=== PATIENT | female | born 1955 | race Caucasian/White ===

== ENCOUNTER → 2017-03-30 13:21 | Outpatient (CLI) | payer MEDICARE, SELFPAY ==
[2017-03-30] MEDS: Triamcinolone Acetonide 40 MG/ML Vial 30 MG IM (13:29)
[2017-03-30 13:36] VITALS: BP 127/80; PULSE 73; RESP 16; TEMP 36.7; O2SAT 98; BMI 17.6
== END ==
PROVIDERS: Family Provider Internal Medicine; PCP Internal Medicine; Visit Provider Internal Medicine Rheumatology
DX: M06.9 Rheumatoid arthritis, unspecified (principal)
CPT/HCPCS: 96372; 96413; J7050; A4216; J0129

== ENCOUNTER → 2017-05-01 14:19 | Outpatient (CLI) | payer MEDICARE, SELFPAY ==
[2017-05-01 14:20] VITALS: BP 114/82; PULSE 63; RESP 16; TEMP 36.6; O2SAT 95; BMI 17.8
[2017-05-01] MEDS: Triamcinolone Acetonide 40 MG/ML Vial 30 MG IM (14:42)
== END ==
PROVIDERS: Family Provider Internal Medicine; PCP Internal Medicine; Visit Provider Internal Medicine Rheumatology
DX: M06.9 Rheumatoid arthritis, unspecified (principal)
CPT/HCPCS: 96372; 96401; 96413; J7050; A4216; J0129

== ENCOUNTER → 2017-05-02 10:07 | Outpatient (CLI) | payer MEDICARE, SELFPAY ==
[2017-05-02 12:08] LABS: Absolute Lymphocyte Count 1.01 X10^3/ul (0.83-4.51); Absolute Neutrophil Count 2.3 X10^3/uL (2.0-7.7); Basophil# 0.02 X10^3/uL; Basophil% 0.5 % (0-1); Eosinophils% 2.4 % (0-5); Hematocrit 39.3 % (37-47); Hemoglobin 12.9 g/dl (12.0-15.0); Lymphocyte # 1.01 X10^3/ul (4.0); Mean Corp Hgb Conc 32.8 g/gl (32-36); Mean Corpuscular Hgb 31.1 pg (27.0-32.0); Mean Corpuscular Volume 94.7 fL (81-99); Mean Platelet Vol. 9.7 fl (6.2-12.0); Monocyte# 0.74 X10^3/uL; Monocyte% 17.6 % (0-10); Neutrophil # 2.33 X10^3/uL (2.7-7.7); Neutrophil % 55.5 % (47-70); Platelet Count 259 K/mm3 (150-450); RBC Distribution Width CV 13.8 % (11.6-14.6); RBC Distribution Width SD 47.5 fl (35.1-43.9); Red Blood Count 4.15 M/mm3 (4.2-5.4); White Blood Count 4.2 K/mm3 (4.4-11.0)
[2017-05-02 12:22] LABS: POSITIVE COUNT NO; POSITIVE DIFFERENTIAL NO; POSITIVE MORPHOLOGY NO
[2017-05-02 12:40] LABS: AST(SGOT) 47 U/L (15-37); Alanine Aminotransfer ALT/SGPT 69 U/L (13-56); Albumin, Serum 3.3 g/dL (3.2-5.0); Alkaline Phosphatase 72 U/L (45-117); Anion Gap 5 (5-15); BUN 15 mg/dL (7-18); BUN/Creat Ratio 22.4 RATIO (10-20); Chloride 101 mmol/L (98-107); Creatinine, Serum 0.67 mg/dL (0.55-1.02); EST Glomerular Filtration Rate 95 mL/min (>60); Est Glom Filt Rate - Afr Amer 115 mL/min (>60); Ferritin 12 ng/mL (8-252); Free T3 2.8 pg/mL (2.18-3.98); Globulin 3.4 g/dL (2.2-4.2); Glucose 92 mg/dL (74-106); Iron 53 ug/dL (50-170); Iron Binding Capacity,Total 452 ug/dL (250-450); Potassium 3.3 mmol/L (3.5-5.1); Protein, Total 6.7 g/dL (6.4-8.2); Sodium Level 138 mmol/L (136-145); T4 Free Direct 0.98 ng/dL (0.76-1.46); Thyroid Stim Hormone (TSH) 0.98 uIU/mL (0.358-3.74)
[2017-05-03 10:35] LABS: PTHIN 65.9 pg/mL (18.4-80.1)
[2017-05-03 10:39] LABS: Vitamin D,25 Hydroxy 57.7 ng/mL (19.95-100.01)
[2017-05-03 14:08] LABS: Ceruloplasmin 23.8 mg/dL (19.0-39.0); Hepatitis A AB, Total Positive (Negative); Transferrin 365 mg/dL (200-370)
[2017-05-03 14:46] LABS: Anti-Mitochondrial AB <20.0 Units (0.0-20.0)
[2017-05-03 15:30] LABS: Anti-Smooth Muscle ABS 2 Units (0-19); Hepatitis A IgM Antibody Negative (Negative)
[2017-05-05 15:22] LABS: Cholesterol 314 mg/dL (200); High Density Lipoprotein 101 mg/dL; Triglycerides 79 mg/dL; Very Low Density Lipoprotein 16 mg/dL (5-40)
== END ==
PROVIDERS: Family Provider Internal Medicine; PCP Internal Medicine; Visit Provider Internal Medicine Rheumatology
DX: M05.79 Rheumatoid arthritis with rheumatoid factor of multiple sites without organ or systems involvement (principal); M35.00 Sjogren syndrome, unspecified; M18.0 Bilateral primary osteoarthritis of first carpometacarpal joints; E05.90 Thyrotoxicosis, unspecified without thyrotoxic crisis or storm; E67.3 Hypervitaminosis D; E83.52 Hypercalcemia; E78.5 Hyperlipidemia, unspecified; R76.8 Other specified abnormal immunological findings in serum; K76.89 Other specified diseases of liver; M47.897 Other spondylosis, lumbosacral region; H81.03 Meniere's disease, bilateral; J45.909 Unspecified asthma, uncomplicated; Z79.899 Other long term (current) drug therapy
CPT/HCPCS: 36415; 80053; 80061; 82306; 82390; 82728; 83516; 83540; 83550; 83970; 84439; 84443; 84466; 84481; 85025; 86708; 86709

== ENCOUNTER 2017-05-22 13:30 | Outpatient (RCR) | payer MEDICARE, SELFPAY ==
--- NOTE | 2017-04-19 14:40 | HP.PTEVAL_ITS ---
Patient's Visit Information MASON BURK is a 61 year old F referred to Physical Therapy by DO CLARITZA Patrick with a diagnosis of LUMBAR RADICULOPATHY. Date of Evaluation: 04/19/17 Physical Therapist: Melissa King - Visit Plan Frequency: 2-3x /Week Duration: 4-6 Weeks Plan: *RA* AQUATIC THERAPY. POSTURE CORRECTION/STRENGTHENING, INSTRUCTION IN APPROPRIATE BODY MECHANICS AND ACTIVITY MODIFICATIONS. DLS STARTING WITH A NEUTRAL SPINE PROGRESSING ROM TOLERATED. RAMESH LE ROM, STRETCHING AND STRENGTHENING. HEP INSTRUCTION. 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 STATES SHE IS ADDICTED TO EXERCISE AND SHE WORKS OUT 7 DAYS A WEEK 365 DAYS A YEAR. Disability: YES FOR BACK AND HIP PAIN. Present symptoms: RAMESH LOW BACK , LEFT HIP, LEFT THIGH AND ENDS AT KNEE. SOMETIMES RIGHT THIGH TOO. PATIENT DENIES RAMESH PAIN, NUMBNESS OR TINGLING BELOW THE KNEE. PATIENT CHANGED HER MIND AND REPORTED RAMESH HAND AND FOOT NUMBNESS AND TINGLING. Present since: ABOUT 6 YEARS AGO. Pain Scale: WORST 9/10, LEAST 2/10. Currently: 5/10. WORSENING. ESPECIALLY THE LEFT THIGH PAIN IS WORSENING. Commenced as a result of: NO APPARENT REASON. Symptoms at onset: LOW BACK L>R. Worse: SITTING, EXERCISING , SQUATTING, LEANING BACK, LEANING FORWARD/BENDING, ANY SORT OF ACTIVITY, WASHING THE FLOOR, SEX. Better: TRAMADOL, WARM WATER, LYING DOWN. Disturbed sleep: YES. Previous history/Previous treatment: LEFT THR JAN [address] PATEL AT [facility] IN [place] , LUMBAR HERMES'S X [address] SHORT - THEY DID NOTHING, MASSAGE THERAPY SINCE AUGUST - HURTS WORSE THAN HELPS SO STOPPED IN FEBRUARY. CHIROPRACTOR X 1 YEAR TO 2016 - STOPPED WHEN SHE GOT THE HIP REPLACEMENT IN JAN 2017. MEDICATIONS. DR. LOUIE 2012 NO INJECTIONS BUT COMPOUND PAIN CREAM WITH SOME BENEFIT. HOME PT X 2 VISITS ONLY AFTER THR - STATES IT WAS MAKING IT WORSE SO STATES SHE JUST USED THE BOOKLET OF EX'S AND DID IT ON HER OWN. Coughing/sneezing/straining: POSTIVE. Gait: WALKING EVERYDAY ABOUT 3 MILES BUT STATES IT IS SLOWER THAN SHE WANTS TO GO AND IT HURTS THE WHOLE TIME WITH NERVE PAIN COMING INTO PLAY - I JUST KEEP GOING UNTIL IT GETS TIRED AND PAINFUL UNTIL I HAVE TO QUIT. Difficulty initiating urinatin: NO. Accidents: NO. Unexplained weight loss: NO. Imaging: RECENT LUMBAR MRI Mar WITH PATIENTS UNDERSTANDING BEING THAT SHE HAS SOME BULGING DISCS AND SOME THAT ARE PROTRUDING AND THE NERVES ARE GETTING PRESSED. PMH: *RA* OSTEOPENIA, HIGH CHOLESTEOL, NO CANCER, NO CVA, NOT DIABETIC, RAYNOLDS, SJORGENS, RAMESH HAND PAIN, NUMBNESS AND WEAKNESS. MENIERES. Recent major surgery: LEFT THR FALL 2017. 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 OTHER: WENT TO SEE AN ORTHOPEDIC SURGEON - DR. DICEKRSON - AND HE RECOMMENDED SURGERY - LAMINECTOMY AND FUSION - PATIENT SAID NO THANK YOU AND THAT IS WHY SHE IS HERE. HAS A DOCTOR IN [place] THAT SHE THINKS IS A FUNCTIONAL MEDICINE DOCTOR. THIS DOCTOR HAS PRESCRIBED EXERCISES AND SUPPLEMENTS AND DIET. 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 HE HELPED HER LE EDEMA IN 5 DAYS AFTER SUFFERING WITH IT FOR 3 YEARS. HER DAUGHTER LIVES IN [place] AND THIS IS HOW SHE FOUND HIM AND SHE SEES HIM 3-4 TIMES A YEAR. PATIENT REPORTS SHE WILL TRY ANYTHING TO AVOID SURGERY AT THIS POINT. - Objective Sitting Posture: POOR. Standing Posture: POOR. Lordosis: REDUCED. Lateral shift: NO. Relevant shift: N/A. Active Correction of posture: WORSE. Other Observations: INDEP GAIT INTO PT WITH MILD INCREASED TRUNK FLEXION AND DECREASED CADANCE. NO AD'S. Motor deficit: RIGHT HIP 4/5, KNEE EXT 5/5, KNEE FLEX 5/5, ANKLE 5/5, EHL 5/5. LEFT HIP 3+/5, KNEE EXT 4/5, KNEE FLEX 4/4, ANKLE 5/5, EHL 5/5. Sensory deficit: DECREASED LEFT ANTERIOR THIGH LIGHT TOUCH SENSATION COMPARED TO RIGHT. ROM deficit: RAMESH LE'S WFL. Reflexes: UNABLE TO ELICIT RAMESH LE DTR'S. Dural Signs: POSITIVE RAMESH LE'S. Lumbar mvmt loss: flex - NIL. ext - MOD. R SG - MOD. L SG - MOD. Core strength: FAIR. Palpation: PATIENT HAS TENDERNESS WITH LIGHT PALPATION OF THE ENTIRE LUMBAR, SACRAL, LEFT BUTTOCK, LEFT HIP AND LEFT ANTEROLATERAL THIGH. - Goals Goal 1:: DECREASE C/O BACK AND LEFT LE SX'S. Goal Time Frame: 4-6 Weeks Goal 2:: IMPROVE PERSONAL CARE, LIFTING, SITTING*, STANDING, SLEEP*, SOCIAL LIFE , TRAVEL AND HOMEMAKING FUNCTION. Goal Time Frame: 4-6 Weeks Goal 3:: INSTRUCT IN PROPHYLAXIS Goal Time Frame: 4-6 Weeks - Rehabilitation Potential Rehabilitation Potential: Fair - Anticipated Interventions Patient/Client Instruction: Educate patient on: Condition, Plan of Care, Risk Factors, Benefits of Fitness Program For the Purpose of:: To improve self management Therapeutic Exercise to Include: Strength training, Body mechanics, Postural training, In an aquatic setting, Dynamic Lumbar Stabilization For the Purpose of:: To improve ability of physical actions for home/community/ work/leisure Thank you for the opportunity to evaluate your patient. For Medicare and Medicare HMO plans, please review the plan of care and approve it. It will need to be FAXED BACK to us at [phone] for Medicare purposes. Please let me know if there are questions or concerns regarding this plan of care. Physician Signature: Date:
--- NOTE | 2017-05-22 16:02 | HP.PTDCSUM_ITS ---
HP - PT D/C Summary It has been my pleasure to treat MASON BURK under orders from Radha Cortez DO, for the diagnosis of LUMBAR RADICULOPATHY for a total of 10 visit(s ). Discharge Date: Please see the following information for a summary of their discharge status. - Subjective Subjective: PATIENT REPORTS SHE IS ON AN ANTIBIOTIC FOR A SINUS INFFECTION. PATIENT REPORTS THE US REALLY HELPS. SHE FEELS LIKE THE EX'S ARE HELPING HER GET STRONGER ESPECIALLY IN HER LEFT LEG AND SHE FEELS LIKE SHE WILL CONTINUE TO GET STRONGER. SHE STATES SHE FEELS LIKE SHE HAS BEEN IN GOOD HANDS WITH US TO PROTECT HER BACK SHE GETS STRONGER. SHE REPORTS SHE IS HAPPIER MENTALLY DOING THESE EX'S INSTEAD OF BEATING HERSELF UP LIKE SHE WAS. SHE REPORTS SHE FEELS SHE IS WORKING MUCH SMARTER. SHE REPORTS SHE FEELS GOOD ABOUT TRYING TO CONTINUE ON HER OWN AT THIS TIME. PLANS TO HAVE A PHYSICAL WITH DR. CORTEZ SOON. I AM DEFINATELY HEADED THE RIGHT DIRECTION NOW. PATIENT REPORTS THAT EVEN IF SHE DOES HAVE TO HAVE BACK SURGERY SHE FEELS LIKE SHE WILL GO IN STRONGER THAN SHE OTHERWISE WOULD HAVE. - Pain LOW BACK/HIPS Pain Intensity (Out of 10): 4 LEFT THIGH Pain Intensity (Out of 10): 3 - Objective Objective/Function: PATIENT IS MAKING GOOD PROGRESS AND HAS MUCH BETTER POSTURE CONTROL AND DEMONSTRATES A GOOD UNDERSTANDING OF PROPER BODY MECHANICS NOW. Motor deficit: RIGHT HIP 4/5, KNEE EXT 5/5, KNEE FLEX 5/5, ANKLE 5/5, EHL 5/5. LEFT HIP 4-/5, KNEE EXT 4+/5, KNEE FLEX 4+/4, ANKLE 5/5, EHL 5/5. Sensory deficit: SYMMETRICAL LEFT ANTERIOR THIGH LIGHT TOUCH SENSATION COMPARED TO RIGHT NOW. ROM deficit: RAMESH LE'S WFL. Reflexes: UNABLE TO ELICIT RAMESH LE DTR' S. Dural Signs: NEGATIVE RAMESH LE'S NOW. Lumbar mvmt loss: flex - NIL. ext - MOD. R SG - MOD. L SG - MOD. PATIENT DENIES INCEASED PAIN WITH LUMBAR ROM TESTING INTO FLEX AND EXTENSION BUT RAMESH SG TESTING PROVOKES INCREASED PAIN AND DOES NOT REMAIN WORSE A RESULT. Core strength: FAIR WITH CONTROL INCREASING. Palpation: PATIENT DOES NOT HAVE TENDERNESS WITH PALPATION OF THE ENTIRE LUMBAR, SACRAL, LEFT BUTTOCK, LEFT HIP AND LEFT ANTEROLATERAL THIGH TODAY. - Goals Goal 1:: DECREASE C/O BACK AND LEFT LE SX'S. Goal Progress: Goal Met Goal 2:: IMPROVE PERSONAL CARE, LIFTING, SITTING*, STANDING, SLEEP*, SOCIAL LIFE , TRAVEL AND HOMEMAKING FUNCTION. Goal Progress: Goal Met Goal 3:: INSTRUCT IN PROPHYLAXIS Goal Progress: Goal Met - Plan Plan: D/C TO INDEP HEP. PATIENT IS AGREEABLE. - D/C Information If there are questions or concerns regarding this patient's physical therapy, please feel free to call me at [phone]. Thank you for the referral of this patient. Sincerely, Melissa King
== END 2017-05-22 19:00 | disposition home or self-care (01) ==
LOC: PT 13:30
PROVIDERS: Family Provider Internal Medicine; PCP Internal Medicine; Visit Provider Internal Medicine
DX: M54.16 Radiculopathy, lumbar region (principal)
CPT/HCPCS: 97035; 97110; 97162; 97530

== ENCOUNTER → 2017-05-29 14:02 | Outpatient (CLI) | payer MEDICARE, SELFPAY ==
[2017-05-29 14:13] VITALS: BP 105/63; PULSE 80; RESP 18; TEMP 36.3; O2SAT 100; BMI 17.6
[2017-05-29] MEDS: Triamcinolone Acetonide 40 MG/ML Vial 30 MG IM (14:35)
== END ==
PROVIDERS: Family Provider Internal Medicine; PCP Internal Medicine; Visit Provider Internal Medicine Rheumatology
DX: M06.9 Rheumatoid arthritis, unspecified (principal)
CPT/HCPCS: 96372; 96413; J7050; A4216; J0129

== ENCOUNTER → 2017-06-06 14:40 | Outpatient (CLI) | payer MEDICARE, SELFPAY ==
[2017-06-06 18:23] LABS: AST(SGOT) 49 U/L (15-37); Alanine Aminotransfer ALT/SGPT 66 U/L (13-56); Albumin, Serum 3.5 g/dL (3.2-5.0); Alkaline Phosphatase 79 U/L (45-117); Bilirubin, Direct 0.12 mg/dL (0.00-0.30); Globulin 3.4 g/dL (2.2-4.2); Protein, Total 6.9 g/dL (6.4-8.2)
== END ==
PROVIDERS: Family Provider Internal Medicine; PCP Internal Medicine; Visit Provider Internal Medicine Rheumatology
DX: M05.79 Rheumatoid arthritis with rheumatoid factor of multiple sites without organ or systems involvement (principal); M35.00 Sjogren syndrome, unspecified; M18.0 Bilateral primary osteoarthritis of first carpometacarpal joints; M47.897 Other spondylosis, lumbosacral region; H81.03 Meniere's disease, bilateral; E78.5 Hyperlipidemia, unspecified; J45.909 Unspecified asthma, uncomplicated; Z79.899 Other long term (current) drug therapy
CPT/HCPCS: 36415; 80076

== ENCOUNTER → 2017-06-19 13:46 | Outpatient (CLI) | payer MEDICARE, SELFPAY ==
--- NOTE | 2017-06-19 13:49 | RAD_ITS ---
STUDY: X-RAY LEFT FOOT, FOURTH TOE REASON FOR EXAM: Female, 61 years old. Ulceration. TECHNIQUE: 3 view(s) of the toe were obtained. COMPARISON: None. FINDINGS: Normal visualized metatarsus. Normal metatarsophalangeal (M.T.P) joint. Normal interphalangeal joints. Normal phalanges and interphalangeal joints. Soft tissue swelling overlying the fourth toe. No bony abnormality is seen. RAD/Toe(s) Min 2 Views IMPRESSION: Soft tissue swelling. Electronically Signed: Shreyas Garcia MD at 14:12 EDT Tel [phone], Service support ,
== END ==
PROVIDERS: Family Provider Internal Medicine; PCP Internal Medicine; Visit Provider Internal Medicine
DX: L97.521 Non-pressure chronic ulcer of other part of left foot limited to breakdown of skin (principal)
CPT/HCPCS: 73660

== ENCOUNTER → 2017-06-30 15:34 | Outpatient (CLI) | payer MEDICARE, SELFPAY ==
[2017-06-30 15:35] VITALS: BP 127/84; PULSE 86; RESP 14; TEMP 36.7; O2SAT 98; BMI 18.1
[2017-06-30] MEDS: Triamcinolone Acetonide 40 MG/ML Vial 30 MG IM ×2 (16:07→16:29)
== END ==
PROVIDERS: Family Provider Internal Medicine; PCP Internal Medicine; Visit Provider Internal Medicine Rheumatology
DX: M06.9 Rheumatoid arthritis, unspecified (principal)
CPT/HCPCS: 96372; J7040; A4216; J0129

== ENCOUNTER → 2017-07-18 15:30 | Outpatient (CLI) | payer MEDICARE, SELFPAY ==
[2017-07-18 17:50] LABS: Absolute Lymphocyte Count 1.04 X10^3/ul (0.83-4.51); Absolute Neutrophil Count 4.6 X10^3/uL (2.0-7.7); Basophil# 0.03 X10^3/uL; Basophil% 0.5 % (0-1); Eosinophil# 0.05 X10^3/uL; Eosinophils% 0.8 % (0-5); Hematocrit 40.9 % (37-47); Hemoglobin 13.7 g/dl (12.0-15.0); Lymphocyte # 1.04 X10^3/ul (4.0); Lymphocyte % 16.4 % (19-41); Mean Corp Hgb Conc 33.5 g/gl (32-36); Mean Corpuscular Hgb 30.7 pg (27.0-32.0); Mean Corpuscular Volume 91.7 fL (81-99); Monocyte# 0.68 X10^3/uL; Monocyte% 10.7 % (0-10); Neutrophil # 4.55 X10^3/uL (2.7-7.7); Neutrophil % 71.6 % (47-70); Platelet Count 314 K/mm3 (150-450); RBC Distribution Width CV 13.8 % (11.6-14.6); RBC Distribution Width SD 45.9 fl (35.1-43.9); Red Blood Count 4.46 M/mm3 (4.2-5.4); White Blood Count 6.4 K/mm3 (4.4-11.0)
[2017-07-18 17:51] LABS: POSITIVE COUNT NO; POSITIVE DIFFERENTIAL NO; POSITIVE MORPHOLOGY NO
[2017-07-18 18:07] LABS: ALB/GLOB Ratio 1.1 RATIO (0.9-2.4); AST(SGOT) 50 U/L (15-37); Alanine Aminotransfer ALT/SGPT 66 U/L (13-56); Albumin, Serum 3.7 g/dL (3.2-5.0); Alkaline Phosphatase 69 U/L (45-117); Anion Gap 6 (5-15); BUN 18 mg/dL (7-18); BUN/Creat Ratio 22.5 RATIO (10-20); Calcium,Total 9.1 mg/dL (8.5-10.1); Chloride 97 mmol/L (98-107); EST Glomerular Filtration Rate 77 mL/min (>60); Est Glom Filt Rate - Afr Amer 94 mL/min (>60); Globulin 3.4 g/dL (2.2-4.2); Glucose 91 mg/dL (74-106); Potassium 2.9 mmol/L (3.5-5.1); Protein, Total 7.1 g/dL (6.4-8.2); Sodium Level 139 mmol/L (136-145)
== END ==
PROVIDERS: Family Provider Internal Medicine; PCP Internal Medicine; Visit Provider Internal Medicine Rheumatology
DX: M05.79 Rheumatoid arthritis with rheumatoid factor of multiple sites without organ or systems involvement (principal); M18.0 Bilateral primary osteoarthritis of first carpometacarpal joints; M35.00 Sjogren syndrome, unspecified; Z79.899 Other long term (current) drug therapy
CPT/HCPCS: 36415; 80053; 85025

== ENCOUNTER → 2017-07-27 14:09 | Outpatient (CLI) | payer MEDICARE, SELFPAY ==
[2017-07-27 14:14] VITALS: BP 113/83; PULSE 72; RESP 14; TEMP 37.3; O2SAT 99; BMI 18.5
[2017-07-27] MEDS: Triamcinolone Acetonide 40 MG/ML Vial 30 MG IM (14:24)
== END ==
PROVIDERS: Family Provider Internal Medicine; PCP Internal Medicine; Visit Provider Internal Medicine Rheumatology
DX: M06.9 Rheumatoid arthritis, unspecified (principal)
CPT/HCPCS: 96372; 96413; J7040; A4216; J0129

== ENCOUNTER → 2017-07-28 12:58 | Outpatient (CLI) | payer MEDICARE, SELFPAY ==
--- NOTE | 2017-07-28 13:06 | ADUL_ITS ---
Reason For Study: ATHEROSCLEROSIS, RAYNAUDS Right Velocities Ext. Iliac Artery, dist = 133.0 cm./sec. Common Femoral Artery, mid = 66.3 cm./sec. Supf Femoral Artery, prox = 75.0 cm./sec. Supf Femoral Artery, mid = 75.6 cm./sec. Supf Femoral Artery, dist. = 65.7 cm./sec. Profunda Femoral Artery = 66.8 cm./sec. Popliteal Artery, prox. = 46.3 cm./sec. Popliteal Artery, mid = 45.1 cm./sec. Popliteal Artery, dist = 38.7 cm./sec. Post. Tibial Artery, prox = 50.4 cm./sec. Post. Tibial Artery, mid = 62.7 cm./sec. Post. Tibial Artery, dist = 67.4 cm./sec. Peroneal Artery, prox = 28.3 cm./sec. Peroneal Artery, mid = 30.6 cm./sec. Peroneal Artery,dist = 39.3 cm./sec. Ant. Tibial Artery, prox = 39.7 cm./sec. Ant. Tibial Artery, mid = 47.1 cm./sec. Ant. Tibial Artery, dist = 43.6 cm./sec. Procedure The exam was diagnostic. Exam performed in department. Interpretation Summary 1. righ leg with no stenosis sen and triphasic flow seen throughout.,. Ordering Physician: Garcia oTrres Referring Physician: Radha Haas D.O. Performed By: Katlyn Berg, LENNY, RVT
--- NOTE | 2017-08-02 08:32 | LEAS ---
Arterial Study - Arterial Study Arterial Study: Record number: [id number] next Date of scan 07/28/[address] Torres History patient with atherosclerosis and possible were nods with some known hyperlipidemia. Interpretation: Right lower extremity normal pulsatile flow noted at the ankle slightly peaked waveforms adequate waveform out to the digits. Duplex shows triphasic flow at the ankle. NISH 1.23 the posterior tib 1.27 of the dorsalis pedis. Digital brachial index 0.97 next Remedy with normal pulsatile flow noted at the ankle slightly peaked waveforms. Normal waveform out through the digits. Duplex shows triphasic flow both vessels with an NISH 1.27 posterior tibial 1.15 the dorsalis pedis. Digital brachial index 0.74. Impression: 1. Right lower extremity no evidence of significant arterial occlusive disease with triphasic flow and an NISH 1.27 and a normal digit brachial index 0.97. 2. Left lower extremity no evidence of significant arterial occlusive disease at rest with an NISH of 1.27 and triphasic flow in the digit brachial index 0.74.
== END ==
PROVIDERS: Family Provider Internal Medicine; PCP Internal Medicine; Visit Provider Surgery Vascular Surgery
DX: I70.245 Atherosclerosis of native arteries of left leg with ulceration of other part of foot (principal); I73.00 Raynaud's syndrome without gangrene
CPT/HCPCS: 93922; 93926

== ENCOUNTER → 2017-08-10 13:29 | Outpatient (CLI) | payer MEDICARE, SELFPAY ==
--- NOTE | 2017-08-10 13:34 | BD_ITS ---
STUDY: DUAL ENERGY X-RAY ABSORPTIOMETRY / DXA REASON FOR EXAM: Female, 62 years old. The patient is postmenopausal. Loss of height. TECHNIQUE: Bone Mineral Density (BMD) measurements of lumbar spine and right hip were obtained. The patient is status post left hip replacement. COMPARISON: None. FINDINGS: Lumbar Spine (L1-L4): g/cm2 (0.884) / T-score (-2.4) / Z-score (-1.1) Findings are suggestive of osteopenia with a moderate fracture risk. Increased thoracic kyphosis. Right Femur Total: g/cm2 (0.721) / T-score (-2.3) / Z-score (-1.3) Right Femoral Neck: g/cm2 (0.672) / T-score (-2.6) / Z-score (-1.3) BD/Dexa Bone Density Study IMPRESSION: The patient is considered osteoporotic as outlined below according to World Geoff Organization (WHO) criteria with a high fracture risk. Reference Information: The T-score is the number of standard deviations above or below the standard which is normal for young adults at their peak bone mineral density. The World Health Organization (WHO) interprets the T-scores as follows: Above -1 Normal bone density Between -1 and -2.5 Osteopenia Equal to / or below -2.5 Osteoporosis As a practical clinical guideline, osteopenia may be graded as follows: Mild -1 through -1.5 Moderate -1.6 through -2.0 Severe -2.1 through -2.4 The Z-score is the number of standard deviations above or below age-matched controls. A Z-score of less than -1.5 would be considered abnormal. References: 1. NIH Osteoporosis and Related Bone Diseases http://www.osteo.org 2. International Society for Clinical Densitometry http://www.iscd.org 3. National Osteoporosis Foundation http://www.nof.org Electronically Signed: Shreyas Garcia MD at 14:58 EDT Tel [phone], Service support ,
== END ==
PROVIDERS: Family Provider Internal Medicine; PCP Internal Medicine; Visit Provider Internal Medicine
DX: M81.0 Age-related osteoporosis without current pathological fracture (principal); Z78.0 Asymptomatic menopausal state
CPT/HCPCS: 77080

== ENCOUNTER → 2017-08-28 13:46 | Outpatient (CLI) | payer MEDICARE, SELFPAY ==
[2017-08-28] MEDS: Triamcinolone Acetonide 40 MG/ML Vial 30 MG IM (14:09)
[2017-08-28 14:21] VITALS: BP 131/76; PULSE 65; RESP 16; TEMP 36.7; O2SAT 95; BMI 18.5
== END ==
PROVIDERS: Family Provider Internal Medicine; PCP Internal Medicine; Visit Provider Internal Medicine Rheumatology
DX: M06.9 Rheumatoid arthritis, unspecified (principal)
CPT/HCPCS: 96372; 96401; 96413; J7050; A4216; J0129

== ENCOUNTER → 2017-09-21 14:00 | Outpatient (CLI) | payer MEDICARE, SELFPAY ==
[2017-09-21 14:16] VITALS: BP 107/74; PULSE 72; RESP 16; TEMP 36.8; BMI 18.1
[2017-09-21] MEDS: Triamcinolone Acetonide 40 MG/ML Vial 30 MG IM (14:24)
== END ==
PROVIDERS: Family Provider Internal Medicine; PCP Internal Medicine; Visit Provider Internal Medicine Rheumatology
DX: M06.9 Rheumatoid arthritis, unspecified (principal)
CPT/HCPCS: 96372; 96413; J7050; A4216; J0129

== ENCOUNTER → 2017-10-16 13:00 | Outpatient (CLI) | payer MEDICARE, SELFPAY ==
[2017-10-16 13:46] LABS: Absolute Lymphocyte Count 0.69 X10^3/ul (0.83-4.51); Absolute Neutrophil Count 3.9 X10^3/uL (2.0-7.7); Basophil# 0.02 X10^3/uL; Basophil% 0.4 % (0-1); Eosinophil# 0.04 X10^3/uL; Eosinophils% 0.8 % (0-5); Hematocrit 41.3 % (37-47); Hemoglobin 13.3 g/dl (12.0-15.0); Lymphocyte # 0.69 X10^3/ul (4.0); Lymphocyte % 13.3 % (19-41); Mean Corp Hgb Conc 32.2 g/gl (32-36); Mean Corpuscular Hgb 29.1 pg (27.0-32.0); Mean Corpuscular Volume 90.4 fL (81-99); Mean Platelet Vol. 9.5 fl (6.2-12.0); Monocyte# 0.51 X10^3/uL; Monocyte% 9.8 % (0-10); Neutrophil # 3.92 X10^3/uL (2.7-7.7); Neutrophil % 75.7 % (47-70); Platelet Count 265 K/mm3 (150-450); RBC Distribution Width CV 13.8 % (11.6-14.6); RBC Distribution Width SD 45.4 fl (35.1-43.9); Red Blood Count 4.57 M/mm3 (4.2-5.4); White Blood Count 5.2 K/mm3 (4.4-11.0)
[2017-10-16 13:52] LABS: POSITIVE COUNT NO; POSITIVE DIFFERENTIAL NO; POSITIVE MORPHOLOGY NO
[2017-10-16 14:05] LABS: ALB/GLOB Ratio 1.1 RATIO (0.9-2.4); AST(SGOT) 56 U/L (15-37); Alanine Aminotransfer ALT/SGPT 75 U/L (13-56); Albumin, Serum 3.5 g/dL (3.2-5.0); Alkaline Phosphatase 66 U/L (45-117); Anion Gap 8 (5-15); BUN 8 mg/dL (7-18); Calcium,Total 9.1 mg/dL (8.5-10.1); Chloride 95 mmol/L (98-107); EST Glomerular Filtration Rate 78 mL/min (>60); Est Glom Filt Rate - Afr Amer 94 mL/min (>60); Globulin 3.2 g/dL (2.2-4.2); Glucose 86 mg/dL (74-106); Potassium 2.9 mmol/L (3.5-5.1); Protein, Total 6.7 g/dL (6.4-8.2); Sodium Level 139 mmol/L (136-145)
== END ==
PROVIDERS: Family Provider Internal Medicine; PCP Internal Medicine; Visit Provider Internal Medicine Rheumatology
DX: M05.79 Rheumatoid arthritis with rheumatoid factor of multiple sites without organ or systems involvement (principal); M35.00 Sjogren syndrome, unspecified; M15.9 Polyosteoarthritis, unspecified; M18.0 Bilateral primary osteoarthritis of first carpometacarpal joints; M47.897 Other spondylosis, lumbosacral region; H81.03 Meniere's disease, bilateral; E78.5 Hyperlipidemia, unspecified; J45.909 Unspecified asthma, uncomplicated; Z79.899 Other long term (current) drug therapy
CPT/HCPCS: 36415; 80053; 85025

== ENCOUNTER → 2017-10-30 14:25 | Outpatient (CLI) | payer MEDICARE, SELFPAY ==
[2017-10-30 14:33] VITALS: BP 122/97; PULSE 76; RESP 18; TEMP 36.9; O2SAT 100; BMI 18.5
[2017-10-30] MEDS: Triamcinolone Acetonide 40 MG/ML Vial 30 MG IM (14:58)
== END ==
PROVIDERS: Family Provider Internal Medicine; PCP Internal Medicine; Visit Provider Internal Medicine Rheumatology
DX: M06.9 Rheumatoid arthritis, unspecified (principal)
CPT/HCPCS: 96372; 96413; J7050; A4216; J0129

== ENCOUNTER → 2017-11-21 15:20 | Outpatient (CLI) | payer MEDICARE, SELFPAY ==
--- NOTE | 2017-11-21 15:22 | BI_ITS ---
MAMMOGRAPHY - BILATERAL SCREENING REASON FOR EXAM: Female, 62 years old. Routine annual screening examination. PERTINENT HISTORY: Non-contributory. TECHNIQUE: Digital bilateral breast ariadna (3D mammographic acquisition) in the CC and MLO projections. 2-D mediolateral oblique (MLO) and craniocaudad (CC) views of both breasts were obtained. CAD: Full Field Digital Mammography with Computer Added Detection was performed. COMPARISON: Comparison is made with prior study dated October 06, 2016 and October 23, 2012. FINDINGS: Breast Composition: The breasts are extremely dense, which lowers the sensitivity of mammography. There are no dominant masses or suspicious calcifications. No other significant abnormalities are identified. There has been no significant change since the prior study. BI/SCREENING MAMM (CAD), BILAT IMPRESSION: Stable bilateral screening mammogram. Yearly follow-up mammogram recommended. (A) ASSESSMENT CATEGORY: BIRADS Category 1: Negative. A letter regarding these results will be sent to the patient by the facility within 30 days. Approximately 10% of breast cancers are not detected by mammography. A normal mammogram should not delay biopsy of a clinically suspicious abnormality. [id number] Electronically Signed: Shreyas Garcia MD at 12:28 EDT Tel [phone], Service support ,
== END ==
PROVIDERS: Family Provider Internal Medicine; PCP Internal Medicine; Visit Provider Internal Medicine
DX: Z12.31 Encounter for screening mammogram for malignant neoplasm of breast (principal)
CPT/HCPCS: 77063; 77067

== ENCOUNTER → 2017-11-23 13:00 | Outpatient (CLI) | payer MEDICARE, SELFPAY ==
[2017-11-23] MEDS: Triamcinolone Acetonide 40 MG/ML Vial 30 MG IM (13:33)
[2017-11-23 13:35] VITALS: BP 132/85; PULSE 71; RESP 15; TEMP 37.3; O2SAT 96; BMI 18.3
== END ==
PROVIDERS: Family Provider Internal Medicine; PCP Internal Medicine; Visit Provider Internal Medicine Rheumatology
DX: M06.9 Rheumatoid arthritis, unspecified (principal)
CPT/HCPCS: 96372; 96413; J7050; A4216; J0129

== ENCOUNTER → 2017-12-11 12:00 | Outpatient (CLI) | payer MEDICARE, SELFPAY ==
[2017-12-11 14:08] LABS: Absolute Lymphocyte Count 1.09 X10^3/ul (0.83-4.51); Absolute Neutrophil Count 6.3 X10^3/uL (2.0-7.7); Basophil# 0.01 X10^3/uL; Basophil% 0.1 % (0-1); Eosinophil# 0.02 X10^3/uL; Eosinophils% 0.3 % (0-5); Hematocrit 44.7 % (37-47); Hemoglobin 15.1 g/dl (12.0-15.0); Lymphocyte # 1.09 X10^3/ul (4.0); Lymphocyte % 13.8 % (19-41); Mean Corp Hgb Conc 33.8 g/gl (32-36); Mean Corpuscular Hgb 30.4 pg (27.0-32.0); Mean Corpuscular Volume 89.9 fL (81-99); Mean Platelet Vol. 9.7 fl (6.2-12.0); Monocyte# 0.53 X10^3/uL; Monocyte% 6.7 % (0-10); Neutrophil # 6.26 X10^3/uL (2.7-7.7); Platelet Count 318 K/mm3 (150-450); RBC Distribution Width CV 15.5 % (11.6-14.6); RBC Distribution Width SD 50.4 fl (35.1-43.9); Red Blood Count 4.97 M/mm3 (4.2-5.4); White Blood Count 7.9 K/mm3 (4.4-11.0)
[2017-12-11 14:16] LABS: AST(SGOT) 40 U/L (15-37); Alanine Aminotransfer ALT/SGPT 72 U/L (13-56); Albumin, Serum 3.7 g/dL (3.2-5.0); Alkaline Phosphatase 69 U/L (45-117); Anion Gap 10 (5-15); BUN 10 mg/dL (7-18); BUN/Creat Ratio 12.9 RATIO (10-20); Calcium,Total 9.5 mg/dL (8.5-10.1); Chloride 96 mmol/L (98-107); Creatinine, Serum 0.78 mg/dL (0.55-1.02); EST Glomerular Filtration Rate 80 mL/min (>60); Est Glom Filt Rate - Afr Amer 97 mL/min (>60); Globulin 3.6 g/dL (2.2-4.2); Glucose 108 mg/dL (74-106); Potassium 3.1 mmol/L (3.5-5.1); Protein, Total 7.3 g/dL (6.4-8.2); Sodium Level 139 mmol/L (136-145)
[2017-12-11 14:19] LABS: POSITIVE COUNT NO; POSITIVE DIFFERENTIAL NO; POSITIVE MORPHOLOGY NO
== END ==
PROVIDERS: Family Provider Internal Medicine; PCP Internal Medicine; Referring Provider Internal Medicine Rheumatology; Visit Provider Internal Medicine Rheumatology
DX: M05.79 Rheumatoid arthritis with rheumatoid factor of multiple sites without organ or systems involvement (principal); M35.00 Sjogren syndrome, unspecified; M18.0 Bilateral primary osteoarthritis of first carpometacarpal joints; M47.897 Other spondylosis, lumbosacral region; H81.03 Meniere's disease, bilateral; E78.5 Hyperlipidemia, unspecified; J45.909 Unspecified asthma, uncomplicated; Z79.899 Other long term (current) drug therapy
CPT/HCPCS: 36415; 80053; 85025

== ENCOUNTER → 2017-12-28 14:08 | Outpatient (CLI) | payer MEDICARE, SELFPAY ==
[2017-12-28 14:21] VITALS: BP 129/89; PULSE 79; RESP 18; TEMP 36.7; O2SAT 97
[2017-12-28] MEDS: Triamcinolone Acetonide 40 MG/ML Vial 30 MG IM (14:33)
== END ==
PROVIDERS: Family Provider Internal Medicine; PCP Internal Medicine; Referring Provider Internal Medicine Rheumatology; Visit Provider Internal Medicine Rheumatology
DX: M06.9 Rheumatoid arthritis, unspecified (principal)
CPT/HCPCS: 96372; 96413; J7050; A4216; J0129

== ENCOUNTER → 2018-01-10 18:34 | Outpatient (CLI) | payer MEDICARE, SELFPAY ==
[2018-01-10 19:05] LABS: Body Fluid QC Type(s) BF1Q; Source- Body Fluid SYNOVIAL
[2018-01-11 14:18] LABS: Pathologist Review Reviewed
== END ==
PROVIDERS: Family Provider Internal Medicine; PCP Internal Medicine; Referring Provider Podiatrist; Visit Provider Podiatrist
DX: M67.471 Ganglion, right ankle and foot (principal)
CPT/HCPCS: 87070; 87075; 87205; 89060

== ENCOUNTER → 2018-01-24 11:27 | Outpatient (CLI) | payer MEDICARE, SELFPAY ==
[2017-11-23 13:35] VITALS: BMI 18.3
--- NOTE | 2018-01-24 11:31 | RAD_ITS ---
STUDY: X-RAY - CERVICAL SPINE REASON FOR EXAM: Female, 62 years old. Right shoulder pain. History of rheumatoid arthritis. Arm weakness. TECHNIQUE: 5 view(s) of the cervical spine were obtained. COMPARISON: None FINDINGS: Normal anterior atlantoaxial articulation. Normal odontoid process. Straightening. 4 mm retrolisthesis of C5 on C6. Spondylosis and severe degenerative disc changes at C3-C4, C4-C5, and C5-C6. There is narrowing of the right neural foramina at C3-C4 and the left neural foramina at C2-C3, C3-C4, and C4-C5. The soft tissue structures are unremarkable. There is no demonstrated fracture of the cervical spine. RAD/Cerv Spine 4 or 5 Views IMPRESSION: No acute fracture or dislocation. Moderate to severe multilevel degenerative changes of the mid cervical spine. Electronically Signed: Perico Stewart MD at 10:36 EST , Service support ,
--- NOTE | 2018-01-24 11:31 | RAD_ITS ---
STUDY: X-RAY - RIGHT SHOULDER REASON FOR EXAM: Female, 62 years old. Right shoulder pain TECHNIQUE: 4 view(s) of the shoulder. COMPARISON: None. FINDINGS: Normal glenohumeral articulation. Normal acromioclavicular joint. Normal acromion. Normal humeral head and visualized proximal humerus. The soft tissue structures are unremarkable. There is no demonstrated fracture. Normal visualized pulmonary apex. RAD/Shoulder min 2 Views IMPRESSION: Normal x-ray examination of the shoulder. Electronically Signed: Perico Stewart MD at 10:42 EST , Service support ,
== END ==
PROVIDERS: Family Provider Internal Medicine; PCP Internal Medicine; Referring Provider Internal Medicine; Visit Provider Internal Medicine
DX: M79.601 Pain in right arm (principal)
CPT/HCPCS: 72050; 73030

== ENCOUNTER → 2018-01-29 14:08 | Outpatient (CLI) | payer MEDICARE, SELFPAY ==
[2018-01-29] MEDS: Triamcinolone Acetonide 40 MG/ML Vial 30 MG IM (14:33)
[2018-01-29 14:58] VITALS: BP 120/81; PULSE 70; RESP 16; TEMP 36.6
== END ==
PROVIDERS: Family Provider Internal Medicine; PCP Internal Medicine; Referring Provider Internal Medicine Rheumatology; Visit Provider Internal Medicine Rheumatology
DX: M06.9 Rheumatoid arthritis, unspecified (principal)
CPT/HCPCS: 96372; 96413; J7050; A4216; J0129

== ENCOUNTER → 2018-02-26 14:00 | Outpatient (CLI) | payer MEDICARE, SELFPAY ==
[2018-02-26] MEDS: Triamcinolone Acetonide 40 MG/ML Vial 30 MG IM (14:29)
[2018-02-26 14:39] VITALS: BP 112/78; PULSE 76; RESP 16; TEMP 36.2; O2SAT 100; BMI 18.7
--- OUTSIDE RECORDS SUMMARY | 2018-05-31 05:48 | XMS RPT_ITS | Continuity of Care Document ---
:1955 Author Organization [facility] Address [facility] [address] [place] [address] Phone Care Team Providers Name Role Phone Quintin Rueda CNP Unavailable Kermit Cortez DO Unavailable Dr. Brian Shepherd MD Unavailable Dr. Dev Self DO Unavailable Dr. Cam Kaufman Unavailable MD Alex, Rik Newell Unavailable Coral CORTES, Higinio Kiser Unavailable Dr. Marquise Rico Unavailable Derrick Ring Unavailable Katina Mathur Unavailable Unavailable Unavailable Unavailable Problems Name Dates Details Abnormal hepatitis serology (R76.8, 795.79) Status: Active Acute bacterial sinusitis (J01.90, 461.9) Status: Active Acute ear pain, right (H92.01, 388.70) Status: Active Acute recurrent maxillary sinusitis (J01.01, 461.0) Status: Active Acute sinusitis (J01.90, 461.9) Status: Active Acute sinusitis (J01.90, 461.9) Status: Active Allergic rhinitis (J30.9, 477.9) Status: Active Arm pain, right (M79.601, 729.5) Status: Active BMI less than 19,adult (Z68.1, V85.0) Status: Active Deliveries (Parity) Comments: 5. 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) Comments: improving Status: Active Fatigue (R53.83, 780.79) Status: Active Ganglion cyst of foot (M67.479, 727.43) Status: Active Hearing loss (H91.90, 389.9) Comments: since childhood,heriditary Status: Active Hepatomegaly (R16.0, 789.1) Comments: has high iron levels she will stop her iron and recheck - so we can rule out hemochromatosis Status: Active Hypercalcemia (E83.52, 275.42) Status: Active Hyperthyroidism (E05.90, 242.90) Comments: improving still discussed importance of normalizing as higer risk of thinning of bones arrhythmia but 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 Status: Active Hyperthyroidism (E05.90, 242.90) Status: Active Hypokalemia (E87.6, 276.8) Comments: recheck today Status: Active Left flank pain (R10.9, 789.09) Comments: left abdominal pain Status: Active Liver function abnormality (K76.89, 573.9) Comments: better Status: Active Lumbar radiculopathy (M54.16, 724.4) Status: Active Lymphedema (I89.0, 457.1) Status: Active [facility] WELLNESS EXAM Status: Active Neoplasm of uncertain behavior of skin (D48.5, 238.2) Status: Active Nonsmoker (Z78.9, V49.89) Status: Active Osteopenia (M85.80, 733.90) Comments: 05/26 Status: Active Osteoporosis (M81.0, 733.00) Comments: told her really n eeds to get thyroid under control as it is thinning her bones Status: Active Osteoporosis (733.00) Status: Active Postmenopausal (Renamed from Postmenopausal status) (Z78.0, V49.81) Status: Active Pregnancies () Comments: 5. Status: Active Raynaud's phenomenon without gangrene (I73.00, 443.0) Status: Active Rheumatoid arthritis (M06.9, 714.0) Status: Active Sinusitis, acute (J01.90, 461.9) Status: Active Skin ulcer of fourth toe, left, limited to breakdown of skin (L97.521, 707.15) Comments: better was raynuads ulcer Status: Active Sore throat (J02.9, 462) Comments: not red and doesnt have today - question mono /? drainage Status: Active Squamous carcinoma (C44.92, 199.1) Status: Active Unknown skin lesion (L98.9, 709.9) Status: Active Unspecified Diagnosis Status: Active Vertigo, benign positional (H81.10, 386.11) Status: Active Vitamin D intoxication (E67.3, 278.4) Comments: better Status: Active Medications Name Dates Details AC Glutathione Active 2 caps tid Comments: detoxification and immune support Benadryl Allergy 25 MG Oral Capsule 1 (one) Capsule Capsule as needed for 0 days Quantity: 30 {Capsule} Refills: 0 Ordered:28-Feb-2017 Quintin Rueda CNP Start : 30-Mar-2016 Active Comments:Medication taken as needed. Biotin 89469 MCG Oral Tablet qd (07422 MCG) Active Calcium Magnesium 750 300-300 MG Oral Tablet 1 (one) Tablet Tablet daily for 0 days Quantity: 30 {Tablet} Refills: 0 Ordered:28-Feb-2017 Quintin Rueda CNP Start : 30-Mar-2016 Active Clearite Shake 1 scoop bid Active Comments:supports detoxification Dymista 137-50 MCG/ACT Nasal Suspension 1 (one) Jarreau each nostril twice daily for 0 days Quantity: 3 {Jarreau} Refills: 3 Ordered:21-Nov-2017 Kermit Cortez DO Start : 21-Nov-2017 Active Comments:QS for 90 days Enzymix Pro 2 caps 3 times a day Active Comments:broad spectrum enzyme aids in digestion Furosemide 20 MG Oral Tablet 1 (one) Tablet qd for 90 days Quantity: 90 {Tablet} Refills: 3 Ordered:20-Dec-2017 Kermit Cortez DO Start : 20-Dec-2017 Active Kenalog 40 MG/ML Injection Suspension 1 shot once a month (40 MG/ML) Active Lidocaine 5 % External Patch 1 (one) Patch Patch up to 3 patches daily for 0 days Quantity: 90 {Patch} Refills: 0 Ordered:28-Feb-2017 Marybeth UNEMPLOY[employer]EF[employer] CLAIMS TAKERQuintin Start : 30-Mar-2016 Active Lipitor 40 MG Oral Tablet 1 (one) Tablet daily for 0 days Quantity: 90 {Tablet} Refills: 3 Ordered:24-Jul-2017 Kermit Cortez DO Start : 24-Jul-2017 Active Dispense as Written Comments:JOE Melatonin ER 3 MG Oral Tablet Extended Release 1 (one) Tablet ER Tablet ER qhs for 0 days Quantity: 30 {Tablet} Refills: 0 Ordered:28-Feb-2017 Isayosvanykaren RODRIGUEZQuintin Start : 30-Mar-2016 Active Metamucil 0.52 GM Oral Capsule 1 (one) capsule capsule daily for 0 days Quantity: 1 {Capsule} Refills: 0 Ordered:28-Feb-2017 Shainakaren RODRIGUEZQuintin Start : 30-Mar-2016 Active Multivitamin Adult Oral Tablet 1 (one) Tablet Tablet daily for 0 days Quantity: 30 {Tablet} Refills: 0 Ordered:28-Feb-2017 Marybeth JENNIFERQuintin Start : 30-Mar-2016 Active Orencia 250 MG Intravenous Solution Reconstituted 1 (one) For Solution For Solution one gram monthly for 0 days Quantity: 1 {Intravenous_Bag} Refills: 0 Ordered:28-Feb-2017 Shainakaren RODRIGUEZQuintin Start : 30-Mar-2016 Active Proglycem 50 MG Oral Capsule uad (50 MG) Active Comments:Dr. Mac Marin Drink 1 scoop bid Active Comments:supports digestion and absorption Restasis 0.05 % Ophthalmic Emulsion 1 (one) Emulsion Emulsion both eyes bid for 0 days Quantity: 1 {Bottle} Refills: 0 Ordered:28-Feb-2017 Isayosvanykaren RODRIGUEZQuintin Start : 30-Mar-2016 Active Resvero 1 tsp tid Active Comments:immune function Rhodiola 300 MG Oral Capsule 2 caps in AM and 2 caps PM (300 MG) Active Comments:adrenal function Spironolactone 100 MG Oral Tablet 1 (one) Milligram Milligram qd for 0 days Quantity: 30 {Milligram} Refills: 6 Ordered:20-Dec-2017 Katina Mathur Start : 20-Dec-2017 Active TraMADol HCl 50 MG Oral Tablet 1 (one) Tablet Tablet tid for 0 days Quantity: 90 {Tablet} Refills: 0 Ordered:28-Feb-2017 Quintin Rueda CNP Start : 30-Mar-2016 Active Tumeric Point Blank 2 caps bid Active Ventolin HFA 108 (90 Base) MCG/ACT Inhalation Aerosol Solution 1 (one) Aerosol Soln Aerosol Soln as needed for 0 days Quantity: 1 {Inhaler} Refills: 0 Ordered:28-Feb-2017 Quintin Rueda CNP Start : 30-Mar-2016 Active Comments:Medication taken as needed. Veramyst 27.5 MCG/SPRAY Nasal Suspension 2 (two) sprays sprays daily for 0 days Quantity: 1 {Bottle} Refills: 0 Ordered:28-Feb-2017 Quintin Rueda CNP Start : 30-Mar-2016 Active Vitamin D 2000 solution 3 drops per day Active X-Viromen 2 caps tid Active Comments:supports immune function Augmentin 875-125 MG Oral Tablet 1 (one) Tablet Tablet bid for 0 days Quantity: 20 {Tablet} Refills: 0 Ordered:02-May-2017 Kermit A Start : 20-Mar-2017 End : 02-May-2017 Inactive Boniva 150 MG Oral Tablet 1 (one) Tablet once a month for 0 days Quantity: 1 {Tablet} Refills: 0 Ordered:28-Feb-2017 DO Kermit A Start : 30-Mar-2016 End : 28-Feb-2017 Inactive Gabapentin 100 MG Oral Capsule 1 (one) Milligram tid for 0 days Quantity: 90 {Milligram} Refills: 2 Ordered:14-Mar-2017 Katina Mathur Start : 28-Feb-2017 End : 14-Mar-2017 Inactive Levaquin 500 MG Oral Tablet 1 (one) Tablet qd for 10 days Quantity: 10 {Tablet} Refills: 0 Ordered:30-Aug-2017 DO Kermit A Start : 30-Aug-2017 End : 09-Sep-2017 Inactive LevoFLOXacin 500 MG Oral Tablet 1 (one) Tablet qd for 0 days Quantity: 10 {Tablet} Refills: 0 Ordered:15-May-2017 Katina Mathur Start : 29-Mar-2017 End : 15-May-2017 Inactive Livixil Ilan 2.5-2.5 % External Kit 1 (one) Kit Kit apply one gram tid for 0 days Quantity: 1 Kit Refills: 0 Ordered:14-Mar-2017 Katina Mathur Start : 30-Mar-2016 End : 14-Mar-2017 Inactive Meclizine HCl 12.5 MG Oral Tablet 1 (one) Tablet Tablet bid prn for 0 days Quantity: 30 {Tablet} Refills: 0 Ordered:21-Nov-2017 Katina Mathur Start : 19-Sep-2017 End : 21-Nov-2017 Inactive Meloxicam 15 MG Oral Tablet 1 (one) Tablet qod for 0 days Quantity: 15 {Tablet} Refills: 0 Ordered:21-Nov-2017 Katina Mathur Start : 30-Oct-2017 End : 21-Nov-2017 Inactive Potassium Chloride ER 20 MEQ Oral Tablet Extended Release 1 (one) Tablet qd for 0 days Quantity: 30 {Tablet} Refills: 0 Ordered:21-Nov-2017 aKtina Mathur Start : 31-Oct-2017 End : 21-Nov-2017 Inactive Comments:slow-K PredniSONE 5 MG Oral Tablet 1 (one) Tablet daily for 30 days Quantity: 30 {Tablet} Refills: 0 Ordered:15-May-2017 Katina Mathur Start : 20-Mar-2017 End : 15-May-2017 Inactive Soma 250 MG Oral Tablet 1 (one) Tablet Tablet daily for 0 days Quantity: 30 {Tablet} Refills: 0 Ordered:14-Mar-2017 Katina Mathur Start : 30-Mar-2016 End : 14-Mar-2017 Inactive Zipsor 25 MG Oral Capsule 1 (one) Capsule daily for 0 days Quantity: 30 {Capsule} Refills: 0 Ordered:28-Feb-2017 Kermit Cortez DO Start : 30-Mar-2016 End : 28-Feb-2017 Inactive AmLODIPine Besylate 2.5 MG Oral Tablet 1 (one) Tablet qd at hs for 0 days Quantity: 30 {Tablet} Refills: 4 Ordered:14-May-2018 Kermit Cortez DO Start : 24-Jul-2017 End : 24-Jul-2017 Discontinued Cilostazol 50 MG Oral Tablet 1 (one) Tablet bid for 0 days Quantity: 60 {Tablet} Refills: 3 Ordered:24-Jul-2017 Kermit Cortez DO Start : 24-Jul-2017 End : 24-Jul-2017 Discontinued Leflunomide 20 MG Oral Tablet 1 (one) Tablet daily for 0 days Quantity: 30 {Tablet} Refills: 0 Ordered:30-Oct-2017 Kermit Cortez DO Start : 30-Oct-2017 End : 30-Oct-2017 Discontinued Triamterene-HCTZ 37.5-25 MG Oral Tablet 1 (one) Tablet daily for 0 days Quantity: 90 {Tablet} Refills: 3 Ordered:20-Dec-2017 Kermit Cortez DO Start : 20-Dec-2017 End : 20-Dec-2017 Discontinued Allergies and Adverse Reactions Name Dates Details Cymbalta *ANTIDEPRESSANTS* (Allergy) Status: Active Gabapentin *ANTICONVULSANTS* (Allergy) Status: Active Comments: unbalanced Methotrexate *ANTINEOPLASTICS AND Status: Active ADJUNCTIVE THERAPIES* (Allergy) Sulfa Drugs (Allergy) Status: Active Comments: unknown reaction -- was as a child Past Medical History Name Dates Details Body mass index (BMI) of 20 to 24 (V85.1) Status: Inactive as of 29-Mar-2017 Procedures Procedure Dates Details Colonoscopy Completed Comments: has never had 1 done yet but does the cologuard. Hernia repair Completed Comments: Abdominal Hip replacement - Left Completed Comments: 2015 Tubal Ligation Completed Comments: 1986 Date Value Details 24-Jan-2018 Cerv Spine 4 or 5 Views Result: Comments: See Note; NOTES: [facility] Imaging Services [address] [place] [address] Cerv Spine 4 or 5 Views MR#: [id number] Acct: [id number] Name: MASON BURK Emily Rep #: [id number] : 1955 F 62 From: Perico Stewart MD PCP: Kermit Cortez DO Status: REG CLI Study: Cerv Spine 4 or 5 Views Date of Exam: 01/24/18 Exam# [id number] Ordering Dr: Kermit Cortez DO STUDY: X-RAY - CERVICAL SPINE REASON FOR EXAM: Female, 62 years old. Right shoulder pain. History of rheumatoid arthritis. Arm weakness. TECHNIQUE: 5 view(s) of the cervical spine were obtained. COMPARISON: None _ FINDINGS: Normal anterior atlantoaxial articulation. Normal odontoid process. Straightening. 4 mm retrolisthesis of C5 on C6. Spondylosis and severe degenerative dis c changes at C3-C4, C4-C5, and C5-C6. There is narrowing of the right neural foramina at C3-C4 and the left neural foramina at C2-C3, C3-C4, and C4-C5. The soft tissue structures are unremarkable. Ther e is no demonstrated fracture of the cervical spine. RAD/Cerv Spine 4 or 5 Views IMPRESSION: No acute fracture or dislocation. Moderate to severe multilevel degenerative changes of the mid cervical spine. Electronically Signed: Perico Stewart MD at 10:36 EST , Service support , CC: Kermit Cortez DO [employer] Supervisor: Signed 24-Jan-2018 Shoulder min 2 Views Result: Comments: See Note; NOTES: [facility] Imaging Services [address] [place] [address] Shoulder min 2 Views MR#: [id number] Acct: [id number] Name: MASON BURK Emily Rep #: [id number] : 1955 F 62 From: Perico Stewart MD PCP: Kermit Cortez DO Status: REG CLI Study: Shoulder min 2 Views Date of Exam: 01/24/18 Exam# [id number] Ordering Dr: Kermit Cortez DO STUDY: X-RAY - RIGHT SHOULDER REASON FOR EXAM: Female, 62 years old. Right shoulder pain TECHNIQUE: 4 view(s) of the shoulder. COMPARISON: None. FINDINGS: Normal glenohumeral articul ation. Normal acromioclavicular joint. Normal acromion. Normal humeral head and visualized proximal humerus. The soft tissue structures are unremarkable. There is no demonstrated fracture. Normal vis ualized pulmonary apex. RAD/Shoulder min 2 Views IMPRESSION: Normal x-ray examination of the shoulder. Electronically Signed: Perico Stewart MD at 10:42 EST , Service support , CC: Kermit Cortez DO [employer] Supervisor: Signed 21-Nov-2017 SCREENING MAMM (CAD), BILAT Result: Comments: See Note; NOTES: [facility] Imaging Services [address] [place] [address] SCREENING MAMM (CAD), BILAT MR#: [id number] Acct: [id number] Name: MASON BURK Rep #: [id number] : 1955 F 62 From: Shreyas Garcia MD PCP: Kermit Cortez DO Status: REG CLI Study: SCREENING MAMM (CAD), BILAT Date of Exam: 11/21/17 Exam# [id number] Ordering Dr: Kermit Cortez DO [facility] MOGRAPHY - BILATERAL SCREENING REASON FOR EXAM: Female, 62 years old. Routine annual screening examination. PERTINENT HISTORY: Non-contributory. TECHNIQUE: Digital bilateral breast ariadna (3D mammograp hic acquisition) in the CC and MLO projections. 2-D mediolateral oblique (MLO) and craniocaudad (CC) views of both breasts were obtained. CAD: Full Field Digital Mammography with Computer Added Detectio n was performed. COMPARISON: Comparison is made with prior study dated October 06, 2016 and October 23, 2012. FINDINGS: Breast Composition: The breasts are extremely de nse, which lowers the sensitivity of mammography. There are no dominant masses or suspicious calcifications. No other significant abnormalities are identified. There has been no significant change sin ce the prior study. BI/SCREENING MAMM (CAD), BILAT IMPRESSION: Stable bilateral screening mammogram. Yearly follow-up mammogram recommended. (A) ASSESSMENT CATEGORY: BIRADS Category 1: Negative. A letter regarding these results will be sent to the patient by the facility within 30 days. Approximately 10% of breast cancers are not detected by mammography. A normal mammogram should not delay biopsy of a clinically suspicious abnormality. [id number] Electronically Signed: Shreyas Garcia MD at 1 2:28 EDT Tel [phone], Service support , CC: Kermit Cortez DO [employer] Supervisor: Signed 10-Aug-2017 Dexa Bone Density Study Result: Comments: See Note; NOTES: [facility] Imaging Services [address] [place] [id number] Dexa Bone Density Study MR#: [id number] Acct: [id number] Name: MASON BURK Rep #: [id number] : 1955 F 62 From: Shreyas Garcia MD PCP: Kermit Cortez DO Status: REG CLI Study: Dexa Bone Density Study Date of Exam: 08/10/17 Exam# [id number] Ordering Dr: Kermit Cortez DO STUDY: DUAL ENERGY X-RAY ABSORPTIOMETRY / DXA REASON FOR EXAM: Female, 62 years old. The patient is postmenopausal. Loss of height. TECHNIQUE: Bone Mineral Density (BMD) measurements of lumbar spine and right hi p were obtained. The patient is status post left hip replacement. COMPARISON: None. FINDINGS: Lumbar Spine (L1-L4): g/cm2 (0.884) / T-score (-2.4) / Z-score (-1.1) Findings are suggestive of osteopenia with a moderate fracture risk. Increased thoracic kyphosis. Right Femur Total: g/cm2 (0.721) / T-score (-2.3) / Z-score (-1.3) Right Femoral Neck: g/cm2 (0.672) / T-score (-2.6) / Z-score (-1.3) BD/Dexa Bone Density Study IMPRESSION: The patient is considered osteoporotic as outlined below according to Wor ld Geoff Organization (WHO) criteria with a high fracture risk. Reference Information: The T-score is the number of standard deviations above or below the standard which is normal for young adults at their peak bone mineral density. The World Health Organization (WHO) interprets the T-scores as follows: Above -1 Normal bone density Between -1 and -2.5 Osteopenia Equal to / or below -2.5 Osteoporosis As a practical clinical guideline, osteopenia may be graded as follows: Mild -1 through -1.5 Moderate -1.6 through -2.0 Severe -2.1 through -2.4 The Z-score is th e number of standard deviations above or below age-matched controls. A Z-score of less than -1.5 would be considered abnormal. References: 1. NIH Osteoporosis and Related Bone Diseases http://www.osteo .org 2. International Society for Clinical Densitometry http://www.iscd.org 3. National Osteoporosis Foundation http://www.nof.org Electronically Signed: Shreyas Garcia MD at 14:58 EDT Tel [phone], Service support , CC: Kermit DOVE [employer] Supervisor: Signed 02-Aug-2017 Arterial Duplex US, Limited Result: Comments: See Note; NOTES: [facility] Cardiovascular Services [address] [place] [place] [address] Art Duplex US Unilat Lower Ext 07/28/17 1320 MR#: [id number] Acct: [id number] Name: MASON BURK Rep #: [id number] : 1955 62 From: Garcia Dsouza MD Attending Dr: Garcia Dsouza MD Status: REG CLI Ordering Dr: Garcia Dsouza MD Date: 07/28/17 Location: [facility] Sex: F C Admitted: Reason For Study: ATHEROSCLEROSIS, RAYNAUDS Right Velocities Ext. Iliac Artery, dist = 133.0 cm./sec. Common Femoral Artery, mid = 66.3 cm./sec. Supf Femoral Artery, prox = 75.0 cm./sec. Supf Fem oral Artery, mid = 75.6 cm./sec. Supf Femoral Artery, dist. = 65.7 cm./sec. Profunda Femoral Artery = 66.8 cm./sec. Popliteal Artery, prox. = 46.3 cm./sec. Popliteal Artery, mid = 45.1 cm./sec. Poplitea l Artery, dist = 38.7 cm./sec. Post. Tibial Artery, prox = 50.4 cm./sec. Post. Tibial Artery, mid = 62.7 cm./sec. Post. Tibial Artery, dist = 67.4 cm./sec. Peroneal Artery, prox = 28.3 cm./sec. Peroneal Artery, mid = 30.6 cm./sec. Peroneal Artery,dist = 39.3 cm./sec. Ant. Tibial Artery, prox = 39.7 cm./sec. Ant. Tibial Artery, mid = 47.1 cm./sec. Ant. Tibial Artery, dist = 43.6 cm./sec. Procedure The exam was diagnostic. Exam performed in department. Interpretation Summary 1. righ leg with no stenosis sen and triphasic flow seen throughout.,. Ordering Physician: Garcia Dsouza Referring Physician: Kermit Cortez D.O. Performed By: Katlyn Berg, RDHORACE, RVT 08/02/17 1108 Date Garcia Dsouza MD CC: Garcia Dsouza MD; Kermit Cortez DO Date Dictated: 07/28/17 1320 Date Transcribed: 08/02/17 110 [employer] Supervisor: Signed 02-Aug-2017 Lower Ext Arterial Study Result: Comments: See Note; NOTES: [facility] Cardiovascular Services [address] [place] [address] 08/02/17 0832 MR#: [id number] Acct: [id number] Name: MASON BURK Rep #: [id number] : 1955 62 From: Garcia Dsouza MD Attending Dr: Garcia Dsouza MD Status: REG CLI Ordering Dr: Date: 08/02/17 Location: [facility] Sex: F C Admitted: Arterial Study - Arterial Study Arterial St udy: Record number: [id number] next Date of scan 07/28/[address] Dsouza History patient with atherosclerosis and possible were nods with some known hyperlipidemia. Interpretatio n: Right lower extremity normal pulsatile flow noted at the ankle slightly peaked waveforms adequate waveform out to the digits. Duplex shows triphasic flow at the ankle. NISH 1.23 the posterior tib 1.27 of the dorsalis pedis. Digital brachial index 0.97 next Remedy with normal pulsatile flow noted at the ankle slightly peaked waveforms. Normal waveform out through the digits. Duplex shows triphasic f low both vessels with an NISH 1.27 posterior tibial 1.15 the dorsalis pedis. Digital brachial index 0.74. Impression: 1. Right lower extremity no evidence of significant arterial occlusive disease with triphasic flow and an NISH 1.27 and a normal digit brachial index 0.97. 2. Left lower extremity no evidence of significant arterial occlusive disease at rest with an NISH of 1.27 and triphasic flow in the digit brachial index 0.74. 08/02/17 0834 <Electronically signed by Garcia Dsouza MD> Date Garcia Dsouza MD CC: Garcia Dsouza MD; Elisabeth Cortez DO Date Dictated: 08/02/17831 Date Transcribed: 08/02/17831 [employer] Supervisor: MELITON Signed 19-Jun-2017 Toe(s) Min 2 Views Result: Comments: See Note; NOTES: [facility] Imaging Services [address] [place] [address] Toe(s) Min 2 Views MR#: [id number] Acct: [id number] Name: WMMASON Rep #: [id number] : 1955 F 61 From: Shreyas Garcia MD PCP: Kermit Cortez DO Status: REG CLI Study: Toe(s) Min 2 Views Date of Exam: 06/19/17 Exam# [id number] Ordering Dr: Kermit Cortez DO STUDY: X-RAY LEFT DARSHAN T, FOURTH TOE REASON FOR EXAM: Female, 61 years old. Ulceration. TECHNIQUE: 3 view(s) of the toe were obtained. COMPARISON: None. FINDINGS: Normal visualized meta tarsus. Normal metatarsophalangeal (M.T.P) joint. Normal interphalangeal joints. Normal phalanges and interphalangeal joints. Soft tissue swelling overlying the fourth toe. No bony abnormality is seen. RAD/Toe(s) Min 2 Views IMPRESSION: Soft tissue swelling. Electronically Signed: Shreyas Garcia MD at 14:12 EDT Tel [phone], Service support , CC: Kermit Cortez DO [employer] Supervisor: Signed 22-May-2017 PT D/C Summary (1) Result: Comments: See Note; NOTES: [facility] [address] [place] [address] Fax REHABILITATION SERVICES DISCHAR GE SUMMARY MR#: [id number] Acct: [id number] Name: MASON BURK Rep #: [id number] : 1955 61 From: Melisas King PT, Cert. MDT Referring DrBlake: Kermit Cortez DO Status: REG RCR Insurance: [employer] C ARE MEDICARE SELF PAY INSURANCE HP - PT D/C Summary It has been my pleasure to treat MASON BURK under orders from Kermit Cortez DO, for the diagnosis of LUMBAR RADICULOPATHY for a total o f 10 visit(s). Discharge Date: Please see the following information for a summary of their discharge status. - Subjective Subjective: PATIENT REPORTS SHE IS ON AN ANTIBIOTIC FOR A SINUS INFFECTION. PATIENT REPORTS THE US REALLY HELPS. SHE FEELS LIKE THE EX'S ARE HELPING HER GET STRONGER ESPECIALLY IN HER LEFT LEG AND SHE FEELS LIKE SHE WILL CONTINUE TO GET STRONGER. SHE STATES SHE FEELS LIKE SHE H BEEN IN GOOD HANDS WITH US TO PROTECT HER BACK SHE GETS STRONGER. SHE REPORTS SHE IS HAPPIER MENTALLY DOING THESE EX'S INSTEAD OF BEATING HERSELF UP LIKE SHE WAS. SHE REPORTS SHE FEELS SHE IS WORK ING MUCH SMARTER. SHE REPORTS SHE FEELS GOOD ABOUT TRYING TO CONTINUE ON HER OWN AT THIS TIME. PLANS TO HAVE A PHYSICAL WITH DR. CORTEZ SOON. I AM DEFINATELY HEADED THE RIGHT DIRECTION NOW&#3 4;. PATIENT REPORTS THAT EVEN IF SHE DOES HAVE TO HAVE BACK SURGERY SHE FEELS LIKE SHE WILL GO IN STRONGER THAN SHE OTHERWISE WOULD HAVE. - Pain LOW BACK/HIPS Pain Intensity (Out of 10): 4 LEFT THIGH Pain Intensity (Out of 10): 3 - Objective Objective/Function: PATIENT IS MAKING GOOD PROGRESS AND HAS MUCH BETTER POSTURE CONTROL AND DEMONSTRATES A GOOD UNDERSTANDING OF PROPER BODY MECHANICS NO W. Motor deficit: RIGHT HIP 4/5, KNEE EXT 5/5, KNEE FLEX 5/5, ANKLE 5/5, EHL 5/5. LEFT HIP 4-/5, KNEE EXT 4+/5, KNEE FLEX 4+/4, ANKLE 5/5, EHL 5/5. Sensory deficit: SYMMETRICAL LEFT ANTERIOR THIGH LIGHT TOUCH SENSATION COMPARED TO RIGHT NOW. ROM deficit: RAMESH LE'S WFL. Reflexes: UNABLE TO ELICIT RAMESH LE DTR'S. Dural Signs: NEGATIVE RAMESH LE'S NOW. Lumbar mvmt loss: flex - NIL. ext - MOD. R SG - MOD. L SG - MOD. PATIENT DENIES INCEASED PAIN WITH LUMBAR ROM TESTING INTO FLEX AND EXTENSION BUT RAMESH SG TESTING PROVOKES INCREASED PAIN AND DOES NOT REMAIN WORSE A RESULT. Core strength: FAIR WITH CONTROL INC REASING. Palpation: PATIENT DOES NOT HAVE TENDERNESS WITH PALPATION OF THE ENTIRE LUMBAR, SACRAL, LEFT BUTTOCK, LEFT HIP AND LEFT ANTEROLATERAL THIGH TODAY. - Goals Goal 1:: DECREASE C/O BACK AND LEFT LE SX'S. Goal Progress: Goal Met Goal 2:: IMPROVE PERSONAL CARE, LIFTING, SITTING*, STANDING, SLEEP*, SOCIAL LIFE, TRAVEL AND HOMEMAKING FUNCTION. Goal Progress: Goal Met Goal 3:: INSTRUCT IN PROPHYLAXI S Goal Progress: Goal Met - Plan Plan: D/C TO INDEP HEP. PATIENT IS AGREEABLE. - D/C Information If there are questions or concerns regarding this patient's physical therapy, please feel free to call me at [phone]. Thank you for the referral of this patient. Sincerely, Melissa King <Electronically signed by Melissa King PT, Cert. MDT> 05/22/17 1602 CC: Kermit Cortez DO TOM Signed 19-Apr-2017 Inital Evaluation (1) - PT Result: Comments: See Note; NOTES: [facility] [address] [place] [address]. [address] [place] [address] Fax REHABILITATION SERVICES INITIAL EVALUATION MR#: [id number] Acct: [id number] Name: MASON BURK Rep #: [id number] : 1955 61 From: Melissa King PT, Cert. MDT Referring Dr.: Kermit Cortez DO Status: REG RCR Insurance: [employer] SELF PAY INSURANCE Patient's Visit Information MASON BURK is a 61 year old F referred to Physical Therapy by DO CLARITZA Patrick with a diagnosis of LUMBAR RADICULOPATHY. Date of Evaluation: 04/19/17 Physical Therapist: Melissa King - Visit Plan Frequency: 2-3x /Week Duration: 4-6 Weeks Plan: *RA* AQUATIC THERAPY. POSTURE CORRECTION/STRENGTHENING, INSTRUCTION IN APPROPRIAT E BODY MECHANICS AND ACTIVITY MODIFICATIONS. DLS STARTING WITH A NEUTRAL SPINE PROGRESSING ROM TOLERATED. RAMESH LE ROM, STRETCHING AND STRENGTHENING. HEP INSTRUCTION. - Subjective Subjective: Work/Lei sure: RETIRED. 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 STATES SHE IS ADDICTED TO EXERCISE AND SHE WORKS OUT 7 DAYS A WEEK 365 DAYS A YEAR. Disability: YES FOR BACK AND HIP PAIN. Present symptoms: RAMESH LOW BACK, LEFT HIP, LEFT THIGH AND ENDS AT KNEE. SOMETIMES RIGHT THIGH TOO. PATIENT DENIES RAMESH PAIN, NUMBNESS OR TINGLING BELOW THE KNEE. PATIENT CHANGED HER MIND AND REPORTED RAMESH HAND AND FOOT NUMBNESS AN D TINGLING. Present since: ABOUT 6 YEARS AGO. Pain Scale: WORST 9/10, LEAST 2/10. Currently: 5/10. WORSENING. ESPECIALLY THE LEFT THIGH PAIN IS WORSENING. Commenced as a result of: NO APPARENT REASON. S ymptoms at onset: LOW BACK L>R. Worse: SITTING, EXERCISING, SQUATTING, LEANING BACK, LEANING FORWARD/BENDING, ANY SORT OF ACTIVITY, WASHING THE FLOOR, SEX. Better: TRAMADOL, WARM WATER, LYING DO WN. Disturbed sleep: YES. Previous history/Previous treatment: LEFT THR JAN [address] BENÍTEZ AT [facility] IN [place] , LUMBAR HERMES'S X [address] SHORT - THEY DID NOTHING&#3 4;, MASSAGE THERAPY SINCE AUGUST - HURTS WORSE THAN HELPS SO STOPPED IN FEBRUARY. CHIROPRACTOR X 1 YEAR TO 2016 - STOPPED WHEN SHE GOT THE HIP REPLACEMENT IN JAN 2017. MEDICATIONS. DR. LOUIE 2013 N O INJECTIONS BUT COMPOUND PAIN CREAM WITH SOME BENEFIT. HOME PT X 2 VISITS ONLY AFTER THR - STATES IT WAS MAKING IT WORSE SO STATES SHE JUST USED THE BOOKLET OF EX'S AND DID IT ON HER OWN. Coughing/snee zing/straining: POSTIVE. Gait: WALKING EVERYDAY ABOUT 3 MILES BUT STATES IT IS SLOWER THAN SHE WANTS TO GO AND IT HURTS THE WHOLE TIME WITH NERVE PAIN COMING INTO PLAY - I JUST KEEP GOING UNTIL IT GETS TIRED AND PAINFUL UNTIL I HAVE TO QUIT. Difficulty initiating urinatin: NO. Accidents: NO. Unexplained weight loss: NO. Imaging: RECENT LUMBAR MRI Mar WITH PATIENTS UNDERSTANDING Sandro FOX THAT SHE HAS SOME BULGING DISCS AND SOME THAT ARE PROTRUDING AND THE NERVES ARE GETTING PRESSED. PMH: *RA* OSTEOPENIA, HIGH CHOLESTEOL, NO CANCER, NO CVA, NOT DIABETIC, RAYNOLDS, SJORGENS, RAMESH HAND PAIN, NUMBNESS AND WEAKNESS. MENIERES. Recent major surgery: LEFT THR FALL 2017. 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 OTHER: WENT TO SEE AN ORTHOPEDIC SURGEON - DR. ARAM Albert - AND HE RECOMMENDED SURGERY - LAMINECTOMY AND FUSION - PATIENT SAID NO THANK YOU AND THAT IS WHY SHE IS HERE. HAS A DOCTOR IN [place] THAT SHE THINKS IS A FUNCTIONAL MEDICINE DOCTOR. THIS DOCTOR HAS PRESCRIBED EXERCISES AND SUPPLEMENTS AND DIET. 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 HE HELPED HER LE EDEMA IN 5 DAYS AFTER SUFFERING WITH IT FOR 3 YEARS. HER DAUGHTER LIVES IN [place] AND THIS IS HOW SHE FOUND HIM AND SHE SEES HIM 3-4 TIMES A YEAR. PATIENT REPORTS SHE WILL TRY ANYTHING TO AVOID SURGERY AT THIS POINT. - Objective Sitting Pos ture: POOR. Standing Posture: POOR. Lordosis: REDUCED. Lateral shift: NO. Relevant shift: N/A. Active Correction of posture: WORSE. Other Observations: INDEP GAIT INTO PT WITH MILD INCREASED TRUNK FLEXI ON AND DECREASED CADANCE. NO AD'S. Motor deficit: RIGHT HIP 4/5, KNEE EXT 5/5, KNEE FLEX 5/5, ANKLE 5/5, EHL 5/5. LEFT HIP 3+/5, KNEE EXT 4/5, KNEE FLEX 4/4, ANKLE 5/5, EHL 5/5. Sensory deficit: DECREAS ED LEFT ANTERIOR THIGH LIGHT TOUCH SENSATION COMPARED TO RIGHT. ROM deficit: RAMESH LE'S WFL. Reflexes: UNABLE TO ELICIT RAMESH LE DTR'S. Dural Signs: POSITIVE RAMESH LE'S. Lumbar mvmt loss: flex - NIL. ext - MO D. R SG - MOD. L SG - MOD. Core strength: FAIR. Palpation: PATIENT HAS TENDERNESS WITH LIGHT PALPATION OF THE ENTIRE LUMBAR, SACRAL, LEFT BUTTOCK, LEFT HIP AND LEFT ANTEROLATERAL THIGH. - Goals Goal 1: : DECREASE C/O BACK AND LEFT LE SX'S. Goal Time Frame: 4-6 Weeks Goal 2:: IMPROVE PERSONAL CARE, LIFTING, SITTING*, STANDING, SLEEP*, SOCIAL LIFE, TRAVEL AND HOMEMAKING FUNCTION. Goal Time Frame: 4-6 We eks Goal 3:: INSTRUCT IN PROPHYLAXIS Goal Time Frame: 4-6 Weeks - Rehabilitation Potential Rehabilitation Potential: Fair - Anticipated Interventions Patient/Client Instruction: Educate patient on: Co ndition, Plan of Care, Risk Factors, Benefits of Fitness Program For the Purpose of:: To improve self management Therapeutic Exercise to Include: Strength training, Body mechanics, Postural training, &a mp;#34;In an aquatic setting, Dynamic Lumbar Stabilization For the Purpose of:: To improve ability of physical actions for home/community/work/leisure Thank you for the opportunity to evalu ate your patient. For Medicare and Medicare HMO plans, please review the plan of care and approve it. It will need to be FAXED BACK to us at [phone] for Medicare purposes. Please let me know if there are questions or concerns regarding this plan of care. Physician Signature: Date: <Electronically signed by Melissa King PT, Cert. MDT> 04/19/17 1440 CC: Kermit Cortez DO TOM Signed For Medicare only, by signing this I certify the plan of care. Physicians Signature Date 23-Mar-2017 Abdomen Complete Result: Comments: See Note; NOTES: [facility] Imaging Services [address] [place] [address] Abdomen Complete MR#: [id number] Acct: [id number] Name: MASON BURK Rep #: [id number] D OB: 1955 F 61 From: Shreyas Garcia MD PCP: Kermit Cortez DO Status: REG CLI Study: Abdomen Complete Date of Exam: 03/23/17 Exam# [id number] Ordering Dr: Kermit Cortez DO STUDY: ABDOMINAL ULTRASOU ND REASON FOR EXAM: Female, 61 years old. Abdominal pain. TECHNIQUE: Transabdominal ultrasound was performed with real-time and static diana scale imaging. TECHNICAL QUALITY: Adequate. COMPARISON: No ne. FINDINGS: Liver: The liver measures 17.2 cm. There is normal echogenicity of the liver. The bile ducts are within normal limits. There is hepatic color flow. Th e direction of portal flow is hepatopetal. There is no demonstrated mass lesion. Portal vein measurement: Gallbladder: Normal distended gallbladder. The gallbladder wall measures 2.2 mm. There is a neg ative sonographic Bray's sign. There is no pericholecystic fluid. There are no gallstones. Common Bile Duct (C.B.D.): The common bile duct measures 3.9 mm. Pancreas: Normal size of the head, body an d tail of the pancreas. There is normal echogenicity of the pancreas. There is no demonstrated pancreatic mass or cyst. Spleen: Normal size of the spleen. The spleen measures 10.6 cm x 2.6 cm x 2.4 cm. Right Kidney: Normal size of the right kidney. The right kidney measures 10.1 cm x 5.4 cm x 4.0 cm. Normal renal cortex. The right cortex measures 1.4 cm. There is no demonstrated renal mass or cyst. There is no right hydronephrosis. Left Kidney: Normal size of the left kidney. The left kidney measures 9.8 cm x 4.2 cm x 4.6 cm. Normal renal cortex. The left cortex measures cm. There is no demonstra sally renal mass or cyst. There is no left hydronephrosis. Aorta: Unremarkable I.V.C.: The IVC is patent. There is no ascites. US/Abdomen Comple te IMPRESSION: Normal abdominal ultrasound examination. Electronically Signed: Shreyas Garcia MD at 11:07 EST Tel [phone], Service support , CC : Kermit Cortez DO [employer] Supervisor: Signed 23-Mar-2017 Abdomen Complete Result: Comments: See Note; NOTES: [facility] Imaging Services [address] [place] [address] Abdomen Complete MR#: [id number] Acct: [id number] Name: MASON BURK Rep #: [id number] D OB: 1955 F 61 From: Shreyas Garcia MD PCP: Kermit Cotrez DO Status: REG CLI Study: Abdomen Complete Date of Exam: 03/23/17 Exam# [id number] Ordering Dr: Kermit Cortez DO ADDENDUM by Shreyas vaughn MD on 03/29/17 at 1505 US/Abdomen Complete 03/29/17 1512 Date cc: Kermit Cortez DO * Signed ADDENDUM by Shreyas Garcia MD on 03/29/17 at 1505 ADDENDUM This is an addendum report. The liver measures within normal limits. Electronically Signed: Shreyas lyon MD at 15:05 EST Tel [phone], Service support , 03/29/17 1505 Date cc: Kermit Cortez DO * Signed STUDY: ABDOMINAL ULTRASOUND REASON F OR EXAM: Female, 61 years old. Abdominal pain. TECHNIQUE: Transabdominal ultrasound was performed with real-time and static diana scale imaging. TECHNICAL QUALITY: Adequate. COMPARISON: None. FINDINGS: Liver: The liver measures 17.2 cm. There is normal echogenicity of the liver. The bile ducts are within normal limits. There is hepatic color flow. The direction of portal flow is hepatopetal. There is no demonstrated mass lesion. Portal vein measurement: Gallbladder: Normal distended gallbladder. The gallbladder wall measures 2.2 mm. There is a negative sonogr aphic Bray's sign. There is no pericholecystic fluid. There are no gallstones. Common Bile Duct (C.B.D.): The common bile duct measures 3.9 mm. Pancreas: Normal size of the head, body and tail of th e pancreas. There is normal echogenicity of the pancreas. There is no demonstrated pancreatic mass or cyst. Spleen: Normal size of the spleen. The spleen measures 10.6 cm x 2.6 cm x 2.4 cm. Right Kidn ey: Normal size of the right kidney. The right kidney measures 10.1 cm x 5.4 cm x 4.0 cm. Normal renal cortex. The right cortex measures 1.4 cm. There is no demonstrated renal mass or cyst. There is no right hydronephrosis. Left Kidney: Normal size of the left kidney. The left kidney measures 9.8 cm x 4.2 cm x 4.6 cm. Normal renal cortex. The left cortex measures cm. There is no demonstrated renal ma ss or cyst. There is no left hydronephrosis. Aorta: Unremarkable I.V.C.: The IVC is patent. There is no ascites. US/Abdomen Complete IMPRESSIO N: Normal abdominal ultrasound examination. Electronically Signed: Shreyas Garcia MD at 11:07 EST Tel [phone], Service support , CC: Kermit Cortez DO [employer] Supervisor: Signed 20-Mar-2017 Spine Lumbar (Routine) Result: Comments: See Note; NOTES: [facility] Imaging Services [address] [place] [address] Spine Lumbar (Routine) MR#: [id number] Acct: [id number] Name: MASON BURK Rep #: [id number] : 1955 F 61 From: Carson Richardson MD PCP: Kermit Cortez DO Status: REG CLI Study: Spine Lumbar (Routine) Date of Exam: 03/20/17 Exam# [id number] Ordering Dr: Kermit Cortez DO STUDY: MRI LUMBAR SPINE WITHOUT CONTRAST REASON FOR EXAM: Female, 61 years old. Radiculopathy. Pain in the low back and left leg for 5 years. No known injury. No previous surgery TECHNIQUE: Standardized fat and water weighted pulse sequences were obtained in the sagittal and axial planes. COMPARISON: Examination of the lumbar spine on April 17, 2015 FINDINGS: T12-L1: Normal e ndplates. Normal disc height, hydration and morphology. Normal bilateral facet joints. Normal central canal and bilateral lateral recesses. Normal bilateral intervertebral neural foramina. Normal lumba r lordosis. There is no substantial scoliosis. Normal conus medullaris that terminates at the L1-2: Normal endplates. Normal disc height, hydration and morphology. Normal bilateral facet joints. Normal central canal and bilateral lateral recesses. Normal bilateral intervertebral neural foramina. L2-3: There is mild endplate spondylosis. There is an annular bulge and bilateral facet arthrosis. There is a right foraminal and extraforaminal disc herniation of the protrusion type (axial T2 series 5 image 18). There is grade 1 degenerative anterolisthesis. There is moderate to severe thecal sac stenosi s (axial T2 series 5 image 17). There is right foraminal noncompressive is stenosis L3-4: Normal endplates. There is an annular bulge. There is bilateral facet arthrosis. Normal central canal and bilat eral lateral recesses. Normal bilateral intervertebral neural foramina. L4-5: Normal endplates. There is an annular bulge with a shallow central disc herniation of the protrusion type (axial T2 series 5 image 7). Normal bilateral facet joints. Normal central canal and bilateral lateral recesses. Normal bilateral intervertebral neural foramina. L5-S1: Normal endplates. There is an annular bulge. Ther e is grade 1 anterolisthesis with bilateral L5 spondylolysis. Normal spinal canal. There is bilateral foraminal stenosis with impingement of the L5 nerve roots Normal visualized sacral ala. Normal vis ualized paraspinous soft tissue structures. MRI/Spine Lumbar (Routine) IMPRESSION: L2-3 degenerative disc disease with annular bulge and right fo raminal and extraforaminal disc herniation of the protrusion type causing right foraminal noncompressive disc stenosis. Grade 1 degenerative anterolisthesis. Moderate to severe thecal sac stenosis. L3- 4 annular bulge with bilateral facet arthrosis. L4-5 annular bulge with shallow central disc herniation of the protrusion type. L5-S1 annular bulge. Grade 1 anterolisthesis with bilateral L5 spondylol ysis. Bilateral foraminal stenosis with impingement of the L5 nerve roots. Electronically Signed: Carson Richardson MD, FACR at 16:09 EST , Service support , F ax [phone] CC: Kermit Cortez DO [employer] Supervisor: Signed 28-Feb-2017 Thoracic Spine 3 Views Result: Comments: See Note; NOTES: [facility] Imaging Services [address] [place] [address] Thoracic Spine 3 Views MR#: [id number] Acct: [id number] Name: MASON BURK Emily Rep #: [id number] : 1955 F 61 From: Perico Stewart MD PCP: Evie Winter MD Status: REG CLI Study: Thoracic Spine 3 Views Date of Exam: 02/28/17 Exam# [id number] Ordering Dr: Cherelle Perez MD STUDY: X-R AY - THORACIC SPINE REASON FOR EXAM: Female, 61 years old. Left flank pain. TECHNIQUE: 3 view(s) of the thoracic spine were obtained. COMPARISON: None. FINDINGS: Normal kyphosis of the thoracic spine. There is no substantial scoliosis. There is multilevel endplate spondylosis of the thoracic vertebrae. There is multilevel disc space narrowing of the thoracic spi ne. The soft tissue structures are unremarkable. RAD/Thoracic Spine 3 Views IMPRESSION: No definite acute abnormality. Age-appropriate degenerat nora changes. 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 Vital Signs Date Test Result Details [id number] Temperature 98.2 f Comments: Method: Temporal Pulse 68 /min Comments: Pattern: Regular Respiration Rate 16 /min Comments: Pattern: Unlabored BP Systolic 110 mm[Hg] Comments: Patient Position: Sitting; Cuff Location: Left Arm; Cuff Size: Standard BP Diastolic 68 mm[Hg] Comments: Patient Position: Sitting; Cuff Location: Left Arm; Cuff Size: Standard Weight 111.125 lb Height 62.75 in Body Mass Index Calculated 19.84 kg/m2 Body Surface Area Calculated 1.5 m2 [id number]-Srs-[id number]:07 Temperature 98.4 f Comments: Method: Temporal Pulse 68 /min Comments: Pattern: Regular Respiration Rate 16 /min Comments: Pattern: Unlabored BP Systolic 115 mm[Hg] Comments: Patient Position: Sitting; Cuff Location: Left Arm; Cuff Size: Standard BP Diastolic 62 mm[Hg] Comments: Patient Position: Sitting; Cuff Location: Left Arm; Cuff Size: Standard Weight 111.125 lb Height 62.75 in Body Mass Index Calculated 19.84 kg/m2 Body Surface Area Calculated 1.5 m2 :11 Temperature 97.7 f Comments: Method: Temporal Pulse 66 /min Comments: Pattern: Regular Respiration Rate 16 /min Comments: Pattern: Unlabored BP Systolic 118 mm[Hg] Comments: Patient Position: Sitting; Cuff Location: Left Arm; Cuff Size: Standard BP Diastolic 68 mm[Hg] Comments: Patient Position: Sitting; Cuff Location: Left Arm; Cuff Size: Standard Weight 111.125 lb Height 62.75 in Body Mass Index Calculated 19.84 kg/m2 Body Surface Area Calculated 1.5 m2 :11 Temperature 98.2 f Comments: Method: Temporal Pulse 72 /min Comments: Pattern: Regular Respiration Rate 16 /min Comments: Pattern: Unlabored BP Systolic 115 mm[Hg] Comments: Patient Position: Sitting; Cuff Location: Left Arm; Cuff Size: Standard BP Diastolic 70 mm[Hg] Comments: Patient Position: Sitting; Cuff Location: Left Arm; Cuff Size: Standard Weight 106 lb Height 62.75 in Body Mass Index Calculated 18.93 kg/m2 Body Surface Area Calculated 1.47 m2 :20 Temperature 97.3 f Comments: Method: Temporal Pulse 68 /min Comments: Pattern: Regular Respiration Rate 16 /min Comments: Pattern: Unlabored BP Systolic 108 mm[Hg] Comments: Patient Position: Sitting; Cuff Location: Left Arm; Cuff Size: Standard BP Diastolic 60 mm[Hg] Comments: Patient Position: Sitting; Cuff Location: Left Arm; Cuff Size: Standard Weight 106 lb Height 62.75 in Body Mass Index Calculated 18.93 kg/m2 Body Surface Area Calculated 1.47 m2 :37 Temperature 98.1 f Comments: Method: Temporal Pulse 68 /min Comments: Pattern: Regular Respiration Rate 16 /min Comments: Pattern: Unlabored BP Systolic 115 mm[Hg] Comments: Patient Position: Sitting; Cuff Location: Left Arm; Cuff Size: Standard BP Diastolic 68 mm[Hg] Comments: Patient Position: Sitting; Cuff Location: Left Arm; Cuff Size: Standard Weight 106 lb Height 62.75 in Body Mass Index Calculated 18.93 kg/m2 Body Surface Area Calculated 1.47 m2 :51 Temperature 97.2 f Comments: Method: Temporal Pulse 70 /min Comments: Pattern: Regular Respiration Rate 16 /min Comments: Pattern: Unlabored BP Systolic 122 mm[Hg] Comments: Patient Position: Sitting; Cuff Location: Left Arm; Cuff Size: Standard BP Diastolic 68 mm[Hg] Comments: Patient Position: Sitting; Cuff Location: Left Arm; Cuff Size: Standard Weight 106 lb Height 62.75 in Body Mass Index Calculated 18.93 kg/m2 Body Surface Area Calculated 1.47 m2 :47 Temperature 98 f Comments: Method: Temporal Pulse 70 /min Comments: Pattern: Regular Respiration Rate 16 /min Comments: Pattern: Unlabored BP Systolic 115 mm[Hg] Comments: Patient Position: Sitting; Cuff Location: Left Arm; Cuff Size: Standard BP Diastolic 78 mm[Hg] Comments: Patient Position: Sitting; Cuff Location: Left Arm; Cuff Size: Standard Weight 106 lb Height 62.75 in Body Mass Index Calculated 18.93 kg/m2 Body Surface Area Calculated 1.47 m2 :31 Temperature 99.3 f Comments: Method: Temporal Pulse 70 /min Comments: Pattern: Regular Respiration Rate 16 /min Comments: Pattern: Unlabored BP Systolic 115 mm[Hg] Comments: Patient Position: Sitting; Cuff Location: Left Arm; Cuff Size: Standard BP Diastolic 78 mm[Hg] Comments: Patient Position: Sitting; Cuff Location: Left Arm; Cuff Size: Standard Weight 106 lb Height 62.75 in Body Mass Index Calculated 18.93 kg/m2 Body Surface Area Calculated 1.47 m2 :04 Temperature 97.9 f Comments: Method: Temporal Pulse 70 /min Comments: Pattern: Regular Respiration Rate 16 /min Comments: Pattern: Unlabored BP Systolic 122 mm[Hg] Comments: Patient Position: Sitting; Cuff Location: Left Arm; Cuff Size: Standard BP Diastolic 80 mm[Hg] Comments: Patient Position: Sitting; Cuff Location: Left Arm; Cuff Size: Standard Weight 106 lb Height 62.75 in Body Mass Index Calculated 18.93 kg/m2 Body Surface Area Calculated 1.47 m2 :04 Temperature 98 f Comments: Method: Temporal Pulse 84 /min Comments: Pattern: Regular Respiration Rate 16 /min Comments: Pattern: Unlabored BP Systolic 120 mm[Hg] Comments: Patient Position: Sitting; Cuff Location: Left Arm; Cuff Size: Standard BP Diastolic 72 mm[Hg] Comments: Patient Position: Sitting; Cuff Location: Left Arm; Cuff Size: Standard Weight 106 lb Height 62.75 in Body Mass Index Calculated 18.93 kg/m2 Body Surface Area Calculated 1.47 m2 :47 Temperature 96.8 f Comments: Method: Temporal Pulse 68 /min Comments: Pattern: Regular Respiration Rate 16 /min Comments: Pattern: Unlabored BP Systolic 104 mm[Hg] Comments: Patient Position: Sitting; Cuff Location: Left Arm; Cuff Size: Standard BP Diastolic 70 mm[Hg] Comments: Patient Position: Sitting; Cuff Location: Left Arm; Cuff Size: Standard Weight 106 lb Height 62.75 in Body Mass Index Calculated 18.93 kg/m2 Body Surface Area Calculated 1.47 m2 :43 Temperature 98.4 f Comments: Method: Temporal Pulse 72 /min Comments: Pattern: Regular Respiration Rate 16 /min Comments: Pattern: Unlabored O2 SAT 99 % Comments: Room air BP Systolic 116 mm[Hg] Comments: Patient Position: Sitting; Cuff Location: Left Arm; Cuff Size: Standard BP Diastolic 74 mm[Hg] Comments: Patient Position: Sitting; Cuff Location: Left Arm; Cuff Size: Standard Weight 114 lb Height 62.3 in Body Mass Index Calculated 20.65 kg/m2 Body Surface Area Calculated 1.51 m2 Results Date Description Value Details :03 MICROALBUMIN: CREATININE RATIO Comments: PATIENT WAS FASTINGPERFORMED BY: [facility] [id number] [facility] [id number] ([id number]) AND ([id number]) Alb/Creat Ratio <23.4 {mg/g_creat} (Normal) Range: 0.0-30.0 Comments: Normal: 0.0 - 30.0 Albuminuria: 31.0 - 300.0 Clinical albuminuria: >300.0 Albumin, Urine <3.0 ug/mL (Normal) Creatinine, Urine 12.8 mg/dL (Normal) :03 HGB A1C ([id number]) Comments: PATIENT WAS FASTINGPERFORMED BY: [facility] [id number] [place] [id number] Hemoglobin A1c 5.5 % (Normal) Range: 4.8-5.6 Comments: . Prediabetes: 5.7 - 6.4 Diabetes: >6.4 Glycemic control for adults with diabetes: <7.0 30-[id number]:00 Crystals, Body Fluid Comments: [facility] [id number] [place], [place], [id number] PATH REV Reviewed (Normal) Comments: No diagnostic crystals identified.Trevon Fuchs D.O. 01/11/18 AMENDED REPORT 01/11/18 1417 PATH REV previously reported as: Will follow SOURCE/BF SYNOVIAL (Normal) CRYSTALS/BF SEE PATH REV (Normal) 11-Cnp-239923:00 Culture, Body Fluid Comments: [facility] [id number] [address] [place], [place], [address] CUBF See Note (Normal) Comments: List Antibiotics Last 48 Hours? NList Antibiotics to be Started? NGram StainGram Stain No organisms seen 1+ Red Blood Cells 1+ Red Cell Stroma Body Fluid CultNO GROWTH IN 14 DAYS Cult, AnaerobicNo growth in 5 days. 6-Hsq-908009:05 CBC W/Diff, Automated Comments: [facility] [address] [place], [place], [id number] Absolute Lymph 1.09 {X10_3/ul} (Normal) Range: 0.83-4.51 Absolute Neut 6.3 {X10_3/uL} (Normal) Range: 2.0-7.7 IM GRAN % 0.100 % (Normal) Range: 0.0-0.9 Comments: IG% - Immature Granulocytes (promyelocytes, myelocytes andmetamyelocytes) > 1% indicates that a LEFT SHIFT is Present. BASO% 0.1 % (Normal) Range: 0-1 EO% 0.3 % (Normal) Range: 0-5 MONO% 6.7 % (Normal) Range: 0-10 LY% 13.8 % (Abnormal) Range: 19-41 NEUT% 79.0 % (Abnormal) Range: 47-70 MPV 9.7 fL (Normal) Range: 6.2-12.0 PLT 318 K/mm3 (Normal) Range: 150-450 RDW SD 50.4 fL (Abnormal) Range: 35.1-43.9 RDW CV 15.5 % (Abnormal) Range: 11.6-14.6 MCHC 33.8 {g/gl} (Normal) Range: 32-36 MCH 30.4 pg (Normal) Range: 27.0-32.0 MCV 89.9 fL (Normal) Range: 81-99 HCT 44.7 % (Normal) Range: 37-47 HGB 15.1 g/dL (Abnormal) Range: 12.0-15.0 RBC 4.97 {M/mm3} (Normal) Range: 4.2-5.4 WBC 7.9 K/mm3 (Normal) Range: 4.4-11.0 0-Paj-811555:05 Comprehensive Metabolic Profil Comments: [facility] [address] [place], [place], [id number] GAP 10 (Normal) Range: 5-15 CO2 33.0 mmol/L Range: 21.0-32.0 (Abnormal) CL 96 mmol/L Range: 98-107 (Abnormal) K 3.1 mmol/L Range: 3.5-5.1 (Abnormal) NA 139 mmol/L (Normal) Range: 136-145 T BILI 0.70 mg/dL (Normal) Range: 0.20-1.00 ALT 72 U/L (Abnormal) Range: 13-56 ALK P 69 U/L (Normal) Range: 45-117 AST 40 U/L (Abnormal) Range: 15-37 CA 9.5 mg/dL (Normal) Range: 8.5-10.1 A/G 1.0 {RATIO} Range: 0.9-2.4 (Normal) GLOB 3.6 g/dL (Normal) Range: 2.2-4.2 ALB 3.7 g/dL (Normal) Range: 3.2-5.0 T PROT 7.3 g/dL (Normal) Range: 6.4-8.2 BUN/CRE 12.9 {RATIO} Range: 10-20 (Normal) EST GFR - AA 97 mL/min (Normal) Comments: GFR Calc EST GFR 80 mL/min (Normal) Comments: Non- GFR Calc CREAT,SERUM 0.78 mg/dL (Normal) Range: 0.55-1.02 Comments: The validity of the calculated GFR AND GFRAA in patients over70 years has not been determined. Clinical correlation isessential. BUN 10 mg/dL (Normal) Range: 7-18 GLU 108 mg/dL Range: 74-106 (Abnormal) Comments: Fasting Glucose result from 100 to 125 mg/dLsuggests IMPAIRED HOMEOSTASIS per A.D.A. criteria.Please note revised GLUCOSE reference range qtoluvsob95/02/2018. Magnesium 2.2 mg/dL (Normal) Comments: PATIENT NOT FASTINGPERFORMED BY: CÜR6370 [facility] [id number] 5:38 Range: 1.6-2.3 Written Authorization WAR (Normal) Comments: PATIENT NOT FASTINGPERFORMED BY: CÜR6370 [facility] [id number] 5:38 Comments: Written Authorization Received.Authorization received from KATINA DANIEL [id number] by Tiffany Shah 43-Qra-520318:38 POTASSIUM SERUM (84730) Comments: PATIENT NOT FASTINGPERFORMED BY: [facility] Gbkdek1047 [place] [facility] [id number] Potassium 3.3 mmol/L (Abnormal) Range: 3.5-5.2 Comments: Client Requested Flag 80-Prg-932606:26 Comp. Metabolic Panel (14) Comments: PATIENT NOT FASTINGPERFORMED BY: [facility] Pmbazl7625 [facility] [id number] ALT (SGPT) 70 [iU]/L (Abnormal) Range: 0-32 AST (SGOT) 60 [iU]/L (Abnormal) Range: 0-40 Alkaline Phosphatase 69 [iU]/L (Normal) Range: 39-117 Bilirubin, Total 0.3 mg/dL (Normal) Range: 0.0-1.2 A/G Ratio 2.6 (Abnormal) Range: 1.2-2.2 Globulin, Total 1.7 g/dL (Normal) Range: 1.5-4.5 Albumin 4.5 g/dL (Normal) Range: 3.6-4.8 Protein, Total 6.2 g/dL (Normal) Range: 6.0-8.5 Calcium 9.5 mg/dL (Normal) Range: 8.7-10.3 Carbon Dioxide, Total 29 mmol/L (Normal) Range: 20-29 Chloride 95 mmol/L (Abnormal) Range: 96-106 Potassium 3.4 mmol/L (Abnormal) Range: 3.5-5.2 Comments: Client Requested Flag Sodium 141 mmol/L (Normal) Range: 134-144 BUN/Creatinine Ratio 18 (Normal) Range: 12-28 eGFR If Africn Am 93 mL/min/1.73 (Normal) eGFR If NonAfricn Am 81 mL/min/1.73 (Normal) Creatinine 0.79 mg/dL (Normal) Range: 0.57-1.00 BUN 14 mg/dL (Normal) Range: 8-27 Glucose 77 mg/dL (Normal) Range: 65-99 37-Zsj-369440:13 METABOLIC PANEL, COMPREHENSIVE Comments: PATIENT NOT FASTINGPERFORMED BY: [facility]Feoywo4490 [facility] [id number] (12866) ALT (SGPT) 69 [iU]/L (Abnormal) Range: 0-32 AST (SGOT) 50 [iU]/L (Abnormal) Range: 0-40 Alkaline Phosphatase 74 [iU]/L (Normal) Range: 39-117 Bilirubin, Total 0.4 mg/dL (Normal) Range: 0.0-1.2 A/G Ratio 2.1 (Normal) Range: 1.2-2.2 Globulin, Total 2.2 g/dL (Normal) Range: 1.5-4.5 Albumin 4.7 g/dL (Normal) Range: 3.6-4.8 Protein, Total 6.9 g/dL (Normal) Range: 6.0-8.5 Calcium 10.1 mg/dL (Normal) Range: 8.7-10.3 Carbon Dioxide, Total 26 mmol/L (Normal) Range: 20-29 Chloride 93 mmol/L (Abnormal) Range: 96-106 Potassium 3.7 mmol/L (Normal) Range: 3.5-5.2 Sodium 140 mmol/L (Normal) Range: 134-144 BUN/Creatinine Ratio 14 (Normal) Range: 12-28 eGFR If Africn Am 96 mL/min/1.73 (Normal) eGFR If NonAfricn Am 84 mL/min/1.73 (Normal) Creatinine 0.77 mg/dL (Normal) Range: 0.57-1.00 BUN 11 mg/dL (Normal) Range: 8-27 Glucose 113 mg/dL (Abnormal) Range: 65-99 8-Mkk-196247:05 CBC W/Diff, Automated Comments: [facility] [address] [place], [place], [id number] Absolute Lymph 0.69 {X10_3/ul} (Abnormal) Range: 0.83-4.51 Absolute Neut 3.9 {X10_3/uL} (Normal) Range: 2.0-7.7 IM GRAN % 0.000 % (Normal) Range: 0.0-0.9 Comments: IG% - Immature Granulocytes (promyelocytes, myelocytes andmetamyelocytes) > 1% indicates that a LEFT SHIFT is Present. BASO% 0.4 % (Normal) Range: 0-1 EO% 0.8 % (Normal) Range: 0-5 MONO% 9.8 % (Normal) Range: 0-10 LY% 13.3 % (Abnormal) Range: 19-41 NEUT% 75.7 % (Abnormal) Range: 47-70 MPV 9.5 fL (Normal) Range: 6.2-12.0 PLT 265 K/mm3 (Normal) Range: 150-450 RDW SD 45.4 fL (Abnormal) Range: 35.1-43.9 RDW CV 13.8 % (Normal) Range: 11.6-14.6 MCHC 32.2 {g/gl} (Normal) Range: 32-36 MCH 29.1 pg (Normal) Range: 27.0-32.0 MCV 90.4 fL (Normal) Range: 81-99 HCT 41.3 % (Normal) Range: 37-47 HGB 13.3 g/dL (Normal) Range: 12.0-15.0 RBC 4.57 {M/mm3} (Normal) Range: 4.2-5.4 WBC 5.2 K/mm3 (Normal) Range: 4.4-11.0 8-Ekg-796131:05 Comprehensive Metabolic Profil Comments: [facility] [address] [place], [address] GAP 8 (Normal) Range: 5-15 CO2 36.0 mmol/L (Abnormal) Range: 21.0-32.0 CL 95 mmol/L (Abnormal) Range: 98-107 K 2.9 mmol/L (Abnormal) Range: 3.5-5.1 NA 139 mmol/L (Normal) Range: 136-145 T BILI 0.50 mg/dL (Normal) Range: 0.20-1.00 ALT 75 U/L (Abnormal) Range: 13-56 ALK P 66 U/L (Normal) Range: 45-117 AST 56 U/L (Abnormal) Range: 15-37 CA 9.1 mg/dL (Normal) Range: 8.5-10.1 A/G 1.1 {RATIO} (Normal) Range: 0.9-2.4 GLOB 3.2 g/dL (Normal) Range: 2.2-4.2 ALB 3.5 g/dL (Normal) Range: 3.2-5.0 T PROT 6.7 g/dL (Normal) Range: 6.4-8.2 BUN/CRE 10.0 {RATIO} (Normal) Range: 10-20 EST GFR - AA 94 mL/min (Normal) Comments: GFR Calc EST GFR 78 mL/min (Normal) Comments: Non- GFR Calc CREAT,SERUM 0.80 mg/dL (Normal) Range: 0.55-1.02 Comments: The validity of the calculated GFR AND GFRAA in patients over70 years has not been determined. Clinical correlation isessential. BUN 8 mg/dL (Normal) Range: 7-18 GLU 86 mg/dL (Normal) Range: 74-106 Comments: Please note revised GLUCOSE reference range zhvgdiyzw73/02/2018. 99-Hjn-903596:14 Thyroxine (T4) Free, Direct, Comments: PATIENT NOT FASTINGPERFORMED BY: [facility] Nvgujk5769 [facility] [id number] S T4,Free(Direct) 1.99 ng/dL Range: 0.82-1.77 (Abnormal) 21-Aug-2017 Triiodothyronine,Free,Ser 3.1 pg/mL (Normal) Comments: PATIENT NOT FASTINGPERFORMED BY: [facility] Hazhmp7924 [facility] [id number] 13:14 um Range: 2.0-4.4 21-Aug-2017 Written Authorization WAR (Normal) Comments: PATIENT NOT FASTINGPERFORMED BY: [facility]6370 [facility] [id number] 13:14 Comments: Written Authorization Received.Authorization received from KERMIT CORTEZ [id number] by Aniya Denton 79-Kmf-537533:14 CMV IGM ANTBDY (10100) Comments: PATIENT NOT FASTINGPERFORMED BY: [facility]6370 [facility] [id number] Cytomegalovirus (CMV) Ab, IgM <30.0 AU/mL (Normal) Range: 0.0-29.9 Comments: Negative <30.0 Equivocal 30.0 - 34.9 Positive >34.9 A positive result is generally indicative of acute infection, reactivation or persistent IgM production. 45-Yyh-306611:14 EBV Panel (30225) Comments: PATIENT NOT FASTINGPERFORMED BY: [facility]6370 [facility] [id number] Interpretation: SPRCS (Normal) Comments: EBV Interpretation Chart . Interpretation EBV-IgM EA(D)-IgG VCA-IgG EBNA-IgG . EBV Seronegative - - - - Early Phase + - - - Acute Primary + +or- + - Infection Convalescence/Past - +or- + + Infection Reactivated +or- + + + Infection + Antibody Present - Antibody Absent EBV Nuclear Antigen Ab, IgG <18.0 U/mL (Normal) Range: 0.0-17.9 Comments: Negative <18.0 Equivocal 18.0 - 21.9 Positive >21.9 EBV Ab VCA, IgG 112.0 U/mL (Abnormal) Range: 0.0-17.9 Comments: Negative <18.0 Equivocal 18.0 - 21.9 Positive >21.9 EBV Early Antigen Ab, IgG <9.0 U/mL (Normal) Range: 0.0-8.9 Comments: Negative < 9.0 Equivocal 9.0 - 10.9 Positive >10.9 EBV Ab VCA, IgM <36.0 U/mL (Normal) Range: 0.0-35.9 Comments: Negative <36.0 Equivocal 36.0 - 43.9 Positive >43.9 32-Jsm-189800:14 VITAMIN B-12 (CYANOCOBALAMIN) Comments: PATIENT NOT FASTINGPERFORMED BY: [facility] Cyrmro5088 [facility] [id number] (39795) Vitamin B12 >2000 pg/mL (Abnormal) Range: 232-1245 74-Hmn-705319:14 TSH (90100) Comments: PATIENT NOT FASTINGPERFORMED BY: [facility]Lrcphe0828 [facility] [id number] TSH 0.072 {uIU/mL} (Abnormal) Range: 0.450-4.500 48-Qtk-015415:14 CBC W/AUTO DIFF WBC (66091) Comments: PATIENT NOT FASTINGPERFORMED BY: [facility] Ynllpe0830 [facility] [id number] Immature Grans (Abs) 0.0 {x10E3/uL} (Normal) Range: 0.0-0.1 Immature Granulocytes 0 % (Normal) Baso (Absolute) 0.0 {x10E3/uL} (Normal) Range: 0.0-0.2 Eos (Absolute) 0.1 {x10E3/uL} (Normal) Range: 0.0-0.4 Monocytes(Absolute) 0.6 {x10E3/uL} (Normal) Range: 0.1-0.9 Lymphs (Absolute) 0.9 {x10E3/uL} (Normal) Range: 0.7-3.1 Neutrophils (Absolute) 5.2 {x10E3/uL} (Normal) Range: 1.4-7.0 Basos 0 % (Normal) Eos 2 % (Normal) Monocytes 9 % (Normal) Lymphs 14 % (Normal) Neutrophils 75 % (Normal) Platelets 304 {x10E3/uL} (Normal) Range: 150-379 RDW 13.6 % (Normal) Range: 12.3-15.4 MCHC 33.6 g/dL (Normal) Range: 31.5-35.7 MCH 30.4 pg (Normal) Range: 26.6-33.0 MCV 90 fL (Normal) Range: 79-97 Hematocrit 43.4 % (Normal) Range: 34.0-46.6 Hemoglobin 14.6 g/dL (Normal) Range: 11.1-15.9 RBC 4.80 {x10E6/uL} (Normal) Range: 3.77-5.28 WBC 6.9 {x10E3/uL} (Normal) Range: 3.4-10.8 90-Ezk-827118:14 METABOLIC PANEL, COMPREHENSIVE Comments: PATIENT NOT FASTINGPERFORMED BY: [facility] Amgtcz2577 [facility] [id number] (22512) ALT (SGPT) 53 [iU]/L (Abnormal) Range: 0-32 AST (SGOT) 53 [iU]/L (Abnormal) Range: 0-40 Alkaline Phosphatase 76 [iU]/L (Normal) Range: 39-117 Bilirubin, Total 0.4 mg/dL (Normal) Range: 0.0-1.2 A/G Ratio 2.1 (Normal) Range: 1.2-2.2 Globulin, Total 2.2 g/dL (Normal) Range: 1.5-4.5 Albumin 4.6 g/dL (Normal) Range: 3.6-4.8 Protein, Total 6.8 g/dL (Normal) Range: 6.0-8.5 Calcium 10.1 mg/dL (Normal) Range: 8.7-10.3 Carbon Dioxide, Total 30 mmol/L (Abnormal) Range: 20-29 Comments: Please note reference interval change Chloride 90 mmol/L (Abnormal) Range: 96-106 Potassium 3.9 mmol/L (Normal) Range: 3.5-5.2 Sodium 141 mmol/L (Normal) Range: 134-144 BUN/Creatinine Ratio 16 (Normal) Range: 12-28 eGFR If Africn Am 89 mL/min/1.73 (Normal) eGFR If NonAfricn Am 77 mL/min/1.73 (Normal) Creatinine 0.82 mg/dL (Normal) Range: 0.57-1.00 BUN 13 mg/dL (Normal) Range: 8-27 Glucose 81 mg/dL (Normal) Range: 65-99 76-Imx-300327:39 Microscopic Examination Comments: PATIENT NOT FASTINGPERFORMED BY: [facility] Abwbjp5382 [facility] [id number] Bacteria Few (Normal) Mucus Threads Present (Normal) Crystal Type Amorphous Sediment (Normal) Crystals Present (Abnormal) Epithelial Cells (non renal) 0-10 {/hpf} (Normal) Range: 0 - 10 RBC 0-2 {/hpf} (Normal) Range: 0 - 2 WBC 6-10 {/hpf} (Abnormal) Range: 0 - 5 42-Sbv-725605:39 URINE SANDIE CULTURE-IDENTIFICATN Comments: PATIENT NOT FASTINGPERFORMED BY: [employer] Nhijlo6642 [facility] [id number] ([id number]) Result 1 MUG (Normal) Comments: Mixed urogenital flora10,000-25,000 colony forming units per mL Urine Final report (Normal) Culture,Comprehensive 34-Ogc-965662:39 URINALYSIS (86046) Comments: PATIENT NOT FASTINGPERFORMED BY: AngioSlide70 [facility] [id number] Microscopic Examination See below: (Normal) Comments: Microscopic was indicated and was performed. Nitrite, Urine Negative (Normal) Urobilinogen,Semi-Qn 0.2 mg/dL (Normal) Range: 0.2-1.0 Bilirubin Negative (Normal) Occult Blood Negative (Normal) Ketones Negative (Normal) Glucose Negative (Normal) Protein Negative (Normal) WBC Esterase 1+ (Abnormal) Appearance Clear (Normal) Urine-Color Yellow (Normal) pH 7.5 (Normal) Range: 5.0-7.5 Specific [place] 1.016 (Normal) Range: 1.005-1.030 51-Exf-168499:39 METABOLIC PANEL, COMPREHENSIVE Comments: PATIENT NOT FASTINGPERFORMED BY: [employer] Shwqvv3880 [facility] [id number] (73627) ALT (SGPT) 50 [iU]/L (Abnormal) Range: 0-32 AST (SGOT) 49 [iU]/L (Abnormal) Range: 0-40 Alkaline Phosphatase 69 [iU]/L (Normal) Range: 39-117 Bilirubin, Total 0.4 mg/dL (Normal) Range: 0.0-1.2 A/G Ratio 2.0 (Normal) Range: 1.2-2.2 Globulin, Total 2.2 g/dL (Normal) Range: 1.5-4.5 Albumin 4.4 g/dL (Normal) Range: 3.6-4.8 Protein, Total 6.6 g/dL (Normal) Range: 6.0-8.5 Calcium 10.1 mg/dL (Normal) Range: 8.7-10.3 Carbon Dioxide, Total 30 mmol/L (Abnormal) Range: 18-29 Comments: Effective August 21, 2017 Carbon Dioxide, Total reference interval will be changing to: Age Male Female 0 days - 30 days 16 - 29 16 - 29 31 days - 1 year 15 - 25 15 - 25 2 years - 5 years 17 - 26 17 - 26 6 y ears - 12 years 19 - 19 - >12 years 20 - 20 - 29 Chloride 92 mmol/L (Abnormal) Range: 96-106 Potassium 3.9 mmol/L (Normal) Range: 3.5-5.2 Sodium 140 mmol/L (Normal) Range: 134-144 BUN/Creatinine Ratio 22 (Normal) Range: 12-28 eGFR If Africn Am 81 mL/min/1.73 (Normal) eGFR If NonAfricn Am 70 mL/min/1.73 (Normal) Creatinine 0.89 mg/dL (Normal) Range: 0.57-1.00 BUN 20 mg/dL (Normal) Range: 8-27 Glucose 84 mg/dL (Normal) Range: 65-99 53-Vwd-259446:39 CBC, PLATELETS & MANUAL Comments: PATIENT NOT FASTINGPERFORMED BY: [facility]Acsndu4170 [facility] [id number] Information: SRC:ANAMARIA DIFF (18811) Immature Grans (Abs) 0.0 {x10E3/uL} (Normal) Range: 0.0-0.1 Immature Granulocytes 0 % (Normal) Baso (Absolute) 0.0 {x10E3/uL} (Normal) Range: 0.0-0.2 Eos (Absolute) 0.1 {x10E3/uL} (Normal) Range: 0.0-0.4 Monocytes(Absolute) 0.7 {x10E3/uL} (Normal) Range: 0.1-0.9 Lymphs (Absolute) 1.0 {x10E3/uL} (Normal) Range: 0.7-3.1 Neutrophils (Absolute) 6.3 {x10E3/uL} (Normal) Range: 1.4-7.0 Basos 0 % (Normal) Eos 1 % (Normal) Monocytes 9 % (Normal) Lymphs 13 % (Normal) Neutrophils 77 % (Normal) Platelets 361 {x10E3/uL} (Normal) Range: 150-379 RDW 13.6 % (Normal) Range: 12.3-15.4 MCHC 32.3 g/dL (Normal) Range: 31.5-35.7 MCH 29.9 pg (Normal) Range: 26.6-33.0 MCV 92 fL (Normal) Range: 79-97 Hematocrit 42.7 % (Normal) Range: 34.0-46.6 Hemoglobin 13.8 g/dL (Normal) Range: 11.1-15.9 RBC 4.62 {x10E6/uL} (Normal) Range: 3.77-5.28 WBC 8.1 {x10E3/uL} (Normal) Range: 3.4-10.8 0-Qiq-094893:42 CBC W/Diff, Automated Comments: [facility] [address]ta[address] [place], [place], [id number] Absolute Lymph 1.04 {X10_3/ul} (Normal) Range: 0.83-4.51 Absolute Neut 4.6 {X10_3/uL} (Normal) Range: 2.0-7.7 IM GRAN % 0.000 % (Normal) Range: 0.0-0.9 Comments: IG% - Immature Granulocytes (promyelocytes, myelocytes andmetamyelocytes) > 1% indicates that a LEFT SHIFT is Present. BASO% 0.5 % (Normal) Range: 0-1 EO% 0.8 % (Normal) Range: 0-5 MONO% 10.7 % (Abnormal) Range: 0-10 LY% 16.4 % (Abnormal) Range: 19-41 NEUT% 71.6 % (Abnormal) Range: 47-70 MPV 10.0 fL (Normal) Range: 6.2-12.0 PLT 314 K/mm3 (Normal) Range: 150-450 RDW SD 45.9 fL (Abnormal) Range: 35.1-43.9 RDW CV 13.8 % (Normal) Range: 11.6-14.6 MCHC 33.5 {g/gl} (Normal) Range: 32-36 MCH 30.7 pg (Normal) Range: 27.0-32.0 MCV 91.7 fL (Normal) Range: 81-99 HCT 40.9 % (Normal) Range: 37-47 HGB 13.7 g/dL (Normal) Range: 12.0-15.0 RBC 4.46 {M/mm3} (Normal) Range: 4.2-5.4 WBC 6.4 K/mm3 (Normal) Range: 4.4-11.0 8-Flj-058284:42 Comprehensive Metabolic Profil Comments: [facility] [address] [place], [place], [id number] GAP 6 (Normal) Range: 5-15 CO2 36.0 mmol/L (Abnormal) Range: 21.0-32.0 CL 97 mmol/L (Abnormal) Range: 98-107 K 2.9 mmol/L (Abnormal) Range: 3.5-5.1 NA 139 mmol/L (Normal) Range: 136-145 T BILI 0.60 mg/dL (Normal) Range: 0.20-1.00 ALT 66 U/L (Abnormal) Range: 13-56 ALK P 69 U/L (Normal) Range: 45-117 AST 50 U/L (Abnormal) Range: 15-37 CA 9.1 mg/dL (Normal) Range: 8.5-10.1 A/G 1.1 {RATIO} (Normal) Range: 0.9-2.4 GLOB 3.4 g/dL (Normal) Range: 2.2-4.2 ALB 3.7 g/dL (Normal) Range: 3.2-5.0 T PROT 7.1 g/dL (Normal) Range: 6.4-8.2 BUN/CRE 22.5 {RATIO} (Abnormal) Range: 10-20 EST GFR - AA 94 mL/min (Normal) Comments: GFR Calc EST GFR 77 mL/min (Normal) Comments: Non- GFR Calc CREAT,SERUM 0.80 mg/dL (Normal) Range: 0.55-1.02 Comments: The validity of the calculated GFR AND GFRAA in patients over70 years has not been determined. Clinical correlation isessential. BUN 18 mg/dL (Normal) Range: 7-18 GLU 91 mg/dL (Normal) Range: 74-106 Comments: Please note revised GLUCOSE reference range liqykczgb93/02/2018. 72-Ypa-250288:05 Liver Profile Comments: [facility] [address] [place], [address] D BILI 0.12 mg/dL (Normal) Range: 0.00-0.30 T BILI 0.40 mg/dL (Normal) Range: 0.20-1.00 ALT 66 U/L (Abnormal) Range: 13-56 Comments: Please note revised ALT reference range aciwhckee44/28/2018. ALK P 79 U/L (Normal) Range: 45-117 AST 49 U/L (Abnormal) Range: 15-37 GLOB 3.4 g/dL (Normal) Range: 2.2-4.2 ALB 3.5 g/dL (Normal) Range: 3.2-5.0 T PROT 6.9 g/dL (Normal) Range: 6.4-8.2 83-Tfo-097368:59 LIPID PANEL (21699) Comments: PATIENT WAS FASTINGPERFORMED BY: [facility] Enlqyj6066 [facility] [id number]; fu 11-19 DF LDL/HDL Ratio 1.1 {ratio} (Normal) Range: 0.0-3.2 Comments: LDL/HDL Ratio Men Women 1/2 Avg.Risk 1.0 1.5 Av g.Risk 3.6 3.2 2X Avg.Risk 6.2 5.0 3X Avg.Risk 8.0 6.1 LDL Cholesterol Calc 156 mg/dL (Abnormal) Range: 0-99 VLDL Cholesterol Ector 14 mg/dL (Normal) Range: 5-40 HDL Cholesterol 140 mg/dL (Normal) Triglycerides 68 mg/dL (Normal) Range: 0-149 Cholesterol, Total 310 mg/dL (Abnormal) Range: 100-199 80-Wah-334000:15 Anti-Mitochondrial AB Comments: [place] ORDERED: CMP, CBCDFAST ORDERED: TSH, VITD, CMP, FE, AMA,HEP A, T4F, T3F,PTHIN, FE, TIBC, CERU, AMS, MISCLab[facility] (refer to report for specific site)refer to report for address and phone number MITOCHN AB <20.0 {Units} (Normal) Range: 0.0-20.0 Comments: Negative 0.0 - 20.0 Equivocal 20.1 - 24.9 Positive >24.9Mitochondrial (M2) Antibodies are found in 90-96% ofpatients with gaudencio quintin biliary cirrhosis.Performed at: - [facility] [address] [id number] Director: Wili Wagner PhD, Phone: [phone] 66-Foz-315569:15 Anti-Smooth Muscle ABS Comments: [place] ORDERED: CMP, CBCDFAST ORDERED: TSH, VITD, CMP, FE, AMA,HEP A, T4F, T3F,PTHIN, FE, TIBC, CERU, AMS, MISCComments: [id number];LKM;SERUM;FROZENLabCorp (refer to report for specific site)refer to report for address and phone number ANTISMOOTH 0759 2 {Units} (Normal) Range: 0-19 Comments: Negative 0 - 19 Weak positive 20 - 30 Moderate to strong positive >30 Actin Antibodies are found in 52-85% of patients with autoi mmune hepatitis or chronic active hepatitis and in 22% of patients with primary biliary cirrhosis. 33-Svx-528826:15 CBC W/Diff, Automated Comments: [place] ORDERED: CMP, CBCDFAST ORDERED: TSH, VITD, CMP, FE, AMA,HEP A, T4F, T3F,PTHIN, FE, TIBC, CERU, AMS, MISCSt. [facility] Hospital [address]ubqly[address] [place], [place], [id number] Absolute Lymph 1.01 {X10_3/ul} (Normal) Range: 0.83-4.51 Absolute Neut 2.3 {X10_3/uL} (Normal) Range: 2.0-7.7 IM GRAN % 0.000 % (Normal) Range: 0.0-0.9 Comments: IG% - Immature Granulocytes (promyelocytes, myelocytes andmetamyelocytes) > 1% indicates that a LEFT SHIFT is Present. BASO% 0.5 % (Normal) Range: 0-1 EO% 2.4 % (Normal) Range: 0-5 MONO% 17.6 % (Abnormal) Range: 0-10 LY% 24.0 % (Normal) Range: 19-41 NEUT% 55.5 % (Normal) Range: 47-70 MPV 9.7 fL (Normal) Range: 6.2-12.0 PLT 259 K/mm3 (Normal) Range: 150-450 RDW SD 47.5 fL (Abnormal) Range: 35.1-43.9 RDW CV 13.8 % (Normal) Range: 11.6-14.6 MCHC 32.8 {g/gl} (Normal) Range: 32-36 MCH 31.1 pg (Normal) Range: 27.0-32.0 MCV 94.7 fL (Normal) Range: 81-99 HCT 39.3 % (Normal) Range: 37-47 HGB 12.9 g/dL (Normal) Range: 12.0-15.0 RBC 4.15 {M/mm3} (Abnormal) Range: 4.2-5.4 WBC 4.2 K/mm3 (Abnormal) Range: 4.4-11.0 35-Muf-[id number]:15 Ceruloplasmin Comments: [place] ORDERED: CMP, CBCDFAST ORDERED: TSH, VITD, CMP, FE, AMA,HEP A, T4F, T3F,PTHIN, FE, TIBC, CERU, AMS, MISCComments: [id number];LKM;SERUM;[facility] (refer to report for specific site)refer to report for address and phone number CERULOPLAS 1568 23.8 mg/dL (Normal) Range: 19.0-39.0 [id number]-[id number]:15 Comprehensive Metabolic Comments: [place] ORDERED: CMP, CBCDFAST ORDERED: TSH, VITD, CMP, FE, AMA,HEP A, T4F, T3F,PTHIN, FE, TIBC, CERU, AMS, MISCLIPID ADDED PER ; FAXED ORDER TO FOLLOWComments: [id number];LKM;SERUM;FROZENW[facility] [id number] [place], [address] GAP 5 (Normal) Range: 5-15 CO2 32.0 mmol/L (Normal) Range: 21.0-32.0 CL 101 mmol/L (Normal) Range: 98-107 K 3.3 mmol/L (Abnormal) Range: 3.5-5.1 NA 138 mmol/L (Normal) Range: 136-145 T BILI 0.40 mg/dL (Normal) Range: 0.20-1.00 ALT 69 U/L (Abnormal) Range: 13-56 Comments: Please note revised ALT reference range voqckewvk86/28/2018. ALK P 72 U/L (Normal) Range: 45-117 AST 47 U/L (Abnormal) Range: 15-37 CA 9.0 mg/dL (Normal) Range: 8.5-10.1 A/G 1.0 {RATIO} (Normal) Range: 0.9-2.4 GLOB 3.4 g/dL (Normal) Range: 2.2-4.2 ALB 3.3 g/dL (Normal) Range: 3.2-5.0 T PROT 6.7 g/dL (Normal) Range: 6.4-8.2 BUN/CRE 22.4 {RATIO} (Abnormal) Range: 10-20 EST GFR - AA 115 mL/min (Normal) Comments: GFR Calc EST GFR 95 mL/min (Normal) Comments: Non- GFR Calc CREAT,SERUM 0.67 mg/dL (Normal) Range: 0.55-1.02 Comments: The validity of the calculated GFR AND GFRAA in patients over70 years has not been determined. Clinical correlation isessential. BUN 15 mg/dL (Normal) Range: 7-18 GLU 92 mg/dL (Normal) Range: 74-106 Comments: Please note revised GLUCOSE reference range atvnhbwuq06/02/2018. 30-Wqk-[id number]:15 Ferritin Comments: [place] ORDERED: CMP, CBCDFAST ORDERED: TSH, VITD, CMP, FE, AMA,HEP A, T4F, T3F,PTHIN, FE, TIBC, CERU, AMS, MISCLIPID ADDED PER ; FAXED ORDER TO FOLLOWComments: [id number];LKM;SERUM;FROZENWSouthern [facility] [id number] [address] [place], [place], [id number] FERRITIN 12 ng/mL (Normal) Range: 8-252 94-Bhc-[id number]:15 Free T3 Comments: [place] ORDERED: CMP, CBCDFAST ORDERED: TSH, VITD, CMP, FE, AMA,HEP A, T4F, T3F,PTHIN, FE, TIBC, CERU, AMS, MISCLIPID ADDED PER ; FAXED ORDER TO FOLLOWComments: [id number];LKM;SERUM;[facility]ENSt[facility] [address] [place], [place], [id number] FREE T3 2.8 pg/mL (Normal) Range: 2.18-3.98 66-Uap-[id number]:15 Hepatitis A AB, Total Comments: [place] ORDERED: CMP, CBCDFAST ORDERED: TSH, VITD, CMP, FE, AMA,HEP A, T4F, T3F,PTHIN, FE, TIBC, CERU, AMS, MISCComments: [id number];LKM;SERUM;[facility]EN[facility] (refer to report for specific site)refer to report for address and phone number HEP A AB,T.6726 Positive (Abnormal) 12-Zve-735713:15 Hepatitis A IgM Comments: [place] ORDERED: CMP, CBCDFAST ORDERED: TSH, VITD, CMP, FE, AMA,HEP A, T4F, T3F,PTHIN, FE, TIBC, CERU, AMS, MISCComments: [id number];LKM;SERUM;[facility] (refer to report for specific site)refer to report for address and phone number Antibody HEP A IgM 6734 Negative (Normal) Comments: Performed at: [facility] [address] [id number] Director: Wili Wagner PhD, Phone: [phone] 46-Mgs-828674:15 Iron Comments: [place] ORDERED: CMP, CBCDFAST ORDERED: TSH, VITD, CMP, FE, AMA,HEP A, T4F, T3F,PTHIN, FE, TIBC, CERU, AMS, MISCLIPID ADDED PER ; FAXED ORDER TO FOLLOWComments: [id number];LKM;SERUM;[facility] [address] [place], [address] IRON 53 ug/dL (Normal) Range: 50-170 23-Ijv-937707:15 Iron Binding Comments: [place] ORDERED: CMP, CBCDFAST ORDERED: TSH, VITD, CMP, FE, AMA,HEP A, T4F, T3F,PTHIN, FE, TIBC, CERU, AMS, MISCLIPID ADDED PER ; FAXED ORDER TO FOLLOWComments: [id number];LKM;SERUM;[facility] [address] [facility] [place], [place], [id number] TIBC 452 ug/dL (Abnormal) Range: 250-450 17-Iqx-231436:15 Lipid Profile Comments: [place] ORDERED: CMP, CBCDFAST ORDERED: TSH, VITD, CMP, FE, AMA,HEP A, T4F, T3F,PTHIN, FE, TIBC, CERU, AMS, MISCLIPID ADDED PER ; FAXED ORDER TO FOLLOWComments: [id number];LKM;SERUM;[facility] [address] [place], [place], [id number] VLDL 16 mg/dL (Normal) Range: 5-40 LDL 197 mg/dL (Abnormal) Range: 0-130 HDL 101 mg/dL (Normal) Comments: The drugs N-Acetylcysteine and Metamizole may falselydepress this assay. Reference Range HDL <40 mg/dL Low HDL Cholesterol HDL >or= 60 mg/dL High HDL Cholesterol TRIG 79 mg/dL (Normal) Comments: The drugs N-Acetylcysteine and Metamizole may falselydepress this assay.Serum Triglycerides Reference Interval Normal <150 mg/dL Borderline high 150 - 199 mg/dL High 200 - 499 mg/dL Very High > or = 500 mg/dL CHOL 314 mg/dL (Abnormal) Comments: <200 mg/dL Desirable 200-240 mg/dL Borderline >240 mg/dL High Risk 80-Xny-147876:15 Miscellaneous Lab Comments: [place] ORDERED: CMP, CBCDFAST ORDERED: TSH, VITD, CMP, FE, AMA,HEP A, T4F, T3F,PTHIN, FE, TIBC, CERU, AMS, MISCComments: [id number];LKM;SERUM;FROZENTest(s) Ordered: [id number];LKM;SERUM;[facility] [address], [id number] [facility] Comments: TEST RESULT LIMITSLiver-Kidney Microsomal Ab <1.0 Units 0.0 - 20.0 Negative 0.0 - 20.0 Equ LAB (Normal) ivocal 20.1 - 24.9 Positive >24.9LKM type 1 antibodies are detected in patients withautoimmune hepatitis type 2 and in up to 8% ofpatients with chronic TEST HCV infection. TESTING PERFORMED AT [facility]. ORIGINAL REPORT ON FILE IN LAB CONTAINS ADDITIONAL TEST SITE INFORMATION. 2 PTHIN 65.9 Comments: [place] ORDERED: CMP, CBCDFAST ORDERED: TSH, VITD, CMP, FE, AMA,HEP A, T4F, T3F,PTHIN, FE, TIBC, CERU, AMS, MISCSt. [facility] Hospital [address] [facility] [place], [id number] 0 pg/mL Range: 18.4-80.1 - (Normal) Comments: Please Note: PTH INTACT METHOD AND REFERENCE RANGE CHANGEEffective 03/01/2017. F e b - 2 0 1 8 1 0 : 1 5 62-Sbh-013121:15 T4 Free Direct Comments: [place] ORDERED: CMP, CBCDFAST ORDERED: TSH, VITD, CMP, FE, AMA,HEP A, T4F, T3F,PTHIN, FE, TIBC, CERU, AMS, MISCLIPID ADDED PER ; FAXED ORDER TO FOLLOWComments: [id number];LKM;SERUM;[facility] [address], [address] T4 FREE DIRECT 0.98 ng/dL (Normal) Range: 0.76-1.46 11-Zbi-599250:15 Thyroid Stim Hormone Comments: [place] ORDERED: CMP, CBCDFAST ORDERED: TSH, VITD, CMP, FE, AMA,HEP A, T4F, T3F,PTHIN, FE, TIBC, CERU, AMS, MISCLIPID ADDED PER ; FAXED ORDER TO FOLLOWComments: [id number];LKM;SERUM;[facility] (TSH) [facility] [address] [place], [address] TSH 0.98 {uIU/mL} (Normal) Range: 0.358-3.74 83-Yle-102211:15 Transferrin Comments: [place] ORDERED: CMP, CBCDFAST ORDERED: TSH, VITD, CMP, FE, AMA,HEP A, T4F, T3F,PTHIN, FE, TIBC, CERU, AMS, MISCComments: [id number];LKM;SERUM;[facility] (refer to report for specific site)refer to report for address and phone number TRANSFERRN 2801 365 mg/dL (Normal) Range: 200-370 62-Vyt-560785:15 Vitamin D,25 Hydroxy Comments: [place] ORDERED: CMP, CBCDFAST ORDERED: TSH, VITD, CMP, FE, AMA,HEP A, T4F, T3F,PTHIN, FE, TIBC, CERU, AMS, MISCSt. [facility] Hospital [address], [address] Vitamin D 25-OH 57.7 ng/mL (Normal) Range: 19.95-100.01 Comments: Vitamin D 25(OH) Status Range Deficiency <20 ng/mL (50nmol/L) Insuffciency 20 - 30 ng/mL (50 - 75 nmol/L) Sufficiency 30 - 100 ng/mL (75 - 250 nmol/L) Toxicity >100 ng/mL (>250 nmol/L) 57-Rjq-369253:50 Anti-Mitochondrial AB Comments: [facility] (refer to report for specific site)refer to report for address and phone number MITOCHN AB <20.0 {Units} (Normal) Range: 0.0-20.0 Comments: Negative 0.0 - 20.0 Equivocal 20.1 - 24.9 Positive >24.9Mitochondrial (M2) Antibodies are found in 90-96% ofpatients with gaudencio quintin biliary cirrhosis.Performed at: - [facility] [address] [id number] Director: Wili Wagner PhD, Phone: [phone] 6-Lwf-578031:10 Magnesium Comments: [facility] [address] [place], [address] MG 2.3 mg/dL (Normal) Range: 1.8-2.4 5-Anl-778550:10 Potassium Comments: [facility] [address] [place], [address] K 3.5 mmol/L (Normal) Range: 3.5-5.1 3-Omc-931663:59 Anti-Smooth Muscle ABS Comments: Comments: [id number] [facility] SERUM REFL[facility] (refer to report for specific site)refer to report for address and phone number; can review at appt on 03/29 ANTISMOOTH 6643 4 {Units} (Normal) Range: 0-19 Comments: Negative 0 - 19 Weak positive 20 - 30 Moderate to strong positive >30 Actin Antibodies are found in 52-85% of patients with autoi mmune hepatitis or chronic active hepatitis and in 22% of patients with primary biliary cirrhosis. 7-Fex-047890:59 Ceruloplasmin Comments: Comments: [id number] [facility] SERUM [facility]FL[facility] (refer to report for specific site)refer to report for address and phone number CERULOPLAS 1560 27.0 mg/dL (Normal) Range: 19.0-39.0 9-Bch-838174:59 Comprehensive Metabolic Profil Comments: Comments: [id number] [facility]UM [facility] [address] [place], [address] GAP 8 (Normal) Range: 5-15 CO2 31.0 mmol/L (Normal) Range: 21.0-32.0 CL 97 mmol/L (Abnormal) Range: 98-107 K 2.9 mmol/L (Abnormal) Range: 3.5-5.1 NA 136 mmol/L (Normal) Range: 136-145 T BILI 0.70 mg/dL (Normal) Range: 0.20-1.00 ALT 67 U/L (Normal) Range: 12-78 ALK P 90 U/L (Normal) Range: 45-117 AST 46 U/L (Abnormal) Range: 15-37 CA 9.1 mg/dL (Normal) Range: 8.5-10.1 A/G 1.0 {RATIO} (Normal) Range: 0.9-2.4 GLOB 3.6 g/dL (Normal) Range: 2.2-4.2 ALB 3.5 g/dL (Normal) Range: 3.4-5.0 Comments: Please note revised Albumin AND Globulin reference rangeeffective 2016. T PROT 7.1 g/dL (Normal) Range: 6.4-8.2 BUN/CRE 23.9 {RATIO} (Abnormal) Range: 10-20 EST GFR - AA 108 mL/min (Normal) Comments: GFR Calc EST GFR 89 mL/min (Normal) Comments: Non- GFR Calc CREAT,SERUM 0.71 mg/dL (Normal) Range: 0.55-1.02 Comments: The validity of the calculated GFR AND GFRAA in patients over70 years has not been determined. Clinical correlation isessential. BUN 17 mg/dL (Normal) Range: 7-18 GLU 100 mg/dL (Normal) Range: 70-110 3-Kfq-724441:59 Ferritin Comments: Comments: [id number] [facility] SERUM [facility] [address] [place], [address] FERRITIN 14 ng/mL (Normal) Range: 8-252 4-Cbg-704920:59 Free T3 Comments: Comments: [id number] [facility] SERUM [facility] [address] [place], [address] FREE T3 4.0 pg/mL (Abnormal) Range: 2.18-3.98 4-Ikk-946218:59 Hepatitis A AB, Total Comments: Comments: [id number] [facility] SERUM [facility] (refer to report for specific site)refer to report for address and phone number HEP A AB,T.6726 Positive (Abnormal) 0-Buv-871967:59 Hepatitis A IgM Antibody Comments: Comments: [id number] [facility] SERUM [facility] (refer to report for specific site)refer to report for address and phone number HEP A IgM 6734 Negative (Normal) Comments: Performed at: [address] [id number] Director: Wili Wagner PhD, Phone: [phone] 1-Ooc-094857:59 Iron Comments: Comments: [address] [place] [address] [address] [place], [address] IRON 98 ug/dL (Normal) Range: 50-170 7-Qiw-766030:59 Iron Binding Capacity,Total Comments: Comments: [address] [place] [address] SERUM [facility] [address] [place], [address] TIBC 455 ug/dL (Abnormal) Range: 250-450 7-Wrr-777542:59 Miscellaneous Lab Procedure Comments: Comments: [address] [place] [address] SERUM REFTest(s) Ordered: [address] [place] [address] [address] [place], [address] MISC Comments: TEST RESULT LIMITSLiver-Kidney Microsomal Ab <1.0 Units 0.0 - 20.0 Negative 0.0 - 20.0 LAB (Normal) Equivocal 20.1 - 24.9 Positive >24.9 LKM type 1 antibodies are detected in patients with autoimmune hepatitis type 2 and in up to 8% of patients TEST with chronic HCV infection. TESTING PERFORMED AT [facility]. ORIGINAL REPORT ON FILE IN LAB CONTAINS ADDITIONAL TEST SITE INFORMATION. 2 PTHIN 32.3 Comments: [facility] [address], [id number] ; will review on 1.17 - pg/mL Range: 18.4-80.1 J (Normal) Comments: Please Note: PTH INTACT METHOD AND REFERENCE RANGE CHANGEEffective 03/01/2017. a n - 2 0 1 8 1 1 : 5 9 6-Myw-209816:59 T4 Free Direct Comments: Comments: [id number] [facility] SERUM [facility] [address], [address] T4 FREE DIRECT 1.06 ng/dL (Normal) Range: 0.76-1.46 7-Dml-660827:59 Thyroid Stim Hormone (TSH) Comments: Comments: [id number] [facility] SERUM [facility] [address] [place], [id number] TSH 0.89 {uIU/mL} (Normal) Range: 0.358-3.74 9-Xcj-120229:59 Transferrin Comments: Comments: [id number] [facility] SERUM [facility]FL[facility] (refer to report for specific site)refer to report for address and phone number TRANSFERRN 4699 365 mg/dL (Normal) Range: 200-370 7-Ihs-038056:59 Vitamin D,25 Hydroxy Comments: [facility] [address], [id number] Vitamin D 25-OH 115.2 ng/mL (Normal) Comments: Vitamin D 25(OH) Status Range Deficiency <20 ng/mL (50nmol/L) Insuffciency 20 - 30 ng/mL (50 - 75 nmol/L) Sufficiency 30 - 100 ng/mL (75 - 250 nmol/L) Toxicity >100 ng/mL (>250 nmol/L)Evidence suggests that patients undergoing fluorescein dyeangiography can retain small amounts of fluorescein in thebody for u p to 48 to 72 hours post-treatment. In the casesof patients with renal insufficiency, retention could bemuch longer.Samples containing fluorescein can produce falsely elevatedvalues when tested with the Advia Centaur Vitamin D assay.With fluorescein interference, observed Vitamin D values canbe as high as >150 ng/mL (>375 nmol/L). Samples should beresubmitted post fluorescein clearance to ensure there is nointerference with Vitamin D test results. 94-Zgm-06277:06 Pathology Report Comments: PERFORMED BY: [facility] [id number] [facility] [id number] Information: [id number] See MATER Comments: Material submitted: .SHAVE CHEST RIGHTClinician provided ICD-10:L98.9Clinical history: .KERATOSIS IRRITATED LESION Note (Normal) Diagnosis:SHAVE CHEST RIGHT:SQUAMOUS CELL CARCINOMA IN SITU.NO EVIDENCE OF INVASION.LESION EXTENDS TO LATERAL SURGICAL MARGIN.. 7Electronically signed: .Peewee Salmeron MD, PathologistGross description: .RECEIVED IS A CONTAINER [facility] AND DESIGNATEDRIG CHEST. IN FORMALIN ARE TWO CUMMINGS/BROWN TISSUES MEASURING6.5 X 3.0 X 1.0 MM AND 3.5 X 2.0 X 1.0 MM. BOTH ARE FILTE REDINTO AN EMBEDDING BAG AND SUBMITTED IS IN A SINGLE CASSETTE.COR/TMZPathologist provided ICD-10:D04.5CPT .917922 Plan of Care Name Dates Details Instructions BMI less than 19,adult : Eprescribed prescriptions (G8553) Indication: BMI less than 19,adult Hypokalemia : Eprescribed prescriptions (G8553) Indication: Hypokalemia Elevated glycated hemoglobin : Eprescribed prescriptions (G8553) Indication: Elevated glycated hemoglobin Vertigo, benign positional : Eprescribed prescriptions (G8553) Indication: Vertigo, benign positional Fatigue : Eprescribed prescriptions (G8553) Indication: Fatigue [facility] WELLNESS EXAM : Eprescribed prescriptions (G8553) Indication: [facility] WELLNESS EXAM BMI less than 19,adult : Eprescribed prescriptions (G8553) Indication: BMI less than 19,adult Raynaud's phenomenon without gangrene : Eprescribed prescriptions (G8553) Indication: Raynaud's phenomenon without gangrene Acute recurrent maxillary sinusitis : Eprescribed prescriptions (G8553) Indication: Acute recurrent maxillary sinusitis BMI less than 19,adult : Eprescribed prescriptions (G8553) Indication: BMI less than 19,adult Lumbar radiculopathy : Eprescribed prescriptions (G8553) Indication: Lumbar radiculopathy Body mass index (BMI) of 20 to 24 : Eprescribed prescriptions (G8553) Indication: Body mass index (BMI) of 20 to 24 Unknown skin lesion : Shave Biopsy with Epi Indication: Unknown skin lesion Body mass index (BMI) of 20 to 24 : Eprescribed prescriptions (G8553) Indication: Body mass index (BMI) of 20 to 24 Planned Observations Vitamin D Hydroxy (88493)Indication: Vitamin D intoxication On: 7-Cqy-169422:44 Request METABOLIC PANEL, COMPREHENSIVE (08709)Indication: Elevated glycated hemoglobin On: 5-Lod-706971:43 Request LIPOPROTEIN, BLD, BY NMR (17811)Indication: Familial combined hyperlipidemia On: 2-Efa-166532:43 Request METABOLIC PANEL, COMPREHENSIVE (10125)Indication: Hypokalemia On: 65-Odz-512036:38 Request Metabolic Panel, Basic (92490)Indication: Edema On: 67-Eje-400948:36 Request MICROALBUMIN: CREATININE RATIO (17139) AND (42318)Indication: Elevated glycated hemoglobin On: 8-Plc-987951:48 Request HGB A1C (62078)Indication: Elevated glycated hemoglobin On: 0-Aas-788357:47 Request CBC W/AUTO DIFF WBC (41277)Indication: Liver function abnormality On: 9-Sib-865673:35 Request METABOLIC PANEL, COMPREHENSIVE (10369)Indication: Liver function abnormality On: :35 Request LIPOPROTEIN, BLD, BY NMR (01819)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 Request POTASSIUM SERUM (32767)Indication: Rheumatoid arthritis On: 55-Ixs-981721:58 Request HEPATITIS C ANTIBODY (50909)Indication: Encounter for hepatitis C virus screening test for high risk patient On: 12-Irp-249226:11 Request MAGNESIUM (26993)Indication: Hypokalemia On: 93-Sit-451774:07 Request Electrolyte Panel (56174)Indication: Hypokalemia On: 76-Ksf-048680:06 Request CBC W/AUTO DIFF WBC (72226)Indication: Edema On: :44 Request FERRITIN (99158)Indication: Liver function abnormality On: :44 Request IRON BINDING CAPACITY (TIBC) (35527)Indication: Liver function abnormality On: :44 Request IRON (71837)Indication: Liver function abnormality On: :44 Request Vitamin D Hydroxy (20798)Indication: Vitamin D intoxication On: 99-Urm-831834:43 Request T3, FREE (TRIDOTHYRONINE) (24103)Indication: Hyperthyroidism On: :42 Request TSH (66089)Indication: Hyperthyroidism On: 99-Ays-861154:42 Request METABOLIC PANEL, COMPREHENSIVE (58289)Indication: Hypokalemia On: 55-Wtn-607895:42 Request Potassium Serum (83268)Indication: Hypokalemia On: 9-Pfm-665002:23 Request Magnesium (19805)Indication: Hypokalemia On: 5-Jjj-685854:23 Request HEPATITIS A ANTBDY-IGG/IGM (14679)Indication: Abnormal hepatitis serology On: 33-Jgu-732644:50 Request ANTI-LIVER/KIDNEY MICROSOMAL ANTIBODY (44511)Indication: Liver function abnormality On: :27 Request ASM (ANTI SMOOTH MUSCLE ANTIBODY) (42611)Indication: Liver function abnormality On: 46-Mxn-290124:27 Request CERULOPLASMIN (65160)Indication: Liver function abnormality On: :27 Request TRANSFERRIN (26593)Indication: Liver function abnormality On: 32-Xgy-117545:27 Request ANTIMITOCHONDRIAL ANTIBODY (76067)Indication: Liver function abnormality On: 58-Aix-105298:27 Request Ferritin (76554)Indication: elevated iron On: 31-Aes-523929:17 Request Iron Binding Capacity (TIBC) (57269)Indication: elevated iron On: :17 Request Iron (77884)Indication: elevated iron On: :17 Request PARATHORMONE (79850)Indication: Hypercalcemia On: 24-Gfd-418102:14 Request METABOLIC PANEL, COMPREHENSIVE (57335)Indication: Hypercalcemia On: :13 Request Vitamin D Hydroxy (65651)Indication: Vitamin D intoxication On: :13 Request T3, FREE (TRIDOTHYRONINE) (96901)Indication: Hyperthyroidism On: :59 Request T4, FREE (THYROXINE) (07483)Indication: Hyperthyroidism On: :59 Request TSH (28261)Indication: Hyperthyroidism On: :59 Request Planned Encounters Medical; [facility] 3 Month FU - On: 29-Jan-2018 13:00 [facility] Kermit Cortez DO Planned Procedures Radiology - Shoulder - RightBy: On: 24-Jan-2018 Intent Kermit Cortez DO Radiology - Cervical SpineBy: On: 24-Jan-2018 Intent Kermit Cortez DO SCREENING DIGITAL TOMOSYNTHESIS On: 30-Oct-2017 Intent OF BREAST (52408)By: Kermit Cortez DO DEXA SCAN AXIAL SKELETON On: 24-Jul-2017 Intent (69546)By: Kermit Cortez DO ELECTROCARDIOGRAM, COMPLETE (ECG) On: 24-Jul-2017 Intent (12383)By: Kermit Cortez DO Radiology - Toe(s) - LeftBy: Waldo On: 19-Jun-2017 Intent Kermit EVANS Comments: left 4th digit - skin ulcer rule out osteo-s tat call results Ultrasound - Abdomen CompleteBy: On: 20-Mar-2017 Intent Kermit Cortez DO Ultrasound - Abdomen Complete & On: 20-Mar-2017 Intent PelvisBy: Kermit Cortez DO CT - Abdomen & Pelvis (IV On: 28-Feb-2017 Intent Contrast Needed)By: Kermit Cortez DO Radiology - Thoracic SpineBy: On: 28-Feb-2017 Intent Kermit Cortez DO MRI LUMBAR SPINE W/O CONTRAST On: 28-Feb-2017 Intent ([id number])By: Kermit Cortez DO Comments: has had pt massage therapy and chiropractic and steroid shots and taking antinflammatories with no improvement at all- plain xray 04/28 Instructions Name Dates Details BMI less than 19,adult : How to access health information online Indication: BMI less than 19,adult BMI less than 19,adult : How to access health information online - Detail Indication: BMI less than 19,adult BMI less than 19,adult : Patient Instructions Indication: BMI less than 19,adult Hypokalemia : How to access health information online Indication: Hypokalemia Hypokalemia : How to access health information online - Detail Indication: Hypokalemia Hypokalemia : Patient Instructions Indication: Hypokalemia Elevated glycated hemoglobin : How to access health information online Indication: Elevated glycated hemoglobin Elevated glycated hemoglobin : How to access health information online - Detail Indication: Elevated glycated hemoglobin Elevated glycated hemoglobin : Patient Instructions Indication: Elevated glycated hemoglobin Vertigo, benign positional : How to access health information online - Detail Indication: Vertigo, benign positional Vertigo, benign positional : How to access health information online Indication: Vertigo, benign positional Vertigo, benign positional : Patient Instructions Indication: Vertigo, benign positional Fatigue : How to access health information online Indication: Fatigue Fatigue : How to access health information online - Detail Indication: Fatigue Fatigue : Patient Instructions Indication: Fatigue [facility] WELLNESS EXAM : How to access health information online Indication: [facility] WELLNESS EXAM [facility] WELLNESS EXAM : How to access health information online - Detail Indication: [facility] WELLNESS EXAM [facility] WELLNESS EXAM : Patient Instructions Indication: [facility] WELLNESS EXAM BMI less than 19,adult : How to access health information online Indication: BMI less than 19,adult BMI less than 19,adult : How to access health information online - Detail Indication: BMI less than 19,adult BMI less than 19,adult : Patient Instructions Indication: BMI less than 19,adult Raynaud's phenomenon without gangrene : How to access health information online Indication: Raynaud's phenomenon without gangrene Raynaud's phenomenon without gangrene : How to access health information online - Detail Indication: Raynaud's phenomenon without gangrene Raynaud's phenomenon without gangrene : Patient Instructions Indication: Raynaud's phenomenon without gangrene Acute recurrent maxillary sinusitis : How to access health information online Indication: Acute recurrent maxillary sinusitis Acute recurrent maxillary sinusitis : How to access health information online - Detail Indication: Acute recurrent maxillary sinusitis Acute recurrent maxillary sinusitis : Patient Instructions Indication: Acute recurrent maxillary sinusitis BMI less than 19,adult : How to access health information online Indication: BMI less than 19,adult BMI less than 19,adult : How to access health information online - Detail Indication: BMI less than 19,adult BMI less than 19,adult : Patient Instructions Indication: BMI less than 19,adult Lumbar radiculopathy : How to access health information online Indication: Lumbar radiculopathy Lumbar radiculopathy : How to access health information online - Detail Indication: Lumbar radiculopathy Lumbar radiculopathy : Patient Instructions Indication: Lumbar radiculopathy Body mass index (BMI) of 20 to 24 : How to access health information online Indication: Body mass index (BMI) of 20 to 24 Body mass index (BMI) of 20 to 24 : How to access health information online - Detail Indication: Body mass index (BMI) of 20 to 24 Body mass index (BMI) of 20 to 24 : Patient Instructions Indication: Body mass index (BMI) of 20 to 24 Body mass index (BMI) of 20 to 24 : How to access health information online Indication: Body mass index (BMI) of 20 to 24 Body mass index (BMI) of 20 to 24 : How to access health information online - Detail Indication: Body mass index (BMI) of 20 to 24 Body mass index (BMI) of 20 to 24 : Patient Instructions Indication: Body mass index (BMI) of 20 to 24 Advance Directives Name Dates Details Living Will - Effective on 08/01/2017. Expiration date Effective: 01-Aug-2017 unspecified. Scanned Document is available upon request. Encounters Office Visit On: 24-Jan-2018 10:17 Encounter Reason: Shoulder Problem - This shoulder problem is without any known injury. Symptoms include shoulder pain, tenderness, localized swelling (in hands), shoulder stiffness and decreased range of motion. Symptom End: 25-Jan-2018 21:28 s are located in the right shoulder. The pain radiates to the right neck, right hand, right elbow and right upper arm. Onset was month(s) ago. The patient describes symptoms as worsening. Symptoms are e xacerbated by motion at the shoulder, elevation of the shoulder, external rotation of the shoulder, gripping and lifting. Associated symptoms include numbness in the arm, weakness in the arm and pain in the arm. Current treatment includes application of ice. Note for Shoulder problem: goingon for months worsening- no trauma-- hard to sleep-- - starts in right shoulder and radiates down right arm t o elbow and into forearm and into wrist- - deep pain feels like hit with sledgehammer and arm tender to touch- not numb but weak- even hard to get dressed - cant even raise arm to put on mascara- notice pain upper back scapula - weak in upper back- no neck pain- using tramadol for pain but not that helpful- using topical pain creme, [ADDITIONAL REASON] Follow up, Diagnostic Procedure Results - Note for Discuss procedure results: labs from 12/28 from her specilasit her edema better with lasix daily and allt triamterne and spironolactone qod Encounter Diagnosis: Nonsmoker, BMI less than 19,adult, Arm pain, right, Hyperthyroidism, Elevated glycated hemoglobin, Familial combined hyperlipidemia, Hypokalemia [facility] Office Visit On: 20-Dec-2017 12:24 Encounter Reason: Lumps - The onset of the lumps has been sudden (Was rubbing an esstential oil on her feet to bring the swelling down. That's when she noticed a lump on the R foot. Thionks there are about 3 lumps.) and End: 21-Dec-2017 22:08 has been occurring in a persistent pattern for weeks.Encounter Diagnosis: Nonsmoker, BMI less than 19,adult, Hypokalemia, Edema (782.3), Ganglion cyst of foot [facility] Phone Encounter On: 10-Nov-2017 12:03 Encounter Diagnosis: Allergic rhinitis End: 10-Nov-2017 12:06 [facility] Phone Encounter On: 01-Nov-2017 10:38 Encounter Diagnosis: Hypokalemia End: 01-Nov-2017 10:40 [facility] Phone Encounter On: 31-Oct-2017 14:06 Encounter Diagnosis: Hypokalemia End: 31-Oct-2017 14:15 [facility] Office Visit On: 30-Oct-2017 13:03 Encounter Reason: Follow up for chronic medical issues - The patient feels well with minor complaints (ended up going off spironolactone because was makiign her puff up and gain weight. Gained about 9 lbs on it. When she End: 31-Oct-2017 10:40 went off, dropped 7 lbs of it), has good energy level and is sleeping poorly (gets up a lot). Patient has been compliant with instructions. Current medication use: experiencing side effects (spironolac tone). Patient sleeps 7 (broken) hours per night. The medical issues the patient is following up for include All identified problems below. Note for Follow up for chronic medical issues: gained 13 mark nd s on spironolactone so had to quit it- massage therapy helping back and leg- thinks its helping alot- has improved the quality of her life- and bp is good not much vertigo- she has low iron again goi ng back on iron and has had stools for hidden blood neg more than onceEncounter Diagnosis: BMI less than 19,adult, Nonsmoker, Edema (782.3), Hyperthyroidism, Hypokalemia, Elevated glycated hemoglobin, Osteoporosis, Lumbar radiculopathy, Familial combined hyperlipidemia, Vitamin D intoxication, Encounter for screening mammogram for breast cancer (Renamed from Encounter for screening mammogram for malignant neoplasm of breast), Rheumatoid arthritis [facility] Office Visit On: 20-Oct-2017 16:29 Encounter Diagnosis: Edema (782.3), Hyperthyroidism End: 22-Oct-2017 20:02 [facility] Office Visit On: 30-Aug-2017 12:08 Encounter Reason: Dizziness - Symptoms include dizziness, weakness and difficulty ambulating. The dizziness is described as lightheadedness and a spinning sensation. Onset was 3 day(s) ago. The symptoms occur frequently. End: 03-Sep-2017 20:42 The patient describes this as worsening. Symptoms are exacerbated by head movement, bending over, standing and getting up quickly. Associated symptoms include symptoms of an upper respiratory infection (feels full in her head, sinus pressure, eyes watery), while associated symptoms do not include nausea or vomiting. Note for Dizziness: sore raspy feels like need to clear- maybe sinus- -she has ligh theadedness and vertgio- if turns head and gets up - when got out of bed on monday had vertigo- ears not hurting and head feels full and has alot of allergies- steph castle - has runny nose and itchy ey es- feeling off balance - little nausea- no double vision but little blurry - little head pressure more than headache- no focal weak or numbEncounter Diagnosis: Nonsmoker, BMI less than 19,adult, Vertigo, benign positional, Hyperthyroidism, Sinusitis, acute, Osteoporosis [facility] Office Visit On: 21-Aug-2017 12:13 Encounter Reason: Flu Like Symptoms - Symptoms include chills, body aches, sore throat (off and on) and headache. Onset was day(s) ago. Onset followed exposure at home to someone with upper respiratory symptoms (grandson End: 21-Aug-2017 21:47 had similiar symptoms). The patient describes this as worsening. Associated symptoms include fatigue, weakness and diarrhea. The patient is not currently being treated for this problem. Note for Flu l beverly symptoms: fatigue and body aches and chills and sweats no temp - no cough nothing urinary sx jeffries but does have diarrhea and this usual - and having 4 am bm no blood- no abdominal pain - little hea dache- sympotoms about a week- not feeling better- voice hoarse no sore throat today- had babysit 6 year old grandson he had thrown up- she no vomit and appetite ok- has had mono exposureEncounter Diagnosis: Nonsmoker, BMI less than 19,adult, Fatigue , Sore throat [facility] Phone Encounter On: 09-Aug-2017 11:56 Encounter Diagnosis: Rheumatoid arthritis End: 09-Aug-2017 11:58 [facility] Office Visit On: 24-Jul-2017 12:22 Encounter Reason: Physical female exam - Last seen between 1-3 months ago. General health: feels well with minor complaints (raynouds, spot on nose, edema, back pain), has decreased energy level and is sleeping well. The End: 19-Aug-2017 16:37 patient's appetite is normal. Nutrition: normal/adequate. Exercises 7 days per week. Sleeps on average 6 (broken hours) hours per night. Elimination problems include diarrhea (diet has been off). There are no current emotional problems. Note for Physical exam: she took cilostazole for two weeks but had to go off due to diarrhea and stomach cramping and edema- she is low on potassium again as hasnt been having her concoction- she doesnt want colonsoocpyEncounter Diagnosis: Familial combined hyperlipidemia, Liver function abnormality, Hypokalemia, [facility] WELLNESS EXAM, Skin ulcer of fourth toe, left, limited to breakdown of skin, Rheumatoid arthritis, Lumbar radiculopathy, Lymphedema, Encounter for hepatitis C virus screening test for high risk patient, Raynaud's phenomenon without gangrene, Postmenopausal (Renamed from Postmenopausal status), Neoplasm of uncertain behavior of skin, Elevated glycated hemoglobin [facility] Office Visit On: 26-Jun-2017 10:50 Encounter Reason: Follow up acute care visit - The patient feels the same (another spot has showed around the same area, on the right of the top of the toe. Has been washing with soap and water and treating with bacitrac End: 26-Jun-2017 20:37 in and bandage 3 times a day). Patient has been compliant with instructions. Current medication use: no side effects and compliant with dosing regimen. Note for Follow up acute care visit: i talked to dr dsouza - on phone this am regarding getting patient in to see him- he will try this week or next and suggested i add the pletal at low dose to see if she tolerates which she and i discussed gi side effects and dizzy- thompson - start once a day in evening first if tolerates then go to bid after few days- she been soaking in epson and warm water - we talked absolutley has to avoid cold - she feels the in itial one healing the one on side of toe maybe a little more split and she is worried the same going to happen to rest of fingers and toes- we called nancy today and she wanted her to not take her orencia today as she was due to take infusion today Encounter Diagnosis: Nonsmoker, BMI less than 19,adult, Raynaud's phenomenon without gangrene, Skin ulcer of fourth toe, left, limited to breakdown of skin, Rheumatoid arthritis [facility] Office Visit On: 19-Jun-2017 12:44 Encounter Reason: Skin Lesions - Symptoms include single skin lesion. Lesion(s) are located on the left foot (bottom). The patient describes the lesion(s) as draining, painful, red, ulcers and increasing in size. Onset w End: 25-Jun-2017 17:55 as week(s) ago. The symptoms occur constantly. The patient describes this as worsening. Current treatment includes topical antibiotics. Note for Skin lesions: - months-thinks since mar getting worse h as raynauds is painful - no fever raynauds is bad- has been on 3 courses of antiobiticss for other thingsEncounter Diagnosis: BMI less than 19,adult, Nonsmoker, Raynaud's phenomenon without gangrene, Skin ulcer of fourth toe, left, limited to breakdown of skin [facility] Office Visit On: 23-May-2017 14:20 Encounter Diagnosis: Acute ear pain, right, Acute sinusitis End: 25-May-2017 20:14 [facility] Office Visit On: 15-May-2017 15:26 Encounter Reason: Earache - The onset of the earache has been gradual and has been occurring in a persistent pattern for 1 week. The course has been increasing. The earache is described as a dull ache. It affects the rig End: 15-May-2017 19:38 ht ear. The pain affects the internal ear. There has been associated decreased hearing, difficulty sleeping, headache, nasal discharge/stuffy nose and sinus problems, while there has been no sore throat . Note for Earache: didnt want to lay on that side- started week ago and got worse this weekend- feeling alot of sinus pressure and general malaise appetite goneEncounter Diagnosis: BMI less than 19,adult, Nonsmoker, Acute recurrent maxillary sinusitis, Acute ear pain, right [facility] Phone Encounter On: 05-May-2017 14:54 Encounter Diagnosis: Familial combined hyperlipidemia End: 05-May-2017 14:55 [facility] Office Visit On: 29-Mar-2017 12:47 Encounter Reason: Follow up tests - Date: (03/23 abdominal US 03/20 blood work and MRI lumbar spine). Note for Discuss procedure results: swelling gone with meloxicam every other day- she got jagged pill that caught on es End: 30-Mar-2017 18:31 ophagus this weekend and caused her to cough up blood- gotten better but not gone- she feeling better flank pain gone and taking the lipitor- saw Dr Barrera and he feels she is a surgical canididate for l aminectomy and fusion- she wants to go back to [place] first before she does surgery to see if he has more to offeer and we discussed with numbness pain in leg longer waits to have intervention less lik viky for pain and nerve impairment to go back to normal- still has colored drainage and sinus pressure never got better with anitobitoicEncounter Diagnosis: Nonsmoker, BMI less than 19,adult, Hypokalemia, Lymphedema, Hyperthyroidism, Vitamin D intoxication, Lumbar radiculopathy, Liver function abnormality, Familial combined hyperlipidemia, Edema (782.3), Acute sinusitis [facility] Phone Encounter On: 20-Mar-2017 16:09 Encounter Diagnosis: Left flank pain End: 20-Mar-2017 16:10 [facility] Office Visit On: 20-Mar-2017 13:45 Encounter Reason: Cold Symptoms - Symptoms include nasal congestion, runny nose, sore throat, hoarseness, productive cough (dark yellow), facial pressure and headache. Onset was 9 day(s) ago. Associated symptoms include End: 20-Mar-2017 20:29 plugged ear(s) and nausea (has other issues giong on as well). Current treatment includes herbal / alternative therapies (rossy pot, elderberry syrup). Note for Cold symptoms: she had chills no temp and yellow drainage and sore throat voice rapsy and feels foggy in head - not in chest but in throat - taking rossy pot and elderberry syrup, [ADDITIONAL REASON] Follow up tests - Note for Discuss procedure results: lumbar spine mri- couldn t tolerate gabapentin but more pain off meloxicam but swelling better off meloxicam- try meloxicam qod and see how does Encounter Diagnosis: Nonsmoker, Body mass index (BMI) of 20 to 24, Lumbar radiculopathy, Hypokalemia, Acute bacterial sinusitis, Lymphedema [facility] Phone Encounter On: 20-Mar-2017 10:22 Encounter Diagnosis: Left flank pain End: 20-Mar-2017 10:28 [facility] Phone Encounter On: 01-Mar-2017 11:56 [facility] End: 14-Mar-2017 13:39 Office Visit On: 28-Feb-2017 9:08 Encounter Reason: new patient female physical - Last seen between 3-6 months ago. General health: feels well with minor complaints, has good energy level and is sleeping well. The patient's appetite is normal. Nutrition: End: 07-Mar-2017 22:25 appropriate balanced diet. Exercises 7 days per week. Sleeps on average 7 (with melatonine) hours per night. Normal bowel and bladder habits. Safety measures include appropriate use of safety belts and home smoke detectors. There are no current emotional problems. screening, colonoscopy (Has never had one but has done 5 of stools for ccult blood and were all normal.), screening, mammography (yearly) and screening, visual acuity (yearly). Note for Physical exam: other than back pain and flank pain ( flank since oct left side radiates around to abdomen and constipation never has had colonoscopy- thompson s sjrgens and raynauds - has edema for 3 years - fine in am and fine if elevate or massage- as soon as stands up - uses compression stockings not much help- no salt in diet no sugar- 3 years ago did us of legs and heart workup- lymphedema has improved with elimination diet and exercises- tried cymbalta didnt agree with her- [place] for pain managment- steroid shots - not seeing him now because did nt want more steroids- leg swelling started after first steroid shot, [ADDITIONAL REASON] Leg Pain - Note for Leg pain: left leg pain radicular from back has to stand t o be comfortable and after stand for a long time- sitting in car for a long time horrible - had left hip replaced a year ago by Dr Benítez at [facility] and still has same sx- saw Dr Cristofer Goel at [facility]- back specialist - has had 3 steroid shots and had pt for same symptoms in last couple months- and saw chiroparactor no help- takes prednisone Encounter Diagnosis: Nonsmoker, Body mass index (BMI) of 20 to 24, Familial combined hyperlipidemia, Osteopenia, Hyperthyroidism, Lumbar radiculopathy, Hypercalcemia, Vitamin D intoxication, elevated iron, Hypokalemia, Hepatomegaly, Liver function abnormality, Left flank pain, Lymphedema, Abnormal hepatitis serology [facility] Annotation/Addendum On: 01-Apr-2016 14:21 Encounter Diagnosis: Squamous carcinoma End: 01-Apr-2016 14:24 [facility] Historical Summary On: 30-Mar-2016 7:39 Encounter Diagnosis: Unspecified Diagnosis End: 30-Mar-2016 7:54 [facility] Office Visit On: 28-Mar-2016 14:42 Encounter Reason: Skin Lesions - Onset was 1 month(s) ago. Note for Skin lesions: Pt was seen in skin care for facial, found skin lesion on chest. Encounter Diagnosis: Body mass index (BMI) of 20 to 24, Nonsmoker, Unknown skin lesion, End: 28-Mar-2016 15:59 Rheumatoid arthritis, Hearing loss [facility] Payers [facility] Maurice jones guarantor
--- OUTSIDE RECORDS SUMMARY | 2018-05-31 05:49 | XMS RPT_ITS | Continuity of Care Document ---
:1955 Author Organization [facility] Address [facility]7 [facility] 2 [place] [address] Phone Care Team Providers Name Role Phone Quintin Rueda CNP Unavailable Kermit Cortez DO Unavailable Dr. Brian Shepherd MD Unavailable Dr. Dev Self DO Unavailable Dr. Cam Kaufman Unavailable MD Alex, Rik Newell Unavailable Coral CORTES, Higinio Kiser Unavailable Dr. 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 Biotin 92695 MCG Oral Tablet qd (63081 MCG) Active Calcium Magnesium 750 300-300 MG Oral Tablet 1 (one) Tablet Tablet daily for 0 days Quantity: 30 {Tablet} Refills: 0 Ordered:28-Feb-2017 Quintin Rueda CNP Start : 30-Mar-2016 Active Clearite Shake 1 scoop bid Active Comments:supports detoxification Dymista 137-50 MCG/ACT Nasal Suspension 1 (one) [place] each nostril twice daily for 0 days Quantity: 3 {[place]} Refills: 3 Ordered:21-Nov-2017 Kermit Cortez DO Start [...] Quantity: 90 {Patch} Refills: 0 Ordered:28-Feb-2017 Marybeth BELT SANDER STONEQuintin Start : 30-Mar-2016 Active Lipitor 40 MG [...] days Quantity: 1 {Bottle} Refills: 0 Ordered:28-Feb-2017 Isayosvanykaern RODRIGUEZQuintin Start : 30-Mar-2016 Active Resvero 1 [...] Rueda CNP Start : 30-Mar-2016 Active Tumeric [employer] 2 caps bid Active Ventolin HFA 108 [...] Refills: 0 Ordered:21-Nov-2017 Katina Mathur Start : 31-Oct-2017 End : 21-Nov-2017 [...] 5 Views Result: Comments: See Note; NOTES: [facility] Imaging Services [address] [place] [address] Cerv Spine 4 or 5 Views MR#: [id number] Acct: [id number] Name: MASON BURK Emily Rep #: [id number] : 1955 F 62 From: Perico Stewart MD PCP: Kermit Cortez DO Status: REG CLI Study: Cerv Spine 4 or 5 Views Date of Exam: 01/24/18 Exam# [id number] Ordering Dr: Kermit Cortez DO STUDY: X-RAY [...] Service support , CC: Kermit Cortez DO New Grad Rn: Signed 24-Jan-2018 Shoulder min 2 Views Result: Comments: See Note; NOTES: [facility] Imaging Services [address] [place] [address] Shoulder min 2 Views MR#: [id number] Acct: [id number] Name: MASON BURK Emily Rep #: [id number] : 1955 F 62 From: Perico Stewart MD PCP: Kermit Cortez DO Status: REG CLI Study: Shoulder min 2 Views Date of Exam: 01/24/18 Exam# [id number] Ordering Dr: Kermit Cortez DO STUDY: X-RAY [...] Service support , CC: Kermit Cortez DO New Grad Rn: Signed 21-Nov-2017 SCREENING MAMM (CAD), BILAT Result: Comments: See Note; NOTES: [facility] Imaging Services [address] [place] [address] SCREENING MAMM (CAD), BILAT MR#: [id number] Acct: [id number] Name: MASON BURK Rep #: [id number] : 1955 F 62 From: Shreyas Garcia MD PCP: Kermit Cortez DO Status: REG CLI Study: SCREENING MAMM (CAD), BILAT Date of Exam: 11/21/17 Exam# [id number] Ordering Dr: Kermit Cortez DO [facility] MOGRAPHY - BILATERAL SCREENING REASON FOR [...] delay biopsy of a clinically suspicious abnormality. [id number] Electronically Signed: Shreyas Garcia MD at 1 2:28 EDT Tel [phone], Service support , CC: Kermit Cortez DO New Grad Rn: Signed 10-Aug-2017 Dexa Bone Density Study Result: Comments: See Note; NOTES: [facility] Imaging Services [address] [place] [address] Dexa Bone Density Study MR#: [id number] Acct: [id number] Name: MASON BURK Rep #: [id number] : 1955 F 62 From: Shreyas Garcia MD PCP: Kermit Cortez DO Status: REG CLI Study: Dexa Bone Density Study Date of Exam: 08/10/17 Exam# [id number] Ordering Dr: Kermit Cortez DO STUDY: DUAL [...] Shreyas Garcia MD at 14:58 EDT Tel [phone], Service support , CC: Kermit DOVE New Grad Rn: Signed 02-Aug-2017 Arterial Duplex US, Limited Result: Comments: See Note; NOTES: [facility] Cardiovascular Services [address] [address] Art Duplex US Unilat Lower Ext 07/28/17 1320 MR#: [id number] Acct: [id number] Name: MASON BURK Rep #: [id number] : 1955 62 From: Garcia Dsouza MD Attending Dr: Garcia Dsouza MD Status: REG CLI Ordering Dr: Garcia Dsouza MD Date: 07/28/17 Location: [facility] Sex: F C Admitted: Reason For Study: [...] Dictated: 07/28/17 1320 Date Transcribed: 08/02/17 110 New Grad Rn: Signed 02-Aug-2017 Lower Ext Arterial Study Result: Comments: See Note; NOTES: [facility] Cardiovascular Services [address] [place] [address] 08/02/17 0832 MR#: [id number] Acct: [id number] Name: MASON BURK Rep #: [id number] : 1955 62 From: Garcia Dsouza MD Attending Dr: Garcia Dsouza MD Status: REG CLI Ordering Dr: Date: 08/02/17 Location: [facility] Sex: F C Admitted: Arterial Study - Arterial Study Arterial St udy: Record number: [id number] next Date of scan 07/28/2017 next Interpreted [...] DO Date Dictated: 08/02/17831 Date Transcribed: 08/02/17831 New Grad Rn: MELITON Signed 19-Jun-2017 Toe(s) Min 2 Views Result: Comments: See Note; NOTES: [facility] Imaging Services [address] [place] [address] Toe(s) Min 2 Views MR#: [id number] Acct: [id number] Name: WMMASON Rep #: [id number] : 1955 F 61 From: Shreyas Garcia MD PCP: Kermit Cortez DO Status: REG CLI Study: Toe(s) Min 2 Views Date of Exam: 06/19/17 Exam# [id number] Ordering Dr: Kermit Cortez DO STUDY: X-RAY [...] Shreyas Garcia MD at 14:12 EDT Tel [phone], Service support , CC: Kermit Cortez DO New Grad Rn: Signed 22-May-2017 PT D/C Summary (1) Result: Comments: See Note; NOTES: [facility] Physical Therapy [facility] [address] [facility]. [address] [place] [address] Fax REHABILITATION SERVICES DISCHAR GE SUMMARY MR#: [id number] Acct: [id number] Name: MASON BURK Rep #: [id number] : 1955 61 From: Melissa King PT, Cert. MDT Referring DrBlake: Kermit [...] please feel free to call me at [phone]. Thank you for the referral of this patient. Sincerely, Melissa King <Electronically signed by Melissa King PT, Cert. MDT> 05/22/17 1602 CC: Kermit Cortez DO TOM Signed 19-Apr-2017 Inital Evaluation (1) - PT Result: Comments: See Note; NOTES: [facility] [address] [place] [address]. [address] [place] [address] Fax REHABILITATION SERVICES INITIAL EVALUATION MR#: [id number] Acct: [id number] Name: MASON BURK Rep #: [id number] : 1955 61 From: Melissa King PT, [...] THR JAN [address] BENÍTEZ AT [facility] IN [place] , LUMBAR HERMES'S X [address] [...] SHE IS HERE. HAS A DOCTOR IN [place] THAT SHE THINKS IS A FUNCTIONAL MEDICINE DOCTOR. THIS DOCTOR HAS PRESCRIBED EXERCISES AND SUPPLEMENTS AND DIET. 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 HE HELPED HER LE EDEMA IN 5 DAYS AFTER SUFFERING WITH IT FOR 3 YEARS. HER DAUGHTER LIVES IN [place] AND THIS IS HOW SHE FOUND HIM [...] to be FAXED BACK to us at [phone] for Medicare purposes. Please let me know if there are questions or concerns regarding this plan of care. Physician Signature: Date: <Electronically signed by Melissa King PT, Cert. MDT> 04/19/17 1440 CC: Kermit Cortez DO TOM Signed For Medicare only, by signing this I certify the plan of care. Physicians Signature Date 23-Mar-2017 Abdomen Complete Result: Comments: See Note; NOTES: [facility] Imaging Services [address] [place] [address] Abdomen Complete MR#: [id number] Acct: [id number] Name: MASON BURK Rep #: [id number] OB: 1955 F 61 From: Shreyas Garcia MD PCP: Kermit Cortez DO Status: REG CLI Study: Abdomen Complete Date of Exam: 03/23/17 Exam# [id number] Ordering Dr: Kermit Cortez DO STUDY: ABDOMINAL [...] Shreyas Garcia MD at 11:07 EST Tel [phone], Service support , CC : Kermit Cortez DO New Grad Rn: Signed 23-Mar-2017 Abdomen Complete Result: Comments: See Note; NOTES: [facility] Imaging Services [address] [place] [address] Abdomen Complete MR#: [id number] Acct: [id number] Name: MASON BUKR Rep #: [id number] D OB: 1955 F 61 From: Shreyas Garcia MD PCP: Kermit Cortez DO Status: REG CLI Study: Abdomen Complete Date of Exam: 03/23/17 Exam# [id number] Ordering Dr: Kermit Cortez DO ADDENDUM by Shreyas vaughn MD on 03/29/17 at 1505 US/Abdomen Complete 03/29/17 1512 Date cc: Kermit Cortez DO * Signed ADDENDUM by Shreyas Garcia MD on 03/29/17 at 1505 ADDENDUM This is an addendum report. The liver measures within normal limits. Electronically Signed: Shreyas lyon MD at 15:05 EST Tel [phone], Service support , 03/29/17 1505 Date cc: [...] Shreyas Garcia MD at 11:07 EST Tel [phone], Service support , CC: Kermit Cortez DO New Grad Rn: Signed 20-Mar-2017 Spine Lumbar (Routine) Result: Comments: See Note; NOTES: [facility] Imaging Services [address] [place] [address] Spine Lumbar (Routine) MR#: [id number] Acct: [id number] Name: MASON BURK Rep #: [id number] : 1955 F 61 From: Carson Richardson MD PCP: Kermit Cortez DO Status: REG CLI Study: Spine Lumbar (Routine) Date of Exam: 03/20/17 Exam# [id number] Ordering Dr: Kermit Cortez DO STUDY: MRI [...] EST , Service support , F ax [phone] CC: Kermit Cortez DO New Grad Rn: Signed 28-Feb-2017 Thoracic Spine 3 Views Result: Comments: See Note; NOTES: [facility] Imaging Services [address] [place] [address] Thoracic Spine 3 Views MR#: [id number] Acct: [id number] Name: MASON BURK Emily Rep #: [id number] : 1955 F 61 From: Perico Stewart MD PCP: Evie Winter MD Status: REG CLI Study: Thoracic Spine 3 Views Date of Exam: 02/28/17 Exam# [id number] Ordering Dr: Cherelle Perez MD STUDY: X-R [...] CC: Evie Winter MD; Cherelle Perez MD New Grad Rn: Signed Family History Unknown Family Member Name [...] Active Vital Signs Date Test Result Details 73-Knz-364245:25 Temperature 98.2 f Comments: Method: Temporal Pulse [...] kg/m2 Body Surface Area Calculated 1.5 m2 59-Wpu-766032:07 Temperature 98.4 f Comments: Method: Temporal Pulse [...] Comments: PATIENT WAS FASTINGPERFORMED BY: RUT LabCoanila Mysfuc8593 [facility] [id number] (44093) AND (30828) Alb/Creat Ratio <23.4 {mg/g_creat} (Normal) Range: 0.0-30.0 Comments: Normal: 0.0 - 30.0 Albuminuria: 31.0 - 300.0 Clinical albuminuria: >300.0 Albumin, Urine <3.0 ug/mL (Normal) Creatinine, Urine 12.8 mg/dL (Normal) :03 HGB A1C (39266) Comments: PATIENT WAS FASTINGPERFORMED BY: [facility] [address]xc[address] [place] [id number] Hemoglobin A1c 5.5 % (Normal) Range: 4.8-5.6 Comments: . Prediabetes: 5.7 - 6.4 Diabetes: >6.4 Glycemic control for adults with diabetes: <7.0 81-Rvy-292221:00 Crystals, Body Fluid Comments: [facility] [address] [place], [place], [address] PATH REV Reviewed (Normal) Comments: No diagnostic crystals identified.Trevon Fuchs D.O. 01/11/18 AMENDED REPORT 01/11/18 1417 PATH REV previously reported as: Will follow SOURCE/BF SYNOVIAL (Normal) CRYSTALS/BF SEE PATH REV (Normal) 38-Mzk-027264:00 Culture, Body Fluid Comments: [facility] [address] [place], [place], [address] CUBF See Note (Normal) Comments: List Antibiotics Last 48 Hours? NList Antibiotics to be Started? NGram StainGram Stain No organisms seen 1+ Red Blood Cells 1+ Red Cell Stroma Body Fluid CultNO GROWTH IN 14 DAYS Cult, AnaerobicNo growth in 5 days. 5-Cyn-332469:05 CBC W/Diff, Automated Comments: [facility] [address] [place], [place], [address] Absolute Lymph 1.09 {X10_3/ul} (Normal) Range: 0.83-4.51 [...] 4.2-5.4 WBC 7.9 K/mm3 (Normal) Range: 4.4-11.0 9-Eew-356151:05 Comprehensive Metabolic Profil Comments: [facility] [address] [place], [place], [address] GAP 10 (Normal) Range: 5-15 CO2 33.0 [...] A.D.A. criteria.Please note revised GLUCOSE reference range npbskoczb80/02/2018. Magnesium 2.2 mg/dL (Normal) Comments: PATIENT NOT FASTINGPERFORMED BY: Flaviar6370 [facility] [id number] 5:38 Range: 1.6-2.3 Written Authorization WAR (Normal) Comments: PATIENT NOT FASTINGPERFORMED BY: Flaviar6370 [facility] [id number] 5:38 Comments: Written Authorization Received.Authorization received from KATINA DANIEL [id number] by Tiffany Shah 41-Ywi-250093:38 POTASSIUM SERUM (95952) Comments: PATIENT NOT FASTINGPERFORMED BY: [employer] Gfsycf6278 [place] [facility] [id number] Potassium 3.3 mmol/L (Abnormal) Range: 3.5-5.2 Comments: Client Requested Flag 82-Rcl-618089:26 Comp. Metabolic Panel (14) Comments: PATIENT NOT FASTINGPERFORMED BY: [facility] Axclee2430 [facility] [id number] ALT (SGPT) 70 [iU]/L (Abnormal) Range: 0-32 [...] 8-27 Glucose 77 mg/dL (Normal) Range: 65-99 04-Huq-903409:13 METABOLIC PANEL, COMPREHENSIVE Comments: PATIENT NOT FASTINGPERFORMED BY: [facility]CoMeadowview Psychiatric HospitalRkjqkw7144 [facility] [id number] (74169) ALT (SGPT) 69 [iU]/L (Abnormal) Range: 0-32 [...] 8-27 Glucose 113 mg/dL (Abnormal) Range: 65-99 8-Frg-214056:05 CBC W/Diff, Automated Comments: [facility] [address] [place], [place], [address] Absolute Lymph 0.69 {X10_3/ul} (Abnormal) Range: 0.83-4.51 [...] 4.2-5.4 WBC 5.2 K/mm3 (Normal) Range: 4.4-11.0 0-Qyd-756472:05 Comprehensive Metabolic Profil Comments: [facility] [address] [place], [address] GAP 8 (Normal) Range: 5-15 CO2 36.0 [...] Comments: Please note revised GLUCOSE reference range akxklhsov34/02/2018. 50-Uot-444114:14 Thyroxine (T4) Free, Direct, Comments: PATIENT NOT FASTINGPERFORMED BY: [facility] Hmshnh0760 [facility] [id number] S T4,Free(Direct) 1.99 ng/dL Range: 0.82-1.77 (Abnormal) 21-Aug-2017 Triiodothyronine,Free,Ser 3.1 pg/mL (Normal) Comments: PATIENT NOT FASTINGPERFORMED BY: [facility] Dvhzsk0023 [facility] [id number] 13:14 um Range: 2.0-4.4 21-Aug-2017 Written Authorization WAR (Normal) Comments: PATIENT NOT FASTINGPERFORMED BY: [facility]6370 [facility] [id number] 13:14 Comments: Written Authorization Received.Authorization received from KERMIT CORTEZ [id number] by Aniya Denton 67-Ung-720201:14 CMV IGM ANTBDY (79102) Comments: PATIENT NOT FASTINGPERFORMED BY: [facility]6370 [facility] [id number] Cytomegalovirus (CMV) Ab, IgM <30.0 AU/mL (Normal) Range: 0.0-29.9 Comments: Negative <30.0 Equivocal 30.0 - 34.9 Positive >34.9 A positive result is generally indicative of acute infection, reactivation or persistent IgM production. 61-Bqs-539970:14 EBV Panel (44417) Comments: PATIENT NOT FASTINGPERFORMED BY: [facility]6370 [facility] [id number] Interpretation: SPRCS (Normal) Comments: EBV Interpretation Chart [...] <36.0 Equivocal 36.0 - 43.9 Positive >43.9 04-Dar-830753:14 VITAMIN B-12 (CYANOCOBALAMIN) Comments: PATIENT NOT FASTINGPERFORMED BY: KYTOSAN [facility]AM[facility] Sijtqu0995 [facility] [id number] (48071) Vitamin B12 >2000 pg/mL (Abnormal) Range: 232-1245 87-Hbb-059196:14 TSH (57728) Comments: PATIENT NOT FASTINGPERFORMED BY: [facility]CoM[facility] Psych[facility] HospitalGqolvp5447 [facility] [id number] TSH 0.072 {uIU/mL} (Abnormal) Range: 0.450-4.500 84-Rax-368383:14 CBC W/AUTO DIFF WBC (65800) Comments: PATIENT NOT FASTINGPERFORMED BY: nooked Brdfem0781 [facility] [id number] Immature Grans (Abs) 0.0 {x10E3/uL} (Normal) Range: [...] 3.77-5.28 WBC 6.9 {x10E3/uL} (Normal) Range: 3.4-10.8 77-Mnd-259823:14 METABOLIC PANEL, COMPREHENSIVE Comments: PATIENT NOT FASTINGPERFORMED BY: [facility] Rllevf8309 [facility] [id number] (39280) ALT (SGPT) 53 [iU]/L (Abnormal) Range: 0-32 [...] 8-27 Glucose 81 mg/dL (Normal) Range: 65-99 93-Ajm-256054:39 Microscopic Examination Comments: PATIENT NOT FASTINGPERFORMED BY: [facility]Co Gidbvu1836 [facility] [id number] Bacteria Few (Normal) Mucus Threads Present (Normal) Crystal Type Amorphous Sediment (Normal) Crystals Present (Abnormal) Epithelial Cells (non renal) 0-10 {/hpf} (Normal) Range: 0 - 10 RBC 0-2 {/hpf} (Normal) Range: 0 - 2 WBC 6-10 {/hpf} (Abnormal) Range: 0 - 5 68-Atj-668359:39 URINE SANDIE CULTURE-IDENTIFICATN Comments: PATIENT NOT FASTINGPERFORMED BY: nooked Yiwgfw7167 [facility] [id number] (50224) Result 1 MUG (Normal) Comments: Mixed urogenital flora10,000-25,000 colony forming units per mL Urine Final report (Normal) Culture,Comprehensive 47-Iwe-227976:39 URINALYSIS (17367) Comments: PATIENT NOT FASTINGPERFORMED BY: [employer]70 [facility] [id number] Microscopic Examination See below: (Normal) Comments: Microscopic was indicated and was performed. Nitrite, Urine Negative (Normal) Urobilinogen,Semi-Qn 0.2 mg/dL (Normal) Range: 0.2-1.0 Bilirubin Negative (Normal) Occult Blood Negative (Normal) Ketones Negative (Normal) Glucose Negative (Normal) Protein Negative (Normal) WBC Esterase 1+ (Abnormal) Appearance Clear (Normal) Urine-Color Yellow (Normal) pH 7.5 (Normal) Range: 5.0-7.5 Specific [place]ola 1.016 (Normal) Range: 1.005-1.030 87-Wus-701705:39 METABOLIC PANEL, COMPREHENSIVE Comments: PATIENT NOT FASTINGPERFORMED BY: [employer] Aiizke2121 [facility] [id number] (00572) ALT (SGPT) 50 [iU]/L (Abnormal) Range: 0-32 [...] 8-27 Glucose 84 mg/dL (Normal) Range: 65-99 56-Tun-160913:39 CBC, PLATELETS & MANUAL Comments: PATIENT NOT FASTINGPERFORMED BY: [facility]CoM[facility] Psych[facility] HospitalSjjpco7842 [facility] [id number] Information: SRC:ANAMARIA DIFF (37914) Immature Grans (Abs) 0.0 {x10E3/uL} (Normal) Range: [...] 3.77-5.28 WBC 8.1 {x10E3/uL} (Normal) Range: 3.4-10.8 7-Ddt-619911:42 CBC W/Diff, Automated Comments: [facility] [address] [place], [place], [address] Absolute Lymph 1.04 {X10_3/ul} (Normal) Range: 0.83-4.51 [...] 4.2-5.4 WBC 6.4 K/mm3 (Normal) Range: 4.4-11.0 3-Vcc-448441:42 Comprehensive Metabolic Profil Comments: [facility] [address] [place], [place], [address] GAP 6 (Normal) Range: 5-15 CO2 36.0 [...] Comments: Please note revised GLUCOSE reference range bkqwhlihf98/02/2018. 83-Txg-588354:05 Liver Profile Comments: [facility] [address] [place], [address] D BILI 0.12 mg/dL (Normal) Range: 0.00-0.30 T BILI 0.40 mg/dL (Normal) Range: 0.20-1.00 ALT 66 U/L (Abnormal) Range: 13-56 Comments: Please note revised ALT reference range nkjxfbeuj03/28/2018. ALK P 79 U/L (Normal) Range: 45-117 AST 49 U/L (Abnormal) Range: 15-37 GLOB 3.4 g/dL (Normal) Range: 2.2-4.2 ALB 3.5 g/dL (Normal) Range: 3.2-5.0 T PROT 6.9 g/dL (Normal) Range: 6.4-8.2 24-Ptw-133125:59 LIPID PANEL (93137) Comments: PATIENT WAS FASTINGPERFORMED BY: [facility] Yjpxhj0343 [facility] [id number]; fu 11-19 DF LDL/HDL Ratio 1.1 {ratio} [...] Cholesterol, Total 310 mg/dL (Abnormal) Range: 100-199 88-Iui-682317:15 Anti-Mitochondrial AB Comments: [place] ORDERED: CMP, CBCDFAST [...] gaudencio quintin biliary cirrhosis.Performed at: - [facility] [address] [id number] Director: Wlii Wagner PhD, Phone: [phone] 66-Cjx-940811:15 Anti-Smooth Muscle ABS Comments: [place] ORDERED: CMP, CBCDFAST ORDERED: TSH, VITD, CMP, FE, AMA,HEP A, T4F, T3F,PTHIN, FE, TIBC, CERU, AMS, MISCComments: [id number];LKM;SERUM;FROZENLabCorp (refer to report for specific site)refer to report for address and phone number ANTISMOOTH 5160 2 {Units} (Normal) Range: 0-19 Comments: Negative 0 - 19 Weak positive 20 - 30 Moderate to strong positive >30 Actin Antibodies are found in 52-85% of patients with autoi mmune hepatitis or chronic active hepatitis and in 22% of patients with primary biliary cirrhosis. 86-Vpk-231570:15 CBC W/Diff, Automated Comments: [place] ORDERED: CMP, CBCDFAST ORDERED: TSH, VITD, CMP, FE, AMA,HEP A, T4F, T3F,PTHIN, FE, TIBC, CERU, AMS, MISCMarietta Memorial Hospital [address] [place], [place], [address] Absolute Lymph 1.01 {X10_3/ul} (Normal) Range: 0.83-4.51 [...] 4.2-5.4 WBC 4.2 K/mm3 (Abnormal) Range: 4.4-11.0 35-Aqj-099357:15 Ceruloplasmin Comments: [place] ORDERED: CMP, CBCDFAST ORDERED: TSH, VITD, CMP, FE, AMA,HEP A, T4F, T3F,PTHIN, FE, TIBC, CERU, AMS, MISCComments: [id number];LKM;SERUM;FROZENLabCorp (refer to report for specific site)refer to report for address and phone number CERULOPLAS 1564 23.8 mg/dL (Normal) Range: 19.0-39.0 69-Ehx-184701:15 Comprehensive Metabolic Comments: [place] ORDERED: CMP, CBCDFAST ORDERED: TSH, VITD, CMP, FE, AMA,HEP A, T4F, T3F,PTHIN, FE, TIBC, CERU, AMS, MISCLIPID ADDED PER ; FAXED ORDER TO FOLLOWComments: [id number];LKM;SERUM;FROZENWooster [facility] [address]zxvh[address] [place], [address] GAP 5 (Normal) Range: 5-15 CO2 32.0 mmol/L (Normal) Range: 21.0-32.0 CL 101 mmol/L (Normal) Range: 98-107 K 3.3 mmol/L (Abnormal) Range: 3.5-5.1 NA 138 mmol/L (Normal) Range: 136-145 T BILI 0.40 mg/dL (Normal) Range: 0.20-1.00 ALT 69 U/L (Abnormal) Range: 13-56 Comments: Please note revised ALT reference range inabqcjpq29/28/2018. ALK P 72 U/L (Normal) Range: 45-117 [...] Comments: Please note revised GLUCOSE reference range qjaugbqqk94/02/2018. 56-Vxl-448611:15 Ferritin Comments: E[place] ORDERED: CMP, CBCDFAST ORDERED: TSH, VITD, CMP, FE, AMA,HEP A, T4F, T3F,PTHIN, FE, TIBC, CERU, AMS, MISCLIPID ADDED PER ; FAXED ORDER TO FOLLOWComments: [id number];LKM;SERUM;FROZENWGuernsey [facility] Hospital X[address]rpo[address] [facility] [place], [place], [address] FERRITIN 12 ng/mL (Normal) Range: 8-252 27-Mkt-512679:15 Free T3 Comments: [place] ORDERED: CMP, CBCDFAST ORDERED: TSH, VITD, CMP, FE, AMA,HEP A, T4F, T3F,PTHIN, FE, TIBC, CERU, AMS, MISCLIPID ADDED PER ; FAXED ORDER TO FOLLOWComments: [id number];LKM;SERUM;FROZENMarietta Memorial Hospital [address]lpp[address] [place], [place], [address] FREE T3 2.8 pg/mL (Normal) Range: 2.18-3.98 10-Lxa-436187:15 Hepatitis A AB, Total Comments: [place] ORDERED: CMP, CBCDFAST ORDERED: TSH, VITD, CMP, FE, AMA,HEP A, T4F, T3F,PTHIN, FE, TIBC, CERU, AMS, MISCComments: [id number];LKM;SERUM;[facility]ENLab[facility] (refer to report for specific site)refer to report for address and phone number HEP A AB,T.6726 Positive (Abnormal) 43-Ydg-131360:15 Hepatitis A IgM Comments: [place] ORDERED: CMP, CBCDFAST ORDERED: TSH, VITD, CMP, FE, AMA,HEP A, T4F, T3F,PTHIN, FE, TIBC, CERU, AMS, MISCComments: [id number];LKM;SERUM;FROZENLabCorp (refer to report for specific site)refer to report for address and phone number Antibody HEP A IgM 6734 Negative (Normal) Comments: Performed at: [facility] [address] [id number] Director: Wili Wagner PhD, Phone: [phone] 72-Qak-758854:15 Iron Comments: [place] ORDERED: CMP, CBCDFAST ORDERED: TSH, VITD, CMP, FE, AMA,HEP A, T4F, T3F,PTHIN, FE, TIBC, CERU, AMS, MISCLIPID ADDED PER ; FAXED ORDER TO FOLLOWComments: [id number];LKM;SERUM;[facility] [id number] [place], [address] IRON 53 ug/dL (Normal) Range: 50-170 [id number] Iron Binding Comments: [place] ORDERED: CMP, CBCDFAST ORDERED: TSH, VITD, CMP, FE, AMA,HEP A, T4F, T3F,PTHIN, FE, TIBC, CERU, AMS, MISCLIPID ADDED PER ; FAXED ORDER TO FOLLOWComments: [id number];LKM;SERUM;[facility] [id number] [facility] [place], [place], [id number] TIBC 452 ug/dL (Abnormal) Range: 250-450 [id number] Lipid Profile Comments: [place] ORDERED: CMP, CBCDFAST ORDERED: TSH, VITD, CMP, FE, AMA,HEP A, T4F, T3F,PTHIN, FE, TIBC, CERU, AMS, MISCLIPID ADDED PER ; FAXED ORDER TO FOLLOWComments: [id number];LKM;SERUM;[facility] [address] [place], [place], [id number] VLDL 16 mg/dL (Normal) Range: 5-40 LDL [...] 200-240 mg/dL Borderline >240 mg/dL High Risk 23-Cni-393301:15 Miscellaneous Lab Comments: [place] ORDERED: CMP, CBCDFAST ORDERED: TSH, VITD, CMP, FE, AMA,HEP A, T4F, T3F,PTHIN, FE, TIBC, CERU, AMS, MISCComments: [id number];LKM;SERUM;FROZENTest(s) Ordered: [id number];LKM;SERUM;[facility] [address], [id number] [facility] [place]: TEST RESULT LIMITSLiver-Kidney Microsomal Ab <1.0 [...] A, T4F, T3F,PTHIN, FE, TIBC, CERU, AMS, [facility]CM[facility] [address] [facility] [place] [place], [id number] 0 pg/mL Range: 18.4-80.1 - (Normal) Comments: Please Note: PTH INTACT METHOD AND REFERENCE RANGE CHANGEEffective 03/01/2017. F e b - 2 0 1 8 1 0 : 1 5 27-Olz-332538:15 T4 Free Direct Comments: [place] ORDERED: CMP, CBCDFAST ORDERED: TSH, VITD, CMP, FE, AMA,HEP A, T4F, T3F,PTHIN, FE, TIBC, CERU, AMS, MISCLIPID ADDED PER ; FAXED ORDER TO FOLLOWComments: [id number];LKM;SERUM;F [facility] [address], [address] T4 FREE DIRECT 0.98 ng/dL (Normal) Range: 0.76-1.46 30-Uhv-337610:15 Thyroid Stim Hormone Comments: [place] ORDERED: CMP, CBCDFAST ORDERED: TSH, VITD, CMP, FE, AMA,HEP A, T4F, T3F,PTHIN, FE, TIBC, CERU, AMS, MISCLIPID ADDED PER ; FAXED ORDER TO FOLLOWComments: [id number];LKM;SERUM;[facility] (TSH) [facility] [address] [place], [address] TSH 0.98 {uIU/mL} (Normal) Range: 0.358-3.74 35-Xjv-623038:15 Transferrin Comments: [place] ORDERED: CMP, CBCDFAST ORDERED: TSH, VITD, CMP, FE, AMA,HEP A, T4F, T3F,PTHIN, FE, TIBC, CERU, AMS, MISCComments: [id number];LKM;[facility]UM;[facility] (refer to report for specific site)refer to report for address and phone number TRANSFERRN 6049 365 mg/dL (Normal) Range: 200-370 49-Drb-133720:15 Vitamin D,25 Hydroxy Comments: [place] ORDERED: CMP, CBCDFAST ORDERED: TSH, VITD, CMP, FE, AMA,HEP A, T4F, T3F,PTHIN, FE, TIBC, CERU, AMS, MISCMari[facility] Hospital [address], [address] Vitamin D 25-OH 57.7 ng/mL (Normal) Range: 19.95-100.01 Comments: Vitamin D 25(OH) Status Range Deficiency <20 ng/mL (50nmol/L) Insuffciency 20 - 30 ng/mL (50 - 75 nmol/L) Sufficiency 30 - 100 ng/mL (75 - 250 nmol/L) Toxicity >100 ng/mL (>250 nmol/L) 55-Iyt-653367:50 Anti-Mitochondrial AB Comments: [facility] (refer to report for specific site)refer to report for address and phone number MITOCHN AB <20.0 {Units} (Normal) Range: 0.0-20.0 Comments: Negative 0.0 - 20.0 Equivocal 20.1 - 24.9 Positive >24.9Mitochondrial (M2) Antibodies are found in 90-96% ofpatients with gaudencio quintin biliary cirrhosis.Performed at: - [facility] [address] [id number] Director: Wili Wagner PhD, Phone: [phone] 5-Rmt-397543:10 Magnesium Comments: [facility] [address] [place], [address] MG 2.3 mg/dL (Normal) Range: 1.8-2.4 6-Abd-694538:10 Potassium Comments: [facility] [address] [place], [address] K 3.5 mmol/L (Normal) Range: 3.5-5.1 3-Ayx-984314:59 Anti-Smooth Muscle ABS Comments: Comments: [id number] [facility]FL[facility] (refer to report for specific [...] 22% of patients with primary biliary cirrhosis. 5-Jra-192139:59 Ceruloplasmin Comments: Comments: [id number] [facility] (refer to report for specific site)refer to report for address and phone number CERULOPLAS 1560 27.0 mg/dL (Normal) Range: 19.0-39.0 7-Sqw-590837:59 Comprehensive Metabolic Profil Comments: Comments: [id number] [facility]FWooC[facility] [address] [place], [address] GAP 8 (Normal) Range: 5-15 [...] 7-18 GLU 100 mg/dL (Normal) Range: 70-110 4-Yxw-232163:59 Ferritin Comments: Comments: [id number] [facility] SERUM [facility] [address] [place], [address] FERRITIN 14 ng/mL (Normal) Range: 8-252 7-Ujf-896460:59 Free T3 Comments: Comments: [id number] [facility] SERUM [facility] [address] [place], [address] FREE T3 4.0 pg/mL (Abnormal) Range: 2.18-3.98 9-Bpa-038664:59 Hepatitis A AB, Total Comments: Comments: [id number] [facility] (refer to report for specific site)refer to report for address and phone number HEP A AB,T.6726 Positive (Abnormal) 5-Ucj-561909:59 Hepatitis A IgM Antibody Comments: Comments: [id number] [facility] (refer to report for specific site)refer to report for address and phone number HEP A IgM 6734 Negative (Normal) Comments: Performed at: [address] [id number] Director: Wili Wagner PhD, Phone: [phone] 7-Azg-663454:59 Iron Comments: Comments: [address] [place] [address] [address] [place], [address] IRON 98 ug/dL (Normal) Range: 50-170 0-Svg-389778:59 Iron Binding Capacity,Total Comments: Comments: [address] [place] [address] SERUM [facility] [address] [place], [address] TIBC 455 ug/dL (Abnormal) Range: 250-450 3-Kyw-133793:59 Miscellaneous Lab Procedure Comments: Comments: [address] [place] [address] SERUM REFTest(s) Ordered: [address] [place] [address] [address] [place], [address] MISC Comments: TEST RESULT LIMITSLiver-Kidney Microsomal Ab <1.0 Units 0.0 - 20.0 Negative 0.0 - 20.0 LAB (Normal) Equivocal 20.1 - 24.9 Positive >24.9 LKM type 1 antibodies are detected in patients with autoimmune hepatitis type 2 and in up to 8% of patients TEST with chronic HCV infection. TESTING PERFORMED AT [facility]. ORIGINAL REPORT ON FILE IN LAB CONTAINS ADDITIONAL TEST SITE INFORMATION. 2 PTHIN 32.3 Comments: [facility] [address]aini, [id number] ; will review on 1.17 - pg/mL Range: 18.4-80.1 J (Normal) Comments: Please Note: PTH INTACT METHOD AND REFERENCE RANGE CHANGEEffective 03/01/2017. a n - 2 0 1 8 1 1 : 5 9 1-Akj-700419:59 T4 Free Direct Comments: Comments: [id number] [facility] SERUM [facility] [address], [address] T4 FREE DIRECT 1.06 ng/dL (Normal) Range: 0.76-1.46 2-Hzh-587603:59 Thyroid Stim Hormone (TSH) Comments: Comments: [id number] [facility] SERUM [facility] [address] [place], [id number] TSH 0.89 {uIU/mL} (Normal) Range: 0.358-3.74 9-Cuk-724133:59 Transferrin Comments: Comments: [id number] [facility] (refer to report for specific site)refer to report for address and phone number TRANSFERRN 0425 365 mg/dL (Normal) Range: 200-370 9-Eij-819438:59 Vitamin D,25 Hydroxy Comments: [facility] [address], [id number] Vitamin D 25-OH 115.2 ng/mL (Normal) Comments: [...] is nointerference with Vitamin D test results. 44-Jec-92083:06 Pathology Report Comments: PERFORMED BY: KWCYT [facility] [place] Cyto Rlixg[address]81 [facility] [id number] Information: [id number] See MATER Comments: Material submitted: .SHAVE CHEST RIGHTClinician provided ICD-10:L98.9Clinical history: .KERATOSIS IRRITATED LESION Note (Normal) Diagnosis:SHAVE CHEST RIGHT:SQUAMOUS CELL CARCINOMA IN SITU.NO EVIDENCE OF INVASION.LESION EXTENDS TO LATERAL SURGICAL MARGIN.. 7Electronically signed: .Peewee Salmeron MD, PathologistGross description: .RECEIVED IS A CONTAINER LABELED [facility] DESIGNATEDRIG CHEST. IN FORMALIN ARE TWO CUMMINGS/BROWN TISSUES MEASURING6.5 X 3.0 X 1.0 MM AND 3.5 X 2.0 X 1.0 MM. BOTH ARE FILTE REDINTO AN EMBEDDING BAG AND SUBMITTED IS IN A SINGLE CASSETTE.COR/TMZPathologist provided ICD-10:D04.5CPT .[id number] Plan of Care Name Dates Details Instructions [...] to 24 Planned Observations Vitamin D Hydroxy (49525)Indication: Vitamin D intoxication On: 7-Nhu-922120:44 Request METABOLIC PANEL, COMPREHENSIVE (34211)Indication: Elevated glycated hemoglobin On: 3-Gcm-665256:43 Request LIPOPROTEIN, BLD, BY NMR (04126)Indication: Familial combined hyperlipidemia On: 8-Sqm-534921:43 Request METABOLIC PANEL, COMPREHENSIVE (62251)Indication: Hypokalemia On: 96-Kpu-195402:38 Request Metabolic Panel, Basic (12825)Indication: Edema On: 65-Phf-219416:36 Request MICROALBUMIN: CREATININE RATIO (46673) AND (32126)Indication: Elevated glycated hemoglobin On: 4-Mvd-376220:48 Request HGB A1C (16873)Indication: Elevated glycated hemoglobin On: 1-Wgi-727261:47 Request CBC W/AUTO DIFF WBC (57510)Indication: Liver function abnormality On: 2-Jrg-540657:35 Request METABOLIC PANEL, COMPREHENSIVE (50469)Indication: Liver function abnormality On: :35 Request LIPOPROTEIN, BLD, BY NMR (79729)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 Request POTASSIUM SERUM (01706)Indication: Rheumatoid arthritis On: 53-Rpw-695643:58 Request HEPATITIS C ANTIBODY (97864)Indication: Encounter for hepatitis C virus screening test for high risk patient On: 16-Xmn-904860:11 Request MAGNESIUM (00068)Indication: Hypokalemia On: 22-Cgd-588664:07 Request Electrolyte Panel (84448)Indication: Hypokalemia On: 47-Tvs-698393:06 Request CBC W/AUTO DIFF WBC (59710)Indication: Edema On: :44 Request FERRITIN (87939)Indication: Liver function abnormality On: :44 Request IRON BINDING CAPACITY (TIBC) (69211)Indication: Liver function abnormality On: :44 Request IRON (06943)Indication: Liver function abnormality On: :44 Request Vitamin D Hydroxy (78088)Indication: Vitamin D intoxication On: 31-Frf-883302:43 Request T3, FREE (TRIDOTHYRONINE) (53707)Indication: Hyperthyroidism On: :42 Request TSH (08417)Indication: Hyperthyroidism On: 29-Kct-309433:42 Request METABOLIC PANEL, COMPREHENSIVE (79104)Indication: Hypokalemia On: 47-Brw-268632:42 Request Potassium Serum (75004)Indication: Hypokalemia On: 4-Xua-297632:23 Request Magnesium (23044)Indication: Hypokalemia On: 9-Wqb-484028:23 Request HEPATITIS A ANTBDY-IGG/IGM (13035)Indication: Abnormal hepatitis serology On: 57-Isb-924349:50 Request ANTI-LIVER/KIDNEY MICROSOMAL ANTIBODY (99296)Indication: Liver function abnormality On: :27 Request ASM (ANTI SMOOTH MUSCLE ANTIBODY) (75739)Indication: Liver function abnormality On: 70-Mib-496520:27 Request CERULOPLASMIN (38432)Indication: Liver function abnormality On: :27 Request TRANSFERRIN (61460)Indication: Liver function abnormality On: 77-Jah-436294:27 Request ANTIMITOCHONDRIAL ANTIBODY (71958)Indication: Liver function abnormality On: 03-Kfs-205368:27 Request Ferritin (49077)Indication: elevated iron On: 51-Xkf-847471:17 Request Iron Binding Capacity (TIBC) (00326)Indication: elevated iron On: :17 Request Iron (64059)Indication: elevated iron On: :17 Request PARATHORMONE (50044)Indication: Hypercalcemia On: 63-Iuh-681355:14 Request METABOLIC PANEL, COMPREHENSIVE (53124)Indication: Hypercalcemia On: :13 Request Vitamin D Hydroxy (14944)Indication: Vitamin D intoxication On: :13 Request T3, FREE (TRIDOTHYRONINE) (29728)Indication: Hyperthyroidism On: :59 Request T4, FREE (THYROXINE) (13076)Indication: Hyperthyroidism On: :59 Request TSH (40005)Indication: Hyperthyroidism On: :59 Request Planned Encounters Medical; [facility] 3 Month FU - On: 29-Jan-2018 13:00 [facility] Kermit Cortez DO Planned Procedures Radiology - Shoulder - RightBy: On: 24-Jan-2018 Intent Kermit Cortez DO Radiology - Cervical SpineBy: On: 24-Jan-2018 Intent Kermit Cortez DO SCREENING DIGITAL TOMOSYNTHESIS On: 30-Oct-2017 Intent OF BREAST (85585)By: Kermit Cortez DO DEXA SCAN AXIAL SKELETON On: 24-Jul-2017 Intent (55967)By: Kermit Cortez DO ELECTROCARDIOGRAM, COMPLETE (ECG) On: 24-Jul-2017 Intent (29078)By: Kermit Cortez DO Radiology - Toe(s) - [...] LUMBAR SPINE W/O CONTRAST On: 28-Feb-2017 Intent (51779)By: Kermit Cortez DO Comments: has had pt [...] fusion- she wants to go back to [place] first before she does surgery to see [...] a year ago by Dr Ben[facility]tez at [facility] and still has same sx- saw Dr Cristofer Goel at [facility]- back specialist - has had 3 [...] arthritis, Hearing loss [facility] Payers [facility] Maurice jones guarantor
--- OUTSIDE RECORDS SUMMARY | 2018-05-31 05:49 | XMS RPT_ITS | Continuity of Care Document ---
:1955 Author Organization [facility] Address [facility] 2 [place] [address] Phone Care Team Providers Name Role Phone Quintin Rueda CNP Unavailable Kermit Cortez DO Unavailable Dr. Brian Shepherd MD Unavailable Dr. Dev Self DO Unavailable Dr. Cam Kaufman Unavailable MD Alex, Rik Newell Unavailable Coral CORTES, Higinio Kiser Unavailable Dr. 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 Biotin 83535 MCG Oral Tablet qd (57569 MCG) Active Calcium Magnesium 750 300-300 MG Oral Tablet 1 (one) Tablet Tablet daily for 0 days Quantity: 30 {Tablet} Refills: 0 Ordered:28-Feb-2017 Quintin Rueda CNP Start : 30-Mar-2016 Active Clearite Shake 1 scoop bid Active Comments:supports detoxification Dymista 137-50 MCG/ACT Nasal Suspension 1 (one) [place] each nostril twice daily for 0 days Quantity: 3 {[place]} Refills: 3 Ordered:21-Nov-2017 Kermit Cortez DO Start [...] days Quantity: 90 {Patch} Refills: 0 Ordered:28-Feb-2017 Quintin Rueda CNP Start : 30-Mar-2016 Active Lipitor 40 MG [...] Quintin Rueda CNP Start : 30-Mar-2016 Active Metamucil 0.52 GM Oral Capsule 1 (one) capsule capsule daily for 0 days Quantity: 1 {Capsule} Refills: 0 Ordered:28-Feb-2017 Quintin Rueda CNP Start : 30-Mar-2016 Active Multivitamin Adult Oral Tablet 1 (one) Tablet Tablet daily for 0 days Quantity: 30 {Tablet} Refills: 0 Ordered:28-Feb-2017 Quintin Rueda CNP Start : 30-Mar-2016 Active Orencia 250 MG Intravenous Solution Reconstituted 1 (one) For Solution For Solution one gram monthly for 0 days Quantity: 1 {Intravenous_Bag} Refills: 0 Ordered:28-Feb-2017 Quintin Rueda CNP Start : 30-Mar-2016 Active PredniSONE 10 MG Oral Tablet 3 (three) Tablet qd in AM for 3 days Quantity: 9 {Tablet} Refills: 0 Ordered:26-Jan-2018 Katina Mathur Start : 26-Jan-2018 Active Comments:take with food Proglycem 50 MG Oral Capsule uad (50 MG) Active Comments:Dr. Mac Marin Drink 1 scoop bid Active Comments:supports digestion and absorption Restasis 0.05 % Ophthalmic Emulsion 1 (one) Emulsion Emulsion both eyes bid for 0 days Quantity: 1 {Bottle} Refills: 0 Ordered:28-Feb-2017 Quintin Rueda CNP Start : 30-Mar-2016 Active Resvero 1 tsp [...] Rueda CNP Start : 30-Mar-2016 Active Tumeric [place] 2 caps bid Active Ventolin HFA 108 [...] Quantity: 20 {Tablet} Refills: 0 Ordered:02-May-2017 Kermit EVANS Start : 20-Mar-2017 End : 02-May-2017 Inactive Boniva 150 MG Oral Tablet 1 (one) Tablet once a month for 0 days Quantity: 1 {Tablet} Refills: 0 Ordered:28-Feb-2017 Cecy EVANSa A Start : 30-Mar-2016 End : 28-Feb-2017 Inactive Gabapentin 100 MG Oral Capsule 1 (one) Milligram tid for 0 days Quantity: 90 {Milligram} Refills: 2 Ordered:14-Mar-2017 Katina Mathur Start : 28-Feb-2017 End : 14-Mar-2017 Inactive Levaquin 500 MG Oral Tablet 1 (one) Tablet qd for 10 days Quantity: 10 {Tablet} Refills: 0 Ordered:30-Aug-2017 Kermit Cortez DO Start : 30-Aug-2017 End : 09-Sep-2017 Inactive [...] 0 days Quantity: 30 {Tablet} Refills: 4 Ordered:24-Jul-2017 Kermit Cortez DO Start : 24-Jul-2017 [...] days Quantity: 90 {Tablet} Refills: 3 Ordered:20-Dec-2017 Kremit Cortez DO Start : 20-Dec-2017 End : [...] Comments: 2015 Tubal Ligation Completed Comments: 1986 Value Details 24-Jan-2018 Cerv Spine 4 or 5 Views Result: Comments: See Note; NOTES: [facility] Imaging Services [address] [place] [address] Cerv Spine 4 or 5 Views MR#: [id number] Acct: [id number] Name: MASON BURK Emily Rep #: [id number] : 1955 F 62 From: Perico Stewart MD PCP: Kermit Cortez DO Status: REG CLI Study: Cerv Spine 4 or 5 Views Date of Exam: 01/24/18 Exam# [id number] Ordering Dr: Kermit Cortez DO STUDY: X-RAY [...] Service support , CC: Kermit Cortez DO Dry Roller: Signed 24-Jan-2018 Shoulder min 2 Views Result: Comments: See Note; NOTES: [facility] Imaging Services [address] [place] [address] Shoulder min 2 Views MR#: [id number] Acct: [id number] Name: MASON BURK Rep #: [id number] : 1955 F 62 From: Perico Stewart MD PCP: Kermit Cortez DO Status: REG CLI Study: Shoulder min 2 Views Date of Exam: 01/24/18 Exam# [id number] Ordering Dr: Kermit Cortez DO STUDY: X-RAY [...] x-ray examination of the shoulder. Electronically Signed: ePrico Stewart MD at 10:42 EST , Service support , CC: Kermit Cortez DO Dry Roller: Signed 21-Nov-2017 SCREENING MAMM (CAD), BILAT Result: Comments: See Note; NOTES: [facility] Imaging Services [address] [place] [address] SCREENING MAMM (CAD), BILAT MR#: [id number] Acct: [id number] Name: MASON BURK Rep #: [id number] : 1955 F 62 From: Shreyas Garcia MD PCP: Kermit Cortez DO Status: REG CLI Study: SCREENING MAMM (CAD), BILAT Date of Exam: 11/21/17 Exam# [id number] Ordering Dr: Kermit Cortez DO PHILLY MOGRAPHY - BILATERAL SCREENING REASON FOR EXAM: [...] delay biopsy of a clinically suspicious abnormality. [id number] Electronically Signed: Shreyas Garcia MD at 1 2:28 EDT Tel [phone], Service support , CC: Kermit Cortez DO Dry Roller: Signed 10-Aug-2017 Dexa Bone Density Study Result: Comments: See Note; NOTES: [facility] Imaging Services [address] [place] [address] Dexa Bone Density Study MR#: [id number] Acct: [id number] Name: MASON BURK Rep #: [id number] : 1955 F 62 From: Shreyas Garcia MD PCP: Kermit Cortez DO Status: REG CLI Study: Dexa Bone Density Study Date of Exam: 08/10/17 Exam# [id number] Ordering Dr: Kermit Cortez DO STUDY: DUAL [...] Shreyas Garcia MD at 14:58 EDT Tel [phone], Service support , CC: Kermit Cortez DO; ROME GRANADOSAN Dry Roller: Signed 02-Aug-2017 Arterial Duplex US, Limited Result: Comments: See Note; NOTES: [facility] Cardiovascular Services [address] [place] [address] Art Duplex US Unilat Lower Ext 07/28/17 1320 MR#: [id number] Acct: [id number] Name: MASON BURK Rep #: [id number] : 1955 62 From: Garcia Dsouza MD Attending Dr: Brian CORTES,Garcia Status: REG CLI Ordering Dr: Garcia Dsouza MD Date: 07/28/17 Location: [facility] Sex: F C Admitted: Reason For Study: [...] Kermit Cortez D.O. Performed By: Katlyn Berg, LENNY, RVT 08/02/17 1108 Date Garcia Dsouza MD CC: Garcia Dsouza MD; Kermit Cortez DO Date Dictated: 07/28/17 1320 Date Transcribed: 08/02/17 1108 Dry Roller: Signed 02-Aug-2017 Lower Ext Arterial Study Result: Comments: See Note; NOTES: [facility] Cardiovascular Services [address] [place] [address] 08/02/17 0832 MR#: [id number] Acct: [id number] Name: MASON BURK Rep #: [id number] : 1955 62 From: Garcia Dsouza MD Attending Dr: Garcia Dsouza MD Status: REG CLI Ordering Dr: Date: 08/02/17 Location: [facility] Sex: F C Admitted: Arterial Study - Arterial Study Arterial St udy: Record number: [id number] next Date of scan 07/28/2017 next Interpreted [...] flow in the digit brachial index 0.74. 08/02/1734 <Electronically signed by Garcia Dsouza MD> Date Garcia Dsouza MD CC: Garcia Dsouza MD; D jena Cortez DO Date Dictated: 08/02/17831 Date Transcribed: 08/02/17831 Dry Roller: BAB Signed 19-Jun-2017 Toe(s) Min 2 Views Result: Comments: See Note; NOTES: [facility] Imaging Services [address] [place] [address] Toe(s) Min 2 Views MR#: [id number] Acct: [id number] Name: MASON BURK Rep #: [id number] : 1955 F 61 From: Shreyas Garcia MD PCP: Kermit Cortez DO Status: REG CLI Study: Toe(s) Min 2 Views Date of Exam: 06/19/17 Exam# [id number] Ordering Dr: Kermit Cortez DO STUDY: X-RAY [...] Shreyas Garcia MD at 14:12 EDT Tel [phone], Service support , CC: Kermit Cortez DO Dry Roller: Signed 22-May-2017 PT D/C Summary (1) Result: Comments: See Note; NOTES: [facility] Physical Therapy [facility] [address] [place] [address] Fax REHABILITATION SERVICES DISCHAR GE SUMMARY MR#: [id number] Acct: [id number] Name: MASON BURK Rep #: [id number] : 1955 61 From: Melissa King PT, Cert. T Referring DrBlake: Kermit Cortez DO Status: REG [...] please feel free to call me at [phone]. Thank you for the referral of this patient. Sincerely, Melissa King <Electronically signed by Melissa King PT, Cert. MDT> 05/22/17 1602 CC: Kermit Cortez DO TOM Signed 19-Apr-2017 Inital Evaluation (1) - PT Result: Comments: See Note; NOTES: [facility] [address] [place] [address]. [address] [place] [address] Fax REHABILITATION SERVICES INITIAL EVALUATION MR#: [id number] Acct: [id number] Name: MASON BURK Rep #: [id number] : 1955 61 From: Melissa King PT, [...] THR JAN [address] BENÍTEZ AT [facility] IN [place] , LUMBAR HERMES'S X [address] [...] RECENT LUMBAR MRI Mar WITH PATIENTS UNDERSTANDING B EIBLANCA THAT SHE HAS SOME BULGING DISCS AND SOME THAT ARE PROTRUDING AND THE NERVES ARE GETTING PRESSED. PMH: *RA* OSTEOPENIA, HIGH CHOLESTEOL, NO CANCER, NO CVA, NOT DIABETIC, RAYNOLDS, SJORGENS, RAMESH HAND PAIN, NUMBNESS AND WEAKNESS. MENIERES. Recent major surgery: LEFT THR FALL 2016. 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 OTHER: WENT TO SEE AN ORTHOPEDIC SURGEON - DR. ARAM Albert - AND HE RECOMMENDED SURGERY - LAMINECTOMY AND FUSION - PATIENT SAID NO THANK YOU AND THAT IS WHY SHE IS HERE. HAS A DOCTOR IN [place] THAT SHE THINKS IS A FUNCTIONAL MEDICINE DOCTOR. THIS DOCTOR HAS PRESCRIBED EXERCISES AND SUPPLEMENTS AND DIET. 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 HE HELPED HER LE EDEMA IN 5 DAYS AFTER SUFFERING WITH IT FOR 3 YEARS. HER DAUGHTER LIVES IN [place] AND THIS IS HOW SHE FOUND HIM [...] to be FAXED BACK to us at [phone] for Medicare purposes. Please let me know if there are questions or concerns regarding this plan of care. Physician Signature: Date: <Electronically signed by Melissa King PT, Cert. MDT> 04/19/17 1440 CC: Kermit Cortez DO TOM Signed For Medicare only, by signing this I certify the plan of care. Physicians Signature Date 23-Mar-2017 Abdomen Complete Result: Comments: See Note; NOTES: [facility] Imaging Services [address] [place] [address] Abdomen Complete MR#: [id number] Acct: [id number] Name: MASON BURK Rep #: [id number] D OB: 1955 F 61 From: Shreyas Garcia MD PCP: Kermit Cortez DO Status: REG CLI Study: Abdomen Complete Date of Exam: 03/23/17 Exam# [id number] Ordering Dr: Kermit Cortez DO STUDY: ABDOMINAL [...] Shreyas Garcia MD at 11:07 EST Tel [phone], Service support , CC : Kermit Cortez DO Dry Roller: Signed 23-Mar-2017 Abdomen Complete Result: Comments: See Note; NOTES: [facility] Imaging Services [address] [place] [address] Abdomen Complete MR#: [id number] Acct: [id number] Name: MASON BURK Emily Rep #: [id number] D OB: 1955 F 61 From: Shreyas Garcia MD PCP: Kermit Cortez DO Status: REG CLI Study: Abdomen Complete Date of Exam: 03/23/17 Exam# [id number] Ordering Dr: Kermit Cortez DO ADDENDUM by Shreyas vaughn MD on 03/29/17 at 1505 US/Abdomen Complete 03/29/17 1512 Date cc: Kermit Cortez DO * Signed ADDENDUM by Shreyas Garcia MD on 03/29/17 at 1505 ADDENDUM This is an addendum report. The liver measures within normal limits. Electronically Signed: Shreyas lyon MD at 15:05 EST Tel [phone], Service support , 03/29/17 4348 Date cc: Kermit Cortez DO * Signed [...] Shreyas Garcia MD at 11:07 EST Tel [phone], Service support , CC: Kermit Cortez DO Dry Roller: Signed 20-Mar-2017 Spine Lumbar (Routine) Result: Comments: See Note; NOTES: [facility] Imaging Services [address] [place] [address] Spine Lumbar (Routine) MR#: [id number] Acct: [id number] Name: MASON BURK Rep #: [id number] : 1955 F 61 From: Carson Richardson MD PCP: Kermit Cortez DO Status: REG CLI Study: Spine Lumbar (Routine) Date of Exam: 03/20/17 Exam# [id number] Ordering Dr: Kermit Cortez DO STUDY: MRI [...] EST , Service support , F ax [phone] CC: Kermit Cortez DO Dry Roller: Signed 28-Feb-2017 Thoracic Spine 3 Views Result: Comments: See Note; NOTES: [facility] Imaging Services [address] [place] [address] Thoracic Spine 3 Views MR#: [id number] Acct: [id number] Name: MASON BURK Rep #: [id number] : 1955 F 61 From: Perico Stewart MD PCP: Evie Winter MD Status: REG CLI Study: Thoracic Spine 3 Views Date of Exam: 02/28/17 Exam# [id number] Ordering Dr: Cherelle Perez MD STUDY: X-R [...] CC: Evie Winter MD; Cherelle Perez MD Dry Roller: Signed Family History Unknown Family Member Name [...] Status: 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 [id number] Comments: We have received your request for additional testing or testverification. You will be notified if we are unable to processyour request. :59 Potassium 3.4 mmol/L Comments: PATIENT WAS FASTINGPERFORMED BY: RUT [facility] [facility] [id number] (Abnormal) Range: 3.5-5.2 Comments: Client Requested Flag 01-Bfs-193531:59 Written Authorization WAR (Normal) Comments: PATIENT WAS FASTINGPERFORMED BY: [facility] [facility] [id number] Comments: Written Authorization Received.Authorization received from WRITTEN REQUEST [id number] by Loan Greene 20-Vwh-962337:03 MICROALBUMIN: CREATININE RATIO Comments: PATIENT WAS FASTINGPERFORMED BY: [facility] [facility] [id number] (27469) AND (70326) Alb/Creat Ratio <23.4 {mg/g_creat} (Normal) Range: 0.0-30.0 Comments: Normal: 0.0 - 30.0 Albuminuria: 31.0 - 300.0 Clinical albuminuria: >300.0 Albumin, Urine <3.0 ug/mL (Normal) Creatinine, Urine 12.8 mg/dL (Normal) 88-Sds-523936:03 HGB A1C (93332) Comments: PATIENT WAS FASTINGPERFORMED BY: [facility] [facility] [id number] Hemoglobin A1c 5.5 % (Normal) Range: 4.8-5.6 Comments: . Prediabetes: 5.7 - 6.4 Diabetes: >6.4 Glycemic control for adults with diabetes: <7.0 28-Dma-911285:00 Crystals, Body Fluid Comments: [facility] [address] [place], [place], [address] PATH REV Reviewed (Normal) Comments: No diagnostic crystals identified.Trevon Fuchs D.O. 01/11/18 AMENDED REPORT 01/11/18 1417 PATH REV previously reported as: Will follow SOURCE/BF SYNOVIAL (Normal) CRYSTALS/BF SEE PATH REV (Normal) 02-Wer-918271:00 Culture, Body Fluid Comments: [facility] [address] [place], [place], [address] CUBF See Note (Normal) Comments: List Antibiotics Last 48 Hours? NList Antibiotics to be Started? NGram StainGram Stain No organisms seen 1+ Red Blood Cells 1+ Red Cell Stroma Body Fluid CultNO GROWTH IN 14 DAYS Cult, AnaerobicNo growth in 5 days. 4-Erg-528614:05 CBC W/Diff, Automated Comments: [facility] [address] [place], [place], [address] Absolute Lymph 1.09 {X10_3/ul} (Normal) Range: 0.83-4.51 [...] 4.2-5.4 WBC 7.9 K/mm3 (Normal) Range: 4.4-11.0 9-Jib-447228:05 Comprehensive Metabolic Profil Comments: [facility] [address] [place], [place], [address] GAP 10 (Normal) Range: 5-15 CO2 33.0 [...] A.D.A. criteria.Please note revised GLUCOSE reference range igyyzktkq30/02/2018. Magnesium 2.2 mg/dL (Normal) Comments: PATIENT NOT FASTINGPERFORMED BY: [facility] RiverYbroky[address] [facility] [id number] 5:38 Range: 1.6-2.3 Written Authorization WAR (Normal) Comments: PATIENT NOT FASTINGPERFORMED BY: [facility] [facility] [id number] 5:38 Comments: Written Authorization Received.Authorization received from KATINA DANIEL [id number] by Tiffany Shah 81-Sfi-241337:38 POTASSIUM SERUM (29360) Comments: PATIENT NOT FASTINGPERFORMED BY: [facility] [address] [facility] [id number] Potassium 3.3 mmol/L (Abnormal) Range: 3.5-5.2 Comments: Client Requested Flag 51-Aho-635972:26 Comp. Metabolic Panel (14) Comments: PATIENT NOT FASTINGPERFORMED BY: [facility] [address]xknad[address] [facility] [id number] ALT (SGPT) 70 [iU]/L (Abnormal) Range: 0-32 [...] 8-27 Glucose 77 mg/dL (Normal) Range: 65-99 32-Bcl-772523:13 METABOLIC PANEL, COMPREHENSIVE Comments: PATIENT NOT FASTINGPERFORMED BY: [facility] Okemml[address] [facility] [id number] (04823) ALT (SGPT) 69 [iU]/L (Abnormal) Range: 0-32 [...] 8-27 Glucose 113 mg/dL (Abnormal) Range: 65-99 2-Hoq-309388:05 CBC W/Diff, Automated Comments: [facility] [address] [place], [place], [address] Absolute Lymph 0.69 {X10_3/ul} (Abnormal) Range: 0.83-4.51 [...] 4.2-5.4 WBC 5.2 K/mm3 (Normal) Range: 4.4-11.0 7-Xou-633985:05 Comprehensive Metabolic Profil Comments: [facility] [address] [place], [place], [address] GAP 8 (Normal) Range: 5-15 CO2 36.0 [...] Comments: Please note revised GLUCOSE reference range hvvrrwogu99/02/2018. 31-Jcf-302231:14 Thyroxine (T4) Free, Direct, Comments: PATIENT NOT FASTINGPERFORMED BY: [facility] Lcnjqa3774 [employer] [id number] S T4,Free(Direct) 1.99 ng/dL Range: 0.82-1.77 (Abnormal) 21-Aug-2017 Triiodothyronine,Free,Ser 3.1 pg/mL (Normal) Comments: PATIENT NOT FASTINGPERFORMED BY: [facility] Kyxwho6599 [employer] [id number] 13:14 um Range: 2.0-4.4 21-Aug-2017 Written Authorization WAR (Normal) Comments: PATIENT NOT FASTINGPERFORMED BY: [facility] [address]th[address] [facility] [id number] 13:14 Comments: Written Authorization Received.Authorization received from KERMIT CORTEZ [id number] by Aniya Denton 60-Yny-495973:14 CMV IGM ANTBDY (64049) Comments: PATIENT NOT FASTINGPERFORMED BY: [facility] Nbajhl[address] [facility] [id number] Cytomegalovirus (CMV) Ab, IgM <30.0 AU/mL (Normal) Range: 0.0-29.9 Comments: Negative <30.0 Equivocal 30.0 - 34.9 Positive >34.9 A positive result is generally indicative of acute infection, reactivation or persistent IgM production. 36-Nuf-499904:14 EBV Panel (84500) Comments: PATIENT NOT FASTINGPERFORMED BY: [facility] [address]pwkbm[address] [facility] [id number] Interpretation: SPRCS (Normal) Comments: EBV Interpretation Chart [...] <36.0 Equivocal 36.0 - 43.9 Positive >43.9 03-Sok-973835:14 VITAMIN B-12 (CYANOCOBALAMIN) Comments: PATIENT NOT FASTINGPERFORMED BY: [facility] Sossbt4928 [facility] [id number] (80153) Vitamin B12 >2000 pg/mL (Abnormal) Range: 232-1245 87-Kic-244646:14 TSH (46009) Comments: PATIENT NOT FASTINGPERFORMED BY: [facility] Joxyhg1242 [facility] [id number] TSH 0.072 {uIU/mL} (Abnormal) Range: 0.450-4.500 60-Usx-825976:14 CBC W/AUTO DIFF WBC (48746) Comments: PATIENT NOT FASTINGPERFORMED BY: [facility] RiverCgmzxg8810 [facility] [id number] Immature Grans (Abs) 0.0 {x10E3/uL} (Normal) Range: [...] 3.77-5.28 WBC 6.9 {x10E3/uL} (Normal) Range: 3.4-10.8 29-Ayd-202824:14 METABOLIC PANEL, COMPREHENSIVE Comments: PATIENT NOT FASTINGPERFORMED BY: [facility] RiverRjjltp9771 [facility] [id number] (31840) ALT (SGPT) 53 [iU]/L (Abnormal) Range: 0-32 [...] 8-27 Glucose 81 mg/dL (Normal) Range: 65-99 00-Oty-624595:39 Microscopic Examination Comments: PATIENT NOT FASTINGPERFORMED BY: [facility] [id number] Bacteria Few (Normal) Mucus Threads Present (Normal) Crystal Type Amorphous Sediment (Normal) Crystals Present (Abnormal) Epithelial Cells (non renal) 0-10 {/hpf} (Normal) Range: 0 - 10 RBC 0-2 {/hpf} (Normal) Range: 0 - 2 WBC 6-10 {/hpf} (Abnormal) Range: 0 - 5 80-Lam-776376:39 URINE SANDIE CULTURE-IDENTIFICATN Comments: PATIENT NOT FASTINGPERFORMED BY: [facility] [id number] (23628) Result 1 MUG (Normal) Comments: Mixed urogenital flora10,000-25,000 colony forming units per mL Urine Final report (Normal) Culture,Comprehensive 73-Uew-149196:39 URINALYSIS (93885) Comments: PATIENT NOT FASTINGPERFORMED BY: [facility] [id number] Microscopic Examination See below: (Normal) Comments: Microscopic was indicated and was performed. Nitrite, Urine Negative (Normal) Urobilinogen,Semi-Qn 0.2 mg/dL (Normal) Range: 0.2-1.0 Bilirubin Negative (Normal) Occult Blood Negative (Normal) Ketones Negative (Normal) Glucose Negative (Normal) Protein Negative (Normal) WBC Esterase 1+ (Abnormal) Appearance Clear (Normal) Urine-Color Yellow (Normal) pH 7.5 (Normal) Range: 5.0-7.5 Specific [place] 1.016 (Normal) Range: 1.005-1.030 44-Vsi-484971:39 METABOLIC PANEL, COMPREHENSIVE Comments: PATIENT NOT FASTINGPERFORMED BY: [facility] RiverMhaucv7477 [facility] [id number] (62194) ALT (SGPT) 50 [iU]/L (Abnormal) Range: 0-32 [...] y ears - 12 years 19 - 27 19 - 27 >12 years 20 - 29 20 - 29 Chloride 92 mmol/L (Abnormal) Range: 96-106 Potassium 3.9 mmol/L (Normal) Range: 3.5-5.2 Sodium 140 mmol/L (Normal) Range: 134-144 BUN/Creatinine Ratio 22 (Normal) Range: 12-28 eGFR If Africn Am 81 mL/min/1.73 (Normal) eGFR If NonAfricn Am 70 mL/min/1.73 (Normal) Creatinine 0.89 mg/dL (Normal) Range: 0.57-1.00 BUN 20 mg/dL (Normal) Range: 8-27 Glucose 84 mg/dL (Normal) Range: 65-99 49-Bbf-787605:39 CBC, PLATELETS & MANUAL Comments: PATIENT NOT FASTINGPERFORMED BY: RUT [facility] Fshxci6669 [facility] [id number] Information: SRC:UC DIFF (14797) Immature Grans (Abs) 0.0 {x10E3/uL} (Normal) Range: [...] 3.77-5.28 WBC 8.1 {x10E3/uL} (Normal) Range: 3.4-10.8 2-Kff-800204:42 CBC W/Diff, Automated Comments: [facility] [address] [place], [place], [address] Absolute Lymph 1.04 {X10_3/ul} (Normal) Range: 0.83-4.51 [...] 4.2-5.4 WBC 6.4 K/mm3 (Normal) Range: 4.4-11.0 :42 Comprehensive Metabolic Profil Comments: [facility] [address] [place], [place], [address] GAP 6 (Normal) Range: 5-15 CO2 36.0 [...] Comments: Please note revised GLUCOSE reference range nakrdisfd06/02/2018. 18-Kbe-246701:05 Liver Profile Comments: [facility] [address] [place], [place], [address] D BILI 0.12 mg/dL (Normal) Range: 0.00-0.30 T BILI 0.40 mg/dL (Normal) Range: 0.20-1.00 ALT 66 U/L (Abnormal) Range: 13-56 Comments: Please note revised ALT reference range eiylxafbh36/28/2018. ALK P 79 U/L (Normal) Range: 45-117 AST 49 U/L (Abnormal) Range: 15-37 GLOB 3.4 g/dL (Normal) Range: 2.2-4.2 ALB 3.5 g/dL (Normal) Range: 3.2-5.0 T PROT 6.9 g/dL (Normal) Range: 6.4-8.2 97-Lgj-665750:59 LIPID PANEL (73677) Comments: PATIENT WAS FASTINGPERFORMED BY: [address] [id number]; fu 11-19 DF LDL/HDL Ratio 1.1 {ratio} [...] Cholesterol, Total 310 mg/dL (Abnormal) Range: 100-199 40-Bwd-189104:15 Anti-Mitochondrial AB Comments: [place] ORDERED: CMP, CBCDFAST [...] ofpatients with gaudencio quintin biliary cirrhosis.Performed at: [facility] [employer] [id number] Director: Wili Wagner PhD, Phone: [phone] 06-Nhi-527924:15 Anti-Smooth Muscle ABS Comments: [place] ORDERED: CMP, CBCDFAST ORDERED: TSH, VITD, CMP, FE, AMA,HEP A, T4F, T3F,PTHIN, FE, TIBC, CERU, AMS, MISCComments: [id number];LKM;SERUM;FROZENLabCorp (refer to report for specific site)refer to report for address and phone number ANTISMOOTH 6643 2 {Units} (Normal) Range: 0-19 Comments: Negative 0 - 19 Weak positive 20 - 30 Moderate to strong positive >30 Actin Antibodies are found in 52-85% of patients with autoi mmune hepatitis or chronic active hepatitis and in 22% of patients with primary biliary cirrhosis. 69-Slq-907498:15 CBC W/Diff, Automated Comments: EVERTON ORDERED: CMP, CBCDFAST ORDERED: TSH, VITD, CMP, FE, AMA,HEP A, T4F, T3F,PTHIN, FE, TIBC, CERU, AMS, MISCWKettering Health Dayton [address]jtnfb[address] [place], [address] Absolute Lymph 1.01 {X10_3/ul} (Normal) Range: 0.83-4.51 [...] 4.2-5.4 WBC 4.2 K/mm3 (Abnormal) Range: 4.4-11.0 41-Odt-667352:15 Ceruloplasmin Comments: EVERTON ORDERED: CMP, CBCDFAST ORDERED: TSH, VITD, CMP, FE, AMA,HEP A, T4F, T3F,PTHIN, FE, TIBC, CERU, AMS, MISCComments: [id number];LKM;SERUM;[facility] (refer to report for specific site)refer to report for address and phone number LUIS FERNANDO Mitchell 23.8 mg/dL (Normal) Range: 19.0-39.0 58-Aqx-167468:15 Comprehensive Metabolic Comments: EVERTON ORDERED: CMP, CBCDFAST ORDERED: TSH, VITD, CMP, FE, AMA,HEP A, T4F, T3F,PTHIN, FE, TIBC, CERU, AMS, MISCLIPID ADDED PER ; FAXED ORDER TO FOLLOWComments: [id number];LKM;SERUM;[facility] Xkpbkfhhqb0339 [place], [place], [address] GAP 5 (Normal) Range: 5-15 CO2 32.0 mmol/L (Normal) Range: 21.0-32.0 CL 101 mmol/L (Normal) Range: 98-107 K 3.3 mmol/L (Abnormal) Range: 3.5-5.1 NA 138 mmol/L (Normal) Range: 136-145 T BILI 0.40 mg/dL (Normal) Range: 0.20-1.00 ALT 69 U/L (Abnormal) Range: 13-56 Comments: Please note revised ALT reference range mxmwmkkwy39/28/2018. ALK P 72 U/L (Normal) Range: 45-117 [...] Comments: Please note revised GLUCOSE reference range gnsuatrya44/02/2018. 98-Uzq-795798:15 Ferritin Comments: EVERTON ORDERED: CMP, CBCDFAST ORDERED: TSH, VITD, CMP, FE, AMA,HEP A, T4F, T3F,PTHIN, FE, TIBC, CERU, AMS, MISCLIPID ADDED PER ; FAXED ORDER TO FOLLOWComments: [id number];LKM;SERUM;[facility] Eegsvarexz2573 [place], [place], [id number] FERRITIN 12 ng/mL (Normal) Range: 8-252 19-Cck-669293:15 Free T3 Comments: EVERTON ORDERED: CMP, CBCDFAST ORDERED: TSH, VITD, CMP, FE, AMA,HEP A, T4F, T3F,PTHIN, FE, TIBC, CERU, AMS, MISCLIPID ADDED PER ; FAXED ORDER TO FOLLOWComments: [id number];LKM;SERUM;[facility]EN[facility] Byeedsaymg1664 [place], [place], [address] FREE T3 2.8 pg/mL (Normal) Range: 2.18-3.98 09-Ilm-805589:15 Hepatitis A AB, Total Comments: EVERTON ORDERED: CMP, CBCDFAST ORDERED: TSH, VITD, CMP, FE, AMA,HEP A, T4F, T3F,PTHIN, FE, TIBC, CERU, AMS, MISCComments: [id number];LKM;SERUM;[facility] (refer to report for specific site)refer to report for address and phone number HEP A AB,T.7437 Positive (Abnormal) 48-Wvx-583198:15 Hepatitis A IgM Comments: EVERTON ORDERED: CMP, CBCDFAST ORDERED: TSH, VITD, CMP, FE, AMA,HEP A, T4F, T3F,PTHIN, FE, TIBC, CERU, AMS, MISCComments: [id number];LKM;SERUM;[facility] (refer to report for specific site)refer to report for address and phone number Antibody HEP A IgM 6734 Negative (Normal) Comments: Performed at: - [facility] [id number] Director: Wili Wagner PhD, Phone: [phone] 01-Ahd-415906:15 Iron Comments: EVERTON ORDERED: CMP, CBCDFAST ORDERED: TSH, VITD, CMP, FE, AMA,HEP A, T4F, T3F,PTHIN, FE, TIBC, CERU, AMS, MISCLIPID ADDED PER ; FAXED ORDER TO FOLLOWComments: [id number];LKM;SERUM;[facility] [address]unmq[address] [place], [address] IRON 53 ug/dL (Normal) Range: 50-170 10-Hds-312450:15 Iron Binding Comments: EVERTON ORDERED: CMP, CBCDFAST ORDERED: TSH, VITD, CMP, FE, AMA,HEP A, T4F, T3F,PTHIN, FE, TIBC, CERU, AMS, MISCLIPID ADDED PER ; FAXED ORDER TO FOLLOWComments: [id number];LKM;SERUM;[facility] [address] [place], [address] TIBC 452 ug/dL (Abnormal) Range: 250-450 93-Kho-653701:15 Lipid Profile Comments: EVERTON ORDERED: CMP, CBCDFAST ORDERED: TSH, VITD, CMP, FE, AMA,HEP A, T4F, T3F,PTHIN, FE, TIBC, CERU, AMS, MISCLIPID ADDED PER ; FAXED ORDER TO FOLLOWComments: [id number];LKM;SERUM; [facility] Rigwphretl0400 [facility] [address] [place], [place], [phone] VLDL 16 mg/dL (Normal) Range: 5-40 LDL [...] 200-240 mg/dL Borderline >240 mg/dL High Risk 17-Tdc-203452:15 Miscellaneous Lab Comments: EVERTON ORDERED: CMP, CBCDFAST ORDERED: TSH, VITD, CMP, FE, AMA,HEP A, T4F, T3F,PTHIN, FE, TIBC, CERU, AMS, MISCComments: [id number];LKM;SERUM;FROZENTest(s) Ordered: [id number];LKM;SERUM;[facility] [address]ytbw[address]ou9853 [facility] [place], [place], [id number] MISC Comments: TEST RESULT LIMITSLiver-Kidney Microsomal Ab [...] A, T4F, T3F,PTHIN, FE, TIBC, CERU, AMS, MISWyand[facility] [address]fxznxyrt[address] [place], [phone](621) 0 pg/mL Range: 18.4-80.1 - (Normal) Comments: Please Note: PTH INTACT METHOD AND REFERENCE RANGE CHANGEEffective 03/01/2017. F e b - 2 0 1 8 1 0 : 1 5 02-Ahf-915097:15 T4 Free Direct Comments: EVERTON ORDERED: CMP, CBCDFAST ORDERED: TSH, VITD, CMP, FE, AMA,HEP A, T4F, T3F,PTHIN, FE, TIBC, CERU, AMS, MISCLIPID ADDED PER ; FAXED ORDER TO FOLLOWComments: [id number];LKM;SERUM;[facility] C[address]ubfurpd[address] [place], [address] T4 FREE DIRECT 0.98 ng/dL (Normal) Range: 0.76-1.46 36-Inq-501797:15 Thyroid Stim Hormone Comments: EVERTON ORDERED: CMP, CBCDFAST ORDERED: TSH, VITD, CMP, FE, AMA,HEP A, T4F, T3F,PTHIN, FE, TIBC, CERU, AMS, MISCLIPID ADDED PER ; FAXED ORDER TO FOLLOWComments: [id number];LKM;SERUM;[facility] (TSH) [facility] [address] [place], [phone](318) TSH 0.98 {uIU/mL} (Normal) Range: 0.358-3.74 99-Eqv-620690:15 Transferrin Comments: EVERTON ORDERED: CMP, CBCDFAST ORDERED: TSH, VITD, CMP, FE, AMA,HEP A, T4F, T3F,PTHIN, FE, TIBC, CERU, AMS, MISCComments: [id number];LKM;SERUM;[facility]EN[facility] (refer to report for specific site)refer to report for address and phone number MAYDARDenisse 4937 365 mg/dL (Normal) Range: 200-370 54-Oym-945446:15 Vitamin D,25 Hydroxy Comments: EVERTON ORDERED: CMP, CBCDFAST ORDERED: TSH, VITD, CMP, FE, AMA,HEP A, T4F, T3F,PTHIN, FE, TIBC, CERU, AMS, MISCWKettering Health Dayton [address] [place], [address] Vitamin D 25-OH 57.7 ng/mL (Normal) Range: 19.95-100.01 Comments: Vitamin D 25(OH) Status Range Deficiency <20 ng/mL (50nmol/L) Insuffciency 20 - 30 ng/mL (50 - 75 nmol/L) Sufficiency 30 - 100 ng/mL (75 - 250 nmol/L) Toxicity >100 ng/mL (>250 nmol/L) 38-Eja-119698:50 Anti-Mitochondrial AB Comments: [facility] (refer to report for specific site)refer to report for address and phone number MITOCHN AB <20.0 {Units} (Normal) Range: 0.0-20.0 Comments: Negative 0.0 - 20.0 Equivocal 20.1 - 24.9 Positive >24.9Mitochondrial (M2) Antibodies are found in 90-96% ofpatients with gaudnecio quintin biliary cirrhosis.Performed at: - [facility] [address] [id number] Director: Wili Wagner PhD, Phone: [phone] 0-Mbz-145342:10 Magnesium Comments: [facility] [address] [place], [address] MG 2.3 mg/dL (Normal) Range: 1.8-2.4 9-Qrr-842732:10 Potassium Comments: [facility] [address] [place], [address] K 3.5 mmol/L (Normal) Range: 3.5-5.1 3-Asm-714143:59 Anti-Smooth Muscle ABS Comments: Comments: [id number] [facility] SERUM REFLabCorp (refer to report [...] 22% of patients with primary biliary cirrhosis. 6-Tyy-358068:59 Ceruloplasmin Comments: Comments: [id number] [facility] SERUM REFLabCorp (refer to report for specific site)refer to report for address and phone number CERULOPLAS 1560 27.0 mg/dL (Normal) Range: 19.0-39.0 9-Uli-408985:59 Comprehensive Metabolic Profil Comments: Comments: [id number] [facility] SERUM [facility] [address]fazdg3932 [place], [place], [address] GAP 8 (Normal) Range: 5-15 CO2 31.0 [...] 7-18 GLU 100 mg/dL (Normal) Range: 70-110 0-Ptm-113252:59 Ferritin Comments: Comments: [id number] [facility] SERUM [facility] Occdwtaatd[address] [place], [address] FERRITIN 14 ng/mL (Normal) Range: 8-252 8-Gsg-705185:59 Free T3 Comments: Comments: [id number] [facility] SERUM [facility] [address]retexs[address] [place], [address] FREE T3 4.0 pg/mL (Abnormal) Range: 2.18-3.98 0-Xih-476656:59 Hepatitis A AB, Total Comments: Comments: [id number] [facility] SERUM REFL[facility] (refer to report for specific site)refer to report for address and phone number HEP A AB,T.6726 Positive (Abnormal) 5-Hig-218141:59 Hepatitis A IgM Antibody Comments: Comments: [id number] [facility] SERUM REFLab[facility] (refer to report for specific site)refer to report for address and phone number HEP A IgM 6734 Negative (Normal) Comments: Performed at: - [facility] [id number] Director: Wili Wagner PhD, Phone: [phone] 6-Vlg-846406:59 Iron Comments: Comments: [id number] [facility] SERUM [facility] Qbutlzhfcj35[address] [place], [address] IRON 98 ug/dL (Normal) Range: 50-170 3-Igu-416048:59 Iron Binding Capacity,Total Comments: Comments: [id number] [facility] SERUM [facility] [address], [phone] TIBC 455 ug/dL (Abnormal) Range: 250-450 1-Wvw-525234:59 Miscellaneous Lab Procedure Comments: Comments: [id number] [facility] SERUM REFTest(s) Ordered: [id number] [facility] SERUM [facility] [address], [id number] MISC Comments: TEST RESULT LIMITSLiver-Kidney Microsomal Ab <1.0 Units 0.0 - 20.0 Negative 0.0 - 20.0 LAB (Normal) Equivocal 20.1 - 24.9 Positive >24.9 LKM type 1 antibodies are detected in patients with autoimmune hepatitis type 2 and in up to 8% of patients TEST with chronic HCV infection. TESTING PERFORMED AT [facility]. ORIGINAL REPORT ON FILE IN LAB CONTAINS ADDITIONAL TEST SITE INFORMATION. 2 PTHIN 32.3 Comments: [facility] [address], [id number] ; will review on 1.17 - pg/mL Range: 18.4-80.1 J (Normal) Comments: Please Note: PTH INTACT METHOD AND REFERENCE RANGE CHANGEEffective 03/01/2017. a n - 2 0 1 8 1 1 : 5 9 5-Hcm-595013:59 T4 Free Direct Comments: Comments: [id number] [facility] SERUM [facility] [address], [id number] T4 FREE DIRECT 1.06 ng/dL (Normal) Range: 0.76-1.46 8-Fqu-253796:59 Thyroid Stim Hormone (TSH) Comments: Comments: [id number] [facility] SERUM [facility] [address] [place], [address] TSH 0.89 {uIU/mL} (Normal) Range: 0.358-3.74 8-Wtc-625862:59 Transferrin Comments: Comments: [id number] [facility] SERUM REFLabCorp (refer to report for specific site)refer to report for address and phone number TRANSFERRN 3706 365 mg/dL (Normal) Range: 200-370 7-Xom-214330:59 Vitamin D,25 Hydroxy Comments: [facility] W[address]jdcyxre5[address] [facility] [place], [address] Vitamin D 25-OH 115.2 ng/mL (Normal) Comments: [...] is nointerference with Vitamin D test results. 17-Adu-15018:06 Pathology Report Comments: PERFORMED BY: [facility] Cyto Mnmph38717 [facility] [id number] Information: [id number] See MATER Comments: Material submitted: .SHAVE CHEST RIGHTClinician provided ICD-10:L98.9Clinical history: .KERATOSIS IRRITATED LESION Note (Normal) Diagnosis:SHAVE CHEST RIGHT:SQUAMOUS CELL CARCINOMA IN SITU.NO EVIDENCE OF INVASION.LESION EXTENDS TO LATERAL SURGICAL MARGIN.. 7Electronically signed: .Peewee Salmeron MD, PathologistGross description: .RECEIVED IS A CONTAINER LABELED [place]ON BURK AND DESIGNATEDRIG CHEST. IN FORMALIN ARE TWO CUMMINGS/BROWN TISSUES MEASURING6.5 X 3.0 X 1.0 MM AND 3.5 X 2.0 X 1.0 MM. BOTH ARE FILTE REDINTO AN EMBEDDING BAG AND SUBMITTED IS IN A SINGLE CASSETTE.COR/TMZPathologist provided ICD-10:D04.5CPT .[id number] Plan of Care Name Dates Details Instructions [...] to 24 Planned Observations Vitamin D Hydroxy (64885)Indication: Vitamin D intoxication On: 0-Sfw-037754:44 Request METABOLIC PANEL, COMPREHENSIVE (33076)Indication: Elevated glycated hemoglobin On: :43 Request LIPOPROTEIN, BLD, BY NMR (40165)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 Request METABOLIC PANEL, COMPREHENSIVE (36199)Indication: Hypokalemia On: 41-Xmw-853181:38 Request Metabolic Panel, Basic (34651)Indication: Edema On: 25-Uyo-620871:36 Request MICROALBUMIN: CREATININE RATIO (42389) AND (85635)Indication: Elevated glycated hemoglobin On: 8-Khb-294673:48 Request HGB A1C (85592)Indication: Elevated glycated hemoglobin On: :47 Request CBC W/AUTO DIFF WBC (51935)Indication: Liver function abnormality On: 4-Yjc-939324:35 Request METABOLIC PANEL, COMPREHENSIVE (76852)Indication: Liver function abnormality On: :35 Request LIPOPROTEIN, BLD, BY NMR (86993)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 Request POTASSIUM SERUM (57300)Indication: Rheumatoid arthritis On: 74-Lye-247683:58 Request HEPATITIS C ANTIBODY (91849)Indication: Encounter for hepatitis C virus screening test for high risk patient On: 09-Drz-087232:11 Request MAGNESIUM (57068)Indication: Hypokalemia On: 85-Ire-672934:07 Request Electrolyte Panel (91864)Indication: Hypokalemia On: 60-Dys-421824:06 Request CBC W/AUTO DIFF WBC (12605)Indication: Edema On: :44 Request FERRITIN (77345)Indication: Liver function abnormality On: 13-Dfa-893270:44 Request IRON BINDING CAPACITY (TIBC) (99888)Indication: Liver function abnormality On: :44 Request IRON (14221)Indication: Liver function abnormality On: 68-Xox-218966:44 Request Vitamin D Hydroxy (17384)Indication: Vitamin D intoxication On: :43 Request T3, FREE (TRIDOTHYRONINE) (31388)Indication: Hyperthyroidism On: :42 Request TSH (63892)Indication: Hyperthyroidism On: :42 Request METABOLIC PANEL, COMPREHENSIVE (46828)Indication: Hypokalemia On: :42 Request Potassium Serum (50011)Indication: Hypokalemia On: :23 Request Magnesium (67598)Indication: Hypokalemia On: :23 Request HEPATITIS A ANTBDY-IGG/IGM (66265)Indication: Abnormal hepatitis serology On: :50 Request ANTI-LIVER/KIDNEY MICROSOMAL ANTIBODY (96297)Indication: Liver function abnormality On: :27 Request ASM (ANTI SMOOTH MUSCLE ANTIBODY) (05590)Indication: Liver function abnormality On: :27 Request CERULOPLASMIN (94145)Indication: Liver function abnormality On: :27 Request TRANSFERRIN (96984)Indication: Liver function abnormality On: :27 Request ANTIMITOCHONDRIAL ANTIBODY (48340)Indication: Liver function abnormality On: :27 Request Ferritin (12581)Indication: elevated iron On: 67-Nml-063556:17 Request Iron Binding Capacity (TIBC) (91578)Indication: elevated iron On: 10-Aqc-370141:17 Request Iron (37510)Indication: elevated iron On: 44-Nkz-932334:17 Request PARATHORMONE (73702)Indication: Hypercalcemia On: 01-Hru-771138:14 Request METABOLIC PANEL, COMPREHENSIVE (36529)Indication: Hypercalcemia On: 91-Pbg-717530:13 Request Vitamin D Hydroxy (78358)Indication: Vitamin D intoxication On: 39-Fez-371993:13 Request T3, FREE (TRIDOTHYRONINE) (95771)Indication: Hyperthyroidism On: :59 Request T4, FREE (THYROXINE) (50540)Indication: Hyperthyroidism On: 58-Fcc-36393:59 Request TSH (08607)Indication: Hyperthyroidism On: 54-Hne-66498:59 Request Planned Encounters Medical; JESSE 3 Month FU - On: 29-Jan-2018 13:00 [facility] Kermit Cortez DO Planned Procedures MRI OF CERVICAL SPINE WITH AND On: 26-Jan-2018 Intent WITHOUT CONTRAST (64572)By: Kermit Cortez DO Radiology - Shoulder - RightBy: On: 24-Jan-2018 Intent Kermit Cortez DO Radiology - Cervical SpineBy: On: 24-Jan-2018 Intent Kermit Cortez DO SCREENING DIGITAL TOMOSYNTHESIS On: 30-Oct-2017 Intent OF BREAST (51083)By: Kermit Cortez DO DEXA SCAN AXIAL SKELETON On: 24-Jul-2017 Intent (65412)By: Kermit Cortez DO ELECTROCARDIOGRAM, COMPLETE (ECG) On: 24-Jul-2017 Intent (92837)By: Kermit Cortez DO Radiology - Toe(s) - LeftBy: Fast On: 19-Jun-2017 Intent Kermit EVANS Comments: left [...] LUMBAR SPINE W/O CONTRAST On: 28-Feb-2017 Intent (53011)By: Kermit Cortez DO Comments: has had pt [...] Scanned Document is available upon request. Encounters Phone Encounter On: 26-Jan-2018 12:01 Encounter Diagnosis: Rheumatoid arthritis, Arm pain, right End: 26-Jan-2018 12:06 [facility] Office Visit On: 24-Jan-2018 10:17 Encounter Reason: [...] feels full and has alot of allergies- takin zyrtec - has runny nose and itchy ey [...] epson and warm water - we talked absolsatinder has to avoid cold - she feels [...] fusion- she wants to go back to [place] first before she does surgery to see [...] a year ago by Dr Ben[facility] at [facility] and still has same sx- saw Dr Cristofer Goel at [facility]- back specialist - has had 3 [...] arthritis, Hearing loss [facility] Payers [facility] Maurice BURK; a guarantor
--- OUTSIDE RECORDS SUMMARY | 2018-05-31 05:50 | XMS RPT_ITS | Continuity of Care Document ---
:1955 Author Organization [facility] Address [facility] [facility] [address] [place] [address] Phone Care Team Providers Name Role Phone [...] less than 19,adult (Z68.1, V85.0) Status: Active Cervical radiculopathy (M54.12, 723.4) Comments: trying to get mri - she has weakness in her hand Status: Active Deliveries (Parity) Comments: 5. 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 Status: Active Hypokalemia (E87.6, 276.8) Status: Active Left flank pain (R10.9, 789.09) Comments: left abdominal pain Status: Active Liver function abnormality (K76.89, 573.9) Comments: better Status: Active Lumbar radiculopathy (M54.16, 724.4) Status: Active Lymphedema (I89.0, 457.1) Comments: better Status: Active [facility] WELLNESS EXAM Status: Active [...] 443.0) Status: Active Rheumatoid arthritis (M06.9, 714.0) Comments: feeling better with rise in steroids Status: Active Sinusitis, acute (J01.90, 461.9) Status: [...] days Quantity: 30 {Capsule} Refills: 0 Ordered:28-Feb-2017 Marybeth RODRIGUEZ Susana Start : 30-Mar-2016 Active Comments:Medication taken as needed. Biotin 41007 MCG Oral Tablet qd (71544 MCG) Active Calcium Magnesium 750 300-300 MG Oral Tablet 1 (one) Tablet Tablet daily for 0 days Quantity: 30 {Tablet} Refills: 0 Ordered:28-Feb-2017 Marybeth RODRIGUEZ Susana Start : 30-Mar-2016 Active Clearite Shake 1 scoop bid Active Comments:supports detoxification Dymista 137-50 MCG/ACT Nasal Suspension 1 (one) Cornell each nostril twice daily for 0 days Quantity: 3 {Cornell} Refills: 3 Ordered:05-Feb-2018 Kermit Cortez DO Start : 05-Feb-2018 Active Comments:QS for 90 days Enzymix Pro [...] days Quantity: 90 {Patch} Refills: 0 Ordered:28-Feb-2017 Isayosvanykaren RODRIGUEZQuintin Start : 30-Mar-2016 Active Lipitor 40 MG Oral Tablet 1 (one) Tablet daily for 0 days Quantity: 90 {Tablet} Refills: 3 Ordered:24-Jul-2017 Kermit Cortez DO Start : 24-Jul-2017 Active Dispense as Written Comments:JOE Melatonin ER 3 MG Oral Tablet Extended Release 1 (one) Tablet ER Tablet ER qhs for 0 days Quantity: 30 {Tablet} Refills: 0 Ordered:28-Feb-2017 Marybeth JENNIFERQuintin Start : 30-Mar-2016 Active Metamucil 0.52 GM Oral Capsule 1 (one) capsule capsule daily for 0 days Quantity: 1 {Capsule} Refills: 0 Ordered:28-Feb-2017 Shainakaren RODRIGUEZQuintin Start : 30-Mar-2016 Active Multivitamin Adult Oral Tablet 1 (one) Tablet Tablet daily for 0 days Quantity: 30 {Tablet} Refills: 0 Ordered:28-Feb-2017 Marybeth RODRIGUEZQuintin Start : 30-Mar-2016 Active Orencia 250 MG Intravenous Solution Reconstituted 1 (one) For Solution For Solution one gram monthly for 0 days Quantity: 1 {Intravenous_Bag} Refills: 0 Ordered:28-Feb-2017 Marybeth RODRIGUEZQunitin Start : 30-Mar-2016 Active Proglycem 50 MG [...] Quintin Rueda CNP Start : 30-Mar-2016 Active Triamterene-HCTZ 37.5-25 MG Oral Tablet 1 (one) Tablet daily for 0 days Quantity: 90 {Tablet} Refills: 3 Ordered:29-Jan-2018 Kermit EVANS Start : 29-Jan-2018 Active Tumeric [place] 2 caps bid Active Ventolin HFA 108 [...] days Quantity: 1 {Tablet} Refills: 0 Ordered:28-Feb-2017 Kermit EVANS Start : 30-Mar-2016 End : 28-Feb-2017 Inactive [...] 31-Oct-2017 End : 21-Nov-2017 Inactive Comments:slow-K PredniSONE 10 MG Oral Tablet 3 (three) Tablet qd in AM for 3 days Quantity: 9 {Tablet} Refills: 0 Ordered:26-Jan-2018 Katina Mathur Start : 26-Jan-2018 End : 29-Jan-2018 Inactive Comments:take with food PredniSONE 5 MG Oral Tablet 1 (one) [...] days Quantity: 30 {Capsule} Refills: 0 Ordered:28-Feb-2017 Waldo EVANSKermit Start : 30-Mar-2016 End : 28-Feb-2017 Inactive AmLODIPine Besylate 2.5 MG Oral Tablet 1 (one) Tablet qd at hs for 0 days Quantity: 30 {Tablet} Refills: 4 Ordered:24-Jul-2017 Waldo EVANSKermit Start : 24-Jul-2017 End : 24-Jul-2017 Discontinued Cilostazol 50 MG Oral Tablet 1 (one) Tablet bid for 0 days Quantity: 60 {Tablet} Refills: 3 Ordered:24-Jul-2017 Waldo Kermit EVANS Start : 24-Jul-2017 End : 24-Jul-2017 Discontinued Leflunomide 20 MG Oral Tablet 1 (one) Tablet daily for 0 days Quantity: 30 {Tablet} Refills: 0 Ordered:30-Oct-2017 Waldo EVANSKermit Start : 30-Oct-2017 End : 30-Oct-2017 Discontinued Allergies and Adverse Reactions Name Dates [...] Abdominal Hip replacement - Left Completed Comments: 2016 Tubal Ligation Completed Comments: 1986 Date Value Details 24-Jan-2018 Cerv Spine 4 or 5 Views Result: Comments: See Note; NOTES: [facility] Imaging Services [address] [place], [place] [address] [address] Cerv Spine 4 or 5 Views MR#: [id number] Acct: [id number] Name: MASON BURK Rep #: [id number] : 1955 F 62 From: Perico Stewart MD PCP: Kermit Cortez DO Status: REG CLI Study: Cerv Spine 4 or 5 Views Date of Exam: 01/24/18 Exam# [id number] Ordering Dr: Kermit Cortez DO STUDY: X-RAY [...] Service support , CC: Kermit Cortez DO Senior Education Specialist: Signed 24-Jan-2018 Shoulder min 2 Views Result: Comments: See Note; NOTES: [facility] Imaging Services [address] [place] [address] Shoulder min 2 Views MR#: [id number] Acct: [id number] Name: MASON BURK Rep #: [id number] : 1955 F 62 From: Perico Stewart MD PCP: Fast DO,Kermit Status: REG CLI Study: Shoulder min 2 Views Date of Exam: 01/24/18 Exam# [id number] Ordering Dr: Kermit Cortez DO STUDY: X-RAY [...] Service support , CC: Kermit Cortez DO Senior Education Specialist: Signed 21-Nov-2017 SCREENING MAMM (CAD), BILAT Result: Comments: See Note; NOTES: [facility] Imaging Services [address] [place] [address] SCREENING MAMM (CAD), BILAT MR#: [id number] Acct: [id number] Name: WMMASON Rep #: [id number] : 1955 F 62 From: Shreyas Garcia MD PCP: Kermit Cortez DO Status: REG CLI Study: SCREENING MAMM (CAD), BILAT Date of Exam: 11/21/17 Exam# [id number] Ordering Dr: Kermit Cortez DO PHILLY MOGRAPHY [...] delay biopsy of a clinically suspicious abnormality. [id number] Electronically Signed: Shreyas Garcia MD at 1 2:28 EDT Tel [phone], Service support , CC: Kermit Cortez DO Senior Education Specialist: Signed 10-Aug-2017 Dexa Bone Density Study Result: Comments: See Note; NOTES: [facility] Imaging Services [address] [place] [address] Dexa Bone Density Study MR#: [id number] Acct: [id number] Name: WMMASON Emily Rep #: [id number] : 1955 F 62 From: Shreyas Garcia MD PCP: Kermit Cortez DO Status: REG CLI Study: Dexa Bone Density Study Date of Exam: 08/10/17 Exam# [id number] Ordering Dr: Kermit Cortez DO STUDY: DUAL [...] Shreyas Garcia MD at 14:58 EDT Tel [phone], Service support , CC: Kermit Cortez DO; ROME CHEUNGADMAN Senior Education Specialist: Signed 02-Aug-2017 Arterial Duplex US, Limited Result: Comments: See Note; NOTES: [facility] Cardiovascular Services [address] [place] [address] Art Duplex US Unilat Lower Ext 07/28/17 1320 MR#: [id number] Acct: [id number] Name: MASON BURK Rep #: [id number] : 1955 62 From: Garcia Dsouza MD Attending Dr: Garcia Dsouza MD Status: REG CLI Ordering Dr: Garcia Dsouza MD Date: 07/28/17 Location: [facility] Sex: F C Admitted: Reason For [...] Physician: Kermit Cortez D.O. Performed By: Katlyn Berg RDCS, RVT 08/02/17 1108 Date Garcia Dsouza MD CC: Garcia Dsouza MD; Kermit Cortez DO Date Dictated: 07/28/17 1320 Date Transcribed: 08/02/17 110 Senior Education Specialist: Signed 02-Aug-2017 Lower Ext Arterial Study Result: Comments: See Note; NOTES: [facility] Cardiovascular Services [address] [place] [address] 08/02/17 0832 MR#: [id number] Acct: [id number] Name: MASON BURK Rep #: [id number] : 1955 62 From: Garcia Dsouza MD Attending Dr: Garcia Dsouza MD Status: REG CLI Ordering Dr: Date: 08/02/17 Location: [facility] Sex: F C Admitted: Arterial Study - Arterial Study Arterial St udy: Record number: [id number] Date of scan 07/28/2017 next Interpreted [...] DO Date Dictated: 08/02/17831 Date Transcribed: 08/02/17831 Senior Education Specialist: MELITON Signed 19-Jun-2017 Toe(s) Min 2 Views Result: Comments: See Note; NOTES: [facility] Imaging Services [address] [place] [address] Toe(s) Min 2 Views MR#: [id number] Acct: [id number] Name: MASON BURK Rep #: [id number] : 1955 F 61 From: Shreyas Garcia MD PCP: Kermit Cortez DO Status: REG CLI Study: Toe(s) Min 2 Views Date of Exam: 06/19/17 Exam# [id number] Ordering Dr: Kermit Cortez DO STUDY: X-RAY [...] Shreyas Garcia MD at 14:12 EDT Tel [phone], Service support , CC: Kermit Cortez DO Senior Education Specialist: Signed 22-May-2017 PT D/C Summary (1) Result: Comments: See Note; NOTES: [facility] Physical Therapy [facility] [address] [place] [address]. [address] [place] [address] Fax REHABILITATION SERVICES DISCHAR GE SUMMARY MR#: [id number] Acct: [id number] Name: MASON BURK Rep #: [id number] : 1955 61 From: Melissa King PT, Cert. MDT Referring DrBlake: Kermit Cortez DO Status: REG RCR Insurance: [employer] C ARE MEDICARE SELF PAY INSURANCE HP - PT D/C Summary It has been my pleasure to treat MASON BURK under orders from Kermit Cortez DO, DR.DFAST for the diagnosis of LUMBAR RADICULOPATHY for [...] please feel free to call me at [phone]. Thank you for the referral of this patient. Sincerely, Melissa King <Electronically signed by Melissa King PT, Cert. MDT> 05/22/17 1601 CC: Kermit Cortze DO TOM Signed 19-Apr-2017 Inital Evaluation (1) - PT Result: Comments: See Note; NOTES: [facility] Physical [facility] [address] [place], [place] [address] Fax REHABILITATION SERVICES INITIAL EVALUATION MR#: [id number] Acct: [id number] Name: MASON BURK Rep #: [id number] : 1955 61 From: Melissa King PT, [...] BENÍTEZ AT [facility] IN [place] , LUMBAR HERMES'S X [address] SHORT - THEY DID NOTHING&#3 4;, [place] [facility] SINCE AUGUST - HURTS WORSE THAN HELPS SO STOPPED IN FEBRUARY. CHIROPRACTOR X 1 YEAR TO 2016 - STOPPED WHEN SHE GOT THE HIP REPLACEMENT IN JAN 2017. MEDICATIONS. DR. LOUIE 2012 N O INJECTIONS BUT COMPOUND PAIN CREAM [...] SHE IS HERE. HAS A DOCTOR IN [place] THAT SHE THINKS IS A FUNCTIONAL MEDICINE DOCTOR. THIS DOCTOR HAS PRESCRIBED EXERCISES AND SUPPLEMENTS AND DIET. 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 HE HELPED HER LE EDEMA IN 5 DAYS AFTER SUFFERING WITH IT FOR 3 YEARS. HER DAUGHTER LIVES IN [place] AND THIS IS HOW SHE FOUND HIM [...] to be FAXED BACK to us at [phone] for Medicare purposes. Please let me know if there are questions or concerns regarding this plan of care. Physician Signature: Date: <Electronically signed by Melissa King PT, Cert. MDT> 04/19/17 1447 CC: Kermit Cortez DO TOM Signed For Medicare only, by signing this I certify the plan of care. Physicians Signature Date 23-Mar-2017 Abdomen Complete Result: Comments: See Note; NOTES: [facility] Imaging Services [address] [place] [address] Abdomen Complete MR#: [id number] Acct: [id number] Name: MASON BURK Rep #: [id number] D OB: 1955 F 61 From: Shreyas Garcia MD PCP: Kermit Cortez DO Status: REG CLI Study: Abdomen Complete Date of Exam: 03/23/17 Exam# [id number] Ordering Dr: Kermit Cortez DO STUDY: ABDOMINAL [...] Shreyas Garcia MD at 11:07 EST Tel [phone], Service support , CC : Kermit Cortez DO Senior Education Specialist: Signed 23-Mar-2017 Abdomen Complete Result: Comments: See Note; NOTES: [facility] Imaging Services [address] [place] [address] Abdomen Complete MR#: [id number] Acct: [id number] Name: MASON BURK Emily Rep #: [id number] D OB: 1955 F 61 From: Shreyas Garcia MD PCP: Kermit Cortez DO Status: REG CL Study: Abdomen Complete Date of Exam: 03/23/17 Exam# [id number] Ordering Dr: Kermit Cortez DO ADDENDUM by Shreyas vaughn MD on 03/29/17 at 1505 US/Abdomen Complete 03/29/17 1512 Date cc: Kermit Cortez DO * Signed ADDENDUM by Shreyas Garcia MD on 03/29/17 at 1505 ADDENDUM This is an addendum report. The liver measures within normal limits. Electronically Signed: Shreyas lyon MD at 15:05 EST Tel [phone], Service support , 03/29/17 1505 Date cc: [...] Shreyas Garcia MD at 11:07 EST Tel [phone], Service support , CC: Kermit Cortez DO Senior Education Specialist: Signed 20-Mar-2017 Spine Lumbar (Routine) Result: Comments: See Note; NOTES: [facility] Imaging Services [address] [place] [address] Spine Lumbar (Routine) MR#: [id number] Acct: [id number] Name: MASON BURK Rep #: [id number] : 1955 F 61 From: Carson Richardson MD PCP: Kermit Cortez DO Status: REG CLI Study: Spine Lumbar (Routine) Date of Exam: 03/20/17 Exam# [id number] Ordering Dr: Kermit Cortez DO STUDY: MRI [...] EST , Service support , F ax [phone] CC: Kermit Cortez DO Senior Education Specialist: Signed 28-Feb-2017 Thoracic Spine 3 Views Result: Comments: See Note; NOTES: [facility] Imaging Services [address] [facility] [place] [address] Thoracic Spine 3 Views MR#: [id number] Acct: [id number] Name: MASON BURK Rep #: [id number] : 1955 F 61 From: Perico Stewart MD PCP: Evie Winter MD Status: REG CLI Study: Thoracic Spine 3 Views Date of Exam: 02/28/17 Exam# [id number] Ordering Dr: Cherelle Perez MD STUDY: X-R [...] CC: Evie Winter MD; Cherelle Perez MD Senior Education Specialist: Signed Family History Unknown Family Member Name [...] Active Vital Signs Date Test Result Details 74-Khi-302209:08 Temperature 97.3 f Comments: Method: Temporal Pulse 70 /min [...] kg/m2 Body Surface Area Calculated 1.5 m2 :25 Temperature 98.2 f Comments: Method: Temporal Pulse [...] SPRCS (Normal) Comments: PATIENT WAS FASTINGPERFORMED BY: [facility] Kaiymw4189 [facility] [place] [id number] Comments: We have received your request for additional testing or testverification. You will be notified if we are unable to processyour request. :59 Potassium 3.4 mmol/L Comments: PATIENT WAS FASTINGPERFORMED BY: [facility] Dwrwdx0313 [facility] [place] [id number] (Abnormal) Range: 3.5-5.2 Comments: Client Requested Flag :59 Written Authorization WAR (Normal) Comments: PATIENT WAS FASTINGPERFORMED BY: Exhibition A Jfnaup0852 [facility] [id number] Comments: Written Authorization Received.Authorization received from WRITTEN REQUEST [id number] by Loan Greene 04-Zdi-383803:03 MICROALBUMIN: CREATININE RATIO Comments: PATIENT WAS FASTINGPERFORMED BY: [facility] Ujvytl4134 [facility] [id number] (45724) AND (97079) Alb/Creat Ratio <23.4 {mg/g_creat} (Normal) Range: 0.0-30.0 Comments: Normal: 0.0 - 30.0 Albuminuria: 31.0 - 300.0 Clinical albuminuria: >300.0 Albumin, Urine <3.0 ug/mL (Normal) Creatinine, Urine 12.8 mg/dL (Normal) 46-Oqh-321497:03 HGB A1C (46150) Comments: PATIENT WAS FASTINGPERFORMED BY: [facility] Vwkssp2476 [facility] [id number] Hemoglobin A1c 5.5 % (Normal) Range: 4.8-5.6 Comments: . Prediabetes: 5.7 - 6.4 Diabetes: >6.4 Glycemic control for adults with diabetes: <7.0 03-Ryt-975464:00 Crystals, Body Fluid Comments: [facility] [address] [place], [place], [address] PATH REV Reviewed (Normal) Comments: No diagnostic crystals identified.Trevon Fuchs D.O. 01/11/18 AMENDED REPORT 01/11/18 1417 PATH REV previously reported as: Will follow SOURCE/BF SYNOVIAL (Normal) CRYSTALS/BF SEE PATH REV (Normal) 95-Ttz-663021:00 Culture, Body Fluid Comments: [facility] [address] [place], [place], [address] CUBF See Note (Normal) Comments: List Antibiotics Last 48 Hours? NList Antibiotics to be Started? NGram StainGram Stain No organisms seen 1+ Red Blood Cells 1+ Red Cell Stroma Body Fluid CultNO GROWTH IN 14 DAYS Cult, AnaerobicNo growth in 5 days. 2-Oks-609767:05 CBC W/Diff, Automated Comments: [facility] [address] [place], [place], [address] Absolute Lymph 1.09 {X10_3/ul} (Normal) Range: 0.83-4.51 [...] 4.2-5.4 WBC 7.9 K/mm3 (Normal) Range: 4.4-11.0 0-Usx-968334:05 Comprehensive Metabolic Profil Comments: [facility] [address] [place], [address] GAP 10 (Normal) Range: 5-15 CO2 33.0 [...] A.D.A. criteria.Please note revised GLUCOSE reference range gjwyoltkn24/02/2018. Magnesium 2.2 mg/dL (Normal) Comments: PATIENT NOT FASTINGPERFORMED BY: [facility] Szkdzv3043 [facility] [id number] 5:38 Range: 1.6-2.3 Written Authorization WAR (Normal) Comments: PATIENT NOT FASTINGPERFORMED BY: LabCoRutgers - University Behavioral HealthCareOsqwnd4088 [facility] [id number] 5:38 Comments: Written Authorization Received.Authorization received from KATINA DANIEL [id number] by Tiffany Shah 74-Emr-199928:38 POTASSIUM SERUM (60701) Comments: PATIENT NOT FASTINGPERFORMED BY: [facility]Har[facility]6370 [facility] [id number] Potassium 3.3 mmol/L (Abnormal) Range: 3.5-5.2 Comments: Client Requested Flag 12-Srz-544232:26 Comp. Metabolic Panel (14) Comments: PATIENT NOT FASTINGPERFORMED BY: [facility]Har[facility]6370 [facility] [id number] ALT (SGPT) 70 [iU]/L (Abnormal) Range: 0-32 [...] 8-27 Glucose 77 mg/dL (Normal) Range: 65-99 02-Glm-160315:13 METABOLIC PANEL, COMPREHENSIVE Comments: PATIENT NOT FASTINGPERFORMED BY: LabCoRut[facility] Behavioral HealthCarePzsnzf6816 [facility] [id number] (94537) ALT (SGPT) 69 [iU]/L (Abnormal) Range: 0-32 [...] 8-27 Glucose 113 mg/dL (Abnormal) Range: 65-99 5-Lya-047209:05 CBC W/Diff, Automated Comments: [facility] [address] [place], [address] Absolute Lymph 0.69 {X10_3/ul} (Abnormal) Range: 0.83-4.51 [...] 4.2-5.4 WBC 5.2 K/mm3 (Normal) Range: 4.4-11.0 :05 Comprehensive Metabolic Profil Comments: [facility] [address] [place], [place], [address] GAP 8 (Normal) Range: 5-15 CO2 36.0 [...] Comments: Please note revised GLUCOSE reference range /02/2018. 87-Vhj-624333:14 Thyroxine (T4) Free, Direct, Comments: PATIENT NOT FASTINGPERFORMED BY: Exhibition A Ogccpr7137 [facility] [id number] S T4,Free(Direct) 1.99 ng/dL Range: 0.82-1.77 (Abnormal) 21-Aug-2017 Triiodothyronine,Free,Ser 3.1 pg/mL (Normal) Comments: PATIENT NOT FASTINGPERFORMED BY: Exhibition A Bcovjr8807 [facility] [id number] 13:14 um Range: 2.0-4.4 21-Aug-2017 Written Authorization WAR (Normal) Comments: PATIENT NOT FASTINGPERFORMED BY: Exhibition A Srusqq5424 [facility] [id number] 13:14 Comments: Written Authorization Received.Authorization received from KERMIT CORTEZ [id number] by Aniya Denton 05-Yhq-630851:14 CMV IGM ANTBDY (32181) Comments: PATIENT NOT FASTINGPERFORMED BY: [facility] Qlxzwg0157 [facility]gleECU [facility] [id number] Cytomegalovirus (CMV) Ab, IgM <30.0 AU/mL (Normal) Range: 0.0-29.9 Comments: Negative <30.0 Equivocal 30.0 - 34.9 Positive >34.9 A positive result is generally indicative of acute infection, reactivation or persistent IgM production. 67-Dxg-896196:14 EBV Panel (22646) Comments: PATIENT NOT FASTINGPERFORMED BY: [facility] Dwxldu7812 [facility] [id number] Interpretation: SPRCS (Normal) Comments: EBV Interpretation Chart [...] <36.0 Equivocal 36.0 - 43.9 Positive >43.9 91-Hov-167452:14 VITAMIN B-12 (CYANOCOBALAMIN) Comments: PATIENT NOT FASTINGPERFORMED BY: Exhibition A Txdnyx2242 [facility] [id number] (99497) Vitamin B12 >2000 pg/mL (Abnormal) Range: 232-1245 06-Tcf-943726:14 TSH (79533) Comments: PATIENT NOT FASTINGPERFORMED BY: [facility]6370 [facility] [id number] TSH 0.072 {uIU/mL} (Abnormal) Range: 0.450-4.500 96-Sqz-112893:14 CBC W/AUTO DIFF WBC (29403) Comments: PATIENT NOT FASTINGPERFORMED BY: [facility]6370 [facility] [id number] Immature Grans (Abs) 0.0 {x10E3/uL} (Normal) Range: [...] 3.77-5.28 WBC 6.9 {x10E3/uL} (Normal) Range: 3.4-10.8 39-Uir-929701:14 METABOLIC PANEL, COMPREHENSIVE Comments: PATIENT NOT FASTINGPERFORMED BY: Exhibition ARut[facility] Behavioral HealthCareHclqbr3844 [facility] [id number] (77379) ALT (SGPT) 53 [iU]/L (Abnormal) Range: 0-32 [...] 8-27 Glucose 81 mg/dL (Normal) Range: 65-99 03-Oal-388303:39 Microscopic Examination Comments: PATIENT NOT FASTINGPERFORMED BY: Exhibition AR[facility] Behavioral HealthCareCdgial1018 [facility] [id number] Bacteria Few (Normal) Mucus Threads Present (Normal) Crystal Type Amorphous Sediment (Normal) Crystals Present (Abnormal) Epithelial Cells (non renal) 0-10 {/hpf} (Normal) Range: 0 - 10 RBC 0-2 {/hpf} (Normal) Range: 0 - 2 WBC 6-10 {/hpf} (Abnormal) Range: 0 - 5 97-Unt-535443:39 URINE SANDIE CULTURE-IDENTIFICATN Comments: PATIENT NOT FASTINGPERFORMED BY: [facility] BucketHarper [facility] Hospital6370 [facility] [id number] (92685) Result 1 MUG (Normal) Comments: Mixed urogenital flora10,000-25,000 colony forming units per mL Urine Final report (Normal) Culture,Comprehensive 33-Jrm-622325:39 URINALYSIS (76520) Comments: PATIENT NOT FASTINGPERFORMED BY: [facility] BucketHarper [facility] Hospital6370 [facility] [id number] Microscopic Examination See below: (Normal) Comments: Microscopic was indicated and was performed. Nitrite, Urine Negative (Normal) Urobilinogen,Semi-Qn 0.2 mg/dL (Normal) Range: 0.2-1.0 Bilirubin Negative (Normal) Occult Blood Negative (Normal) Ketones Negative (Normal) Glucose Negative (Normal) Protein Negative (Normal) WBC Esterase 1+ (Abnormal) Appearance Clear (Normal) Urine-Color Yellow (Normal) pH 7.5 (Normal) Range: 5.0-7.5 Specific [place] 1.016 (Normal) Range: 1.005-1.030 56-Ful-911392:39 METABOLIC PANEL, COMPREHENSIVE Comments: PATIENT NOT FASTINGPERFORMED BY: [facility] BucketHar[facility] Hospital6370 [facility] [id number] (65868) ALT (SGPT) 50 [iU]/L (Abnormal) Range: 0-32 [...] 8-27 Glucose 84 mg/dL (Normal) Range: 65-99 08-Jdf-206901:39 CBC, PLATELETS & MANUAL Comments: PATIENT NOT FASTINGPERFORMED BY: RUT [facility] Jcblyx1994 [facility] [id number] Information: SRC:ANAMARIA DIFF (07643) Immature Grans (Abs) 0.0 {x10E3/uL} (Normal) Range: [...] 3.77-5.28 WBC 8.1 {x10E3/uL} (Normal) Range: 3.4-10.8 1-Agb-755264:42 CBC W/Diff, Automated Comments: [facility] [address] [place], [place], [address] Absolute Lymph 1.04 {X10_3/ul} (Normal) Range: 0.83-4.51 [...] 4.2-5.4 WBC 6.4 K/mm3 (Normal) Range: 4.4-11.0 2-Mvd-761326:42 Comprehensive Metabolic Profil Comments: [facility] [address] [place], [place], [address] GAP 6 (Normal) Range: 5-15 CO2 36.0 [...] Comments: Please note revised GLUCOSE reference range /02/2018. 20-Nzn-604164:05 Liver Profile Comments: [facility] [address] [place], [place], [address] D BILI 0.12 mg/dL (Normal) Range: 0.00-0.30 T BILI 0.40 mg/dL (Normal) Range: 0.20-1.00 ALT 66 U/L (Abnormal) Range: 13-56 Comments: Please note revised ALT reference range ghyrzbcyt18/28/2018. ALK P 79 U/L (Normal) Range: 45-117 AST 49 U/L (Abnormal) Range: 15-37 GLOB 3.4 g/dL (Normal) Range: 2.2-4.2 ALB 3.5 g/dL (Normal) Range: 3.2-5.0 T PROT 6.9 g/dL (Normal) Range: 6.4-8.2 12-Aos-997223:59 LIPID PANEL (76334) Comments: PATIENT WAS FASTINGPERFORMED BY: [facility] [id number] [facility] [id number]; fu 11-19 DF LDL/HDL Ratio 1.1 {ratio} [...] Cholesterol, Total 310 mg/dL (Abnormal) Range: 100-199 39-Orl-563810:15 Anti-Mitochondrial AB Comments: EVERTON ORDERED: CMP, CBCDFAST [...] gaudencio quintin biliary cirrhosis.Performed at: - [facility] [address] [id number] Director: Wili Wagner PhD, Phone: [phone] 28-Itq-535812:15 Anti-Smooth Muscle ABS Comments: EVERTON ORDERED: CMP, CBCDFAST ORDERED: TSH, VITD, CMP, FE, AMA,HEP A, T4F, T3F,PTHIN, FE, TIBC, CERU, AMS, MISCComments: [id number];LKM;SERUM;[facility]ENLab[facility] (refer to report for specific site)refer to report for address and phone number ANTISMOOTH 6646 2 {Units} (Normal) Range: 0-19 Comments: Negative 0 - 19 Weak positive 20 - 30 Moderate to strong positive >30 Actin Antibodies are found in 52-85% of patients with autoi mmune hepatitis or chronic active hepatitis and in 22% of patients with primary biliary cirrhosis. 55-Zir-268962:15 CBC W/Diff, Automated Comments: EVERTON ORDERED: CMP, CBCDFAST ORDERED: TSH, VITD, CMP, FE, AMA,HEP A, T4F, T3F,PTHIN, FE, TIBC, CERU, AMS, MISCSelect [facility] [place] [address] [place], [place], [address] Absolute Lymph 1.01 {X10_3/ul} (Normal) Range: 0.83-4.51 [...] 4.2-5.4 WBC 4.2 K/mm3 (Abnormal) Range: 4.4-11.0 04-Wwo-048444:15 Ceruloplasmin Comments: EVERTON ORDERED: CMP, CBCDFAST ORDERED: TSH, VITD, CMP, FE, AMA,HEP A, T4F, T3F,PTHIN, FE, TIBC, CERU, AMS, MISCComments: [id number];LKM;SERUM;[facility]ENLab[facility] (refer to report for specific site)refer to report for address and phone number CERULOPLAS 1560 23.8 mg/dL (Normal) Range: 19.0-39.0 38-Nlf-744625:15 Comprehensive Metabolic Comments: EVERTON ORDERED: CMP, CBCDFAST ORDERED: TSH, VITD, CMP, FE, AMA,HEP A, T4F, T3F,PTHIN, FE, TIBC, CERU, AMS, MISCLIPID ADDED PER ; FAXED ORDER TO FOLLOWComments: [id number];LKM;SERUM;[facility]ZENWooSan [facility] Hospital [address]tyiiitzgc[address] [place], [place], [address] GAP 5 (Normal) Range: 5-15 CO2 32.0 mmol/L (Normal) Range: 21.0-32.0 CL 101 mmol/L (Normal) Range: 98-107 K 3.3 mmol/L (Abnormal) Range: 3.5-5.1 NA 138 mmol/L (Normal) Range: 136-145 T BILI 0.40 mg/dL (Normal) Range: 0.20-1.00 ALT 69 U/L (Abnormal) Range: 13-56 Comments: Please note revised ALT reference range brnnqoxxv72/28/2018. ALK P 72 U/L (Normal) Range: 45-117 [...] Comments: Please note revised GLUCOSE reference range tdxfwwoxu12/02/2018. 72-Zdx-240908:15 Ferritin Comments: EVERTON ORDERED: CMP, CBCDFAST ORDERED: TSH, VITD, CMP, FE, AMA,HEP A, T4F, T3F,PTHIN, FE, TIBC, CERU, AMS, MISCLIPID ADDED PER ; FAXED ORDER TO FOLLOWComments: [id number];LKM;SERUM;[facility] [address] [place], [place], [address] FERRITIN 12 ng/mL (Normal) Range: 8-252 36-Jyw-884823:15 Free T3 Comments: EVERTON ORDERED: CMP, CBCDFAST ORDERED: TSH, VITD, CMP, FE, AMA,HEP A, T4F, T3F,PTHIN, FE, TIBC, CERU, AMS, MISCLIPID ADDED PER ; FAXED ORDER TO FOLLOWComments: [id number];LKM;SERUM;[facility] [address] [place], [address] FREE T3 2.8 pg/mL (Normal) Range: 2.18-3.98 22-Int-520987:15 Hepatitis A AB, Total Comments: EVERTON ORDERED: CMP, CBCDFAST ORDERED: TSH, VITD, CMP, FE, AMA,HEP A, T4F, T3F,PTHIN, FE, TIBC, CERU, AMS, MISCComments: [id number];LKM;SERUM;[facility]ENLab[facility] (refer to report for specific site)refer to report for address and phone number HEP A AB,T.6726 Positive (Abnormal) 06-Mis-648528:15 Hepatitis A IgM Comments: EVERTON ORDERED: CMP, CBCDFAST ORDERED: TSH, VITD, CMP, FE, AMA,HEP A, T4F, T3F,PTHIN, FE, TIBC, CERU, AMS, MISCComments: [id number];LKM;SERUM;[facility]ENLab[facility] (refer to report for specific site)refer to report for address and phone number Antibody HEP A IgM 6734 Negative (Normal) Comments: Performed at: - [facility] [id number] Director: Wili Wagner PhD, Phone: [phone] 90-Pxh-870948:15 Iron Comments: EVERTON ORDERED: CMP, CBCDFAST ORDERED: TSH, VITD, CMP, FE, AMA,HEP A, T4F, T3F,PTHIN, FE, TIBC, CERU, AMS, MISCLIPID ADDED PER ; FAXED ORDER TO FOLLOWComments: [id number];LKM;SERUM;[facility] [address] [place], [address] IRON 53 ug/dL (Normal) Range: 50-170 52-Qgo-600678:15 Iron Binding Comments: EVERTON ORDERED: CMP, CBCDFAST ORDERED: TSH, VITD, CMP, FE, AMA,HEP A, T4F, T3F,PTHIN, FE, TIBC, CERU, AMS, MISCLIPID ADDED PER ; FAXED ORDER TO FOLLOWComments: [id number];LKM;SERUM;[facility] [address] [place], [address] TIBC 452 ug/dL (Abnormal) Range: 250-450 99-Xel-780642:15 Lipid Profile Comments: EVERTON ORDERED: CMP, CBCDFAST ORDERED: TSH, VITD, CMP, FE, AMA,HEP A, T4F, T3F,PTHIN, FE, TIBC, CERU, AMS, MISCLIPID ADDED PER ; FAXED ORDER TO FOLLOWComments: [id number];LKM;SERUM;[facility] [address] [place], [address] VLDL 16 mg/dL (Normal) Range: 5-40 LDL [...] 200-240 mg/dL Borderline >240 mg/dL High Risk 29-Vog-918101:15 Miscellaneous Lab Comments: EVERTON ORDERED: CMP, CBCDFAST ORDERED: TSH, VITD, CMP, FE, AMA,HEP A, T4F, T3F,PTHIN, FE, TIBC, CERU, AMS, MISCComments: [id number];LKM;SERUM;FROZENTest(s) Ordered: [id number];LKM;SERUM;[facility]ENFostoria City Hospital [address] [place], [address] MISC Comments: TEST RESULT LIMITSLiver-Kidney [...] A, T4F, T3F,PTHIN, FE, TIBC, CERU, AMS, [facility] [address] [facility] [place], [place], [phone]([phone] 0 pg/mL Range: 18.4-80.1 - (Normal) Comments: Please Note: PTH INTACT METHOD AND REFERENCE RANGE CHANGEEffective 03/01/2017. F e b - 2 0 1 8 1 0 : 1 5 12-Uvg-541209:15 T4 Free Direct Comments: EVERTON ORDERED: CMP, CBCDFAST ORDERED: TSH, VITD, CMP, FE, AMA,HEP A, T4F, T3F,PTHIN, FE, TIBC, CERU, AMS, MISCLIPID ADDED PER ; FAXED ORDER TO FOLLOWComments: [id number];LKM;SERUM;[facility] [address] [place], [place], [phone] T4 FREE DIRECT 0.98 ng/dL (Normal) Range: 0.76-1.46 45-Jmi-132860:15 Thyroid Stim Hormone Comments: EVERTON ORDERED: CMP, CBCDFAST ORDERED: TSH, VITD, CMP, FE, AMA,HEP A, T4F, T3F,PTHIN, FE, TIBC, CERU, AMS, MISCLIPID ADDED PER ; FAXED ORDER TO FOLLOWComments: [id number];LKM;SERUM;[facility]ENMiddle [place] [address] [place], [place], [address] TSH 0.98 {uIU/mL} (Normal) Range: 0.358-3.74 36-Kxb-523445:15 Transferrin Comments: EVERTON ORDERED: CMP, CBCDFAST ORDERED: TSH, VITD, CMP, FE, AMA,HEP A, T4F, T3F,PTHIN, FE, TIBC, CERU, AMS, MISCComments: [id number];LKM;SERUM;[facility]ENLab[facility] (refer to report for specific site)refer to report for address and phone number TRANSFERRN 4939 365 mg/dL (Normal) Range: 200-370 95-Udb-157362:15 Vitamin D,25 Hydroxy Comments: EVERTON ORDERED: CMP, CBCDFAST ORDERED: TSH, VITD, CMP, FE, AMA,HEP A, T4F, T3F,PTHIN, FE, TIBC, CERU, AMS, MISCWFirelands Regional Medical [facility] [address] [place], [id number] Vitamin D 25-OH 57.7 ng/mL (Normal) Range: 19.95-100.01 Comments: Vitamin D 25(OH) Status Range Deficiency <20 ng/mL (50nmol/L) Insuffciency 20 - 30 ng/mL (50 - 75 nmol/L) Sufficiency 30 - 100 ng/mL (75 - 250 nmol/L) Toxicity >100 ng/mL (>250 nmol/L) 47-Fhw-677112:50 Anti-Mitochondrial AB Comments: [facility] (refer to report for specific site)refer to report for address and phone number MITOCHN AB <20.0 {Units} (Normal) Range: 0.0-20.0 Comments: Negative 0.0 - 20.0 Equivocal 20.1 - 24.9 Positive >24.9Mitochondrial (M2) Antibodies are found in 90-96% ofpatients with gaudencio quintin biliary cirrhosis.Performed at: - [facility] [address] [id number] Director: Wili Wagner PhD, Phone: [phone] 5-Rsp-440495:10 Magnesium Comments: [facility] [address] [place], [place], [phone](858) MG 2.3 mg/dL (Normal) Range: 1.8-2.4 0-Hyr-705199:10 Potassium Comments: [facility] [address] [place], [place], [phone](874) K 3.5 mmol/L (Normal) Range: 3.5-5.1 6-Ykr-485125:59 Anti-Smooth Muscle ABS Comments: Comments: [id number] [facility] SERUM REFLabCorp (refer to report for specific [...] 22% of patients with primary biliary cirrhosis. 7-Ujl-759243:59 Ceruloplasmin Comments: Comments: [id number] [facility] SERUM REFLabCorp (refer to report for specific site)refer to report for address and phone number CERULOPLAS 1560 27.0 mg/dL (Normal) Range: 19.0-39.0 4-Pdf-398203:59 Comprehensive Metabolic Profil Comments: Comments: [id number] [facility] SERUM REFWFirelands Regional Medical Center South Campus [address] [place], [place], [phone] GAP 8 (Normal) Range: 5-15 CO2 31.0 [...] 7-18 GLU 100 mg/dL (Normal) Range: 70-110 0-Lhu-791432:59 Ferritin Comments: Comments: [id number] [facility] SERUM [facility] [address] [place], [place], [phone] FERRITIN 14 ng/mL (Normal) Range: 8-252 4-Lgt-496089:59 Free T3 Comments: Comments: [id number] [facility] SERUM [facility] [address] [place], [place], [phone] FREE T3 4.0 pg/mL (Abnormal) Range: 2.18-3.98 6-Chv-504712:59 Hepatitis A AB, Total Comments: Comments: [id number] [facility] SERUM [facility]FL[facility] (refer to report for specific site)refer to report for address and phone number HEP A AB,T.6726 Positive (Abnormal) 0-Swf-369049:59 Hepatitis A IgM Antibody Comments: Comments: [id number] [facility] SERUM REFLabCorp (refer to report for specific site)refer to report for address and phone number HEP A IgM 6734 Negative (Normal) Comments: Performed at: [address] [id number] Director: Wili Wagner PhD, Phone: [phone] 3-Bcl-486352:59 Iron Comments: Comments: [id number] [facility] SERUM [facility] [address] [place], [address] IRON 98 ug/dL (Normal) Range: 50-170 9-Ukf-232964:59 Iron Binding Capacity,Total Comments: Comments: [id number] [facility] SERUM [facility] [address] [place], [address] TIBC 455 ug/dL (Abnormal) Range: 250-450 1-Fdq-630608:59 Miscellaneous Lab Procedure Comments: Comments: [id number] [facility] SERUM REFTest(s) Ordered: [id number] [facility] SERUM [facility] [address] [place], [address] [facility] Comments: TEST RESULT LIMITSLiver-Kidney Microsomal Ab <1.0 Units 0.0 - 20.0 Negative 0.0 - 20.0 LAB (Normal) Equivocal 20.1 - 24.9 Positive >24.9 LKM type 1 antibodies are detected in patients with autoimmune hepatitis type 2 and in up to 8% of patients TEST with chronic HCV infection. TESTING PERFORMED AT [facility]. ORIGINAL REPORT ON FILE IN LAB CONTAINS ADDITIONAL TEST SITE INFORMATION. 2 PTHIN 32.3 Comments: [facility] [address] [place], [address] ; will review on 1.17 - pg/mL Range: 18.4-80.1 J (Normal) Comments: Please Note: PTH INTACT METHOD AND REFERENCE RANGE CHANGEEffective 03/01/2017. a n - 2 0 1 8 1 1 : 5 9 0-Urv-817568:59 T4 Free Direct Comments: Comments: [id number] [facility] SERUM [facility] [address] [place], [address] T4 FREE DIRECT 1.06 ng/dL (Normal) Range: 0.76-1.46 3-Kac-475701:59 Thyroid Stim Hormone (TSH) Comments: Comments: [id number] [facility] SERUM [facility] [address] [place], [place], [phone] TSH 0.89 {uIU/mL} (Normal) Range: 0.358-3.74 6-Ftt-764526:59 Transferrin Comments: Comments: [id number] [facility] SERUM REFLabCorp (refer to report for specific site)refer to report for address and phone number TRANSFERRN 4933 365 mg/dL (Normal) Range: 200-370 4-Mra-209570:59 Vitamin D,25 Hydroxy Comments: [facility] [address] [place], [place], [phone] Vitamin D 25-OH 115.2 ng/mL (Normal) Comments: [...] is nointerference with Vitamin D test results. 02-Xhz-61898:06 Pathology Report Comments: PERFORMED BY: KWCYT [facility] [place]to Pcaay54617 [facility] [id number] Information: [id number] See MATER Comments: Material submitted: .SHAVE CHEST RIGHTClinician provided ICD-10:L98.9Clinical history: .KERATOSIS IRRITATED LESION Note (Normal) Diagnosis:SHAVE CHEST RIGHT:SQUAMOUS CELL CARCINOMA IN SITU.NO EVIDENCE OF INVASION.LESION EXTENDS TO LATERAL SURGICAL MARGIN.. 7Electronically signed: .Peewee Salmeron MD, PathologistGross description: .RECEIVED IS A CONTAINER LABELED MASON WM AND DESIGNATEDRIGHT CHEST. IN FORMALIN ARE TWO CUMMINGS/BROWN TISSUES MEASURING6.5 X 3.0 X 1.0 MM AND 3.5 X 2.0 X 1.0 MM. BOTH ARE FILTE REDINTO AN EMBEDDING BAG AND SUBMITTED IS IN A SINGLE CASSETTE.COR/TMZPathologist provided ICD-10:D04.5CPT .[id number] Plan of Care Name Dates Details Instructions Cervical radiculopathy : Eprescribed prescriptions (G8553) Indication: Cervical radiculopathy BMI less than 19,adult : Eprescribed prescriptions [...] to 24 Planned Observations Vitamin D Hydroxy (61205)Indication: Vitamin D intoxication On: 8-Eza-247962:44 Request METABOLIC PANEL, COMPREHENSIVE (15239)Indication: Elevated glycated hemoglobin On: 1-Mkz-117291:43 Request Potassium Serum (71678)Indication: Hypokalemia On: 65-Hcn-554807:43 Request LIPOPROTEIN, BLD, BY NMR (43060)Indication: Familial combined hyperlipidemia On: 6-Xne-780920:43 Request METABOLIC PANEL, COMPREHENSIVE (99069)Indication: Hypokalemia On: 79-Pjp-666107:38 Request Metabolic Panel, Basic (14215)Indication: Edema On: 18-Mbl-463709:36 Request MICROALBUMIN: CREATININE RATIO (51715) AND (81365)Indication: Elevated glycated hemoglobin On: 2-Gbx-077216:48 Request HGB A1C (07901)Indication: Elevated glycated hemoglobin On: 2-Kbj-511655:47 Request CBC W/AUTO DIFF WBC (74234)Indication: Liver function abnormality On: 1-Cpf-855029:35 Request METABOLIC PANEL, COMPREHENSIVE (93059)Indication: Liver function abnormality On: 7-Anh-188672:35 Request LIPOPROTEIN, BLD, BY NMR (27771)Indication: Familial combined hyperlipidemia On: 6-Gvw-248966:35 Request POTASSIUM SERUM (32576)Indication: Rheumatoid arthritis On: 60-Wrs-085386:58 Request HEPATITIS C ANTIBODY (41542)Indication: Encounter for hepatitis C virus screening test for high risk patient On: 74-Kdm-157703:11 Request MAGNESIUM (00150)Indication: Hypokalemia On: 84-Mci-903553:07 Request Electrolyte Panel (13783)Indication: Hypokalemia On: 86-Tzv-582541:06 Request CBC W/AUTO DIFF WBC (87065)Indication: Edema On: :44 Request FERRITIN (21482)Indication: Liver function abnormality On: :44 Request IRON BINDING CAPACITY (TIBC) (37546)Indication: Liver function abnormality On: :44 Request IRON (78322)Indication: Liver function abnormality On: :44 Request Vitamin D Hydroxy (84432)Indication: Vitamin D intoxication On: :43 Request T3, FREE (TRIDOTHYRONINE) (89258)Indication: Hyperthyroidism On: :42 Request TSH (04495)Indication: Hyperthyroidism On: 74-Ljc-156488:42 Request METABOLIC PANEL, COMPREHENSIVE (45391)Indication: Hypokalemia On: 60-Tbw-390912:42 Request Potassium Serum (34663)Indication: Hypokalemia On: 2-Ahb-992440:23 Request Magnesium (83723)Indication: Hypokalemia On: 1-Tsr-508305:23 Request HEPATITIS A ANTBDY-IGG/IGM (11147)Indication: Abnormal hepatitis serology On: 05-Isi-264711:50 Request ANTI-LIVER/KIDNEY MICROSOMAL ANTIBODY (35305)Indication: Liver function abnormality On: :27 Request ASM (ANTI SMOOTH MUSCLE ANTIBODY) (47273)Indication: Liver function abnormality On: :27 Request CERULOPLASMIN (88385)Indication: Liver function abnormality On: :27 Request TRANSFERRIN (73840)Indication: Liver function abnormality On: :27 Request ANTIMITOCHONDRIAL ANTIBODY (60376)Indication: Liver function abnormality On: 11-Tfm-808848:27 Request Ferritin (78852)Indication: elevated iron On: 57-Bqs-245116:17 Request Iron Binding Capacity (TIBC) (85955)Indication: elevated iron On: :17 Request Iron (00926)Indication: elevated iron On: 90-Bgm-109862:17 Request PARATHORMONE (61220)Indication: Hypercalcemia On: 98-Pts-783247:14 Request METABOLIC PANEL, COMPREHENSIVE (96154)Indication: Hypercalcemia On: 39-Zhe-276531:13 Request Vitamin D Hydroxy (77030)Indication: Vitamin D intoxication On: 04-Alq-049431:13 Request T3, FREE (TRIDOTHYRONINE) (03992)Indication: Hyperthyroidism On: :59 Request T4, FREE (THYROXINE) (47778)Indication: Hyperthyroidism On: :59 Request TSH (95535)Indication: Hyperthyroidism On: :59 Request Planned Encounters Medical; [facility] 3 Month FU - On: 01-May-2018 13:30 [facility] Kermit Cortez DO Planned Procedures MRI OF CERVICAL SPINE WITH AND On: 26-Jan-2018 Intent WITHOUT CONTRAST (59867)By: Kermit Cortez DO Radiology - Shoulder - RightBy: On: 24-Jan-2018 Intent Kermit Cortez DO Radiology - Cervical SpineBy: On: 24-Jan-2018 Intent Kermit Cortez DO SCREENING DIGITAL TOMOSYNTHESIS On: 30-Oct-2017 Intent OF BREAST (87528)By: Kermit Cortez DO DEXA SCAN AXIAL SKELETON On: 24-Jul-2017 Intent (50363)By: Kermit Cortez DO ELECTROCARDIOGRAM, COMPLETE (ECG) On: 24-Jul-2017 Intent (41710)By: Kermit Cortez DO Radiology - Toe(s) - [...] LUMBAR SPINE W/O CONTRAST On: 28-Feb-2017 Intent (50784)By: Kermit Cortez DO Comments: has had pt massage therapy and chiropractic and steroid shots and taking antinflammatories with no improvement at all- plain xray 04/28 Instructions Name Dates Details Cervical radiculopathy : How to access health information online Indication: Cervical radiculopathy Cervical radiculopathy : How to access health information online - Detail Indication: Cervical radiculopathy Cervical radiculopathy : Patient Instructions Indication: Cervical radiculopathy BMI less than 19,adult : How to [...] available upon request. Encounters Office Visit On: 29-Jan-2018 12:52 Encounter Reason: Follow up for chronic medical issues - The patient feels well with minor complaints (feeling much better after being on prednisone. Still has a lot of pain if she moves a certain way.), has good energy End: 29-Jan-2018 22:08 level and is sleeping well (startnig to sleep better with the prednisone). Patient has been compliant with instructions. Current medication use: no side effects. Patient sleeps 7 (broken) hours per nigh t. The medical issues the patient is following up for include All identified problems below. Note for Follow up for chronic medical issues: is getting cortisone shots in her feet and cysts didnt go aw ay so having mri- her arm so much better with the higher dose prednisone but still cant turn in certain directions and if does will see stars- bp is good and we reviewed her chol and labs at last visit- last week- she feels good and potassium almost normal and her swelling down, [ADDITIONAL REASON] Follow up tests - Date:. Encounter Diagnosis: Nonsmoker, BMI less than 19,adult, Cervical radiculopathy, Rheumatoid arthritis, Hypokalemia, Familial combined hyperlipidemia, Lymphedema, Elevated glycated hemoglobin [facility] Phone Encounter On: 26-Jan-2018 12:01 Encounter Diagnosis: [...] full and has alot of allergies- steph allenyrtec - has runny nose and itchy ey [...] fusion- [facility] she does surgery to see [...] a year ago by Dr Benítez at [facility] and still has same sx- saw Dr Cristofer Goel at [facility]- back specialist - has had 3 steroid [...] arthritis, Hearing loss [facility] Payers [facility] [place] BURK; karen guarantor
--- OUTSIDE RECORDS SUMMARY | 2018-05-31 05:50 | XMS RPT_ITS | Continuity of Care Document ---
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 Biotin 14521 MCG Oral Tablet qd (45284 MCG) Active Calcium Magnesium 750 300-300 MG Oral Tablet 1 (one) Tablet Tablet daily for 0 days Quantity: 30 {Tablet} Refills: 0 Ordered:28-Feb-2017 Quintin Rueda CNP Start : 30-Mar-2016 Active Clearite Shake 1 scoop bid Active Comments:supports detoxification Dymista 137-50 MCG/ACT Nasal Suspension 1 (one) [place] each nostril twice daily for 0 days Quantity: 3 {[place]} Refills: 3 Ordered:21-Nov-2017 Kermit Cortez DO Start [...] Rueda CNP Start : 30-Mar-2016 Active Tumeric [place] 2 caps bid Active Ventolin HFA 108 [...] 5 Views Result: Comments: See Note; NOTES: [facility] Imaging Services [address] [place] [address] Cerv Spine 4 or 5 Views MR#: [id number] Acct: [id number] Name: MASON BURK Emily Rep #: [id number] : 1955 F 62 From: Perico Stewart MD PCP: Kermit Cortez DO Status: REG CLI Study: Cerv Spine 4 or 5 Views Date of Exam: 01/24/18 Exam# [id number] Ordering Dr: Kermit Cortez DO STUDY: X-RAY [...] Service support , CC: Kermit Cortez DO Supervisor Winding Department: Signed 24-Jan-2018 Shoulder min 2 Views Result: Comments: See Note; NOTES: [facility] Imaging Services [address] [place] [address] Shoulder min 2 Views MR#: [id number] Acct: [id number] Name: MASON BURK Rep #: [id number] : 1955 F 62 From: Perico Stewart MD PCP: Kermit Cortez DO Status: REG CLI Study: Shoulder min 2 Views Date of Exam: 01/24/18 Exam# [id number] Ordering Dr: Kermit Cortez DO STUDY: X-RAY [...] Service support , CC: Kermit Cortez DO Supervisor Winding Department: Signed 21-Nov-2017 SCREENING MAMM (CAD), BILAT Result: Comments: See Note; NOTES: [facility] Imaging Services [address] [place] [address] SCREENING MAMM (CAD), BILAT MR#: [id number] Acct: [id number] Name: MASON BURK Rep #: [id number] : 1955 F 62 From: Shreyas Garcia MD PCP: Kermit Cortez DO Status: REG CLI Study: SCREENING MAMM (CAD), BILAT Date of Exam: 11/21/17 Exam# [id number] Ordering Dr: Kermit Cortez DO PHILLY MOGRAPHY [...] delay biopsy of a clinically suspicious abnormality. [id number] Electronically Signed: Shreyas Garcia MD at 1 2:28 EDT Tel [phone], Service support , CC: Kermit Cotrez DO Supervisor Winding Department: Signed 10-Aug-2017 Dexa Bone Density Study Result: Comments: See Note; NOTES: [facility] Imaging Services [address] [place] [address] 47847 Dexa Bone Density Study MR#: [id number] Acct: [id number] Name: MASON BURK Rep #: [id number] : 1955 F 62 From: Shreyas Garcia MD PCP: Kermit Cortez DO Status: REG CLI Study: Dexa Bone Density Study Date of Exam: 08/10/17 Exam# [id number] Ordering Dr: Kermit Cortez DO STUDY: DUAL [...] Shreyas Garcia MD at 14:58 EDT Tel [phone], Service support , CC: Kermit Cortez DO; ROME GRANADOSAN Supervisor Winding Department: Signed 02-Aug-2017 Arterial Duplex US, Limited Result: Comments: See Note; NOTES: [facility] Cardiovascular Services [address] [place] [address] Art Duplex US Unilat Lower Ext 07/28/17 1320 MR#: [id number] Acct: [id number] Name: MASON BURK Rep #: [id number] : 1955 62 From: Garcia Dsouza MD Attending Dr: Brian CORTES,Garcia Status: REG CLI Ordering Dr: Garcia Dsouza MD Date: 07/28/17 Location: [facility] Sex: F C Admitted: Reason [...] Dictated: 07/28/17 1320 Date Transcribed: 08/02/17 1108 Supervisor Winding Department: Signed 02-Aug-2017 Lower Ext Arterial Study Result: Comments: See Note; NOTES: [facility] Cardiovascular Services [address] [place] [address] 08/02/17 0832 MR#: [id number] Acct: [id number] Name: MASON BURK Rep #: [id number] : 1955 62 From: Garcia Dsouza MD Attending Dr: Garcia Dsouza MD Status: REG CLI Ordering Dr: Date: 08/02/17 Location: [facility] Sex: F C Admitted: Arterial Study - Arterial Study Arterial St udy: Record number: [id number] Date of scan 07/28/2017 next Interpreted [...] DO Date Dictated: 08/02/17831 Date Transcribed: 08/02/17831 Supervisor Winding Department: BAB Signed 19-Jun-2017 Toe(s) Min 2 Views Result: Comments: See Note; NOTES: [facility] Imaging Services [address] [place] [address] Toe(s) Min 2 Views MR#: [id number] Acct: [id number] Name: MASON BURK Rep #: [id number] : 1955 F 61 From: Shreyas Garcia MD PCP: Kermit Cortez DO Status: REG CLI Study: Toe(s) Min 2 Views Date of Exam: 06/19/17 Exam# [id number] Ordering Dr: Kermit Cortez DO STUDY: X-RAY [...] Shreyas Garcia MD at 14:12 EDT Tel [phone], Service support , CC: Kermit Cortez DO Supervisor Winding Department: Signed 22-May-2017 PT D/C Summary (1) Result: Comments: See Note; NOTES: [facility] [address] [place] [address] Fax REHABILITATION SERVICES DISCHAR GE SUMMARY MR#: [id number] Acct: [id number] Name: MASON BURK Rep #: [id number] [...] please feel free to call me at [phone]. Thank you for the referral of this patient. Sincerely, Melissa King <Electronically signed by Melissa King PT, Cert. MDT> 05/22/17 1602 CC: Kermit Cortez DO TOM Signed 19-Apr-2017 Inital Evaluation (1) - PT Result: Comments: See Note; NOTES: [facility] [address] [place] [address]. [address] [place] [address] Fax REHABILITATION SERVICES INITIAL EVALUATION MR#: [id number] Acct: [id number] Name: MASON BURK Rep #: [id number] : 1955 61 From: Melissa King PT, [...] THR JAN [address] BENÍTEZ AT [facility] IN [place] , LUMBAR HERMES'S X [address] [...] SHE IS HERE. HAS A DOCTOR IN [place] THAT SHE THINKS IS A FUNCTIONAL MEDICINE DOCTOR. THIS DOCTOR HAS PRESCRIBED EXERCISES AND SUPPLEMENTS AND DIET. 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 HE HELPED HER LE EDEMA IN 5 DAYS AFTER SUFFERING WITH IT FOR 3 YEARS. HER DAUGHTER LIVES IN [place] AND THIS IS HOW SHE FOUND HIM [...] to be FAXED BACK to us at [phone] for Medicare purposes. Please let me know if there are questions or concerns regarding this plan of care. Physician Signature: Date: <Electronically signed by Melissa King PT, Cert. MDT> 04/19/17 1440 CC: Kermit Cortez DO TOM Signed For Medicare only, by signing this I certify the plan of care. Physicians Signature Date 23-Mar-2017 Abdomen Complete Result: Comments: See Note; NOTES: [facility] Imaging Services [address] [place] [address] Abdomen Complete MR#: [id number] Acct: [id number] Name: MASON BURK Rep #: [id number] OB: 1955 F 61 From: Shreyas Garcia MD PCP: Kermit Cortez DO Status: REG CLI Study: Abdomen Complete Date of Exam: 03/23/17 Exam# [id number] Ordering Dr: Kermit Cortez DO STUDY: ABDOMINAL [...] Shreyas Garcia MD at 11:07 EST Tel [phone], Service support , CC : Kermit Cortez DO Supervisor Winding Department: Signed 23-Mar-2017 Abdomen Complete Result: Comments: See Note; NOTES: [facility] Imaging Services [address] [place] [address] Abdomen Complete MR#: [id number] Acct: [id number] Name: MASON BURK Emily Rep #: [id number] D OB: 1955 F 61 From: Shreyas Garcia MD PCP: Kermit Cortez DO Status: REG CLI Study: Abdomen Complete Date of Exam: 03/23/17 Exam# [id number] Ordering Dr: Kermit Cortez DO ADDENDUM by Shreyas vaughn MD on 03/29/17 at 1505 US/Abdomen Complete 03/29/17 1512 Date cc: Kermit Cortez DO * Signed ADDENDUM by Shreyas Garcia MD on 03/29/17 at 1505 ADDENDUM This is an addendum report. The liver measures within normal limits. Electronically Signed: Shreyas lyon MD at 15:05 EST Tel [phone], Service support , 03/29/17 7455 Date cc: Kermit Cortez DO * Signed [...] Shreyas Garcia MD at 11:07 EST Tel [phone], Service support , CC: Kermit Cortez DO Supervisor Winding Department: Signed 20-Mar-2017 Spine Lumbar (Routine) Result: Comments: See Note; NOTES: [facility] Imaging Services [address] [place] [address] Spine Lumbar (Routine) MR#: [id number] Acct: [id number] Name: MASON BURK Rep #: [id number] : 1955 F 61 From: Carson Richardson MD PCP: Kermit Cortez DO Status: REG CLI Study: Spine Lumbar (Routine) Date of Exam: 03/20/17 Exam# [id number] Ordering Dr: Kermit Cortez DO STUDY: MRI [...] EST , Service support , F ax [phone] CC: Kermit Cortez DO Supervisor Winding Department: Signed 28-Feb-2017 Thoracic Spine 3 Views Result: Comments: See Note; NOTES: [facility] Imaging Services [address] [place] [address] Thoracic Spine 3 Views MR#: [id number] Acct: [id number] Name: MASON BURK Rep #: [id number] : 1955 F 61 From: Perico Stewart MD PCP: Evie Winter MD Status: REG CLI Study: Thoracic Spine 3 Views Date of Exam: 02/28/17 Exam# [id number] Ordering Dr: Cherelle Perez MD STUDY: X-R [...] CC: Evie Winter MD; Cherelle Perez MD Supervisor Winding Department: Signed Family History Unknown Family Member Name [...] Active Vital Signs Date Test Result Details 35-Bii-326860:25 Temperature 98.2 f Comments: Method: Temporal Pulse [...] PATIENT WAS FASTINGPERFORMED BY: RUT Renteria63Jannie Chapin [facility] [id number] Comments: We have received your request for additional testing or testverification. You will be notified if we are unable to processyour request. :59 Potassium 3.4 mmol/L Comments: PATIENT WAS FASTINGPERFORMED BY: RUT [facility] [facility] [id number] (Abnormal) Range: 3.5-5.2 Comments: Client Requested Flag 60-Ymz-680425:59 Written Authorization WAR (Normal) Comments: PATIENT WAS FASTINGPERFORMED BY: [facility] [facility] [id number] Comments: Written Authorization Received.Authorization received from WRITTEN REQUEST [id number] by Loan Greene 57-Bct-891053:03 MICROALBUMIN: CREATININE RATIO Comments: PATIENT WAS FASTINGPERFORMED BY: [facility] [facility] [id number] ([id number]) AND (13996) Alb/Creat Ratio <23.4 {mg/g_creat} (Normal) Range: 0.0-30.0 Comments: Normal: 0.0 - 30.0 Albuminuria: 31.0 - 300.0 Clinical albuminuria: >300.0 Albumin, Urine <3.0 ug/mL (Normal) Creatinine, Urine 12.8 mg/dL (Normal) 97-Uzs-876733:03 HGB A1C (01714) Comments: PATIENT WAS FASTINGPERFORMED BY: [facility] [facility] [id number] Hemoglobin A1c 5.5 % (Normal) Range: 4.8-5.6 Comments: . Prediabetes: 5.7 - 6.4 Diabetes: >6.4 Glycemic control for adults with diabetes: <7.0 29-Frn-594993:00 Crystals, Body Fluid Comments: [facility] [address] [place], [place], [address] PATH REV Reviewed (Normal) Comments: No diagnostic crystals identified.Trevon Fuchs D.O. 01/11/18 AMENDED REPORT 01/11/18 1417 PATH REV previously reported as: Will follow SOURCE/BF SYNOVIAL (Normal) CRYSTALS/BF SEE PATH REV (Normal) 38-Nkw-529807:00 Culture, Body Fluid Comments: [facility] [address] [place], [place], [address] CUBF See Note (Normal) Comments: List Antibiotics Last 48 Hours? NList Antibiotics to be Started? NGram StainGram Stain No organisms seen 1+ Red Blood Cells 1+ Red Cell Stroma Body Fluid CultNO GROWTH IN 14 DAYS Cult, AnaerobicNo growth in 5 days. 5-Sgo-977705:05 CBC W/Diff, Automated Comments: [facility] [address] [place], [place], [address] Absolute Lymph 1.09 {X10_3/ul} (Normal) Range: 0.83-4.51 [...] 4.2-5.4 WBC 7.9 K/mm3 (Normal) Range: 4.4-11.0 8-Afn-061851:05 Comprehensive Metabolic Profil Comments: [facility] [address] [place], [place], [address] GAP 10 (Normal) Range: 5-15 CO2 33.0 [...] A.D.A. criteria.Please note revised GLUCOSE reference range jzwflgnme39/02/2018. Magnesium 2.2 mg/dL (Normal) Comments: PATIENT NOT FASTINGPERFORMED BY: [facility]CoSum[facility]aks HospitalPvxrje55[address] [facility] [id number] 5:38 Range: 1.6-2.3 Written Authorization WAR (Normal) Comments: PATIENT NOT FASTINGPERFORMED BY: [facility] [facility] [id number] 5:38 Comments: Written Authorization Received.Authorization received from KATINA DANIEL [id number] by Tiffany Shah 14-Uoy-336816:38 POTASSIUM SERUM (01059) Comments: PATIENT NOT FASTINGPERFORMED BY: [employer] Hkwibg[address] [facility] [id number] Potassium 3.3 mmol/L (Abnormal) Range: 3.5-5.2 Comments: Client Requested Flag 61-Fqn-055005:26 Comp. Metabolic Panel (14) Comments: PATIENT NOT FASTINGPERFORMED BY: [employer] Luzjaz[address] [facility] [id number] ALT (SGPT) 70 [iU]/L (Abnormal) Range: 0-32 [...] 8-27 Glucose 77 mg/dL (Normal) Range: 65-99 58-Qcl-069561:13 METABOLIC PANEL, COMPREHENSIVE Comments: PATIENT NOT FASTINGPERFORMED BY: [employer] Losfib[address] [facility] [id number] (69839) ALT (SGPT) 69 [iU]/L (Abnormal) Range: 0-32 [...] 8-27 Glucose 113 mg/dL (Abnormal) Range: 65-99 5-Ahc-453638:05 CBC W/Diff, Automated Comments: [facility] [address] [place], [place], [address] Absolute Lymph 0.69 {X10_3/ul} (Abnormal) Range: 0.83-4.51 [...] 4.2-5.4 WBC 5.2 K/mm3 (Normal) Range: 4.4-11.0 9-Cwa-862825:05 Comprehensive Metabolic Profil Comments: [facility] [address] [place], [place], [address] GAP 8 (Normal) Range: 5-15 CO2 36.0 [...] Comments: Please note revised GLUCOSE reference range oludmwfiz37/02/2018. 93-Plx-777121:14 Thyroxine (T4) Free, Direct, Comments: PATIENT NOT FASTINGPERFORMED BY: [employer] Xgdilr1203 [facility] [id number] S T4,Free(Direct) 1.99 ng/dL Range: 0.82-1.77 (Abnormal) 21-Aug-2017 Triiodothyronine,Free,Ser 3.1 pg/mL (Normal) Comments: PATIENT NOT FASTINGPERFORMED BY: [employer] Jskxfk5093 [facility] [id number] 13:14 um Range: 2.0-4.4 21-Aug-2017 Written Authorization WAR (Normal) Comments: PATIENT NOT FASTINGPERFORMED BY: [employer] Ycvhbw6132 [place]in [facility] [id number] 13:14 Comments: Written Authorization Received.Authorization received from KERMIT CORTEZ [id number] by Ainya Denton 24-Zos-724060:14 CMV IGM ANTBDY (22455) Comments: PATIENT NOT FASTINGPERFORMED BY: [employer] Npgufg[address] [facility] [id number] Cytomegalovirus (CMV) Ab, IgM <30.0 AU/mL (Normal) Range: 0.0-29.9 Comments: Negative <30.0 Equivocal 30.0 - 34.9 Positive >34.9 A positive result is generally indicative of acute infection, reactivation or persistent IgM production. 32-Gcg-876549:14 EBV Panel (05735) Comments: PATIENT NOT FASTINGPERFORMED BY: [facility] Sotfrt[address] [facility] [id number] Interpretation: SPRCS (Normal) Comments: EBV Interpretation Chart [...] <36.0 Equivocal 36.0 - 43.9 Positive >43.9 74-Abq-865481:14 VITAMIN B-12 (CYANOCOBALAMIN) Comments: PATIENT NOT FASTINGPERFORMED BY: [facility] Wsmbrr[address] [facility] [id number] (89625) Vitamin B12 >2000 pg/mL (Abnormal) Range: 232-1245 30-Skt-881987:14 TSH (78362) Comments: PATIENT NOT FASTINGPERFORMED BY: [facility] Rtcfch[address] [facility] [id number] TSH 0.072 {uIU/mL} (Abnormal) Range: 0.450-4.500 80-Oyr-024419:14 CBC W/AUTO DIFF WBC (65640) Comments: PATIENT NOT FASTINGPERFORMED BY: [facility]CoSum[facility] Oaks HospitalUvrzsj0078 [facility] [id number] Immature Grans (Abs) 0.0 {x10E3/uL} (Normal) Range: [...] 3.77-5.28 WBC 6.9 {x10E3/uL} (Normal) Range: 3.4-10.8 86-Sqi-391705:14 METABOLIC PANEL, COMPREHENSIVE Comments: PATIENT NOT FASTINGPERFORMED BY: [facility]CoSum[facility] Oaks HospitalXltdhd0613 [facility] [id number] (98995) ALT (SGPT) 53 [iU]/L (Abnormal) Range: 0-32 [...] 8-27 Glucose 81 mg/dL (Normal) Range: 65-99 63-Rtu-928394:39 Microscopic Examination Comments: PATIENT NOT FASTINGPERFORMED BY: [facility] [id number] Bacteria Few (Normal) Mucus Threads Present (Normal) Crystal Type Amorphous Sediment (Normal) Crystals Present (Abnormal) Epithelial Cells (non renal) 0-10 {/hpf} (Normal) Range: 0 - 10 RBC 0-2 {/hpf} (Normal) Range: 0 - 2 WBC 6-10 {/hpf} (Abnormal) Range: 0 - 5 25-Cyh-384144:39 URINE SANDIE CULTURE-IDENTIFICATN Comments: PATIENT NOT FASTINGPERFORMED BY: [facility] [id number] (93207) Result 1 MUG (Normal) Comments: Mixed urogenital flora10,000-25,000 colony forming units per mL Urine Final report (Normal) Culture,Comprehensive 93-Tzs-119610:39 URINALYSIS (59901) Comments: PATIENT NOT FASTINGPERFORMED BY: [facility] [id number] Microscopic Examination See below: (Normal) Comments: Microscopic was indicated and was performed. Nitrite, Urine Negative (Normal) Urobilinogen,Semi-Qn 0.2 mg/dL (Normal) Range: 0.2-1.0 Bilirubin Negative (Normal) Occult Blood Negative (Normal) Ketones Negative (Normal) Glucose Negative (Normal) Protein Negative (Normal) WBC Esterase 1+ (Abnormal) Appearance Clear (Normal) Urine-Color Yellow (Normal) pH 7.5 (Normal) Range: 5.0-7.5 Specific [place] 1.016 (Normal) Range: 1.005-1.030 02-Eos-186532:39 METABOLIC PANEL, COMPREHENSIVE Comments: PATIENT NOT FASTINGPERFORMED BY: [facility]CoSum[facility]aks HospitalJhkzpk4[address] [facility] [id number] (11779) ALT (SGPT) 50 [iU]/L (Abnormal) Range: 0-32 [...] 8-27 Glucose 84 mg/dL (Normal) Range: 65-99 37-Ryb-371776:39 CBC, PLATELETS & MANUAL Comments: PATIENT NOT FASTINGPERFORMED BY: RUT [facility] Ehknsi[address] [facility] [id number] Information: SRC:UC DIFF (17817) Immature Grans (Abs) 0.0 {x10E3/uL} (Normal) Range: [...] 3.77-5.28 WBC 8.1 {x10E3/uL} (Normal) Range: 3.4-10.8 0-Ozp-757655:42 CBC W/Diff, Automated Comments: [facility] [address] [place], [place], [address] Absolute Lymph 1.04 {X10_3/ul} (Normal) Range: 0.83-4.51 [...] Range: 4.4-11.0 :42 Comprehensive Metabolic Profil Comments: [facility] [address] [place], [place], [address] GAP 6 (Normal) Range: 5-15 CO2 36.0 [...] Comments: Please note revised GLUCOSE reference range admritsal92/02/2018. 63-Efz-074419:05 Liver Profile Comments: [facility] [address] [place], [place], [address] D BILI 0.12 mg/dL (Normal) Range: 0.00-0.30 T BILI 0.40 mg/dL (Normal) Range: 0.20-1.00 ALT 66 U/L (Abnormal) Range: 13-56 Comments: Please note revised ALT reference range hfxromxjq65/28/2018. ALK P 79 U/L (Normal) Range: 45-117 AST 49 U/L (Abnormal) Range: 15-37 GLOB 3.4 g/dL (Normal) Range: 2.2-4.2 ALB 3.5 g/dL (Normal) Range: 3.2-5.0 T PROT 6.9 g/dL (Normal) Range: 6.4-8.2 39-Voa-412794:59 LIPID PANEL (66813) Comments: PATIENT WAS FASTINGPERFORMED BY: [address] [id number]; fu 11-19 DF LDL/HDL Ratio 1.1 {ratio} [...] Cholesterol, Total 310 mg/dL (Abnormal) Range: 100-199 11-Nxa-865243:15 Anti-Mitochondrial AB Comments: [place] ORDERED: CMP, CBCDFAST [...] ofpatients with gaudencio quintin biliary cirrhosis.Performed at: [facility] [address] [id number] Director: Wili Wagner PhD, Phone: [phone] 68-Wdv-978949:15 Anti-Smooth Muscle ABS Comments: [place] ORDERED: CMP, CBCDFAST ORDERED: TSH, VITD, CMP, FE, AMA,HEP A, T4F, T3F,PTHIN, FE, TIBC, CERU, AMS, MISCComments: [id number];LKM;SERUM;[facility] (refer to report for specific site)refer to report for address and phone number ANTISMOOTH 6643 2 {Units} (Normal) Range: 0-19 Comments: Negative 0 - 19 Weak positive 20 - 30 Moderate to strong positive >30 Actin Antibodies are found in 52-85% of patients with autoi mmune hepatitis or chronic active hepatitis and in 22% of patients with primary biliary cirrhosis. 61-Wzs-664881:15 CBC W/Diff, Automated Comments: [place] ORDERED: CMP, CBCDFAST ORDERED: TSH, VITD, CMP, FE, AMA,HEP A, T4F, T3F,PTHIN, FE, TIBC, CERU, AMS, MISCWVan [facility]ert [facility] Hospital [address] [place], [address] Absolute Lymph 1.01 {X10_3/ul} (Normal) Range: 0.83-4.51 [...] 4.2-5.4 WBC 4.2 K/mm3 (Abnormal) Range: 4.4-11.0 09-Sfi-117745:15 Ceruloplasmin Comments: [place] ORDERED: CMP, CBCDFAST ORDERED: TSH, VITD, CMP, FE, AMA,HEP A, T4F, T3F,PTHIN, FE, TIBC, CERU, AMS, MISCComments: [id number];LKM;SERUM;[facility]ENLab[facility] (refer to report for specific site)refer to report for address and phone number LUIS FERNANDO Mitchell 23.8 mg/dL (Normal) Range: 19.0-39.0 43-Uuf-628869:15 Comprehensive Metabolic Comments: [place] ORDERED: CMP, CBCDFAST ORDERED: TSH, VITD, CMP, FE, AMA,HEP A, T4F, T3F,PTHIN, FE, TIBC, CERU, AMS, MISCLIPID ADDED PER ; FAXED ORDER TO FOLLOWComments: [id number];LKM;SERUM;[facility] [address] [place], [place], [address] GAP 5 (Normal) Range: 5-15 CO2 32.0 mmol/L (Normal) Range: 21.0-32.0 CL 101 mmol/L (Normal) Range: 98-107 K 3.3 mmol/L (Abnormal) Range: 3.5-5.1 NA 138 mmol/L (Normal) Range: 136-145 T BILI 0.40 mg/dL (Normal) Range: 0.20-1.00 ALT 69 U/L (Abnormal) Range: 13-56 Comments: Please note revised ALT reference range zhlggyyiq58/28/2018. ALK P 72 U/L (Normal) Range: 45-117 [...] Comments: Please note revised GLUCOSE reference range pzqydqvop64/02/2018. 21-Hgy-747794:15 Ferritin Comments: [place] ORDERED: CMP, CBCDFAST ORDERED: TSH, VITD, CMP, FE, AMA,HEP A, T4F, T3F,PTHIN, FE, TIBC, CERU, AMS, MISCLIPID ADDED PER ; FAXED ORDER TO FOLLOWComments: [id number];LKM;SERUM;[facility]ENMartin [facility] [address] [place], [place], [address] FERRITIN 12 ng/mL (Normal) Range: 8-252 91-Bmf-159609:15 Free T3 Comments: [place] ORDERED: CMP, CBCDFAST ORDERED: TSH, VITD, CMP, FE, AMA,HEP A, T4F, T3F,PTHIN, FE, TIBC, CERU, AMS, MISCLIPID ADDED PER ; FAXED ORDER TO FOLLOWComments: [id number];LKM;SERUM;[facility]ENMartin [facility] Hospital [address] [place], [place], [address] FREE T3 2.8 pg/mL (Normal) Range: 2.18-3.98 62-Ojj-510132:15 Hepatitis A AB, Total Comments: [place] ORDERED: CMP, CBCDFAST ORDERED: TSH, VITD, CMP, FE, AMA,HEP A, T4F, T3F,PTHIN, FE, TIBC, CERU, AMS, MISCComments: [id number];LKM;SERUM;[facility] (refer to report for specific site)refer to report for address and phone number HEP A AB,T.0501 Positive (Abnormal) 73-Aiv-089337:15 Hepatitis A IgM Comments: [place] ORDERED: CMP, CBCDFAST ORDERED: TSH, VITD, CMP, FE, AMA,HEP A, T4F, T3F,PTHIN, FE, TIBC, CERU, AMS, MISCComments: [id number];LKM;SERUM;[facility]ENLab[facility] (refer to report for specific site)refer to report for address and phone number Antibody HEP A IgM 6734 Negative (Normal) Comments: Performed at: - [facility] [id number] Director: Wili Wagner PhD, Phone: [phone] 30-Jqr-072886:15 Iron Comments: [place] ORDERED: CMP, CBCDFAST ORDERED: TSH, VITD, CMP, FE, AMA,HEP A, T4F, T3F,PTHIN, FE, TIBC, CERU, AMS, MISCLIPID ADDED PER ; FAXED ORDER TO FOLLOWComments: [id number];LKM;SERUM;[facility] [address] [place], [address] IRON 53 ug/dL (Normal) Range: 50-170 [id number] Iron Binding Comments: [place] ORDERED: CMP, CBCDFAST ORDERED: TSH, VITD, CMP, FE, AMA,HEP A, T4F, T3F,PTHIN, FE, TIBC, CERU, AMS, MISCLIPID ADDED PER ; FAXED ORDER TO FOLLOWComments: [id number];LKM;SERUM;[facility] [id number] [place], [address] TIBC 452 ug/dL (Abnormal) Range: 250-450 [id number] Lipid Profile Comments: [place] ORDERED: CMP, CBCDFAST ORDERED: TSH, VITD, CMP, FE, AMA,HEP A, T4F, T3F,PTHIN, FE, TIBC, CERU, AMS, MISCLIPID ADDED PER ; FAXED ORDER TO FOLLOWComments: [id number];LKM;SERUM; [facility] [id number] [facility] [address]. [place], [place], [id number] VLDL 16 mg/dL (Normal) Range: 5-40 LDL [...] 200-240 mg/dL Borderline >240 mg/dL High Risk 58-Hkl-585801:15 Miscellaneous Lab Comments: [place]ERT[place] ORDERED: CMP, CBCDFAST ORDERED: TSH, VITD, CMP, FE, AMA,HEP A, T4F, T3F,PTHIN, FE, TIBC, CERU, AMS, MISCComments: [id number];LKM;SERUM;FROZENTest(s) Ordered: [id number];LKM;SERUM;[facility] Dztfvqvrof7220 [facility] [place], [place], [id number] MISC Comments: TEST RESULT LIMITSLiver-Kidney Microsomal Ab [...] A, T4F, T3F,PTHIN, FE, TIBC, CERU, AMS, [facility] [address]wdbbofmgn[address] [place], [phone](676) 0 pg/mL Range: 18.4-80.1 - (Normal) Comments: Please Note: PTH INTACT METHOD AND REFERENCE RANGE CHANGEEffective 03/01/2017. F e b - 2 0 1 8 1 0 : 1 5 08-Zjx-880443:15 T4 Free Direct Comments: [place]ERT[place] ORDERED: CMP, CBCDFAST ORDERED: TSH, VITD, CMP, FE, AMA,HEP A, T4F, T3F,PTHIN, FE, TIBC, CERU, AMS, MISCLIPID ADDED PER ; FAXED ORDER TO FOLLOWComments: [id number];LKM;SERUM;[facility] Juq[address] [facility] [place], [address] T4 FREE DIRECT 0.98 ng/dL (Normal) Range: 0.76-1.46 73-Slq-296239:15 Thyroid Stim Hormone Comments: [place] ORDERED: CMP, CBCDFAST ORDERED: TSH, VITD, CMP, FE, AMA,HEP A, T4F, T3F,PTHIN, FE, TIBC, CERU, AMS, MISCLIPID ADDED PER ; FAXED ORDER TO FOLLOWComments: [id number];LKM;SERUM;[facility] ([facility]) [facility] [address] [place], [phone](240) TSH 0.98 {uIU/mL} (Normal) Range: 0.358-3.74 37-Gfp-318561:15 Transferrin Comments: [place] ORDERED: CMP, CBCDFAST ORDERED: TSH, VITD, CMP, FE, AMA,HEP A, T4F, T3F,PTHIN, FE, TIBC, CERU, AMS, MISCComments: [id number];LKM;SERUM;[facility] (refer to report for specific site)refer to report for address and phone number MAYDARDenisse 4937 365 mg/dL (Normal) Range: 200-370 00-Znh-477235:15 Vitamin D,25 Hydroxy Comments: [place] ORDERED: CMP, CBCDFAST ORDERED: TSH, VITD, CMP, FE, AMA,HEP A, T4F, T3F,PTHIN, FE, TIBC, CERU, AMS, MISCWVan [facility] [address] [place], [address] Vitamin D 25-OH 57.7 ng/mL (Normal) Range: 19.95-100.01 Comments: Vitamin D 25(OH) Status Range Deficiency <20 ng/mL (50nmol/L) Insuffciency 20 - 30 ng/mL (50 - 75 nmol/L) Sufficiency 30 - 100 ng/mL (75 - 250 nmol/L) Toxicity >100 ng/mL (>250 nmol/L) 81-Mdk-047217:50 Anti-Mitochondrial AB Comments: [facility] (refer to report for specific site)refer to report for address and phone number MITOCHN AB <20.0 {Units} (Normal) Range: 0.0-20.0 Comments: Negative 0.0 - 20.0 Equivocal 20.1 - 24.9 Positive >24.9Mitochondrial (M2) Antibodies are found in 90-96% ofpatients with gaudencio quintin biliary cirrhosis.Performed at: - [facility] [address] [id number] Director: Wili Wagner PhD, Phone: [phone] 0-Ivf-684448:10 Magnesium Comments: [facility] [address] [place], [address] MG 2.3 mg/dL (Normal) Range: 1.8-2.4 2-Gfu-497878:10 Potassium Comments: [facility] [address] [place], [address] K 3.5 mmol/L (Normal) Range: 3.5-5.1 0-Orl-084779:59 Anti-Smooth Muscle ABS Comments: Comments: [id number] [facility] SERUM REFLabCorp (refer to report [...] 22% of patients with primary biliary cirrhosis. 9-Kzs-711921:59 Ceruloplasmin Comments: Comments: [id number] [facility] SERUM [facility] (refer to report for specific site)refer to report for address and phone number CERULOPLAS 1560 27.0 mg/dL (Normal) Range: 19.0-39.0 9-Ckg-518775:59 Comprehensive Metabolic Profil Comments: Comments: [id number] [facility] SERUM [facility] [address] [place], [place], [address] GAP 8 (Normal) Range: 5-15 CO2 31.0 [...] 7-18 GLU 100 mg/dL (Normal) Range: 70-110 7-Spq-406113:59 Ferritin Comments: Comments: [id number] [facility] SERUM [facility] [address] [place], [address] FERRITIN 14 ng/mL (Normal) Range: 8-252 0-Dcf-426609:59 Free T3 Comments: Comments: [id number] [facility] SERUM [facility] [address] [place], [address] FREE T3 4.0 pg/mL (Abnormal) Range: 2.18-3.98 5-Gxp-395539:59 Hepatitis A AB, Total Comments: Comments: [id number] [facility] SERUM [facility] (refer to report for specific site)refer to report for address and phone number HEP A AB,T.6726 Positive (Abnormal) 0-Kbe-910579:59 Hepatitis A IgM Antibody Comments: Comments: [id number] [facility] SERUM [facility] (refer to report for specific site)refer to report for address and phone number HEP A IgM 6734 Negative (Normal) Comments: Performed at: - [facility] [id number] Director: Wili Wagner PhD, Phone: [phone] 3-Opx-617658:59 Iron Comments: Comments: [id number] [facility] SERUM [facility] [address] [place], [address] IRON 98 ug/dL (Normal) Range: 50-170 4-Njs-479856:59 Iron Binding Capacity,Total Comments: Comments: [id number] [facility] SERUM [facility] [address], [id number] TIBC 455 ug/dL (Abnormal) Range: 250-450 9-Vql-159574:59 Miscellaneous Lab Procedure Comments: Comments: [id number] [facility] SERUM REFTest(s) Ordered: [id number] [facility] SERUM [facility] [address], [id number] MISC Comments: TEST RESULT LIMITSLiver-Kidney Microsomal Ab [...] TEST SITE INFORMATION. 2 PTHIN 32.3 Comments: [facility] [address], [address] ; will review on 1.17 - pg/mL Range: 18.4-80.1 J (Normal) Comments: Please Note: PTH INTACT METHOD AND REFERENCE RANGE CHANGEEffective 03/01/2017. a n - 2 0 1 8 1 1 : 5 9 8-Ryq-527364:59 T4 Free Direct Comments: Comments: [id number] [facility] SERUM [facility] [address], [id number] T4 FREE DIRECT 1.06 ng/dL (Normal) Range: 0.76-1.46 3-Whl-582666:59 Thyroid Stim Hormone (TSH) Comments: Comments: [id number] [facility] SERUM [facility] [address] [place], [address] TSH 0.89 {uIU/mL} (Normal) Range: 0.358-3.74 6-Rof-945337:59 Transferrin Comments: Comments: [id number] [facility] SERUM [facility] (refer to report for specific site)refer to report for address and phone number TRANSFERRN 4120 365 mg/dL (Normal) Range: 200-370 3-Nzr-280551:59 Vitamin D,25 Hydroxy Comments: [facility] [address]qwct4947 [facility] [place], [address] Vitamin D 25-OH 115.2 ng/mL (Normal) Comments: [...] is nointerference with Vitamin D test results. 09-Chw-64956:06 Pathology Report Comments: PERFORMED BY: [facility] Cyto Kelxb93376 [facility] [id number] Information: [id number] See MATER Comments: Material submitted: .SHAVE CHEST [...] IS IN A SINGLE CASSETTE.COR/TMZPathologist provided ICD-10:D04.5CPT .706136 Plan of Care Name Dates Details Instructions [...] to 24 Planned Observations Vitamin D Hydroxy (89697)Indication: Vitamin D intoxication On: 0-Tsw-307961:44 Request METABOLIC PANEL, COMPREHENSIVE (15307)Indication: Elevated glycated hemoglobin On: :43 Request LIPOPROTEIN, BLD, BY NMR (51233)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 Request METABOLIC PANEL, COMPREHENSIVE (77187)Indication: Hypokalemia On: 45-Qjv-252204:38 Request Metabolic Panel, Basic (19482)Indication: Edema On: 51-Tlr-557787:36 Request MICROALBUMIN: CREATININE RATIO (98735) AND (18303)Indication: Elevated glycated hemoglobin On: 4-Isc-446291:48 Request HGB A1C (87942)Indication: Elevated glycated hemoglobin On: :47 Request CBC W/AUTO DIFF WBC (11910)Indication: Liver function abnormality On: 2-Kli-517699:35 Request METABOLIC PANEL, COMPREHENSIVE (86879)Indication: Liver function abnormality On: :35 Request LIPOPROTEIN, BLD, BY NMR (10279)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 Request POTASSIUM SERUM (23345)Indication: Rheumatoid arthritis On: 30-Qvt-717565:58 Request HEPATITIS C ANTIBODY (37437)Indication: Encounter for hepatitis C virus screening test for high risk patient On: 69-Kca-767308:11 Request MAGNESIUM (84675)Indication: Hypokalemia On: 64-Cxm-679407:07 Request Electrolyte Panel (74386)Indication: Hypokalemia On: 76-Rth-563208:06 Request CBC W/AUTO DIFF WBC (50210)Indication: Edema On: :44 Request FERRITIN (72740)Indication: Liver function abnormality On: 30-Baf-406336:44 Request IRON BINDING CAPACITY (TIBC) (90116)Indication: Liver function abnormality On: :44 Request IRON (28066)Indication: Liver function abnormality On: 07-Pni-449063:44 Request Vitamin D Hydroxy (08334)Indication: Vitamin D intoxication On: :43 Request T3, FREE (TRIDOTHYRONINE) (96070)Indication: Hyperthyroidism On: :42 Request TSH (05967)Indication: Hyperthyroidism On: :42 Request METABOLIC PANEL, COMPREHENSIVE (51219)Indication: Hypokalemia On: :42 Request Potassium Serum (67804)Indication: Hypokalemia On: :23 Request Magnesium (46105)Indication: Hypokalemia On: :23 Request HEPATITIS A ANTBDY-IGG/IGM (57695)Indication: Abnormal hepatitis serology On: :50 Request ANTI-LIVER/KIDNEY MICROSOMAL ANTIBODY (42838)Indication: Liver function abnormality On: :27 Request ASM (ANTI SMOOTH MUSCLE ANTIBODY) (68838)Indication: Liver function abnormality On: :27 Request CERULOPLASMIN (70778)Indication: Liver function abnormality On: :27 Request TRANSFERRIN (42333)Indication: Liver function abnormality On: :27 Request ANTIMITOCHONDRIAL ANTIBODY (72102)Indication: Liver function abnormality On: :27 Request Ferritin (53877)Indication: elevated iron On: 73-Aod-109079:17 Request Iron Binding Capacity (TIBC) (35338)Indication: elevated iron On: 37-Pdf-068318:17 Request Iron (35503)Indication: elevated iron On: 80-Von-121350:17 Request PARATHORMONE (36657)Indication: Hypercalcemia On: 13-Zrp-599523:14 Request METABOLIC PANEL, COMPREHENSIVE (63173)Indication: Hypercalcemia On: 59-Qxv-886740:13 Request Vitamin D Hydroxy (60499)Indication: Vitamin D intoxication On: 67-Ero-347675:13 Request T3, FREE (TRIDOTHYRONINE) (80091)Indication: Hyperthyroidism On: :59 Request T4, FREE (THYROXINE) (69176)Indication: Hyperthyroidism On: 29-Uvw-15825:59 Request TSH (00218)Indication: Hyperthyroidism On: 71-Hsy-04891:59 Request Planned Encounters Medical; JESSE 3 Month FU - On: 29-Jan-2018 13:00 [facility] Kermit Cortez DO Planned Procedures MRI OF CERVICAL SPINE WITH AND On: 26-Jan-2018 Intent WITHOUT CONTRAST (13103)By: Kermit Cortez DO Radiology - Shoulder - RightBy: On: 24-Jan-2018 Intent Kermit Cortez DO Radiology - Cervical SpineBy: On: 24-Jan-2018 Intent Kermit Cortez DO SCREENING DIGITAL TOMOSYNTHESIS On: 30-Oct-2017 Intent OF BREAST (16641)By: Kermit Cortez DO DEXA SCAN AXIAL SKELETON On: 24-Jul-2017 Intent (37218)By: Kermit Cortez DO ELECTROCARDIOGRAM, COMPLETE (ECG) On: 24-Jul-2017 Intent (35457)By: Kermit Cortez DO Radiology - Toe(s) - [...] LUMBAR SPINE W/O CONTRAST On: 28-Feb-2017 Intent (31519)By: Kermit Cortez DO Comments: has had pt [...] fusion- she wants to go back to [place] first before she does surgery to see [...] [facility] and still has same sx- saw Dr Cristofer Goel at [facility]- back specialist - has had 3 steroid [...] arthritis, Hearing loss [facility] Payers [facility] Maurice BURK; a guarantor
--- OUTSIDE RECORDS SUMMARY | 2018-05-31 05:51 | XMS RPT_ITS | Continuity of Care Document ---
:1955 Author Organization [facility] Address [facility] 2 [place] [address] Phone Care Team Providers Name Role Phone [...] she wanst to keep working with her protozoologist Status: Active Hypokalemia (E87.6, 276.8) Status: Active [...] 30-Mar-2016 Active Comments:Medication taken as needed. Biotin 60816 MCG Oral Tablet qd (61659 MCG) Active Calcium Magnesium 750 300-300 MG Oral Tablet 1 (one) Tablet Tablet daily for 0 days Quantity: 30 {Tablet} Refills: 0 Ordered:28-Feb-2017 Marybeth RODRIGUEZ Susana Start : 30-Mar-2016 Active Clearite Shake 1 scoop bid Active Comments:supports detoxification Dymista 137-50 MCG/ACT Nasal Suspension 1 (one) [place] each nostril twice daily for 0 days Quantity: 3 {[place]} Refills: 3 Ordered:21-Nov-2017 Kermit Cortez DO [...] Quantity: 1 {Intravenous_Bag} Refills: 0 Ordered:28-Feb-2017 Marybeth RODRIGUEZQuintin Start : 30-Mar-2016 Active Proglycem 50 [...] Kermit EVANS Start : 29-Jan-2018 Active Tumeric [place] 2 caps bid Active Ventolin HFA 108 [...] 5 Views Result: Comments: See Note; NOTES: [facility] Imaging Services [address] [place], [place] [address] [address] Cerv Spine 4 or 5 Views MR#: [id number] Acct: [id number] Name: MASON BURK Rep #: [id number] : 1955 F 62 From: Perico Stewart MD PCP: Kermit Cortez DO Status: REG CLI Study: Cerv Spine 4 or 5 Views Date of Exam: 01/24/18 Exam# [id number] Ordering Dr: Kermit Cortez DO STUDY: X-RAY [...] Service support , CC: Kermit Cortez DO Heavy Threader: Signed 24-Jan-2018 Shoulder min 2 Views Result: Comments: See Note; NOTES: [facility] Imaging Services [address] [place] [address] Shoulder min 2 Views MR#: [id number] Acct: [id number] Name: MASON BURK Rep #: [id number] : 1955 F 62 From: Perico Stewart MD PCP: Fast DO,Kermit Status: REG CLI Study: Shoulder min 2 Views Date of Exam: 01/24/18 Exam# [id number] Ordering Dr: Kermit Cortez DO STUDY: X-RAY [...] Service support , CC: Kermit Cortez DO Heavy Threader: Signed 21-Nov-2017 SCREENING MAMM (CAD), BILAT Result: Comments: See Note; NOTES: [facility] Imaging Services [address] [place] [address] SCREENING MAMM (CAD), BILAT MR#: [id number] Acct: [id number] Name: WMMASON Rep #: [id number] : 1955 F 62 From: Shreyas Garcia MD PCP: Kermit Cortez DO Status: REG CLI Study: SCREENING MAMM (CAD), BILAT Date of Exam: 11/21/17 Exam# [id number] Ordering Dr: Kermit Cortez DO PHILLY MOGRAPHY [...] delay biopsy of a clinically suspicious abnormality. [id number] Electronically Signed: Shreyas Garcia MD at 1 2:28 EDT Tel [phone], Service support , CC: Kermit Cortez DO Heavy Threader: Signed 10-Aug-2017 Dexa Bone Density Study Result: Comments: See Note; NOTES: [facility] Imaging Services [address] [place] [address] Dexa Bone Density Study MR#: [id number] Acct: [id number] Name: WMMASON Emily Rep #: [id number] : 1955 F 62 From: Shreyas Garcia MD PCP: Kermit Cortez DO Status: REG CLI Study: Dexa Bone Density Study Date of Exam: 08/10/17 Exam# [id number] Ordering Dr: Kermit Cortez DO STUDY: DUAL [...] Shreyas Garcia MD at 14:58 EDT Tel [phone], Service support , CC: Kermit Cortez DO; ROME CHEUNGADMAN Heavy Threader: Signed 02-Aug-2017 Arterial Duplex US, Limited Result: Comments: See Note; NOTES: [facility] Cardiovascular Services [address] [place] [address] Art Duplex US Unilat Lower Ext 07/28/17 1320 MR#: [id number] Acct: [id number] Name: MASON BURK Rep #: [id number] : 1955 62 From: Garcia Dsouza MD Attending Dr: Garcia Dsouza MD Status: REG CLI Ordering Dr: Garcia Dsouza MD Date: 07/28/17 Location: [facility] Sex: F C Admitted: Reason [...] Dictated: 07/28/17 1320 Date Transcribed: 08/02/17 110 Heavy Threader: Signed 02-Aug-2017 Lower Ext Arterial Study Result: Comments: See Note; NOTES: [facility] Cardiovascular Services [address] [place] [address] 00002 08/02/17 0832 MR#: [id number] Acct: [id number] Name: MASON BURK Rep #: [id number] : 1955 62 From: Garcia Dsouza MD Attending Dr: Garcia Dsouza MD Status: REG CLI Ordering Dr: Date: 08/02/17 Location: [facility] Sex: F C Admitted: Arterial Study - Arterial Study Arterial St udy: Record number: [id number] next Date of scan 07/28/2017 next Interpreted [...] DO Date Dictated: 08/02/17831 Date Transcribed: 08/02/17831 Heavy Threader: MELITON Signed 19-Jun-2017 Toe(s) Min 2 Views Result: Comments: See Note; NOTES: [facility] Imaging Services [address] [place] [address] Toe(s) Min 2 Views MR#: [id number] Acct: [id number] Name: MASON BURK Rep #: [id number] : 1955 F 61 From: Shreyas Garcia MD PCP: Kermit Cortez DO Status: REG CLI Study: Toe(s) Min 2 Views Date of Exam: 06/19/17 Exam# [id number] Ordering Dr: Kermit Cortez DO STUDY: X-RAY [...] Shreyas Garcia MD at 14:12 EDT Tel [phone], Service support , CC: Kermit Cortez DO Heavy Threader: Signed 22-May-2017 PT D/C Summary (1) Result: Comments: See Note; NOTES: [facility] Physical Therapy [facility] [address] [place] [address]. [address] [place] [address] Fax REHABILITATION SERVICES DISCHAR GE SUMMARY MR#: [id number] Acct: [id number] Name: MASON BURK Rep #: [id number] [...] please feel free to call me at [phone]. Thank you for the referral of this patient. Sincerely, Melissa King <Electronically signed by Melissa King PT, Cert. MDT> 05/22/17 160 CC: Kermit Cortez DO TOM Signed 19-Apr-2017 Inital Evaluation (1) - PT Result: Comments: See Note; NOTES: [facility] Physical Therapy [facility] [address] [place], [place] [address] Fax REHABILITATION SERVICES INITIAL EVALUATION MR#: [id number] Acct: [id number] Name: MASON BURK Rep #: [id number] : 1955 61 From: Melissa King PT, [...] THR JAN [address] BENÍTEZ AT [facility] IN [place] , LUMBAR HERMES'S X [address] [...] SHE IS HERE. HAS A DOCTOR IN [place] THAT SHE THINKS IS A FUNCTIONAL MEDICINE DOCTOR. THIS DOCTOR HAS PRESCRIBED EXERCISES AND SUPPLEMENTS AND DIET. 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 HE HELPED HER LE EDEMA IN 5 DAYS AFTER SUFFERING WITH IT FOR 3 YEARS. HER DAUGHTER LIVES IN [place] AND THIS IS HOW SHE FOUND HIM [...] to be FAXED BACK to us at [phone] for Medicare purposes. Please let me know if there are questions or concerns regarding this plan of care. Physician Signature: Date: <Electronically signed by Melissa King PT, Cert. MDT> 04/19/17 1443 CC: Kermit Cortez DO TOM Signed For Medicare only, by signing this I certify the plan of care. Physicians Signature Date 23-Mar-2017 Abdomen Complete Result: Comments: See Note; NOTES: [facility] Imaging Services [address] [place] [address] Abdomen Complete MR#: [id number] Acct: [id number] Name: MASON BURK Rep #: [id number] D OB: 1955 F 61 From: Shreyas Garcia MD PCP: Kermit Cortez DO Status: REG CLI Study: Abdomen Complete Date of Exam: 03/23/17 Exam# [id number] Ordering Dr: Kermit Cortez DO STUDY: ABDOMINAL [...] Shreyas Garcia MD at 11:07 EST Tel [phone], Service support , CC : Kermit Cortez DO Heavy Threader: Signed 23-Mar-2017 Abdomen Complete Result: Comments: See Note; NOTES: [facility] Imaging Services [address] [place] [address] Abdomen Complete MR#: [id number] Acct: [id number] Name: MASON BURK Emily Rep #: [id number] D OB: 1955 F 61 From: Shreyas Garcia MD PCP: Kermit Cortez DO Status: REG CL Study: Abdomen Complete Date of Exam: 03/23/17 Exam# [id number] Ordering Dr: Kermit Cortez DO ADDENDUM by Shreyas vaughn MD on 03/29/17 at 1505 US/Abdomen Complete 03/29/17 1512 Date cc: Kermit Cortez DO * Signed ADDENDUM by Shreyas Garcia MD on 03/29/17 at 1505 ADDENDUM This is an addendum report. The liver measures within normal limits. Electronically Signed: Shreyas lyon MD at 15:05 EST Tel [phone], Service support , 03/29/17 1505 Date cc: [...] Shreyas Garcia MD at 11:07 EST Tel [phone], Service support , CC: Kermit Cortez DO Heavy Threader: Signed 20-Mar-2017 Spine Lumbar (Routine) Result: Comments: See Note; NOTES: [facility] Imaging Services [address] [place] [address] Spine Lumbar (Routine) MR#: [id number] Acct: [id number] Name: MASON BURK Rep #: [id number] : 1955 F 61 From: Carson Richardson MD PCP: Kermit Cortez DO Status: REG CLI Study: Spine Lumbar (Routine) Date of Exam: 03/20/17 Exam# [id number] Ordering Dr: Kermit Cortez DO STUDY: MRI [...] EST , Service support , F ax [phone] CC: Kermit Cortez DO Heavy Threader: Signed 28-Feb-2017 Thoracic Spine 3 Views Result: Comments: See Note; NOTES: [facility] Imaging Services [address] [place] [address] Thoracic Spine 3 Views MR#: [id number] Acct: [id number] Name: MASON BURK Rep #: [id number] : 1955 F 61 From: Perico Stewart MD PCP: Evie Winter MD Status: REG CLI Study: Thoracic Spine 3 Views Date of Exam: 02/28/17 Exam# [id number] Ordering Dr: Cherelle Perez MD STUDY: X-R [...] CC: Evie Winter MD; Cherelle Perez MD Heavy Threader: Signed Family History Unknown Family Member Name [...] Active Vital Signs Date Test Result Details 37-Xok-532415:08 Temperature 97.3 f Comments: Method: Temporal Pulse [...] SPRCS (Normal) Comments: PATIENT WAS FASTINGPERFORMED BY: [facility] Wjplrc[address] [facility] [address] [place] [id number] Comments: We have received your request for additional testing or testverification. You will be notified if we are unable to processyour request. :59 Potassium 3.4 mmol/L Comments: PATIENT WAS FASTINGPERFORMED BY: [facility] Ykrxfb3621 [facility] [place] [id number] (Abnormal) Range: 3.5-5.2 Comments: Client Requested Flag :59 Written Authorization WAR (Normal) Comments: PATIENT WAS FASTINGPERFORMED BY: [employer] Zamgyy6238 [facility] [id number] Comments: Written Authorization Received.Authorization received from WRITTEN REQUEST [id number] by Loan Greene 32-Rpb-986231:03 MICROALBUMIN: CREATININE RATIO Comments: PATIENT WAS FASTINGPERFORMED BY: [facility] Jnktek3567 [facility] [id number] ([id number]) AND (93038) Alb/Creat Ratio <23.4 {mg/g_creat} (Normal) Range: 0.0-30.0 Comments: Normal: 0.0 - 30.0 Albuminuria: 31.0 - 300.0 Clinical albuminuria: >300.0 Albumin, Urine <3.0 ug/mL (Normal) Creatinine, Urine 12.8 mg/dL (Normal) 91-Yaa-963847:03 HGB A1C (57309) Comments: PATIENT WAS FASTINGPERFORMED BY: [facility] Pzyvkw7008 [facility] [id number] Hemoglobin A1c 5.5 % (Normal) Range: 4.8-5.6 Comments: . Prediabetes: 5.7 - 6.4 Diabetes: >6.4 Glycemic control for adults with diabetes: <7.0 20-Anb-712262:00 Crystals, Body Fluid Comments: [facility] [address] [place], [place], [address] PATH REV Reviewed (Normal) Comments: No diagnostic crystals identified.Trevon Fuchs D.O. 01/11/18 AMENDED REPORT 01/11/18 1417 PATH REV previously reported as: Will follow SOURCE/BF SYNOVIAL (Normal) CRYSTALS/BF SEE PATH REV (Normal) 75-Qnt-936647:00 Culture, Body Fluid Comments: [facility] [address] [place], [place], [address] CUBF See Note (Normal) Comments: List Antibiotics Last 48 Hours? NList Antibiotics to be Started? NGram StainGram Stain No organisms seen 1+ Red Blood Cells 1+ Red Cell Stroma Body Fluid CultNO GROWTH IN 14 DAYS Cult, AnaerobicNo growth in 5 days. 0-Iwm-850900:05 CBC W/Diff, Automated Comments: [facility] [address] [place], [place], [address] Absolute Lymph 1.09 {X10_3/ul} (Normal) Range: 0.83-4.51 [...] 4.2-5.4 WBC 7.9 K/mm3 (Normal) Range: 4.4-11.0 9-Eeq-581188:05 Comprehensive Metabolic Profil Comments: [facility] [address] [place], [address] GAP 10 (Normal) Range: 5-15 CO2 33.0 [...] A.D.A. criteria.Please note revised GLUCOSE reference range yckmkqshp98/02/2018. Magnesium 2.2 mg/dL (Normal) Comments: PATIENT NOT FASTINGPERFORMED BY: [facility] Iqripj5326 [facility] [id number] 5:38 Range: 1.6-2.3 Written Authorization WAR (Normal) Comments: PATIENT NOT FASTINGPERFORMED BY: [facility]Co[facility]orah [facility] Lung CenterQznhzi8176 [facility] [id number] 5:38 Comments: Written Authorization Received.Authorization received from KATINA DANIEL [id number] by Tiffany Shah 96-Rtz-672294:38 POTASSIUM SERUM (68175) Comments: PATIENT NOT FASTINGPERFORMED BY: [facility]6370 [facility] [id number] Potassium 3.3 mmol/L (Abnormal) Range: 3.5-5.2 Comments: Client Requested Flag 47-Inq-325836:26 Comp. Metabolic Panel (14) Comments: PATIENT NOT FASTINGPERFORMED BY: [facility]6370 [facility] [id number] ALT (SGPT) 70 [iU]/L (Abnormal) Range: 0-32 [...] 8-27 Glucose 77 mg/dL (Normal) Range: 65-99 15-Vns-385012:13 METABOLIC PANEL, COMPREHENSIVE Comments: PATIENT NOT FASTINGPERFORMED BY: [facility]CoDebor[facility] Lung CenterDhkflf5681 [facility] [id number] (64329) ALT (SGPT) 69 [iU]/L (Abnormal) Range: 0-32 [...] 8-27 Glucose 113 mg/dL (Abnormal) Range: 65-99 2-Qlc-395718:05 CBC W/Diff, Automated Comments: [facility] [address] [place], [address] Absolute Lymph 0.69 {X10_3/ul} (Abnormal) [...] Range: 4.4-11.0 :05 Comprehensive Metabolic Profil Comments: [facility] [address] [place], [place], [address] GAP 8 (Normal) Range: 5-15 CO2 36.0 [...] Comments: Please note revised GLUCOSE reference range gdupscixg19/02/2018. 90-Hlq-789669:14 Thyroxine (T4) Free, Direct, Comments: PATIENT NOT FASTINGPERFORMED BY: [employer] Xekidd3982 [facility] [id number] S T4,Free(Direct) 1.99 ng/dL Range: 0.82-1.77 (Abnormal) 21-Aug-2017 Triiodothyronine,Free,Ser 3.1 pg/mL (Normal) Comments: PATIENT NOT FASTINGPERFORMED BY: [employer] Yjyths8732 [facility] [id number] 13:14 um Range: 2.0-4.4 21-Aug-2017 Written Authorization WAR (Normal) Comments: PATIENT NOT FASTINGPERFORMED BY: [employer] Utetle0865 [facility] [id number] 13:14 Comments: Written Authorization Received.Authorization received from KERMIT CORTEZ [id number] by Aniya Denton 45-Skk-191079:14 CMV IGM ANTBDY (41065) Comments: PATIENT NOT FASTINGPERFORMED BY: Kasenna Durrrw5475 [place] [facility] [id number] Cytomegalovirus (CMV) Ab, IgM <30.0 AU/mL (Normal) Range: 0.0-29.9 Comments: Negative <30.0 Equivocal 30.0 - 34.9 Positive >34.9 A positive result is generally indicative of acute infection, reactivation or persistent IgM production. 82-Bmj-405119:14 EBV Panel (27609) Comments: PATIENT NOT FASTINGPERFORMED BY: Kasenna Tmsdtt3085 [facility]inApplied [facility]Works[facility] [id number] Interpretation: SPRCS (Normal) Comments: EBV Interpretation Chart [...] <36.0 Equivocal 36.0 - 43.9 Positive >43.9 03-Iqf-208627:14 VITAMIN B-12 (CYANOCOBALAMIN) Comments: PATIENT NOT FASTINGPERFORMED BY: [employer] Hgqett3289 [facility] [id number] (98963) Vitamin B12 >2000 pg/mL (Abnormal) Range: 232-1245 74-Onf-564026:14 TSH (66225) Comments: PATIENT NOT FASTINGPERFORMED BY: [facility]6370 [facility] [id number] TSH 0.072 {uIU/mL} (Abnormal) Range: 0.450-4.500 91-Gji-724928:14 CBC W/AUTO DIFF WBC (78329) Comments: PATIENT NOT FASTINGPERFORMED BY: [facility]6370 [facility] [id number] Immature Grans (Abs) 0.0 {x10E3/uL} (Normal) Range: [...] 3.77-5.28 WBC 6.9 {x10E3/uL} (Normal) Range: 3.4-10.8 42-Frr-850069:14 METABOLIC PANEL, COMPREHENSIVE Comments: PATIENT NOT FASTINGPERFORMED BY: [facility] TechnologyDeborah Heart and Lung CenterWhoirv1226 [facility] [id number] (11838) ALT (SGPT) 53 [iU]/L (Abnormal) Range: 0-32 [...] 8-27 Glucose 81 mg/dL (Normal) Range: 65-99 38-Asq-725795:39 Microscopic Examination Comments: PATIENT NOT FASTINGPERFORMED BY: [facility] TechnologyDeborah Heart and Lung CenterNxbder8705 [facility] [id number] Bacteria Few (Normal) Mucus Threads Present (Normal) Crystal Type Amorphous Sediment (Normal) Crystals Present (Abnormal) Epithelial Cells (non renal) 0-10 {/hpf} (Normal) Range: 0 - 10 RBC 0-2 {/hpf} (Normal) Range: 0 - 2 WBC 6-10 {/hpf} (Abnormal) Range: 0 - 5 59-Lxt-997370:39 URINE SANDIE CULTURE-IDENTIFICATN Comments: PATIENT NOT FASTINGPERFORMED BY: citysocializerBr[facility]6370 [facility] [id number] (12388) Result 1 MUG (Normal) Comments: Mixed urogenital flora10,000-25,000 colony forming units per mL Urine Final report (Normal) Culture,Comprehensive 80-Uof-457001:39 URINALYSIS (37079) Comments: PATIENT NOT FASTINGPERFORMED BY: citysocializerBr[facility]6370 [facility] [id number] Microscopic Examination See below: (Normal) Comments: Microscopic was indicated and was performed. Nitrite, Urine Negative (Normal) Urobilinogen,Semi-Qn 0.2 mg/dL (Normal) Range: 0.2-1.0 Bilirubin Negative (Normal) Occult Blood Negative (Normal) Ketones Negative (Normal) Glucose Negative (Normal) Protein Negative (Normal) WBC Esterase 1+ (Abnormal) Appearance Clear (Normal) Urine-Color Yellow (Normal) pH 7.5 (Normal) Range: 5.0-7.5 Specific [place] 1.016 (Normal) Range: 1.005-1.030 50-Rrt-393634:39 METABOLIC PANEL, COMPREHENSIVE Comments: PATIENT NOT FASTINGPERFORMED BY: citysocializerBr[facility]6370 [facility] [id number] (09851) ALT (SGPT) 50 [iU]/L (Abnormal) Range: 0-32 [...] 8-27 Glucose 84 mg/dL (Normal) Range: 65-99 64-Vsy-937859:39 CBC, PLATELETS & MANUAL Comments: PATIENT NOT FASTINGPERFORMED BY: RUT [facility] Xdymic3266 [facility] [id number] Information: SRC:ANAMARIA DIFF (81268) Immature Grans (Abs) 0.0 {x10E3/uL} (Normal) Range: [...] 3.77-5.28 WBC 8.1 {x10E3/uL} (Normal) Range: 3.4-10.8 6-Our-837178:42 CBC W/Diff, Automated Comments: [facility] [address] [place], [place], [address] Absolute Lymph 1.04 {X10_3/ul} (Normal) Range: 0.83-4.51 [...] 4.2-5.4 WBC 6.4 K/mm3 (Normal) Range: 4.4-11.0 5-Spi-401412:42 Comprehensive Metabolic Profil Comments: [facility] [address] [place], [place], [address] GAP 6 (Normal) Range: 5-15 CO2 36.0 [...] Comments: Please note revised GLUCOSE reference range emgibknbj16/02/2018. 62-Obj-168368:05 Liver Profile Comments: [facility] [address] [place], [place], [address] D BILI 0.12 mg/dL (Normal) Range: 0.00-0.30 T BILI 0.40 mg/dL (Normal) Range: 0.20-1.00 ALT 66 U/L (Abnormal) Range: 13-56 Comments: Please note revised ALT reference range ubvqvueyf74/28/2018. ALK P 79 U/L (Normal) Range: 45-117 AST 49 U/L (Abnormal) Range: 15-37 GLOB 3.4 g/dL (Normal) Range: 2.2-4.2 ALB 3.5 g/dL (Normal) Range: 3.2-5.0 T PROT 6.9 g/dL (Normal) Range: 6.4-8.2 85-Eia-131499:59 LIPID PANEL (11569) Comments: PATIENT WAS FASTINGPERFORMED BY: [facility] Tnhumu2986 [facility] [id number]; fu 11-19 DF LDL/HDL Ratio 1.1 {ratio} [...] Cholesterol, Total 310 mg/dL (Abnormal) Range: 100-199 97-Jwv-568178:15 Anti-Mitochondrial AB Comments: [place] ORDERED: CMP, CBCDFAST [...] gaudencio quintin biliary cirrhosis.Performed at: - [facility] [address] [id number] Director: Wili Wagner PhD, Phone: [phone] 09-Pwt-425110:15 Anti-Smooth Muscle ABS Comments: [place] ORDERED: CMP, CBCDFAST ORDERED: TSH, VITD, CMP, FE, AMA,HEP A, T4F, T3F,PTHIN, FE, TIBC, CERU, AMS, MISCComments: [id number];LKM;SERUM;[facility]ENLab[facility] (refer to report for specific site)refer to report for address and phone number ANTISMOOTH 0819 2 {Units} (Normal) Range: 0-19 Comments: Negative 0 - 19 Weak positive 20 - 30 Moderate to strong positive >30 Actin Antibodies are found in 52-85% of patients with autoi mmune hepatitis or chronic active hepatitis and in 22% of patients with primary biliary cirrhosis. 34-Mqu-773153:15 CBC W/Diff, Automated Comments: [place] ORDERED: CMP, CBCDFAST ORDERED: TSH, VITD, CMP, FE, AMA,HEP A, T4F, T3F,PTHIN, FE, TIBC, CERU, AMS, MISCOhiohealth Grant Medical Center [address] [place], [place], [address] Absolute Lymph 1.01 {X10_3/ul} (Normal) Range: 0.83-4.51 [...] 4.2-5.4 WBC 4.2 K/mm3 (Abnormal) Range: 4.4-11.0 76-Idl-601927:15 Ceruloplasmin Comments: [place] ORDERED: CMP, CBCDFAST ORDERED: TSH, VITD, CMP, FE, AMA,HEP A, T4F, T3F,PTHIN, FE, TIBC, CERU, AMS, MISCComments: [id number];LKM;SERUM;[facility]ENLab[facility] (refer to report for specific site)refer to report for address and phone number CERULOPLAS 1560 23.8 mg/dL (Normal) Range: 19.0-39.0 80-Ffr-871350:15 Comprehensive Metabolic Comments: [place] ORDERED: CMP, CBCDFAST ORDERED: TSH, VITD, CMP, FE, AMA,HEP A, T4F, T3F,PTHIN, FE, TIBC, CERU, AMS, MISCLIPID ADDED PER ; FAXED ORDER TO FOLLOWComments: [id number];LKM;SERUM;FROZENWooMorningside Hospital [address]cxmsu280[address] [place], [place], [address] GAP 5 (Normal) Range: 5-15 CO2 32.0 mmol/L (Normal) Range: 21.0-32.0 CL 101 mmol/L (Normal) Range: 98-107 K 3.3 mmol/L (Abnormal) Range: 3.5-5.1 NA 138 mmol/L (Normal) Range: 136-145 T BILI 0.40 mg/dL (Normal) Range: 0.20-1.00 ALT 69 U/L (Abnormal) Range: 13-56 Comments: Please note revised ALT reference range tsaascafq55/28/2018. ALK P 72 U/L (Normal) Range: 45-117 [...] Comments: Please note revised GLUCOSE reference range jdeayforq37/02/2018. 20-Wol-803191:15 Ferritin Comments: [place] ORDERED: CMP, CBCDFAST ORDERED: TSH, VITD, CMP, FE, AMA,HEP A, T4F, T3F,PTHIN, FE, TIBC, CERU, AMS, MISCLIPID ADDED PER ; FAXED ORDER TO FOLLOWComments: [id number];LKM;SERUM;[facility] [address] [place], [place], [address] FERRITIN 12 ng/mL (Normal) Range: 8-252 50-Por-947226:15 Free T3 Comments: [place] ORDERED: CMP, CBCDFAST ORDERED: TSH, VITD, CMP, FE, AMA,HEP A, T4F, T3F,PTHIN, FE, TIBC, CERU, AMS, MISCLIPID ADDED PER ; FAXED ORDER TO FOLLOWComments: [id number];LKM;SERUM;[facility] [address] [place], [address] FREE T3 2.8 pg/mL (Normal) Range: 2.18-3.98 18-Txh-692343:15 Hepatitis A AB, Total Comments: [place] ORDERED: CMP, CBCDFAST ORDERED: TSH, VITD, CMP, FE, AMA,HEP A, T4F, T3F,PTHIN, FE, TIBC, CERU, AMS, MISCComments: [id number];LKM;SERUM;[facility] (refer to report for specific site)refer to report for address and phone number HEP A AB,T.6726 Positive (Abnormal) 99-Oqu-647383:15 Hepatitis A IgM Comments: [place] ORDERED: CMP, CBCDFAST ORDERED: TSH, VITD, CMP, FE, AMA,HEP A, T4F, T3F,PTHIN, FE, TIBC, CERU, AMS, MISCComments: [id number];LKM;SERUM;[facility]ENLab[facility] (refer to report for specific site)refer to report for address and phone number Antibody HEP A IgM 6734 Negative (Normal) Comments: Performed at: - [facility] [id number] Director: Wili Wagner PhD, Phone: [phone] 78-Cog-037764:15 Iron Comments: [place] ORDERED: CMP, CBCDFAST ORDERED: TSH, VITD, CMP, FE, AMA,HEP A, T4F, T3F,PTHIN, FE, TIBC, CERU, AMS, MISCLIPID ADDED PER ; FAXED ORDER TO FOLLOWComments: [id number];LKM;SERUM;[facility] [id number] [place], [address] IRON 53 ug/dL (Normal) Range: 50-170 [id number] Iron Binding Comments: [place] ORDERED: CMP, CBCDFAST ORDERED: TSH, VITD, CMP, FE, AMA,HEP A, T4F, T3F,PTHIN, FE, TIBC, CERU, AMS, MISCLIPID ADDED PER ; FAXED ORDER TO FOLLOWComments: [id number];LKM;SERUM;[facility] [address] [place], [address] TIBC 452 ug/dL (Abnormal) Range: 250-450 05-Xmt-931951:15 Lipid Profile Comments: EVERTON ORDERED: CMP, CBCDFAST ORDERED: TSH, VITD, CMP, FE, AMA,HEP A, T4F, T3F,PTHIN, FE, TIBC, CERU, AMS, MISCLIPID ADDED PER ; FAXED ORDER TO FOLLOWComments: [id number];LKM;SERUM;[facility] [address] [facility] [place], [address] VLDL 16 mg/dL (Normal) Range: [...] 200-240 mg/dL Borderline >240 mg/dL High Risk 96-Bnj-049255:15 Miscellaneous Lab Comments: EVERT[place] ORDERED: CMP, CBCDFAST ORDERED: TSH, VITD, CMP, FE, AMA,HEP A, T4F, T3F,PTHIN, FE, TIBC, CERU, AMS, MISCComments: [id number];LKM;SERUM;FROZENTest(s) Ordered: [id number];LKM;SERUM;[facility] [address] [place], [address] MISC Comments: TEST RESULT LIMITSLiver-Kidney [...] A, T4F, T3F,PTHIN, FE, TIBC, CERU, AMS, [facility] [address] [facility] [place], [place], [id number](163) 0 pg/mL Range: 18.4-80.1 - (Normal) Comments: Please Note: PTH INTACT METHOD AND REFERENCE RANGE CHANGEEffective 03/01/2017. F e b - 2 0 1 8 1 0 : 1 5 53-Vyd-030412:15 T4 Free Direct Comments: EVERTON ORDERED: CMP, CBCDFAST ORDERED: TSH, VITD, CMP, FE, AMA,HEP A, T4F, T3F,PTHIN, FE, TIBC, CERU, AMS, MISCLIPID ADDED PER ; FAXED ORDER TO FOLLOWComments: [id number];LKM;SERUM;[facility] [address] [place], [place], [id number] T4 FREE DIRECT 0.98 ng/dL (Normal) Range: 0.76-1.46 79-Dvt-551129:15 Thyroid Stim Hormone Comments: EVERTON ORDERED: CMP, CBCDFAST ORDERED: TSH, VITD, CMP, FE, AMA,HEP A, T4F, T3F,PTHIN, FE, TIBC, CERU, AMS, MISCLIPID ADDED PER ; FAXED ORDER TO FOLLOWComments: [id number];LKM;SERUM;FROZENMoapa (TSH) [facility] [address] [place], [place], [address] TSH 0.98 {uIU/mL} (Normal) Range: 0.358-3.74 58-Zbs-105040:15 Transferrin Comments: EVERT[place] ORDERED: CMP, CBCDFAST ORDERED: TSH, VITD, CMP, FE, AMA,HEP A, T4F, T3F,PTHIN, FE, TIBC, CERU, AMS, MISCComments: [id number];LKM;SERUM;[facility] (refer to report for specific site)refer to report for address and phone number TRANSFERRN 4936 365 mg/dL (Normal) Range: 200-370 46-Pie-216861:15 Vitamin D,25 Hydroxy Comments: EVERT[place] ORDERED: CMP, CBCDFAST ORDERED: TSH, VITD, CMP, FE, AMA,HEP A, T4F, T3F,PTHIN, FE, TIBC, CERU, AMS, [facility]WAden[facility] [address] [place], [id number] Vitamin D 25-OH 57.7 ng/mL (Normal) Range: 19.95-100.01 Comments: Vitamin D 25(OH) Status Range Deficiency <20 ng/mL (50nmol/L) Insuffciency 20 - 30 ng/mL (50 - 75 nmol/L) Sufficiency 30 - 100 ng/mL (75 - 250 nmol/L) Toxicity >100 ng/mL (>250 nmol/L) 28-Ooq-195390:50 Anti-Mitochondrial AB Comments: [facility] (refer to report for specific site)refer to report for address and phone number MITOCHN AB <20.0 {Units} (Normal) Range: 0.0-20.0 Comments: Negative 0.0 - 20.0 Equivocal 20.1 - 24.9 Positive >24.9Mitochondrial (M2) Antibodies are found in 90-96% ofpatients with gaudencio quintin biliary cirrhosis.Performed at: - [facility] [address] [id number] Director: Wili Wagner PhD, Phone: [phone] 2-Pox-261973:10 Magnesium Comments: [facility] [address] [place], [place], [phone](787) MG 2.3 mg/dL (Normal) Range: 1.8-2.4 0-Tdy-940528:10 Potassium Comments: [facility] [address] [place], [place], [phone](232) K 3.5 mmol/L (Normal) Range: 3.5-5.1 1-Woa-845132:59 Anti-Smooth Muscle ABS Comments: Comments: [id number] [facility] SERUM REFLab[facility] (refer to [...] 22% of patients with primary biliary cirrhosis. 9-Ulz-477319:59 Ceruloplasmin Comments: Comments: [id number] [facility] SERUM [facility] (refer to report for specific site)refer to report for address and phone number CERULOPLAS 1560 27.0 mg/dL (Normal) Range: 19.0-39.0 9-Ais-074279:59 Comprehensive Metabolic Profil Comments: Comments: [id number] [facility] SERUM REFWAden[facility] [address] [place], [place], [address] GAP 8 (Normal) Range: 5-15 CO2 31.0 [...] 7-18 GLU 100 mg/dL (Normal) Range: 70-110 4-Lyh-944007:59 Ferritin Comments: Comments: [id number] [facility] SERUM [facility] [address] [place], [place], [address] FERRITIN 14 ng/mL (Normal) Range: 8-252 2-Ssr-907753:59 Free T3 Comments: Comments: [id number] [facility] SERUM [facility] [address] [place], [place], [address] FREE T3 4.0 pg/mL (Abnormal) Range: 2.18-3.98 0-Ibj-430705:59 Hepatitis A AB, Total Comments: Comments: [id number] [facility] SERUM [facility] (refer to report for specific site)refer to report for address and phone number HEP A AB,T.6726 Positive (Abnormal) 9-Sez-544057:59 Hepatitis A IgM Antibody Comments: Comments: [id number] [facility] SERUM [facility] (refer to report for specific site)refer to report for address and phone number HEP A IgM 6734 Negative (Normal) Comments: Performed at: [address] [id number] Director: Wili Wagner PhD, Phone: [phone] 0-Fcv-235517:59 Iron Comments: Comments: [id number] [facility] SERUM [facility] [address] [place], [address] IRON 98 ug/dL (Normal) Range: 50-170 0-Lts-679777:59 Iron Binding Capacity,Total Comments: Comments: [id number] [facility] SERUM [facility] [address] [place], [address] TIBC 455 ug/dL (Abnormal) Range: 250-450 6-Cwq-420226:59 Miscellaneous Lab Procedure Comments: Comments: [id number] [facility] SERUM REFTest(s) Ordered: [id number] [facility] SERUM [facility] [address] [place], [address] [facility] [place] Comments: TEST RESULT LIMITSLiver-Kidney Microsomal Ab <1.0 Units 0.0 - 20.0 Negative 0.0 - 20.0 LAB (Normal) Equivocal 20.1 - 24.9 Positive >24.9 LKM type 1 antibodies are detected in patients with autoimmune hepatitis type 2 and in up to 8% of patients TEST with chronic HCV infection. TESTING PERFORMED AT [facility]. ORIGINAL REPORT ON FILE IN LAB CONTAINS ADDITIONAL TEST SITE INFORMATION. 2 PTHIN 32.3 Comments: [facility] [address] [place], [address] ; will review on 1.17 - pg/mL Range: 18.4-80.1 J (Normal) Comments: Please Note: PTH INTACT METHOD AND REFERENCE RANGE CHANGEEffective 03/01/2017. a n - 2 0 1 8 1 1 : 5 9 4-Ehk-602477:59 T4 Free Direct Comments: Comments: [id number] [facility] SERUM [facility] [address] [place], [id number] T4 FREE DIRECT 1.06 ng/dL (Normal) Range: 0.76-1.46 5-Jlw-094550:59 Thyroid Stim Hormone (TSH) Comments: Comments: [id number] [facility] SERUM [facility] [address] [place], [place], [address] TSH 0.89 {uIU/mL} (Normal) Range: 0.358-3.74 5-Oxk-317387:59 Transferrin Comments: Comments: [id number] [facility] SERUM [facility] (refer to report for specific site)refer to report for address and phone number TRANSFERRN 4939 365 mg/dL (Normal) Range: 200-370 3-Ptn-756244:59 Vitamin D,25 Hydroxy Comments: [facility] [address] [place], [place], [address] Vitamin D 25-OH 115.2 ng/mL (Normal) Comments: [...] is nointerference with Vitamin D test results. 23-Cif-01642:06 Pathology Report Comments: PERFORMED BY: KWCYT [facility] [place] Cy[address] [facility] [id number] Information: [id number] See MATER Comments: Material submitted: .SHAVE CHEST [...] IS IN A SINGLE CASSETTE.COR/TMZPathologist provided ICD-10:D04.5CPT .321724 Plan of Care Name Dates Details Instructions [...] to 24 Planned Observations Vitamin D Hydroxy (80717)Indication: Vitamin D intoxication On: 4-Eca-952508:44 Request METABOLIC PANEL, COMPREHENSIVE (44026)Indication: Elevated glycated hemoglobin On: 4-Spt-373882:43 Request Potassium Serum (52081)Indication: Hypokalemia On: 10-Yjw-042552:43 Request LIPOPROTEIN, BLD, BY NMR (69317)Indication: Familial combined hyperlipidemia On: 3-Nrl-797163:43 Request METABOLIC PANEL, COMPREHENSIVE (59925)Indication: Hypokalemia On: 96-Gdp-543770:38 Request Metabolic Panel, Basic (29125)Indication: Edema On: 03-Eyc-464679:36 Request MICROALBUMIN: CREATININE RATIO (11831) AND (13066)Indication: Elevated glycated hemoglobin On: 6-Unk-850968:48 Request HGB A1C (99593)Indication: Elevated glycated hemoglobin On: 6-Fig-076285:47 Request CBC W/AUTO DIFF WBC (32647)Indication: Liver function abnormality On: 6-Hwu-624304:35 Request METABOLIC PANEL, COMPREHENSIVE (09182)Indication: Liver function abnormality On: 6-Wai-696515:35 Request LIPOPROTEIN, BLD, BY NMR (13029)Indication: Familial combined hyperlipidemia On: 4-Jut-683607:35 Request POTASSIUM SERUM (61583)Indication: Rheumatoid arthritis On: 93-Jht-753774:58 Request HEPATITIS C ANTIBODY (44236)Indication: Encounter for hepatitis C virus screening test for high risk patient On: 31-Oge-407307:11 Request MAGNESIUM (54525)Indication: Hypokalemia On: 40-Fuk-691923:07 Request Electrolyte Panel (80105)Indication: Hypokalemia On: 67-Cuv-287223:06 Request CBC W/AUTO DIFF WBC (72839)Indication: Edema On: :44 Request FERRITIN (88524)Indication: Liver function abnormality On: :44 Request IRON BINDING CAPACITY (TIBC) (32272)Indication: Liver function abnormality On: :44 Request IRON (94392)Indication: Liver function abnormality On: :44 Request Vitamin D Hydroxy (33518)Indication: Vitamin D intoxication On: :43 Request T3, FREE (TRIDOTHYRONINE) (94882)Indication: Hyperthyroidism On: :42 Request TSH (93120)Indication: Hyperthyroidism On: 28-Jat-136777:42 Request METABOLIC PANEL, COMPREHENSIVE (38213)Indication: Hypokalemia On: 82-Emu-134409:42 Request Potassium Serum (29307)Indication: Hypokalemia On: 1-Hug-463447:23 Request Magnesium (65723)Indication: Hypokalemia On: 2-Qgs-707000:23 Request HEPATITIS A ANTBDY-IGG/IGM (99126)Indication: Abnormal hepatitis serology On: 59-Yki-514279:50 Request ANTI-LIVER/KIDNEY MICROSOMAL ANTIBODY (15665)Indication: Liver function abnormality On: :27 Request ASM (ANTI SMOOTH MUSCLE ANTIBODY) (89831)Indication: Liver function abnormality On: :27 Request CERULOPLASMIN (86616)Indication: Liver function abnormality On: :27 Request TRANSFERRIN (09805)Indication: Liver function abnormality On: :27 Request ANTIMITOCHONDRIAL ANTIBODY (86389)Indication: Liver function abnormality On: 08-Ltg-257281:27 Request Ferritin (78415)Indication: elevated iron On: 03-Ndb-512419:17 Request Iron Binding Capacity (TIBC) (02691)Indication: elevated iron On: :17 Request Iron (78547)Indication: elevated iron On: 63-Obb-861670:17 Request PARATHORMONE (68711)Indication: Hypercalcemia On: 82-Ysd-093984:14 Request METABOLIC PANEL, COMPREHENSIVE (15979)Indication: Hypercalcemia On: 59-Frh-372807:13 Request Vitamin D Hydroxy (05447)Indication: Vitamin D intoxication On: 30-Rtx-297952:13 Request T3, FREE (TRIDOTHYRONINE) (00162)Indication: Hyperthyroidism On: :59 Request T4, FREE (THYROXINE) (28800)Indication: Hyperthyroidism On: :59 Request TSH (66950)Indication: Hyperthyroidism On: :59 Request Planned Encounters Medical; [facility] 3 Month FU - On: 01-May-2018 13:30 [facility] Kermit Cortez DO Planned Procedures MRI OF CERVICAL SPINE WITH AND On: 26-Jan-2018 Intent WITHOUT CONTRAST (54918)By: Kermit Cortez DO Radiology - Shoulder - RightBy: On: 24-Jan-2018 Intent Kermit Cortez DO Radiology - Cervical SpineBy: On: 24-Jan-2018 Intent Kermit Cortez DO SCREENING DIGITAL TOMOSYNTHESIS On: 30-Oct-2017 Intent OF BREAST (10478)By: Kermit Cortez DO DEXA SCAN AXIAL SKELETON On: 24-Jul-2017 Intent (10802)By: Kermit Cortez DO ELECTROCARDIOGRAM, COMPLETE (ECG) On: 24-Jul-2017 Intent (43769)By: Kermit Cortez DO Radiology - Toe(s) - [...] LUMBAR SPINE W/O CONTRAST On: 28-Feb-2017 Intent (98308)By: Kermit Cortez DO Comments: has had pt [...] temp - no cough nothing urinary sx ejffries but does have diarrhea and this usual [...] fusion- she wants to go back to [place] before she does surgery to see [...] a year ago by Dr Ben[facility]tez at [facility] and still has same sx- saw Dr Cristofer Goel at [facility] st- back specialist - has had [...] arthritis, Hearing loss [facility] Payers [facility] Maurice BURK; karen guarantor
--- OUTSIDE RECORDS SUMMARY | 2018-05-31 05:52 | XMS RPT_ITS | Continuity of Care Document ---
:1955 Author Organization [facility] Address [facility]7 [facility] 2 [place] [address] Phone Care Team Providers Name Role Phone [...] she wanst to keep working with her edger automatic Status: Active Hypokalemia (E87.6, 276.8) Status: Active [...] 30-Mar-2016 Active Comments:Medication taken as needed. Biotin 24638 MCG Oral Tablet qd (18669 MCG) Active Calcium Magnesium 750 300-300 MG Oral Tablet 1 (one) Tablet Tablet daily for 0 days Quantity: 30 {Tablet} Refills: 0 Ordered:28-Feb-2017 Marybeth RODRIGUEZ Susana Start : 30-Mar-2016 Active Clearite Shake 1 scoop bid Active Comments:supports detoxification Dymista 137-50 MCG/ACT Nasal Suspension 1 (one) [place] each nostril twice daily for 0 days Quantity: 3 {[place]} Refills: 3 Ordered:05-Feb-2018 Kermit Cortez DO Start : 05-Feb-2018 Active Comments:QS for 90 days Enzymix Pro 2 caps 3 times a day Active Comments:broad spectrum enzyme aids in digestion Furosemide 20 MG Oral Tablet 1 (one) Tablet qd for 90 days Quantity: 90 {Tablet} Refills: 3 Ordered:21-Feb-2018 Kermit Cortez DO Start : 21-Feb-2018 Active Kenalog 40 MG/ML Injection Suspension 1 [...] Kermit EVANS Start : 29-Jan-2018 Active Tumeric [place] 2 caps bid Active Ventolin HFA 108 [...] 5 Views Result: Comments: See Note; NOTES: [facility] Imaging Services [address] [place], [place] [address] [address] Cerv Spine 4 or 5 Views MR#: [id number] Acct: [id number] Name: MASON BURK Rep #: [id number] : 1955 F 62 From: Perico Stewart MD PCP: Kermit Cortez DO Status: REG CLI Study: Cerv Spine 4 or 5 Views Date of Exam: 01/24/18 Exam# [id number] Ordering Dr: Kermit Cortez DO STUDY: X-RAY [...] Service support , CC: Kermit Cortez DO Nursing Professor: Signed 24-Jan-2018 Shoulder min 2 Views Result: Comments: See Note; NOTES: [facility] Imaging Services [address] [place] [address] Shoulder min 2 Views MR#: [id number] Acct: [id number] Name: MASON BURK Rep #: [id number] : 1955 F 62 From: Perico Stewart MD PCP: Fast DO,Kermit Status: REG CLI Study: Shoulder min 2 Views Date of Exam: 01/24/18 Exam# [id number] Ordering Dr: Kermit Cortez DO STUDY: X-RAY [...] Service support , CC: Kermit Cortez DO Nursing Professor: Signed 21-Nov-2017 SCREENING MAMM (CAD), BILAT Result: Comments: See Note; NOTES: [facility] Imaging Services [address] [place] [address] SCREENING MAMM (CAD), BILAT MR#: [id number] Acct: [id number] Name: WMMASON Rep #: [id number] : 1955 F 62 From: Shreyas Garcia MD PCP: Kermit Cortez DO Status: REG CLI Study: SCREENING MAMM (CAD), BILAT Date of Exam: 11/21/17 Exam# [id number] Ordering Dr: Kermit Cortez DO PHILLY MOGRAPHY [...] delay biopsy of a clinically suspicious abnormality. [id number] Electronically Signed: Shreyas Garcia MD at 1 2:28 EDT Tel [phone], Service support , CC: Kermit Cortez DO Nursing Professor: Signed 10-Aug-2017 Dexa Bone Density Study Result: Comments: See Note; NOTES: [facility] Imaging Services [address] [place] [address] Dexa Bone Density Study MR#: [id number] Acct: [id number] Name: WMMASON Emily Rep #: [id number] : 1955 F 62 From: Shreyas Garcia MD PCP: Kerimt Cortez DO Status: REG CLI Study: Dexa Bone Density Study Date of Exam: 08/10/17 Exam# [id number] Ordering Dr: Kermit Cortez DO STUDY: DUAL [...] Shreyas Garcia MD at 14:58 EDT Tel [phone], Service support , CC: Kermit Cortez DO; ROME CHEUNGADMAN Nursing Professor: Signed 02-Aug-2017 Arterial Duplex US, Limited Result: Comments: See Note; NOTES: [facility] Cardiovascular Services [address] [place] [address] Art Duplex US Unilat Lower Ext 07/28/17 1320 MR#: [id number] Acct: [id number] Name: MASON BURK Rep #: [id number] : 1955 62 From: Garcia Dsouza MD Attending Dr: Garcia Dsouza MD Status: REG CLI Ordering Dr: Garcia Dsouza MD Date: 07/28/17 Location: [facility] Sex: F C Admitted: Reason For [...] Katlyn Berg RDCS, RVT 08/02/17 1108 Date Garcai Dsouza MD CC: Garcia Dsouza MD; Kermit Cortez DO Date Dictated: 07/28/17 1320 Date Transcribed: 08/02/17 110 Nursing Professor: Signed 02-Aug-2017 Lower Ext Arterial Study Result: Comments: See Note; NOTES: [facility] Cardiovascular Services [address] [place] [address] 08/02/17 0832 MR#: [id number] Acct: [id number] Name: MASON BURK Rep #: [id number] : 1955 62 From: Garcia Dsouza MD Attending Dr: Garcia Dsouza MD Status: REG CLI Ordering Dr: Date: 08/02/17 Location: [facility] Sex: F C Admitted: Arterial Study - Arterial Study Arterial St udy: Record number: [id number] next Date of scan 07/28/2017 next Interpreted [...] DO Date Dictated: 08/02/17831 Date Transcribed: 08/02/17831 Nursing Professor: MELITON Signed 19-Jun-2017 Toe(s) Min 2 Views Result: Comments: See Note; NOTES: [facility] Imaging Services [address] [place] [address] Toe(s) Min 2 Views MR#: [id number] Acct: [id number] Name: MASON BURK Rep #: [id number] : 1955 F 61 From: Shreyas Garcia MD PCP: Kermit Cortez DO Status: REG CLI Study: Toe(s) Min 2 Views Date of Exam: 06/19/17 Exam# [id number] Ordering Dr: Kermit Cortez DO STUDY: X-RAY [...] Shreyas Garcia MD at 14:12 EDT Tel [phone], Service support , CC: Kermit Cortez DO Nursing Professor: Signed 22-May-2017 PT D/C Summary (1) Result: Comments: See Note; NOTES: [facility] Physical Therapy [facility] [address] [place] [address]. [address] [place] [address] Fax REHABILITATION SERVICES DISCHAR GE SUMMARY MR#: [id number] Acct: [id number] Name: MASON BURK Rep #: [id number] [...] please feel free to call me at [phone]. Thank you for the referral of this patient. Sincerely, Melissa King <Electronically signed by Melissa King PT, Cert. MDT> 05/22/17 1607 CC: Kermit Cortez DO TOM Signed 19-Apr-2017 Inital Evaluation (1) - PT Result: Comments: See Note; NOTES: [facility] Physical Therapy [facility] [address] [place], [place] [address] Fax REHABILITATION SERVICES INITIAL EVALUATION MR#: [id number] Acct: [id number] Name: MASON BURK Rep #: [id number] : 1955 61 From: Melissa King PT, [...] THR JAN [address] BENÍTEZ AT [facility] IN [place] , LUMBAR HERMES'S X [address] [...] SHE IS HERE. HAS A DOCTOR IN [place] THAT SHE THINKS IS A FUNCTIONAL MEDICINE DOCTOR. THIS DOCTOR HAS PRESCRIBED EXERCISES AND SUPPLEMENTS AND DIET. 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 HE HELPED HER LE EDEMA IN 5 DAYS AFTER SUFFERING WITH IT FOR 3 YEARS. HER DAUGHTER LIVES IN [place] AND THIS IS HOW SHE FOUND HIM [...] to be FAXED BACK to us at [phone] for Medicare purposes. Please let me know if there are questions or concerns regarding this plan of care. Physician Signature: Date: <Electronically signed by Melissa King PT, Cert. MDT> 04/19/17 1448 CC: Kermit Cortez DO TOM Signed For Medicare only, by signing this I certify the plan of care. Physicians Signature Date 23-Mar-2017 Abdomen Complete Result: Comments: See Note; NOTES: [facility] Imaging Services [address] [place] [address] Abdomen Complete MR#: [id number] Acct: [id number] Name: MASON BURK Rep #: [id number] OB: 1955 F 61 From: Shreyas Garcia MD PCP: Kermit Cortez DO Status: REG CLI Study: Abdomen Complete Date of Exam: 03/23/17 Exam# [id number] Ordering Dr: Kermit Cortez DO STUDY: ABDOMINAL [...] Shreyas Garcia MD at 11:07 EST Tel [phone], Service support , CC : Kermit Cortez DO Nursing Professor: Signed 23-Mar-2017 Abdomen Complete Result: Comments: See Note; NOTES: [facility] Imaging Services [address] [place] [address] Abdomen Complete MR#: [id number] Acct: [id number] Name: MASON BURK Emily Rep #: [id number] D OB: 1955 F 61 From: Shreyas Garcia MD PCP: Kermit Cortez DO Status: REG CL Study: Abdomen Complete Date of Exam: 03/23/17 Exam# [id number] Ordering Dr: Kermit Cortez DO ADDENDUM by Shreyas vaughn MD on 03/29/17 at 1505 US/Abdomen Complete 03/29/17 1512 Date cc: Kermit Cortez DO * Signed ADDENDUM by Shreyas Garcia MD on 03/29/17 at 1505 ADDENDUM This is an addendum report. The liver measures within normal limits. Electronically Signed: Shreyas lyon MD at 15:05 EST Tel [phone], Service support , 03/29/17 1505 Date cc: [...] Shreyas Garcia MD at 11:07 EST Tel [phone], Service support , CC: Kermit Cortez DO Nursing Professor: Signed 20-Mar-2017 Spine Lumbar (Routine) Result: Comments: See Note; NOTES: [facility] Imaging Services [address] [place] [address] Spine Lumbar (Routine) MR#: [id number] Acct: [id number] Name: MASON BURK Rep #: [id number] : 1955 F 61 From: Carson Richardson MD PCP: Kermit Cortez DO Status: REG CLI Study: Spine Lumbar (Routine) Date of Exam: 03/20/17 Exam# [id number] Ordering Dr: Kermit Cortez DO STUDY: MRI [...] of the L5 nerve roots. Electronically Signed: Casron Richardson MD, FACR at 16:09 EST , Service support , F ax [phone] CC: Kermit Cortez DO Nursing Professor: Signed 28-Feb-2017 Thoracic Spine 3 Views Result: Comments: See Note; NOTES: [facility] Imaging Services [address] [facility] [place] [address] Thoracic Spine 3 Views MR#: [id number] Acct: [id number] Name: MASON BURK Rep #: [id number] : 1955 F 61 From: Perico Stewart MD PCP: Evie Winter MD Status: REG CLI Study: Thoracic Spine 3 Views Date of Exam: 02/28/17 Exam# [id number] Ordering Dr: Cherelle Perez MD STUDY: X-R [...] CC: Evie Winter MD; Cherelle Perez MD Nursing Professor: Signed Family History Unknown Family Member Name [...] Active Vital Signs Date Test Result Details 27-Gcp-388605:08 Temperature 97.3 f Comments: Method: Temporal Pulse [...] SPRCS (Normal) Comments: PATIENT WAS FASTINGPERFORMED BY: [employer] [facility] Jjohys3583 [facility] [place] [id number] Comments: We have received your request for additional testing or testverification. You will be notified if we are unable to processyour request. :59 Potassium 3.4 mmol/L Comments: PATIENT WAS FASTINGPERFORMED BY: [facility] Gdzbhx7404 [facility] [place] [id number] (Abnormal) Range: 3.5-5.2 Comments: Client Requested Flag :59 Written Authorization WAR (Normal) Comments: PATIENT WAS FASTINGPERFORMED BY: [employer] Njengn3487 [facility] [id number] Comments: Written Authorization Received.Authorization received from WRITTEN REQUEST [id number] by Loan Greene 01-Eiw-880950:03 MICROALBUMIN: CREATININE RATIO Comments: PATIENT WAS FASTINGPERFORMED BY: [facility] Rmxtyg8027 [facility] [id number] (45834) AND (02563) Alb/Creat Ratio <23.4 {mg/g_creat} (Normal) Range: 0.0-30.0 Comments: Normal: 0.0 - 30.0 Albuminuria: 31.0 - 300.0 Clinical albuminuria: >300.0 Albumin, Urine <3.0 ug/mL (Normal) Creatinine, Urine 12.8 mg/dL (Normal) 13-Jeo-824947:03 HGB A1C (94493) Comments: PATIENT WAS FASTINGPERFORMED BY: [facility] Ggrdlf9605 [facility] [id number] Hemoglobin A1c 5.5 % (Normal) Range: 4.8-5.6 Comments: . Prediabetes: 5.7 - 6.4 Diabetes: >6.4 Glycemic control for adults with diabetes: <7.0 70-Oav-299419:00 Crystals, Body Fluid Comments: [facility] [address] [place], [place], [address] PATH REV Reviewed (Normal) Comments: No diagnostic crystals identified.Trevon Fuchs D.O. 01/11/18 AMENDED REPORT 01/11/18 1417 PATH REV previously reported as: Will follow SOURCE/BF SYNOVIAL (Normal) CRYSTALS/BF SEE PATH REV (Normal) 77-Wtr-402034:00 Culture, Body Fluid Comments: [facility] [address] [place], [place], [address] CUBF See Note (Normal) Comments: List Antibiotics Last 48 Hours? NList Antibiotics to be Started? NGram StainGram Stain No organisms seen 1+ Red Blood Cells 1+ Red Cell Stroma Body Fluid CultNO GROWTH IN 14 DAYS Cult, AnaerobicNo growth in 5 days. 1-Xcx-592572:05 CBC W/Diff, Automated Comments: [facility] [address] [place], [place], [address] Absolute Lymph 1.09 {X10_3/ul} (Normal) Range: 0.83-4.51 [...] 4.2-5.4 WBC 7.9 K/mm3 (Normal) Range: 4.4-11.0 2-Cxb-052541:05 Comprehensive Metabolic Profil Comments: [facility] [address] [place], [address] GAP 10 (Normal) Range: 5-15 CO2 33.0 [...] A.D.A. criteria.Please note revised GLUCOSE reference range quutpzaxl82/02/2018. Magnesium 2.2 mg/dL (Normal) Comments: PATIENT NOT FASTINGPERFORMED BY: [facility] Qqpyjc5620 [facility] [id number] 5:38 Range: 1.6-2.3 Written Authorization WAR (Normal) Comments: PATIENT NOT FASTINGPERFORMED BY: [facility]Co[facility] VinelandHqfcmb7173 [facility] [id number] 5:38 Comments: Written Authorization Received.Authorization received from KATINA DANIEL [id number] by Tiffany Shah 70-Rjx-847098:38 POTASSIUM SERUM (27825) Comments: PATIENT NOT FASTINGPERFORMED BY: [facility]6370 [facility] [id number] Potassium 3.3 mmol/L (Abnormal) Range: 3.5-5.2 Comments: Client Requested Flag 27-Wyr-382575:26 Comp. Metabolic Panel (14) Comments: PATIENT NOT FASTINGPERFORMED BY: [facility]6370 [facility] [id number] ALT (SGPT) 70 [iU]/L (Abnormal) Range: 0-32 [...] 8-27 Glucose 77 mg/dL (Normal) Range: 65-99 92-Mjs-647891:13 METABOLIC PANEL, COMPREHENSIVE Comments: PATIENT NOT FASTINGPERFORMED BY: [facility] VinelandYhhbei2280 [facility] [id number] (03756) ALT (SGPT) 69 [iU]/L (Abnormal) Range: 0-32 [...] 8-27 Glucose 113 mg/dL (Abnormal) Range: 65-99 9-Jwe-792687:05 CBC W/Diff, Automated Comments: [facility] [address] [place], [address] Absolute Lymph 0.69 {X10_3/ul} (Abnormal) [...] Range: 4.4-11.0 :05 Comprehensive Metabolic Profil Comments: [facility] [address] [place], [place], [address] GAP 8 (Normal) Range: 5-15 CO2 36.0 [...] Comments: Please note revised GLUCOSE reference range jxqskdroc58/02/2018. 93-Kwq-996505:14 Thyroxine (T4) Free, Direct, Comments: PATIENT NOT FASTINGPERFORMED BY: [employer] Tndxbu2787 [facility] [id number] S T4,Free(Direct) 1.99 ng/dL Range: 0.82-1.77 (Abnormal) 21-Aug-2017 Triiodothyronine,Free,Ser 3.1 pg/mL (Normal) Comments: PATIENT NOT FASTINGPERFORMED BY: [employer] Vdxrzy5046 [facility] [id number] 13:14 um Range: 2.0-4.4 21-Aug-2017 Written Authorization WAR (Normal) Comments: PATIENT NOT FASTINGPERFORMED BY: [employer] Lrcvhc6993 [facility] [id number] 13:14 Comments: Written Authorization Received.Authorization received from KERMIT CORTEZ [id number] by Aniya Denton 44-Jwf-833320:14 CMV IGM ANTBDY (85362) Comments: PATIENT NOT FASTINGPERFORMED BY: [employer] Yawkel3346 [facility]Pass[facility] [id number] Cytomegalovirus (CMV) Ab, IgM <30.0 AU/mL (Normal) Range: 0.0-29.9 Comments: Negative <30.0 Equivocal 30.0 - 34.9 Positive >34.9 A positive result is generally indicative of acute infection, reactivation or persistent IgM production. 90-Ghp-864741:14 EBV Panel (44797) Comments: PATIENT NOT FASTINGPERFORMED BY: [employer] Hkhinw2753 [facility]inStootieRuther[facility] [id number] Interpretation: SPRCS (Normal) Comments: EBV Interpretation Chart [...] <36.0 Equivocal 36.0 - 43.9 Positive >43.9 50-Kdt-296230:14 VITAMIN B-12 (CYANOCOBALAMIN) Comments: PATIENT NOT FASTINGPERFORMED BY: [employer] Burmki9669 [facility] [id number] (67647) Vitamin B12 >2000 pg/mL (Abnormal) Range: 232-1245 77-Mrq-047645:14 TSH (82234) Comments: PATIENT NOT FASTINGPERFORMED BY: [facility]6370 [facility] [id number] TSH 0.072 {uIU/mL} (Abnormal) Range: 0.450-4.500 65-Mte-879200:14 CBC W/AUTO DIFF WBC (76220) Comments: PATIENT NOT FASTINGPERFORMED BY: [facility]6370 [facility] [id number] Immature Grans (Abs) 0.0 {x10E3/uL} (Normal) Range: [...] 3.77-5.28 WBC 6.9 {x10E3/uL} (Normal) Range: 3.4-10.8 49-Csl-515480:14 METABOLIC PANEL, COMPREHENSIVE Comments: PATIENT NOT FASTINGPERFORMED BY: [facility] GroupInsp[facility] VinelandIngsrz7614 [facility] [id number] (20141) ALT (SGPT) 53 [iU]/L (Abnormal) Range: 0-32 [...] 8-27 Glucose 81 mg/dL (Normal) Range: 65-99 34-Cuo-991606:39 Microscopic Examination Comments: PATIENT NOT FASTINGPERFORMED BY: [facility] GroupInsp[facility] VinelandEakwnv9692 [facility] [id number] Bacteria Few (Normal) Mucus Threads Present (Normal) Crystal Type Amorphous Sediment (Normal) Crystals Present (Abnormal) Epithelial Cells (non renal) 0-10 {/hpf} (Normal) Range: 0 - 10 RBC 0-2 {/hpf} (Normal) Range: 0 - 2 WBC 6-10 {/hpf} (Abnormal) Range: 0 - 5 76-Pds-684921:39 URINE SANDIE CULTURE-IDENTIFICATN Comments: PATIENT NOT FASTINGPERFORMED BY: [facility]Former[facility]6370 [facility] [id number] (50176) Result 1 MUG (Normal) Comments: Mixed urogenital flora10,000-25,000 colony forming units per mL Urine Final report (Normal) Culture,Comprehensive 70-Rgl-684794:39 URINALYSIS (95744) Comments: PATIENT NOT FASTINGPERFORMED BY: [facility]isFormer[facility]6370 [facility] [id number] Microscopic Examination See below: (Normal) Comments: Microscopic was indicated and was performed. Nitrite, Urine Negative (Normal) Urobilinogen,Semi-Qn 0.2 mg/dL (Normal) Range: 0.2-1.0 Bilirubin Negative (Normal) Occult Blood Negative (Normal) Ketones Negative (Normal) Glucose Negative (Normal) Protein Negative (Normal) WBC Esterase 1+ (Abnormal) Appearance Clear (Normal) Urine-Color Yellow (Normal) pH 7.5 (Normal) Range: 5.0-7.5 Specific [place] 1.016 (Normal) Range: 1.005-1.030 60-Mel-383675:39 METABOLIC PANEL, COMPREHENSIVE Comments: PATIENT NOT FASTINGPERFORMED BY: [facility]isFormer[facility]6370 [facility] [id number] (12656) ALT (SGPT) 50 [iU]/L (Abnormal) Range: 0-32 [...] 8-27 Glucose 84 mg/dL (Normal) Range: 65-99 94-Oin-706132:39 CBC, PLATELETS & MANUAL Comments: PATIENT NOT FASTINGPERFORMED BY: RUT [facility] Jkrohp8371 [facility] [id number] Information: SRC:ANAMARIA DIFF (42216) Immature Grans (Abs) 0.0 {x10E3/uL} (Normal) Range: [...] 3.77-5.28 WBC 8.1 {x10E3/uL} (Normal) Range: 3.4-10.8 4-Bxf-476456:42 CBC W/Diff, Automated Comments: [facility] [address] [place], [place], [address] Absolute Lymph 1.04 {X10_3/ul} (Normal) Range: 0.83-4.51 [...] 4.2-5.4 WBC 6.4 K/mm3 (Normal) Range: 4.4-11.0 1-Yai-720776:42 Comprehensive Metabolic Profil Comments: [facility] [address] [place], [place], [address] GAP 6 (Normal) Range: 5-15 CO2 36.0 [...] Comments: Please note revised GLUCOSE reference range hgammecge69/02/2018. 63-Kdq-678561:05 Liver Profile Comments: [facility] [address] [place], [place], [address] D BILI 0.12 mg/dL (Normal) Range: 0.00-0.30 T BILI 0.40 mg/dL (Normal) Range: 0.20-1.00 ALT 66 U/L (Abnormal) Range: 13-56 Comments: Please note revised ALT reference range xbziqgtqg77/28/2018. ALK P 79 U/L (Normal) Range: 45-117 AST 49 U/L (Abnormal) Range: 15-37 GLOB 3.4 g/dL (Normal) Range: 2.2-4.2 ALB 3.5 g/dL (Normal) Range: 3.2-5.0 T PROT 6.9 g/dL (Normal) Range: 6.4-8.2 67-Nzj-328239:59 LIPID PANEL (55123) Comments: PATIENT WAS FASTINGPERFORMED BY: [facility] Cuuqzr3528 [facility] [id number]; fu 11-19 DF LDL/HDL Ratio 1.1 {ratio} [...] Cholesterol, Total 310 mg/dL (Abnormal) Range: 100-199 45-Zfj-694421:15 Anti-Mitochondrial AB Comments: [place] ORDERED: CMP, CBCDFAST [...] gaudencio quintin biliary cirrhosis.Performed at: - [facility] [address] [id number] Director: Wili Wanger PhD, Phone: [phone] 26-Oue-578550:15 Anti-Smooth Muscle ABS Comments: [place] ORDERED: CMP, CBCDFAST ORDERED: TSH, VITD, CMP, FE, AMA,HEP A, T4F, T3F,PTHIN, FE, TIBC, CERU, AMS, MISCComments: [id number];LKM;SERUM;[facility]ENLabCorp (refer to report for specific site)refer to report for address and phone number ANTISMOOTH 1257 2 {Units} (Normal) Range: 0-19 Comments: Negative 0 - 19 Weak positive 20 - 30 Moderate to strong positive >30 Actin Antibodies are found in 52-85% of patients with autoi mmune hepatitis or chronic active hepatitis and in 22% of patients with primary biliary cirrhosis. 90-Ovd-240390:15 CBC W/Diff, Automated Comments: [place] ORDERED: CMP, CBCDFAST ORDERED: TSH, VITD, CMP, FE, AMA,HEP A, T4F, T3F,PTHIN, FE, TIBC, CERU, AMS, MISCTogus [facility] [address]ws[address] [place], [place], [address] Absolute Lymph 1.01 {X10_3/ul} (Normal) Range: 0.83-4.51 [...] 4.2-5.4 WBC 4.2 K/mm3 (Abnormal) Range: 4.4-11.0 04-Pjc-683560:15 Ceruloplasmin Comments: [place] ORDERED: CMP, CBCDFAST ORDERED: TSH, VITD, CMP, FE, AMA,HEP A, T4F, T3F,PTHIN, FE, TIBC, CERU, AMS, MISCComments: [id number];LKM;SERUM;[facility]ZENLabCorp (refer to report for specific site)refer to report for address and phone number CERULOPLAS 1560 23.8 mg/dL (Normal) Range: 19.0-39.0 10-Nzg-358451:15 Comprehensive Metabolic Comments: [place] ORDERED: CMP, CBCDFAST ORDERED: TSH, VITD, CMP, FE, AMA,HEP A, T4F, T3F,PTHIN, FE, TIBC, CERU, AMS, MISCLIPID ADDED PER ; FAXED ORDER TO FOLLOWComments: [id number];LKM;SERUM;[facility]ENW[facility] Cxexohrifj5395 [place], [place], [address] GAP 5 (Normal) Range: 5-15 CO2 32.0 mmol/L (Normal) Range: 21.0-32.0 CL 101 mmol/L (Normal) Range: 98-107 K 3.3 mmol/L (Abnormal) Range: 3.5-5.1 NA 138 mmol/L (Normal) Range: 136-145 T BILI 0.40 mg/dL (Normal) Range: 0.20-1.00 ALT 69 U/L (Abnormal) Range: 13-56 Comments: Please note revised ALT reference range dzbbkcmdi04/28/2018. ALK P 72 U/L (Normal) Range: 45-117 [...] Comments: Please note revised GLUCOSE reference range idbnrpqtd35/02/2018. 09-Yjs-818337:15 Ferritin Comments: [place] ORDERED: CMP, CBCDFAST ORDERED: TSH, VITD, CMP, FE, AMA,HEP A, T4F, T3F,PTHIN, FE, TIBC, CERU, AMS, MISCLIPID ADDED PER ; FAXED ORDER TO FOLLOWComments: [id number];LKM;SERUM;[facility] [address] [place], [place], [address] FERRITIN 12 ng/mL (Normal) Range: 8-252 08-Awl-043961:15 Free T3 Comments: [place] ORDERED: CMP, CBCDFAST ORDERED: TSH, VITD, CMP, FE, AMA,HEP A, T4F, T3F,PTHIN, FE, TIBC, CERU, AMS, MISCLIPID ADDED PER ; FAXED ORDER TO FOLLOWComments: [id number];LKM;SERUM;[facility] [address] [place], [address] FREE T3 2.8 pg/mL (Normal) Range: 2.18-3.98 79-Aqq-295310:15 Hepatitis A AB, Total Comments: [place] ORDERED: CMP, CBCDFAST ORDERED: TSH, VITD, CMP, FE, AMA,HEP A, T4F, T3F,PTHIN, FE, TIBC, CERU, AMS, MISCComments: [id number];LKM;SERUM;[facility] (refer to report for specific site)refer to report for address and phone number HEP A AB,T.6726 Positive (Abnormal) 19-Zif-743592:15 Hepatitis A IgM Comments: [place] ORDERED: CMP, CBCDFAST ORDERED: TSH, VITD, CMP, FE, AMA,HEP A, T4F, T3F,PTHIN, FE, TIBC, CERU, AMS, MISCComments: [id number];LKM;SERUM;[facility]ENLab[facility] (refer to report for specific site)refer to report for address and phone number Antibody HEP A IgM 6734 Negative (Normal) Comments: Performed at: - [facility] [id number] Director: Wili Wagner PhD, Phone: [phone] [id number] Iron Comments: [place] ORDERED: CMP, CBCDFAST ORDERED: TSH, VITD, CMP, FE, AMA,HEP A, T4F, T3F,PTHIN, FE, TIBC, CERU, AMS, MISCLIPID ADDED PER ; FAXED ORDER TO FOLLOWComments: [id number];LKM;SERUM;[facility] [id number] [place], [address] IRON 53 ug/dL (Normal) Range: 50-170 [id number] Iron Binding Comments: [place] ORDERED: CMP, CBCDFAST ORDERED: TSH, VITD, CMP, FE, AMA,HEP A, T4F, T3F,PTHIN, FE, TIBC, CERU, AMS, MISCLIPID ADDED PER ; FAXED ORDER TO FOLLOWComments: [id number];LKM;SERUM;[facility] [address] [place], [address] TIBC 452 ug/dL (Abnormal) Range: 250-450 56-Red-691277:15 Lipid Profile Comments: [place] ORDERED: CMP, CBCDFAST ORDERED: TSH, VITD, CMP, FE, AMA,HEP A, T4F, T3F,PTHIN, FE, TIBC, CERU, AMS, MISCLIPID ADDED PER ; FAXED ORDER TO FOLLOWComments: [id number];LKM;SERUM;[facility] Hrpzgbapmr[address] [facility] [place], [address] VLDL 16 mg/dL (Normal) Range: [...] 200-240 mg/dL Borderline >240 mg/dL High Risk 48-Hoj-444607:15 Miscellaneous Lab Comments: [place] ORDERED: CMP, CBCDFAST ORDERED: TSH, VITD, CMP, FE, AMA,HEP A, T4F, T3F,PTHIN, FE, TIBC, CERU, AMS, MISCComments: [id number];LKM;SERUM;FROZENTest(s) Ordered: [id number];LKM;SERUM;[facility] [address]be[address] [place], [address] MISC Comments: TEST RESULT LIMITSLiver-Kidney [...] A, T4F, T3F,PTHIN, FE, TIBC, CERU, AMS, [facility] [address] [facility]. [place], [place], [phone](619) 0 pg/mL Range: 18.4-80.1 - (Normal) Comments: Please Note: PTH INTACT METHOD AND REFERENCE RANGE CHANGEEffective 03/01/2017. F e b - 2 0 1 8 1 0 : 1 5 61-Dtc-115422:15 T4 Free Direct Comments: [place] ORDERED: CMP, CBCDFAST ORDERED: TSH, VITD, CMP, FE, AMA,HEP A, T4F, T3F,PTHIN, FE, TIBC, CERU, AMS, MISCLIPID ADDED PER ; FAXED ORDER TO FOLLOWComments: [id number];LKM;SERUM;[facility] [address] [place], [place], [id number] T4 FREE DIRECT 0.98 ng/dL (Normal) Range: 0.76-1.46 74-Oxq-926285:15 Thyroid Stim Hormone Comments: [place] ORDERED: CMP, CBCDFAST ORDERED: TSH, VITD, CMP, FE, AMA,HEP A, T4F, T3F,PTHIN, FE, TIBC, CERU, AMS, MISCLIPID ADDED PER ; FAXED ORDER TO FOLLOWComments: [id number];LKM;SERUM;[place] (TSH) [facility] [place] [place] [address] [place], [place], [address] TSH 0.98 {uIU/mL} (Normal) Range: 0.358-3.74 03-Tca-588085:15 Transferrin Comments: [place] ORDERED: CMP, CBCDFAST ORDERED: TSH, VITD, CMP, FE, AMA,HEP A, T4F, T3F,PTHIN, FE, TIBC, CERU, AMS, MISCComments: [id number];LKM;SERUM;[facility] (refer to report for specific site)refer to report for address and phone number TRANSFERRN 493 365 mg/dL (Normal) Range: 200-370 87-Bzr-045619:15 Vitamin D,25 Hydroxy Comments: [place] ORDERED: CMP, CBCDFAST ORDERED: TSH, VITD, CMP, FE, AMA,HEP A, T4F, T3F,PTHIN, FE, TIBC, CERU, AMS, [facility] [address] [place], [id number] Vitamin D 25-OH 57.7 ng/mL (Normal) Range: 19.95-100.01 Comments: Vitamin D 25(OH) Status Range Deficiency <20 ng/mL (50nmol/L) Insuffciency 20 - 30 ng/mL (50 - 75 nmol/L) Sufficiency 30 - 100 ng/mL (75 - 250 nmol/L) Toxicity >100 ng/mL (>250 nmol/L) 60-Dsm-345958:50 Anti-Mitochondrial AB Comments: [facility] (refer to report for specific site)refer to report for address and phone number MITOCHN AB <20.0 {Units} (Normal) Range: 0.0-20.0 Comments: Negative 0.0 - 20.0 Equivocal 20.1 - 24.9 Positive >24.9Mitochondrial (M2) Antibodies are found in 90-96% ofpatients with gaudencio quintin biliary cirrhosis.Performed at: - [facility] [address] [id number] Director: Wili Wagner PhD, Phone: [phone] 5-Tvr-064760:10 Magnesium Comments: [facility] [address] [place], [place], [phone](626) MG 2.3 mg/dL (Normal) Range: 1.8-2.4 6-Wgy-203421:10 Potassium Comments: [facility] [address] [place], [place], [phone](976) K 3.5 mmol/L (Normal) Range: 3.5-5.1 0-Woo-080728:59 Anti-Smooth Muscle ABS Comments: Comments: [id number] [facility] SERUM [facility]FL[facility] (refer to report for specific [...] 22% of patients with primary biliary cirrhosis. 2-Nrs-131249:59 Ceruloplasmin Comments: Comments: [id number] [facility] (refer to report for specific site)refer to report for address and phone number CERULOPLAS 1560 27.0 mg/dL (Normal) Range: 19.0-39.0 2-Tcp-394967:59 Comprehensive Metabolic Profil Comments: Comments: [id number] [facility] SERUM REFWUniversity [facility]als [facility] [address] [place], [place], [address] GAP 8 (Normal) Range: 5-15 CO2 31.0 [...] 7-18 GLU 100 mg/dL (Normal) Range: 70-110 9-Ttk-095239:59 Ferritin Comments: Comments: [id number] [facility] SERUM [facility] [address] [place], [place], [id number] FERRITIN 14 ng/mL (Normal) Range: 8-252 8-Ire-555853:59 Free T3 Comments: Comments: [id number] [facility] SERUM [facility] [address] [place], [place], [phone] FREE T3 4.0 pg/mL (Abnormal) Range: 2.18-3.98 7-Jpm-262041:59 Hepatitis A AB, Total Comments: Comments: [id number] [facility] SERUM [facility] (refer to report for specific site)refer to report for address and phone number HEP A AB,T.6726 Positive (Abnormal) 8-Blk-238491:59 Hepatitis A IgM Antibody Comments: Comments: [id number] [facility] SERUM [facility] (refer to report for specific site)refer to report for address and phone number HEP A IgM 6734 Negative (Normal) Comments: Performed at: [address] [id number] Director: Wili Wagner PhD, Phone: [phone] 3-Vys-934384:59 Iron Comments: Comments: [id number] [facility] SERUM [facility] [address] [place], [address] IRON 98 ug/dL (Normal) Range: 50-170 6-Yip-337354:59 Iron Binding Capacity,Total Comments: Comments: [id number] [facility] SERUM [facility] [address] [place], [address] TIBC 455 ug/dL (Abnormal) Range: 250-450 4-Qyp-439827:59 Miscellaneous Lab Procedure Comments: Comments: [id number] [facility] SERUM REFTest(s) Ordered: [id number] [facility] SERUM [facility] [address], [address] [facility] Comments: TEST RESULT LIMITSLiver-Kidney Microsomal Ab <1.0 Units 0.0 - 20.0 Negative 0.0 - 20.0 LAB (Normal) Equivocal 20.1 - 24.9 Positive >24.9 LKM type 1 antibodies are detected in patients with autoimmune hepatitis type 2 and in up to 8% of patients TEST with chronic HCV infection. TESTING PERFORMED AT [facility]. ORIGINAL REPORT ON FILE IN LAB CONTAINS ADDITIONAL TEST SITE INFORMATION. 2 PTHIN 32.3 Comments: [facility] [address] [place], [address] ; will review on 1.17 - pg/mL Range: 18.4-80.1 J (Normal) Comments: Please Note: PTH INTACT METHOD AND REFERENCE RANGE CHANGEEffective 03/01/2017. a n - 2 0 1 8 1 1 : 5 9 9-Tyz-161660:59 T4 Free Direct Comments: Comments: [id number] [facility] SERUM [facility] [address] [place], [id number] T4 FREE DIRECT 1.06 ng/dL (Normal) Range: 0.76-1.46 3-Gqg-517026:59 Thyroid Stim Hormone (TSH) Comments: Comments: [id number] [facility] SERUM [facility] [address] [place], [place], [id number] TSH 0.89 {uIU/mL} (Normal) Range: 0.358-3.74 4-Zdh-646584:59 Transferrin Comments: Comments: [id number] [facility] SER[facility] (refer to report for specific site)refer to report for address and phone number TRANSFERRN 4939 365 mg/dL (Normal) Range: 200-370 7-Fzq-897561:59 Vitamin D,25 Hydroxy Comments: [facility] [address] [place], [place], [address] Vitamin D 25-OH 115.2 ng/mL (Normal) Comments: [...] is nointerference with Vitamin D test results. 86-Gll-19326:06 Pathology Report Comments: PERFORMED BY: [facility] [place] [address]to Dnzpb71923 [facility] [id number] Information: [id number] See MATER Comments: Material submitted: .SHAVE CHEST [...] IS IN A SINGLE CASSETTE.COR/TMZPathologist provided ICD-10:D04.5CPT .317871 Plan of Care Name Dates Details Instructions [...] to 24 Planned Observations Vitamin D Hydroxy (19489)Indication: Vitamin D intoxication On: 5-Xka-279817:44 Request METABOLIC PANEL, COMPREHENSIVE (81000)Indication: Elevated glycated hemoglobin On: 2-Ipj-819638:43 Request Potassium Serum (85034)Indication: Hypokalemia On: 40-Ypw-275779:43 Request LIPOPROTEIN, BLD, BY NMR (63330)Indication: Familial combined hyperlipidemia On: 9-Ovt-965005:43 Request METABOLIC PANEL, COMPREHENSIVE (15225)Indication: Hypokalemia On: 61-Ebm-467575:38 Request Metabolic Panel, Basic (92184)Indication: Edema On: 08-Mew-695945:36 Request MICROALBUMIN: CREATININE RATIO (85466) AND (68020)Indication: Elevated glycated hemoglobin On: 4-Dmp-875946:48 Request HGB A1C (77761)Indication: Elevated glycated hemoglobin On: 5-Bun-515075:47 Request CBC W/AUTO DIFF WBC (26860)Indication: Liver function abnormality On: 6-Tnv-738306:35 Request METABOLIC PANEL, COMPREHENSIVE (08280)Indication: Liver function abnormality On: 3-Gcp-358690:35 Request LIPOPROTEIN, BLD, BY NMR (84836)Indication: Familial combined hyperlipidemia On: 1-Eot-886428:35 Request POTASSIUM SERUM (10143)Indication: Rheumatoid arthritis On: 76-Zrw-074104:58 Request HEPATITIS C ANTIBODY (34684)Indication: Encounter for hepatitis C virus screening test for high risk patient On: 08-Kvk-071002:11 Request MAGNESIUM (40475)Indication: Hypokalemia On: 28-Xtp-435619:07 Request Electrolyte Panel (69841)Indication: Hypokalemia On: 14-Pmt-365786:06 Request CBC W/AUTO DIFF WBC (18532)Indication: Edema On: :44 Request FERRITIN (74018)Indication: Liver function abnormality On: :44 Request IRON BINDING CAPACITY (TIBC) (10467)Indication: Liver function abnormality On: :44 Request IRON (87707)Indication: Liver function abnormality On: :44 Request Vitamin D Hydroxy (91784)Indication: Vitamin D intoxication On: :43 Request T3, FREE (TRIDOTHYRONINE) (39145)Indication: Hyperthyroidism On: :42 Request TSH (10551)Indication: Hyperthyroidism On: 84-Wbs-161707:42 Request METABOLIC PANEL, COMPREHENSIVE (60169)Indication: Hypokalemia On: 34-Gsn-130612:42 Request Potassium Serum (26195)Indication: Hypokalemia On: 2-Upb-283875:23 Request Magnesium (90715)Indication: Hypokalemia On: 6-Pcr-530728:23 Request HEPATITIS A ANTBDY-IGG/IGM (92681)Indication: Abnormal hepatitis serology On: 16-Txf-426535:50 Request ANTI-LIVER/KIDNEY MICROSOMAL ANTIBODY (31257)Indication: Liver function abnormality On: :27 Request ASM (ANTI SMOOTH MUSCLE ANTIBODY) (99688)Indication: Liver function abnormality On: :27 Request CERULOPLASMIN (43865)Indication: Liver function abnormality On: :27 Request TRANSFERRIN (40556)Indication: Liver function abnormality On: :27 Request ANTIMITOCHONDRIAL ANTIBODY (09376)Indication: Liver function abnormality On: 90-Hcl-669891:27 Request Ferritin (86433)Indication: elevated iron On: 46-Pet-075856:17 Request Iron Binding Capacity (TIBC) (61004)Indication: elevated iron On: :17 Request Iron (98605)Indication: elevated iron On: 13-Orv-308076:17 Request PARATHORMONE (76641)Indication: Hypercalcemia On: 92-Lsu-724212:14 Request METABOLIC PANEL, COMPREHENSIVE (95602)Indication: Hypercalcemia On: 49-Xjg-951792:13 Request Vitamin D Hydroxy (39809)Indication: Vitamin D intoxication On: 78-Bbm-090829:13 Request T3, FREE (TRIDOTHYRONINE) (91528)Indication: Hyperthyroidism On: :59 Request T4, FREE (THYROXINE) (87326)Indication: Hyperthyroidism On: :59 Request TSH (08308)Indication: Hyperthyroidism On: :59 Request Planned Encounters Medical; [facility] 3 Month FU - On: 01-May-2018 13:30 [facility] Kermit Cortez DO Planned Procedures MRI OF CERVICAL SPINE WITH AND On: 26-Jan-2018 Intent WITHOUT CONTRAST (56712)By: Kermit Cortez DO Radiology - Shoulder - RightBy: On: 24-Jan-2018 Intent Kermit Cortez DO Radiology - Cervical SpineBy: On: 24-Jan-2018 Intent Kermit Cortez DO SCREENING DIGITAL TOMOSYNTHESIS On: 30-Oct-2017 Intent OF BREAST (27061)By: Kermit Cortez DO DEXA SCAN AXIAL SKELETON On: 24-Jul-2017 Intent (69690)By: Kermit Cortez DO ELECTROCARDIOGRAM, COMPLETE (ECG) On: 24-Jul-2017 Intent (93903)By: Kermit Cortez DO Radiology - Toe(s) - [...] LUMBAR SPINE W/O CONTRAST On: 28-Feb-2017 Intent (64868)By: Kermit Cortez DO Comments: has had pt [...] fusion- she wants to go back to [place] first before she does surgery to see [...] a year ago by Dr Ben[facility]tez at [facility] and still has same sx- saw Dr Cristofer Goel at [facility] st- back specialist - has had [...] arthritis, Hearing loss [facility] Payers [facility] Maurice BURK; karen guarantor
--- OUTSIDE RECORDS SUMMARY | 2018-05-31 05:52 | XMS RPT_ITS | Continuity of Care Document ---
:1955 Author Organization [facility] Address [facility] [facility] [address] [place] [address] Phone Care Team Providers Name Role Phone Quintin Rueda CNP Unavailable Kermit Cortez DO Unavailable Dr. Brian Shepherd MD Unavailable Dr. Dev Self DO Unavailable Dr. Cam Kaufman Unavailable MD Alex, Rik Newlel Unavailable Coral CORTES, Higinio Kiser Unavailable Dr. [...] she wanst to keep working with her direct care specialist Status: Active Hypokalemia (E87.6, 276.8) Status: Active [...] 30-Mar-2016 Active Comments:Medication taken as needed. Biotin 59632 MCG Oral Tablet qd (95607 MCG) Active Calcium Magnesium 750 300-300 MG Oral Tablet 1 (one) Tablet Tablet daily for 0 days Quantity: 30 {Tablet} Refills: 0 Ordered:28-Feb-2017 Marybeth RODRIGUEZ Susana Start : 30-Mar-2016 Active Clearite Shake 1 scoop bid Active Comments:supports detoxification Dymista 137-50 MCG/ACT Nasal Suspension 1 (one) Bellflower each nostril twice daily for 0 days Quantity: 3 {Bellflower} Refills: 3 Ordered:05-Feb-2018 Kermit Cortez DO Start [...] Quantity: 1 {Bottle} Refills: 0 Ordered:28-Feb-2017 Quintin Rudea CNP Start : 30-Mar-2016 Active Resvero 1 [...] Kermit EVANS Start : 29-Jan-2018 Active Tumeric Mckinnon 2 caps bid Active Ventolin HFA 108 [...] Quantity: 30 {Tablet} Refills: 0 Ordered:21-Nov-2017 Katina aMthur Start : 31-Oct-2017 End : 21-Nov-2017 Inactive [...] Result: Comments: See Note; NOTES: [facility] [address] [place], [place] [address] [address] Cerv Spine 4 or 5 Views MR#: [id number] Acct: [id number] Name: MASON BURK Rep #: [id number] : 1955 F 62 From: Perico Stewart MD PCP: Kermit Cortez DO Status: REG CLI Study: Cerv Spine 4 or 5 Views Date of Exam: 01/24/18 Exam# [id number] Ordering Dr: Kermit Cortez DO STUDY: X-RAY [...] Service support , CC: Kermit Cortez DO Network Manager: Signed 24-Jan-2018 Shoulder min 2 Views Result: Comments: See Note; NOTES: [facility] [address] [place] [address] Shoulder min 2 Views MR#: [id number] Acct: [id number] Name: MASON BURK Rep #: [id number] : 1955 F 62 From: Perico Stewart MD PCP: Fast DO,Kermit Status: REG CLI Study: Shoulder min 2 Views Date of Exam: 01/24/18 Exam# [id number] Ordering Dr: Kermit Cortez DO STUDY: X-RAY [...] Service support , CC: Kermit Cortez DO Network Manager: Signed 21-Nov-2017 SCREENING MAMM (CAD), BILAT Result: Comments: See Note; NOTES: [facility] [address] [place] [address] SCREENING MAMM (CAD), BILAT MR#: [id number] Acct: [id number] Name: WMMASON Rep #: [id number] : 1955 F 62 From: Shreyas Garcia MD PCP: Kermit Cortez DO Status: REG CLI Study: SCREENING MAMM (CAD), BILAT Date of Exam: 11/21/17 Exam# [id number] Ordering Dr: Kermit Cortez DO PHILLY MOGRAPHY [...] delay biopsy of a clinically suspicious abnormality. [id number] Electronically Signed: Shreyas Garcia MD at 1 2:28 EDT Tel [phone], Service support , CC: Kermit Cortez DO Network Manager: Signed 10-Aug-2017 Dexa Bone Density Study Result: Comments: See Note; NOTES: [facility] [address] [place] [address]28 Dexa Bone Density Study MR#: [id number] Acct: [id number] Name: WMMASON Emily Rep #: [id number] : 1955 F 62 From: Shreyas Garcia MD PCP: Kermit Cortez DO Status: REG CLI Study: Dexa Bone Density Study Date of Exam: 08/10/17 Exam# [id number] Ordering Dr: Kermit Cortez DO STUDY: DUAL [...] Shreyas Garcia MD at 14:58 EDT Tel [phone], Service support , CC: Kermit Cortez DO; ROME HCEUNGADMAN Network Manager: Signed 02-Aug-2017 Arterial Duplex US, Limited Result: Comments: See Note; NOTES: [facility] [address] [place] [address] Art Duplex US Unilat Lower Ext 07/28/17 1320 MR#: [id number] Acct: [id number] Name: MASON BURK Rep #: [id number] : 1955 62 From: Garcia Dsouza MD Attending Dr: Garcia Dsouza MD Status: REG CLI Ordering Dr: Garcia Dsouza MD Date: 07/28/17 Location: [facility] Sex: F C Admitted: Reason [...] Dictated: 07/28/17 1320 Date Transcribed: 08/02/17 110 Network Manager: Signed 02-Aug-2017 Lower Ext Arterial Study Result: Comments: See Note; NOTES: [facility] [address] [place] [address] 08/02/17 0832 MR#: [id number] Acct: [id number] Name: MASON BURK Rep #: [id number] : 1955 62 From: Garcia Dsouza MD Attending Dr: Garcia Dsouza MD Status: REG CLI Ordering Dr: Date: 08/02/17 Location: [facility] Sex: F C Admitted: Arterial Study - Arterial Study Arterial St udy: Record number: [id number] Date of scan 07/28/2017 next Interpreted [...] MD> Date Garcia Dsouza MD CC: Garcia Dsuoza MD; D jena Cortez DO Date Dictated: 08/02/17831 Date Transcribed: 08/02/17831 Network Manager: MELITON Signed 19-Jun-2017 Toe(s) Min 2 Views Result: Comments: See Note; NOTES: [facility] [address] [place] [address] Toe(s) Min 2 Views MR#: [id number] Acct: [id number] Name: MASON BURK Rep #: [id number] : 1955 F 61 From: Shreyas Garcia MD PCP: Kermit Cortez DO Status: REG CLI Study: Toe(s) Min 2 Views Date of Exam: 06/19/17 Exam# [id number] Ordering Dr: Kermit Cortez DO STUDY: X-RAY [...] Shreyas Garcia MD at 14:12 EDT Tel [phone], Service support , CC: Kermit Cortez DO Network Manager: Signed 22-May-2017 PT D/C Summary (1) Result: Comments: See Note; NOTES: [facility] [address] [place] [address]. [address] [place] [address] Fax REHABILITATION SERVICES DISCHAR GE SUMMARY MR#: [id number] Acct: [id number] Name: MASON BURK Rep #: [id number] [...] please feel free to call me at [phone]. Thank you for the referral of this patient. Sincerely, Melissa King <Electronically signed by Melissa King PT, Cert. MDT> 05/22/17 1609 CC: Kermit Cortez DO TOM Signed 19-Apr-2017 Inital Evaluation (1) - PT Result: Comments: See Note; NOTES: [facility] [address] [place], [place] [address] Fax REHABILITATION SERVICES INITIAL EVALUATION MR#: [id number] Acct: [id number] Name: MASON BURK Rep #: [id number] : 1955 61 From: Melissa King PT, [...] THR JAN [address] BENÍTEZ AT [facility] [place] , LUMBAR HERMES'S X [address] [...] SHE IS HERE. HAS A DOCTOR IN [place] THAT SHE THINKS IS A FUNCTIONAL MEDICINE DOCTOR. THIS DOCTOR HAS PRESCRIBED EXERCISES AND SUPPLEMENTS AND DIET. 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 HE HELPED HER LE EDEMA IN 5 DAYS AFTER SUFFERING WITH IT FOR 3 YEARS. HER DAUGHTER LIVES IN [place] AND THIS IS HOW SHE FOUND HIM [...] to be FAXED BACK to us at [phone] for Medicare purposes. Please let me know if there are questions or concerns regarding this plan of care. Physician Signature: Date: <Electronically signed by Melissa King PT, Cert. MDT> 04/19/17 1441 CC: Kermit Cortez DO TOM Signed For Medicare only, by signing this I certify the plan of care. Physicians Signature Date 23-Mar-2017 Abdomen Complete Result: Comments: See Note; NOTES: [facility] [address] [place] [address] Abdomen Complete MR#: [id number] Acct: [id number] Name: MASON BURK Rep #: [id number] D OB: 1955 F 61 From: Shreyas Garcia MD PCP: Kermit Cortez DO Status: REG CLI Study: Abdomen Complete Date of Exam: 03/23/17 Exam# [id number] Ordering Dr: Kermit Cortez DO STUDY: ABDOMINAL [...] Shreyas Garcia MD at 11:07 EST Tel [phone], Service support , CC : Kermit Cortez DO Network Manager: Signed 23-Mar-2017 Abdomen Complete Result: Comments: See Note; NOTES: [facility] [address] [place] [address] Abdomen Complete MR#: [id number] Acct: [id number] Name: MASON BURK Emily Rep #: [id number] D OB: 1955 F 61 From: Shreyas Garcia MD PCP: Kermit Cortez DO Status: REG CL Study: Abdomen Complete Date of Exam: 03/23/17 Exam# [id number] Ordering Dr: Kermit Cortez DO ADDENDUM by Shreyas vaughn MD on 03/29/17 at 1505 US/Abdomen Complete 03/29/17 1512 Date cc: Kermit Cortez DO * Signed ADDENDUM by Shreyas Garcia MD on 03/29/17 at 1505 ADDENDUM This is an addendum report. The liver measures within normal limits. Electronically Signed: Shreyas lyon MD at 15:05 EST Tel [phone], Service support , 03/29/17 1505 Date cc: [...] Shreyas Garcia MD at 11:07 EST Tel [phone], Service support , CC: Kermit Cortez DO Network Manager: Signed 20-Mar-2017 Spine Lumbar (Routine) Result: Comments: See Note; NOTES: [facility] [address] [place] [address] Spine Lumbar (Routine) MR#: [id number] Acct: [id number] Name: MASON BURK Rep #: [id number] : 1955 F 61 From: Carson Richardson MD PCP: Kermit Cortez DO Status: REG CLI Study: Spine Lumbar (Routine) Date of Exam: 03/20/17 Exam# [id number] Ordering Dr: Kermit Cortez DO STUDY: MRI [...] EST , Service support , F ax [phone] CC: Kermit Cortez DO Network Manager: Signed 28-Feb-2017 Thoracic Spine 3 Views Result: Comments: See Note; NOTES: [facility] [address] [place] [address] Thoracic Spine 3 Views MR#: [id number] Acct: [id number] Name: MASON BURK Rep #: [id number] : 1955 F 61 From: Perico Stewart MD PCP: Evie Winter MD Status: REG CLI Study: Thoracic Spine 3 Views Date of Exam: 02/28/17 Exam# [id number] Ordering Dr: Cherelle Perez MD STUDY: X-R [...] CC: Evie Winter MD; Cherelle Perez MD Network Manager: Signed Family History Unknown Family Member Name [...] Active Vital Signs Date Test Result Details 35-Dvk-335443:08 Temperature 97.3 f Comments: Method: Temporal Pulse [...] SPRCS (Normal) Comments: PATIENT WAS FASTINGPERFORMED BY: [facility] [employer] Mdysfv5421 [facility] [place] [id number] Comments: We have received your request for additional testing or testverification. You will be notified if we are unable to processyour request. :59 Potassium 3.4 mmol/L Comments: PATIENT WAS FASTINGPERFORMED BY: [facility] Ifldug7919 [facility] [place] [id number] (Abnormal) Range: 3.5-5.2 Comments: Client Requested Flag :59 Written Authorization WAR (Normal) Comments: PATIENT WAS FASTINGPERFORMED BY: [employer] Isjcxv0255 [facility] [id number] Comments: Written Authorization Received.Authorization received from WRITTEN REQUEST [id number] by Loan Greene 35-Hrj-949086:03 MICROALBUMIN: CREATININE RATIO Comments: PATIENT WAS FASTINGPERFORMED BY: [facility] Knwshz0529 [facility] [id number] ([id number]) AND (15286) Alb/Creat Ratio <23.4 {mg/g_creat} (Normal) Range: 0.0-30.0 Comments: Normal: 0.0 - 30.0 Albuminuria: 31.0 - 300.0 Clinical albuminuria: >300.0 Albumin, Urine <3.0 ug/mL (Normal) Creatinine, Urine 12.8 mg/dL (Normal) 34-Nlf-677266:03 HGB A1C (23036) Comments: PATIENT WAS FASTINGPERFORMED BY: [facility] Kdtbpy6754 [facility] [id number] Hemoglobin A1c 5.5 % (Normal) Range: 4.8-5.6 Comments: . Prediabetes: 5.7 - 6.4 Diabetes: >6.4 Glycemic control for adults with diabetes: <7.0 24-Dlc-934950:00 Crystals, Body Fluid Comments: [facility] [address] [place], [place], [address] PATH REV Reviewed (Normal) Comments: No diagnostic crystals identified.Trevon Fuchs D.O. 01/11/18 AMENDED REPORT 01/11/18 1417 PATH REV previously reported as: Will follow SOURCE/BF SYNOVIAL (Normal) CRYSTALS/BF SEE PATH REV (Normal) 27-Ucx-719887:00 Culture, Body Fluid Comments: [facility] [address] [place], [place], [address] CUBF See Note (Normal) Comments: List Antibiotics Last 48 Hours? NList Antibiotics to be Started? NGram StainGram Stain No organisms seen 1+ Red Blood Cells 1+ Red Cell Stroma Body Fluid CultNO GROWTH IN 14 DAYS Cult, AnaerobicNo growth in 5 days. 1-Ocu-387202:05 CBC W/Diff, Automated Comments: [facility] [address] [place], [place], [address] Absolute Lymph 1.09 {X10_3/ul} (Normal) Range: 0.83-4.51 [...] 4.2-5.4 WBC 7.9 K/mm3 (Normal) Range: 4.4-11.0 2-Iag-610937:05 Comprehensive Metabolic Profil Comments: [facility] [address] [place], [address] GAP 10 (Normal) Range: 5-15 CO2 33.0 [...] A.D.A. criteria.Please note revised GLUCOSE reference range cxocavmjn15/02/2018. Magnesium 2.2 mg/dL (Normal) Comments: PATIENT NOT FASTINGPERFORMED BY: [facility] Epantz3889 [facility] [id number] 5:38 Range: 1.6-2.3 Written Authorization WAR (Normal) Comments: PATIENT NOT FASTINGPERFORMED BY: LabCoJFK Johnson Rehabilitation InstituteMysizo1259 [facility] [id number] 5:38 Comments: Written Authorization Received.Authorization received from KATINA DANIEL [id number] by Tiffany Shah 50-Njd-084760:38 POTASSIUM SERUM (58546) Comments: PATIENT NOT FASTINGPERFORMED BY: [facility]6370 [facility] [id number] Potassium 3.3 mmol/L (Abnormal) Range: 3.5-5.2 Comments: Client Requested Flag 38-Hcj-157704:26 Comp. Metabolic Panel (14) Comments: PATIENT NOT FASTINGPERFORMED BY: [facility]6370 [facility] [id number] ALT (SGPT) 70 [iU]/L (Abnormal) Range: 0-32 [...] 8-27 Glucose 77 mg/dL (Normal) Range: 65-99 74-Lye-280579:13 METABOLIC PANEL, COMPREHENSIVE Comments: PATIENT NOT FASTINGPERFORMED BY: LabCoJFK Johnson Rehabilitation InstituteShmtas5050 [facility] [id number] (77910) ALT (SGPT) 69 [iU]/L (Abnormal) Range: 0-32 [...] 8-27 Glucose 113 mg/dL (Abnormal) Range: 65-99 7-Zxw-909717:05 CBC W/Diff, Automated Comments: [facility] [address] [place], [address] Absolute Lymph 0.69 {X10_3/ul} (Abnormal) [...] Range: 4.4-11.0 :05 Comprehensive Metabolic Profil Comments: [facility] [address] [place], [place], [address] GAP 8 (Normal) Range: 5-15 CO2 36.0 [...] Comments: Please note revised GLUCOSE reference range xoxeyegui86/02/2018. 03-Kza-683306:14 Thyroxine (T4) Free, Direct, Comments: PATIENT NOT FASTINGPERFORMED BY: [employer] Ttgryn1739 [facility] [id number] S T4,Free(Direct) 1.99 ng/dL Range: 0.82-1.77 (Abnormal) 21-Aug-2017 Triiodothyronine,Free,Ser 3.1 pg/mL (Normal) Comments: PATIENT NOT FASTINGPERFORMED BY: [employer] Epcgsr6775 [facility] [id number] 13:14 um Range: 2.0-4.4 21-Aug-2017 Written Authorization WAR (Normal) Comments: PATIENT NOT FASTINGPERFORMED BY: [employer] Pzxyts2008 [facility] [id number] 13:14 Comments: Written Authorization Received.Authorization received from KERMIT CORTEZ [id number] by Aniya Denton 92-Oew-946090:14 CMV IGM ANTBDY (68196) Comments: PATIENT NOT FASTINGPERFORMED BY: Asker Shagad7156 [facility] [facility] [id number] Cytomegalovirus (CMV) Ab, IgM <30.0 AU/mL (Normal) Range: 0.0-29.9 Comments: Negative <30.0 Equivocal 30.0 - 34.9 Positive >34.9 A positive result is generally indicative of acute infection, reactivation or persistent IgM production. 83-Ecp-865262:14 EBV Panel (00476) Comments: PATIENT NOT FASTINGPERFORMED BY: Asker Qscgzc9518 [facility]inMobile[facility]dsAt[facility] [id number] Interpretation: SPRCS (Normal) Comments: EBV Interpretation Chart [...] <36.0 Equivocal 36.0 - 43.9 Positive >43.9 01-Hfp-265622:14 VITAMIN B-12 (CYANOCOBALAMIN) Comments: PATIENT NOT FASTINGPERFORMED BY: [employer] Qakqzm7177 [facility] [id number] (45680) Vitamin B12 >2000 pg/mL (Abnormal) Range: 232-1245 36-Ojv-572520:14 TSH (02492) Comments: PATIENT NOT FASTINGPERFORMED BY: [facility]6370 [facility] [id number] TSH 0.072 {uIU/mL} (Abnormal) Range: 0.450-4.500 28-Aeb-966268:14 CBC W/AUTO DIFF WBC (25999) Comments: PATIENT NOT FASTINGPERFORMED BY: [facility]6370 [facility] [id number] Immature Grans (Abs) 0.0 {x10E3/uL} (Normal) Range: [...] 3.77-5.28 WBC 6.9 {x10E3/uL} (Normal) Range: 3.4-10.8 83-Sdb-830455:14 METABOLIC PANEL, COMPREHENSIVE Comments: PATIENT NOT FASTINGPERFORMED BY: [facility] HoldingJFK Johnson Rehabilitation InstituteNdzmrs2267 [facility] [id number] (74422) ALT (SGPT) 53 [iU]/L (Abnormal) Range: 0-32 [...] 8-27 Glucose 81 mg/dL (Normal) Range: 65-99 76-Zvo-095660:39 Microscopic Examination Comments: PATIENT NOT FASTINGPERFORMED BY: [facility] HoldingJFK Johnson Rehabilitation InstituteHgibsz8932 [facility] [id number] Bacteria Few (Normal) Mucus Threads Present (Normal) Crystal Type Amorphous Sediment (Normal) Crystals Present (Abnormal) Epithelial Cells (non renal) 0-10 {/hpf} (Normal) Range: 0 - 10 RBC 0-2 {/hpf} (Normal) Range: 0 - 2 WBC 6-10 {/hpf} (Abnormal) Range: 0 - 5 24-Lda-713492:39 URINE SANDIE CULTURE-IDENTIFICATN Comments: PATIENT NOT FASTINGPERFORMED BY: [facility]6370 [facility] [id number] (08457) Result 1 MUG (Normal) Comments: Mixed urogenital flora10,000-25,000 colony forming units per mL Urine Final report (Normal) Culture,Comprehensive 46-Xrz-824824:39 URINALYSIS (76274) Comments: PATIENT NOT FASTINGPERFORMED BY: [facility]6370 [facility] [id number] Microscopic Examination See below: (Normal) Comments: Microscopic was indicated and was performed. Nitrite, Urine Negative (Normal) Urobilinogen,Semi-Qn 0.2 mg/dL (Normal) Range: 0.2-1.0 Bilirubin Negative (Normal) Occult Blood Negative (Normal) Ketones Negative (Normal) Glucose Negative (Normal) Protein Negative (Normal) WBC Esterase 1+ (Abnormal) Appearance Clear (Normal) Urine-Color Yellow (Normal) pH 7.5 (Normal) Range: 5.0-7.5 Specific [place] 1.016 (Normal) Range: 1.005-1.030 04-Qkd-111558:39 METABOLIC PANEL, COMPREHENSIVE Comments: PATIENT NOT FASTINGPERFORMED BY: [facility]6370 [facility] [id number] (72428) ALT (SGPT) 50 [iU]/L (Abnormal) Range: 0-32 [...] 8-27 Glucose 84 mg/dL (Normal) Range: 65-99 08-Xzd-400886:39 CBC, PLATELETS & MANUAL Comments: PATIENT NOT FASTINGPERFORMED BY: RUT [facility] Odzqpi8729 [facility] [id number] Information: SRC:ANAMARIA DIFF (93607) Immature Grans (Abs) 0.0 {x10E3/uL} (Normal) Range: [...] 3.77-5.28 WBC 8.1 {x10E3/uL} (Normal) Range: 3.4-10.8 4-Ojy-079464:42 CBC W/Diff, Automated Comments: [facility] [address] [place], [place], [address] Absolute Lymph 1.04 {X10_3/ul} (Normal) Range: 0.83-4.51 [...] 4.2-5.4 WBC 6.4 K/mm3 (Normal) Range: 4.4-11.0 7-Cmw-246563:42 Comprehensive Metabolic Profil Comments: [facility] [address] [place], [place], [address] GAP 6 (Normal) Range: 5-15 CO2 36.0 [...] Comments: Please note revised GLUCOSE reference range ueirxfvdu20/02/2018. 45-Klh-148876:05 Liver Profile Comments: [facility] [address] [place], [place], [address] D BILI 0.12 mg/dL (Normal) Range: 0.00-0.30 T BILI 0.40 mg/dL (Normal) Range: 0.20-1.00 ALT 66 U/L (Abnormal) Range: 13-56 Comments: Please note revised ALT reference range asmcfxbai13/28/2018. ALK P 79 U/L (Normal) Range: 45-117 AST 49 U/L (Abnormal) Range: 15-37 GLOB 3.4 g/dL (Normal) Range: 2.2-4.2 ALB 3.5 g/dL (Normal) Range: 3.2-5.0 T PROT 6.9 g/dL (Normal) Range: 6.4-8.2 67-Pfh-552880:59 LIPID PANEL (60991) Comments: PATIENT WAS FASTINGPERFORMED BY: [facility] Byrboi8407 [facility] [id number]; fu 11-19 DF LDL/HDL Ratio 1.1 {ratio} [...] Cholesterol, Total 310 mg/dL (Abnormal) Range: 100-199 35-Mrj-592164:15 Anti-Mitochondrial AB Comments: [place] ORDERED: CMP, CBCDFAST [...] gaudencio quintin biliary cirrhosis.Performed at: - [facility] [address] [id number] Director: Wili Wagner PhD, Phone: [phone] 54-Fnl-961393:15 Anti-Smooth Muscle ABS Comments: [place] ORDERED: CMP, CBCDFAST ORDERED: TSH, VITD, CMP, FE, AMA,HEP A, T4F, T3F,PTHIN, FE, TIBC, CERU, AMS, MISCComments: [id number];LKM;SERUM;[facility]ENLab[facility] (refer to report for specific site)refer to report for address and phone number ANTISMOOTH 8219 2 {Units} (Normal) Range: 0-19 Comments: Negative 0 - 19 Weak positive 20 - 30 Moderate to strong positive >30 Actin Antibodies are found in 52-85% of patients with autoi mmune hepatitis or chronic active hepatitis and in 22% of patients with primary biliary cirrhosis. 68-Wdp-589718:15 CBC W/Diff, Automated Comments: [place] ORDERED: CMP, CBCDFAST ORDERED: TSH, VITD, CMP, FE, AMA,HEP A, T4F, T3F,PTHIN, FE, TIBC, CERU, AMS, MISCAd[facility] [address] [place], [place], [address] Absolute Lymph 1.01 {X10_3/ul} (Normal) Range: 0.83-4.51 [...] 4.2-5.4 WBC 4.2 K/mm3 (Abnormal) Range: 4.4-11.0 02-Xsu-720737:15 Ceruloplasmin Comments: [place] ORDERED: CMP, CBCDFAST ORDERED: TSH, VITD, CMP, FE, AMA,HEP A, T4F, T3F,PTHIN, FE, TIBC, CERU, AMS, MISCComments: [id number];LKM;SERUM;[facility]ENLab[facility] (refer to report for specific site)refer to report for address and phone number CERULOPLAS 1560 23.8 mg/dL (Normal) Range: 19.0-39.0 54-Csj-164360:15 Comprehensive Metabolic Comments: [place] ORDERED: CMP, CBCDFAST ORDERED: TSH, VITD, CMP, FE, AMA,HEP A, T4F, T3F,PTHIN, FE, TIBC, CERU, AMS, MISCLIPID ADDED PER ; FAXED ORDER TO FOLLOWComments: [id number];LKM;SERUM;FROZENWooK[facility] Hospital [address]fkzu[address] [place], [place], [address] GAP 5 (Normal) Range: 5-15 CO2 32.0 mmol/L (Normal) Range: 21.0-32.0 CL 101 mmol/L (Normal) Range: 98-107 K 3.3 mmol/L (Abnormal) Range: 3.5-5.1 NA 138 mmol/L (Normal) Range: 136-145 T BILI 0.40 mg/dL (Normal) Range: 0.20-1.00 ALT 69 U/L (Abnormal) Range: 13-56 Comments: Please note revised ALT reference range twcuxepyg65/28/2018. ALK P 72 U/L (Normal) Range: 45-117 [...] Comments: Please note revised GLUCOSE reference range cebhmbtwg73/02/2018. 43-Lym-481848:15 Ferritin Comments: [place] ORDERED: CMP, CBCDFAST ORDERED: TSH, VITD, CMP, FE, AMA,HEP A, T4F, T3F,PTHIN, FE, TIBC, CERU, AMS, MISCLIPID ADDED PER ; FAXED ORDER TO FOLLOWComments: [id number];LKM;SERUM;[facility] [address] [place], [place], [address] FERRITIN 12 ng/mL (Normal) Range: 8-252 73-Azq-423557:15 Free T3 Comments: [place] ORDERED: CMP, CBCDFAST ORDERED: TSH, VITD, CMP, FE, AMA,HEP A, T4F, T3F,PTHIN, FE, TIBC, CERU, AMS, MISCLIPID ADDED PER ; FAXED ORDER TO FOLLOWComments: [id number];LKM;SERUM;[facility] [address] [place], [address] FREE T3 2.8 pg/mL (Normal) Range: 2.18-3.98 37-Tsf-095383:15 Hepatitis A AB, Total Comments: [place] ORDERED: CMP, CBCDFAST ORDERED: TSH, VITD, CMP, FE, AMA,HEP A, T4F, T3F,PTHIN, FE, TIBC, CERU, AMS, MISCComments: [id number];LKM;SERUM;[facility] (refer to report for specific site)refer to report for address and phone number HEP A AB,T.6726 Positive (Abnormal) 27-For-883327:15 Hepatitis A IgM Comments: [place] ORDERED: CMP, CBCDFAST ORDERED: TSH, VITD, CMP, FE, AMA,HEP A, T4F, T3F,PTHIN, FE, TIBC, CERU, AMS, MISCComments: [id number];LKM;SERUM;[facility]Lab[facility] (refer to report for specific site)refer to report for address and phone number Antibody HEP A IgM 6734 Negative (Normal) Comments: Performed at: - [facility] [id number] Director: Wili Wagner PhD, Phone: [phone] 04-Ufo-614568:15 Iron Comments: [place] ORDERED: CMP, CBCDFAST ORDERED: TSH, VITD, CMP, FE, AMA,HEP A, T4F, T3F,PTHIN, FE, TIBC, CERU, AMS, MISCLIPID ADDED PER ; FAXED ORDER TO FOLLOWComments: [id number];LKM;SERUM;[facility] [address] [place], [address] IRON 53 ug/dL (Normal) Range: 50-170 27-Npa-279980:15 Iron Binding Comments: EVERTON ORDERED: CMP, CBCDFAST ORDERED: TSH, VITD, CMP, FE, AMA,HEP A, T4F, T3F,PTHIN, FE, TIBC, CERU, AMS, MISCLIPID ADDED PER ; FAXED ORDER TO FOLLOWComments: [id number];LKM;SERUM;[facility] [address] [place], [address] TIBC 452 ug/dL (Abnormal) Range: 250-450 58-Mpb-822591:15 Lipid Profile Comments: EVERTON ORDERED: CMP, CBCDFAST ORDERED: TSH, VITD, CMP, FE, AMA,HEP A, T4F, T3F,PTHIN, FE, TIBC, CERU, AMS, MISCLIPID ADDED PER ; FAXED ORDER TO FOLLOWComments: [id number];LKM;SERUM;[place] [address] [facility] [place], [address] VLDL 16 mg/dL (Normal) Range: [...] 200-240 mg/dL Borderline >240 mg/dL High Risk 44-Vnl-269925:15 Miscellaneous Lab Comments: EVERTON ORDERED: CMP, CBCDFAST ORDERED: TSH, VITD, CMP, FE, AMA,HEP A, T4F, T3F,PTHIN, FE, TIBC, CERU, AMS, MISCComments: [id number];LKM;SERUM;FROZENTest(s) Ordered: [id number];LKM;SERUM;[facility] [address]yqez[address] [place], [address] MISC Comments: TEST RESULT LIMITSLiver-Kidney [...] A, T4F, T3F,PTHIN, FE, TIBC, CERU, AMS, [facility] [address] [facility] [place], [place], [phone]([phone] 0 pg/mL Range: 18.4-80.1 - (Normal) Comments: Please Note: PTH INTACT METHOD AND REFERENCE RANGE CHANGEEffective 03/01/2017. F e b - 2 0 1 8 1 0 : 1 5 62-Epn-360870:15 T4 Free Direct Comments: EVERTON ORDERED: CMP, CBCDFAST ORDERED: TSH, VITD, CMP, FE, AMA,HEP A, T4F, T3F,PTHIN, FE, TIBC, CERU, AMS, MISCLIPID ADDED PER ; FAXED ORDER TO FOLLOWComments: [id number];LKM;SERUM;[place] [address] [place], [place], [id number] T4 FREE DIRECT 0.98 ng/dL (Normal) Range: 0.76-1.46 10-Rqy-963680:15 Thyroid Stim Hormone Comments: EVERT[place] ORDERED: CMP, CBCDFAST ORDERED: TSH, VITD, CMP, FE, AMA,HEP A, T4F, T3F,PTHIN, FE, TIBC, CERU, AMS, MISCLIPID ADDED PER ; FAXED ORDER TO FOLLOWComments: [id number];LKM;SERUM;[facility]EN[facility] (TSH) [facility] [address] [place], [place], [id number] TSH 0.98 {uIU/mL} (Normal) Range: 0.358-3.74 86-Wgr-549753:15 Transferrin Comments: EVERTON ORDERED: CMP, CBCDFAST ORDERED: TSH, VITD, CMP, FE, AMA,HEP A, T4F, T3F,PTHIN, FE, TIBC, CERU, AMS, MISCComments: [id number];LKM;[facility]UM;[facility] (refer to report for specific site)refer to report for address and phone number TRANSFERRN 4938 365 mg/dL (Normal) Range: 200-370 24-Yai-270296:15 Vitamin D,25 Hydroxy Comments: [place] ORDERED: CMP, CBCDFAST ORDERED: TSH, VITD, CMP, FE, AMA,HEP A, T4F, T3F,PTHIN, FE, TIBC, CERU, AMS, [facility] [address]oyrd[address] [place], [phone] Vitamin D 25-OH 57.7 ng/mL (Normal) Range: 19.95-100.01 Comments: Vitamin D 25(OH) Status Range Deficiency <20 ng/mL (50nmol/L) Insuffciency 20 - 30 ng/mL (50 - 75 nmol/L) Sufficiency 30 - 100 ng/mL (75 - 250 nmol/L) Toxicity >100 ng/mL (>250 nmol/L) 75-Poa-000915:50 Anti-Mitochondrial AB Comments: [facility] (refer to report for specific site)refer to report for address and phone number MITOCHN AB <20.0 {Units} (Normal) Range: 0.0-20.0 Comments: Negative 0.0 - 20.0 Equivocal 20.1 - 24.9 Positive >24.9Mitochondrial (M2) Antibodies are found in 90-96% ofpatients with gaudencio quintin biliary cirrhosis.Performed at: - [facility] [address] [id number] Director: Wili Wagner PhD, Phone: [phone] 8-Gcn-075906:10 Magnesium Comments: [facility] [address] [place], [place], [phone](319) MG 2.3 mg/dL (Normal) Range: 1.8-2.4 3-Efy-279688:10 Potassium Comments: [facility] [address] [place], [place], [phone](732) K 3.5 mmol/L (Normal) Range: 3.5-5.1 0-Vbz-603031:59 Anti-Smooth Muscle ABS Comments: Comments: [id number] [facility] SERUM [facility] (refer to report [...] 22% of patients with primary biliary cirrhosis. 2-Mul-794039:59 Ceruloplasmin Comments: Comments: [id number] [facility] (refer to report for specific site)refer to report for address and phone number CERULOPLAS 1560 27.0 mg/dL (Normal) Range: 19.0-39.0 2-Ssa-879220:59 Comprehensive Metabolic Profil Comments: Comments: [id number] [facility]UM [facility] [address] [place], [place], [phone] GAP 8 (Normal) Range: 5-15 CO2 31.0 [...] 7-18 GLU 100 mg/dL (Normal) Range: 70-110 8-Glw-154379:59 Ferritin Comments: Comments: [id number] [facility] SERUM [facility] B[address] [place], [place], [address] FERRITIN 14 ng/mL (Normal) Range: 8-252 3-Cdz-544084:59 Free T3 Comments: Comments: [id number] [facility] SERUM [facility] [address] [place], [place], [phone] FREE T3 4.0 pg/mL (Abnormal) Range: 2.18-3.98 5-Ouj-721061:59 Hepatitis A AB, Total Comments: Comments: [id number] [facility] (refer to report for specific site)refer to report for address and phone number HEP A AB,T.6726 Positive (Abnormal) 7-Jnv-035167:59 Hepatitis A IgM Antibody Comments: Comments: [id number] [facility] SER[facility] (refer to report for specific site)refer to report for address and phone number HEP A IgM 6734 Negative (Normal) Comments: Performed at: [address] [id number] Director: Wili Wagner PhD, Phone: [phone] 8-Gul-017745:59 Iron Comments: Comments: [id number] [facility] SERUM [facility] [address], [address] IRON 98 ug/dL (Normal) Range: 50-170 1-Ray-254830:59 Iron Binding Capacity,Total Comments: Comments: [id number] [facility] SERUM [facility] [address] [place], [address] TIBC 455 ug/dL (Abnormal) Range: 250-450 4-Lrw-189230:59 Miscellaneous Lab Procedure Comments: Comments: [id number] [facility] SERUM REFTest(s) Ordered: [id number] [facility] SERUM [facility] [address] [place], [address] [facility] Comments: TEST RESULT LIMITSLiver-Kidney Microsomal Ab <1.0 Units 0.0 - 20.0 Negative 0.0 - 20.0 LAB (Normal) Equivocal 20.1 - 24.9 Positive >24.9 LKM type 1 antibodies are detected in patients with autoimmune hepatitis type 2 and in up to 8% of patients TEST with chronic HCV infection. TESTING PERFORMED AT [facility]. ORIGINAL REPORT ON FILE IN LAB CONTAINS ADDITIONAL TEST SITE INFORMATION. 2 PTHIN 32.3 Comments: [facility] [address] [place], [address] ; will review on 1.17 - pg/mL Range: 18.4-80.1 J (Normal) Comments: Please Note: PTH INTACT METHOD AND REFERENCE RANGE CHANGEEffective 03/01/2017. a n - 2 0 1 8 1 1 : 5 9 5-Hzl-527471:59 T4 Free Direct Comments: Comments: [id number] [facility] SERUM [facility] [address] [place], [phone] T4 FREE DIRECT 1.06 ng/dL (Normal) Range: 0.76-1.46 5-Tyz-184305:59 Thyroid Stim Hormone (TSH) Comments: Comments: [id number] [facility] SERUM [facility] [address] [place], [place], [phone] TSH 0.89 {uIU/mL} (Normal) Range: 0.358-3.74 5-Kww-783503:59 Transferrin Comments: Comments: [id number] [facility] (refer to report for specific site)refer to report for address and phone number TRANSFERRN 4938 365 mg/dL (Normal) Range: 200-370 6-Efw-216924:59 Vitamin D,25 Hydroxy Comments: [facility] [address] [place], [place], [id number] Vitamin D 25-OH 115.2 ng/mL (Normal) Comments: [...] is nointerference with Vitamin D test results. 44-Kfs-37577:06 Pathology Report Comments: PERFORMED BY: KWCYT [facility] [place] Cyto Akopu03493 [facility] [id number] Information: [id number] See MATER Comments: Material submitted: .SHAVE CHEST [...] IS IN A SINGLE CASSETTE.COR/TMZPathologist provided ICD-10:D04.5CPT .796696 Plan of Care Name Dates Details Instructions [...] to 24 Planned Observations Vitamin D Hydroxy (08389)Indication: Vitamin D intoxication On: 1-Cae-650882:44 Request METABOLIC PANEL, COMPREHENSIVE (14679)Indication: Elevated glycated hemoglobin On: 6-Ztw-647530:43 Request Potassium Serum (78252)Indication: Hypokalemia On: 98-Rxf-870800:43 Request LIPOPROTEIN, BLD, BY NMR (93793)Indication: Familial combined hyperlipidemia On: 7-Wca-292344:43 Request METABOLIC PANEL, COMPREHENSIVE (88338)Indication: Hypokalemia On: 93-Lnj-674711:38 Request Metabolic Panel, Basic (90245)Indication: Edema On: 04-Ubo-027826:36 Request MICROALBUMIN: CREATININE RATIO (02889) AND (05272)Indication: Elevated glycated hemoglobin On: 4-Vtd-078148:48 Request HGB A1C (06473)Indication: Elevated glycated hemoglobin On: 6-Xhw-648671:47 Request CBC W/AUTO DIFF WBC (17798)Indication: Liver function abnormality On: 0-Sjb-994875:35 Request METABOLIC PANEL, COMPREHENSIVE (32427)Indication: Liver function abnormality On: 0-Hhs-288066:35 Request LIPOPROTEIN, BLD, BY NMR (69156)Indication: Familial combined hyperlipidemia On: 5-Ajv-157344:35 Request POTASSIUM SERUM (44113)Indication: Rheumatoid arthritis On: 03-Fql-028321:58 Request HEPATITIS C ANTIBODY (95161)Indication: Encounter for hepatitis C virus screening test for high risk patient On: 21-Wlv-795918:11 Request MAGNESIUM (08500)Indication: Hypokalemia On: 42-Sps-067118:07 Request Electrolyte Panel (25093)Indication: Hypokalemia On: 26-Yye-073410:06 Request CBC W/AUTO DIFF WBC (18390)Indication: Edema On: :44 Request FERRITIN (51093)Indication: Liver function abnormality On: :44 Request IRON BINDING CAPACITY (TIBC) (07270)Indication: Liver function abnormality On: :44 Request IRON (65815)Indication: Liver function abnormality On: :44 Request Vitamin D Hydroxy (22522)Indication: Vitamin D intoxication On: :43 Request T3, FREE (TRIDOTHYRONINE) (72656)Indication: Hyperthyroidism On: :42 Request TSH (84929)Indication: Hyperthyroidism On: 99-Esd-846059:42 Request METABOLIC PANEL, COMPREHENSIVE (15224)Indication: Hypokalemia On: 20-Saa-541669:42 Request Potassium Serum (40076)Indication: Hypokalemia On: 2-Dag-267428:23 Request Magnesium (44428)Indication: Hypokalemia On: 9-Rku-904707:23 Request HEPATITIS A ANTBDY-IGG/IGM (48246)Indication: Abnormal hepatitis serology On: 47-Htt-174905:50 Request ANTI-LIVER/KIDNEY MICROSOMAL ANTIBODY (17509)Indication: Liver function abnormality On: :27 Request ASM (ANTI SMOOTH MUSCLE ANTIBODY) (69571)Indication: Liver function abnormality On: :27 Request CERULOPLASMIN (05373)Indication: Liver function abnormality On: :27 Request TRANSFERRIN (88918)Indication: Liver function abnormality On: :27 Request ANTIMITOCHONDRIAL ANTIBODY (92766)Indication: Liver function abnormality On: 68-Yjw-562947:27 Request Ferritin (81189)Indication: elevated iron On: 28-Fvu-056910:17 Request Iron Binding Capacity (TIBC) (05579)Indication: elevated iron On: :17 Request Iron (37252)Indication: elevated iron On: 56-Cxj-838234:17 Request PARATHORMONE (28730)Indication: Hypercalcemia On: 02-Mmx-381761:14 Request METABOLIC PANEL, COMPREHENSIVE (85474)Indication: Hypercalcemia On: 05-Ady-295163:13 Request Vitamin D Hydroxy (14865)Indication: Vitamin D intoxication On: 11-Cpv-409566:13 Request T3, FREE (TRIDOTHYRONINE) (82929)Indication: Hyperthyroidism On: :59 Request T4, FREE (THYROXINE) (62034)Indication: Hyperthyroidism On: :59 Request TSH (36484)Indication: Hyperthyroidism On: :59 Request Planned Encounters Medical; [facility] 3 Month FU - On: 01-May-2018 13:30 [facility] Kermit Cortez DO Planned Procedures MRI OF CERVICAL SPINE WITH AND On: 26-Jan-2018 Intent WITHOUT CONTRAST (55135)By: Kermit Cortez DO Radiology - Shoulder - RightBy: On: 24-Jan-2018 Intent Kermit Cortez DO Radiology - Cervical SpineBy: On: 24-Jan-2018 Intent Kermit Cortez DO SCREENING DIGITAL TOMOSYNTHESIS On: 30-Oct-2017 Intent OF BREAST (83364)By: Kermit Cortez DO DEXA SCAN AXIAL SKELETON On: 24-Jul-2017 Intent (85329)By: Kermit Cortez DO ELECTROCARDIOGRAM, COMPLETE (ECG) On: 24-Jul-2017 Intent (50822)By: Kermit Cortez DO Radiology - Toe(s) - [...] LUMBAR SPINE W/O CONTRAST On: 28-Feb-2017 Intent (13965)By: Kermit Cortez DO Comments: has had pt [...] fusion- she wants to go back to [place] first before she does surgery to see [...] a year ago by Dr Benítez at [facility] and still has same sx- saw Dr Cristofer Goel at [facility] st- back specialist - has had [...] arthritis, Hearing loss [facility] Payers [facility] Maurice BURK; karen guarantor
--- OUTSIDE RECORDS SUMMARY | 2018-05-31 05:53 | XMS RPT_ITS | Continuity of Care Document ---
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 Biotin 39730 MCG Oral Tablet qd (29923 MCG) Active Calcium Magnesium 750 300-300 MG Oral Tablet 1 (one) Tablet Tablet daily for 0 days Quantity: 30 {Tablet} Refills: 0 Ordered:28-Feb-2017 Marybeth RODRIGUEZ Susana Start : 30-Mar-2016 Active Clearite Shake 1 scoop bid Active Comments:supports detoxification Dymista 137-50 MCG/ACT Nasal Suspension 1 (one) Glover each nostril twice daily for 0 days Quantity: 3 {Glover} Refills: 3 Ordered:05-Feb-2018 Kermit Cortez DO Start [...] Kermit EVANS Start : 29-Jan-2018 Active [place]ann 2 caps bid Active Ventolin HFA 108 [...] 5 Views Result: Comments: See Note; NOTES: [facility] Imaging Services [address] [place], [place] [address] [address] Cerv Spine 4 or 5 Views MR#: [id number] Acct: [id number] Name: MASON BURK Rep #: [id number] : 1955 F 62 From: Perico Stewart MD PCP: Kermit Cortez DO Status: REG CLI Study: Cerv Spine 4 or 5 Views Date of Exam: 01/24/18 Exam# [id number] Ordering Dr: Kermit Cortez DO STUDY: X-RAY [...] Service support , CC: Kermit Cortez DO Document Control Manager: Signed 24-Jan-2018 Shoulder min 2 Views Result: Comments: See Note; NOTES: [facility] Imaging Services [address] [place] [address] Shoulder min 2 Views MR#: [id number] Acct: [id number] Name: MASON BURK Rep #: [id number] : 1955 F 62 From: Perico Stewart MD PCP: Fast DO,Kermit Status: REG CLI Study: Shoulder min 2 Views Date of Exam: 01/24/18 Exam# [id number] Ordering Dr: Kermit Cortez DO STUDY: X-RAY [...] Service support , CC: Kermit Cortez DO Document Control Manager: Signed 21-Nov-2017 SCREENING MAMM (CAD), BILAT Result: Comments: See Note; NOTES: [facility] Imaging Services [address] [place] [address] SCREENING MAMM (CAD), BILAT MR#: [id number] Acct: [id number] Name: WMMASON Rep #: [id number] : 1955 F 62 From: Shreyas Garcia MD PCP: Kermit Cotrez DO Status: REG CLI Study: SCREENING MAMM (CAD), BILAT Date of Exam: 11/21/17 Exam# [id number] Ordering Dr: Kermit Cortez DO PHILLY MOGRAPHY [...] delay biopsy of a clinically suspicious abnormality. [id number] Electronically Signed: Shreyas Garcia MD at 1 2:28 EDT Tel [phone], Service support , CC: Kermit Cortez DO Document Control Manager: Signed 10-Aug-2017 Dexa Bone Density Study Result: Comments: See Note; NOTES: [facility] Imaging Services [address] [place] [address] Dexa Bone Density Study MR#: [id number] Acct: [id number] Name: WMMASON Emily Rep #: [id number] : 1955 F 62 From: Shreyas Garcia MD PCP: Kermit Cortez DO Status: REG CLI Study: Dexa Bone Density Study Date of Exam: 08/10/17 Exam# [id number] Ordering Dr: Kermit Cortez DO STUDY: DUAL [...] Shreyas Garcia MD at 14:58 EDT Tel [phone], Service support , CC: Kermit Cortez DO; ROME CHEUNGADMAN Document Control Manager: Signed 02-Aug-2017 Arterial Duplex US, Limited Result: Comments: See Note; NOTES: [facility] Cardiovascular Services [address] [place] [address] Art Duplex US Unilat Lower Ext 07/28/17 1320 MR#: [id number] Acct: [id number] Name: MASON BURK Rep #: [id number] : 1955 62 From: Garcia Dsouza MD Attending Dr: Garcia Dsouza MD Status: REG CLI Ordering Dr: Garcia Dsouza MD Date: 07/28/17 Location: [facility] Sex: F C Admitted: [...] Dictated: 07/28/17 1320 Date Transcribed: 08/02/17 110 Document Control Manager: Signed 02-Aug-2017 Lower Ext Arterial Study Result: Comments: See Note; NOTES: [facility] Cardiovascular Services [address] [place] [address] 08/02/17 0832 MR#: [id number] Acct: [id number] Name: MASON BURK Rep #: [id number] : 1955 62 From: Garcia Dsouza MD Attending Dr: Garcia Dsouza MD Status: REG CLI Ordering Dr: Date: 08/02/17 Location: [facility] Sex: F C Admitted: Arterial Study - Arterial Study Arterial St udy: Record number: [id number] Date of scan 07/28/2017 next Interpreted [...] DO Date Dictated: 08/02/17831 Date Transcribed: 08/02/17831 Document Control Manager: MELITON Signed 19-Jun-2017 Toe(s) Min 2 Views Result: Comments: See Note; NOTES: [facility] Imaging Services [address] [place] [address] Toe(s) Min 2 Views MR#: [id number] Acct: [id number] Name: MASON BURK Rep #: [id number] : 1955 F 61 From: Shreyas Garcia MD PCP: Kermit Cortez DO Status: REG CLI Study: Toe(s) Min 2 Views Date of Exam: 06/19/17 Exam# [id number] Ordering Dr: Kermit Cortez DO STUDY: X-RAY [...] Shreyas Garcia MD at 14:12 EDT Tel [phone], Service support , CC: Kermit Cortez DO Document Control Manager: Signed 22-May-2017 PT D/C Summary (1) Result: Comments: See Note; NOTES: [facility] [address] [place] [address]. [address] [place] [address] Fax REHABILITATION SERVICES DISCHAR GE SUMMARY MR#: [id number] Acct: [id number] Name: MASON BURK Rep #: [id number] [...] please feel free to call me at [phone]. Thank you for the referral of this patient. Sincerely, Melissa King <Electronically signed by Melissa King PT, Cert. MDT> 05/22/17 1600 CC: Kermit Cortez DO TOM Signed 19-Apr-2017 Inital Evaluation (1) - PT Result: Comments: See Note; NOTES: [facility] [address] [place], [place] [address] Fax REHABILITATION SERVICES INITIAL EVALUATION MR#: [id number] Acct: [id number] Name: MASON BURK Rep #: [id number] : 1955 61 From: Melissa King PT, [...] JAN [address] BENÍTEZ AT [facility] [place] , LUMBAR HERMES'S X [address] [...] SHE IS HERE. HAS A DOCTOR IN [place] THAT SHE THINKS IS A FUNCTIONAL MEDICINE DOCTOR. THIS DOCTOR HAS PRESCRIBED EXERCISES AND SUPPLEMENTS AND DIET. 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 HE HELPED HER LE EDEMA IN 5 DAYS AFTER SUFFERING WITH IT FOR 3 YEARS. HER DAUGHTER LIVES IN [place] AND THIS IS HOW SHE FOUND HIM [...] to be FAXED BACK to us at [phone] for Medicare purposes. Please let me know if there are questions or concerns regarding this plan of care. Physician Signature: Date: <Electronically signed by Melissa King PT, Cert. MDT> 04/19/17 1443 CC: Kermit Cortez DO TOM Signed For Medicare only, by signing this I certify the plan of care. Physicians Signature Date 23-Mar-2017 Abdomen Complete Result: Comments: See Note; NOTES: [facility] Imaging Services [address] [place] [address] Abdomen Complete MR#: [id number] Acct: [id number] Name: MASON BURK Rep #: [id number] D OB: 1955 F 61 From: Shreyas Garcia MD PCP: Kermit Cortez DO Status: REG CLI Study: Abdomen Complete Date of Exam: 03/23/17 Exam# [id number] Ordering Dr: Kermit Cortez DO STUDY: ABDOMINAL [...] Shreyas Garcia MD at 11:07 EST Tel [phone], Service support , CC : Kermit Cortez DO Document Control Manager: Signed 23-Mar-2017 Abdomen Complete Result: Comments: See Note; NOTES: [facility] Imaging Services [address] [place] [address] Abdomen Complete MR#: [id number] Acct: [id number] Name: MASON BURK Emily Rep #: [id number] D OB: 1955 F 61 From: Shreyas Garcia MD PCP: Kermit Cortez DO Status: REG CL Study: Abdomen Complete Date of Exam: 03/23/17 Exam# [id number] Ordering Dr: Kermit Cortez DO ADDENDUM by Shreyas vaughn MD on 03/29/17 at 1505 US/Abdomen Complete 03/29/17 1512 Date cc: Kerimt Cortez DO * Signed ADDENDUM by Shreyas Garcia MD on 03/29/17 at 1505 ADDENDUM This is an addendum report. The liver measures within normal limits. Electronically Signed: Shreyas lyon MD at 15:05 EST Tel [phone], Service support , 03/29/17 1505 Date cc: [...] Shreyas Garcia MD at 11:07 EST Tel [phone], Service support , CC: Kermit Cortez DO Document Control Manager: Signed 20-Mar-2017 Spine Lumbar (Routine) Result: Comments: See Note; NOTES: [facility] Imaging Services [address] [place] [address] Spine Lumbar (Routine) MR#: [id number] Acct: [id number] Name: MASON BURK Rep #: [id number] : 1955 F 61 From: Carson Richardson MD PCP: Kermit Cortez DO Status: REG CLI Study: Spine Lumbar (Routine) Date of Exam: 03/20/17 Exam# [id number] Ordering Dr: Kermit Cortez DO STUDY: MRI [...] EST , Service support , F ax [phone] CC: Kermit Cortez DO Document Control Manager: Signed 28-Feb-2017 Thoracic Spine 3 Views Result: Comments: See Note; NOTES: [facility] Imaging Services [address] [facility] [address] Thoracic Spine 3 Views MR#: [id number] Acct: [id number] Name: MASON BURK Rep #: [id number] : 1955 F 61 From: Perico Stewart MD PCP: Evie Winter MD Status: REG CLI Study: Thoracic Spine 3 Views Date of Exam: 02/28/17 Exam# [id number] Ordering Dr: Cherelle Perez MD STUDY: X-R [...] CC: Evie Winter MD; Cherelle Perez MD Document Control Manager: Signed Family History Unknown Family Member [...] Active Vital Signs Date Test Result Details 48-Mzq-000538:08 Temperature 97.3 f Comments: Method: Temporal Pulse [...] SPRCS (Normal) Comments: PATIENT WAS FASTINGPERFORMED BY: [facility] Fnkagt1215 [facility] [place] [id number] Comments: We have received your request for additional testing or testverification. You will be notified if we are unable to processyour request. :59 Potassium 3.4 mmol/L Comments: PATIENT WAS FASTINGPERFORMED BY: [facility] Ssskht4045 [facility] [place] [id number] (Abnormal) Range: 3.5-5.2 Comments: Client Requested Flag :59 Written Authorization WAR (Normal) Comments: PATIENT WAS FASTINGPERFORMED BY: [employer] Prjucx1016 [facility] [id number] Comments: Written Authorization Received.Authorization received from WRITTEN REQUEST 31-07-3695Pczhzh by Loan Greene 62-Trz-501102:03 MICROALBUMIN: CREATININE RATIO Comments: PATIENT WAS FASTINGPERFORMED BY: [facility] Xwizfh0178 [facility] [id number] (28747) AND (48180) Alb/Creat Ratio <23.4 {mg/g_creat} (Normal) Range: 0.0-30.0 Comments: Normal: 0.0 - 30.0 Albuminuria: 31.0 - 300.0 Clinical albuminuria: >300.0 Albumin, Urine <3.0 ug/mL (Normal) Creatinine, Urine 12.8 mg/dL (Normal) 42-Gop-227025:03 HGB A1C (15623) Comments: PATIENT WAS FASTINGPERFORMED BY: [facility] Fupeag6801 [facility] [id number] Hemoglobin A1c 5.5 % (Normal) Range: 4.8-5.6 Comments: . Prediabetes: 5.7 - 6.4 Diabetes: >6.4 Glycemic control for adults with diabetes: <7.0 30-Eda-262534:00 Crystals, Body Fluid Comments: [facility] [address] [place], [place], [address] PATH REV Reviewed (Normal) Comments: No diagnostic crystals identified.Trevon Fuchs D.O. 01/11/18 AMENDED REPORT 01/11/18 1417 PATH REV previously reported as: Will follow SOURCE/BF SYNOVIAL (Normal) CRYSTALS/BF SEE PATH REV (Normal) 13-Xpy-231501:00 Culture, Body Fluid Comments: [facility] [address] [place], [place], [address] CUBF See Note (Normal) Comments: List Antibiotics Last 48 Hours? NList Antibiotics to be Started? NGram StainGram Stain No organisms seen 1+ Red Blood Cells 1+ Red Cell Stroma Body Fluid CultNO GROWTH IN 14 DAYS Cult, AnaerobicNo growth in 5 days. 7-Pjg-022481:05 CBC W/Diff, Automated Comments: [facility] [address] [place], [place], [address] Absolute Lymph 1.09 {X10_3/ul} (Normal) Range: 0.83-4.51 [...] 4.2-5.4 WBC 7.9 K/mm3 (Normal) Range: 4.4-11.0 1-Jdm-767779:05 Comprehensive Metabolic Profil Comments: [facility] [address] [place], [address] GAP 10 (Normal) Range: 5-15 CO2 33.0 [...] A.D.A. criteria.Please note revised GLUCOSE reference range mmuncqaoz24/02/2018. Magnesium 2.2 mg/dL (Normal) Comments: PATIENT NOT FASTINGPERFORMED BY: [facility] Llvbrr7583 [facility] [id number] 5:38 Range: 1.6-2.3 Written Authorization WAR (Normal) Comments: PATIENT NOT FASTINGPERFORMED BY: LabCoHackensack University Medical CenterXdmwpw7387 [facility] [id number] 5:38 Comments: Written Authorization Received.Authorization received from KATINA DANIEL [id number] by Tiffany Shah 60-Ere-994584:38 POTASSIUM SERUM (13054) Comments: PATIENT NOT FASTINGPERFORMED BY: [facility]Re[facility]6370 [facility] [id number] Potassium 3.3 mmol/L (Abnormal) Range: 3.5-5.2 Comments: Client Requested Flag 68-Xiw-138444:26 Comp. Metabolic Panel (14) Comments: PATIENT NOT FASTINGPERFORMED BY: [facility]Re[facility]6370 [facility] [id number] ALT (SGPT) 70 [iU]/L (Abnormal) Range: 0-32 [...] 8-27 Glucose 77 mg/dL (Normal) Range: 65-99 47-Pyd-817902:13 METABOLIC PANEL, COMPREHENSIVE Comments: PATIENT NOT FASTINGPERFORMED BY: LabCoHackensack University Medical CenterRgdynx7023 [facility] [id number] (96013) ALT (SGPT) 69 [iU]/L (Abnormal) Range: 0-32 [...] 8-27 Glucose 113 mg/dL (Abnormal) Range: 65-99 1-Kpu-702075:05 CBC W/Diff, Automated Comments: [facility] [address] [place], [address] Absolute Lymph 0.69 {X10_3/ul} (Abnormal) [...] Range: 4.4-11.0 :05 Comprehensive Metabolic Profil Comments: [facility] [address] [place], [place], [address] GAP 8 (Normal) Range: 5-15 CO2 36.0 [...] Comments: Please note revised GLUCOSE reference range vdbmosbtc78/02/2018. 76-Ebh-778124:14 Thyroxine (T4) Free, Direct, Comments: PATIENT NOT FASTINGPERFORMED BY: [employer] Jzmjng4243 [facility] [id number] S T4,Free(Direct) 1.99 ng/dL Range: 0.82-1.77 (Abnormal) 21-Aug-2017 Triiodothyronine,Free,Ser 3.1 pg/mL (Normal) Comments: PATIENT NOT FASTINGPERFORMED BY: [employer] Esefhj1140 [facility] [id number] 13:14 um Range: 2.0-4.4 21-Aug-2017 Written Authorization WAR (Normal) Comments: PATIENT NOT FASTINGPERFORMED BY: [employer] Npwmph6157 [facility] [id number] 13:14 Comments: Written Authorization Received.Authorization received from KERMIT CORTEZ 12-25-2159Gikadk by Aniya Denton 77-Ovk-292881:14 CMV IGM ANTBDY (12939) Comments: PATIENT NOT FASTINGPERFORMED BY: [employer] Jludua8822 [place] [facility]ARDAt[facility] [id number] Cytomegalovirus (CMV) Ab, IgM <30.0 AU/mL (Normal) Range: 0.0-29.9 Comments: Negative <30.0 Equivocal 30.0 - 34.9 Positive >34.9 A positive result is generally indicative of acute infection, reactivation or persistent IgM production. 38-Oot-116830:14 EBV Panel (20231) Comments: PATIENT NOT FASTINGPERFORMED BY: [employer] Dxqyfo4117 ChapinEffector TherapeuticsAt[facility] [id number] Interpretation: SPRCS (Normal) Comments: EBV Interpretation Chart [...] <36.0 Equivocal 36.0 - 43.9 Positive >43.9 00-Iof-664827:14 VITAMIN B-12 (CYANOCOBALAMIN) Comments: PATIENT NOT FASTINGPERFORMED BY: [employer] Zizdxh5079 [facility] [id number] (99012) Vitamin B12 >2000 pg/mL (Abnormal) Range: 232-1245 12-Vey-988197:14 TSH (69560) Comments: PATIENT NOT FASTINGPERFORMED BY: [facility]6370 [facility] [id number] TSH 0.072 {uIU/mL} (Abnormal) Range: 0.450-4.500 88-Hnz-503272:14 CBC W/AUTO DIFF WBC (90180) Comments: PATIENT NOT FASTINGPERFORMED BY: [facility]6370 [facility] [id number] Immature Grans (Abs) 0.0 {x10E3/uL} (Normal) Range: [...] 3.77-5.28 WBC 6.9 {x10E3/uL} (Normal) Range: 3.4-10.8 18-Krd-266250:14 METABOLIC PANEL, COMPREHENSIVE Comments: PATIENT NOT FASTINGPERFORMED BY: MedicaMetrixHackensack University Medical CenterYchxgp7320 [facility] [id number] (57559) ALT (SGPT) 53 [iU]/L (Abnormal) Range: 0-32 [...] 8-27 Glucose 81 mg/dL (Normal) Range: 65-99 23-Oix-217444:39 Microscopic Examination Comments: PATIENT NOT FASTINGPERFORMED BY: MedicaMetrixHackensack University Medical CenterRagayb5485 [facility] [id number] Bacteria Few (Normal) Mucus Threads Present (Normal) Crystal Type Amorphous Sediment (Normal) Crystals Present (Abnormal) Epithelial Cells (non renal) 0-10 {/hpf} (Normal) Range: 0 - 10 RBC 0-2 {/hpf} (Normal) Range: 0 - 2 WBC 6-10 {/hpf} (Abnormal) Range: 0 - 5 54-Lqo-093972:39 URINE SANDIE CULTURE-IDENTIFICATN Comments: PATIENT NOT FASTINGPERFORMED BY: [facility]aveRe[facility]6370 [facility] [id number] (05381) Result 1 MUG (Normal) Comments: Mixed urogenital flora10,000-25,000 colony forming units per mL Urine Final report (Normal) Culture,Comprehensive 92-Smx-620709:39 URINALYSIS (06950) Comments: PATIENT NOT FASTINGPERFORMED BY: [facility]ersaveRehabilitation [facility]6370 [facility] [id number] Microscopic Examination See below: (Normal) Comments: Microscopic was indicated and was performed. Nitrite, Urine Negative (Normal) Urobilinogen,Semi-Qn 0.2 mg/dL (Normal) Range: 0.2-1.0 Bilirubin Negative (Normal) Occult Blood Negative (Normal) Ketones Negative (Normal) Glucose Negative (Normal) Protein Negative (Normal) WBC Esterase 1+ (Abnormal) Appearance Clear (Normal) Urine-Color Yellow (Normal) pH 7.5 (Normal) Range: 5.0-7.5 Specific Hagerman 1.016 (Normal) Range: 1.005-1.030 85-Jfu-470885:39 METABOLIC PANEL, COMPREHENSIVE Comments: PATIENT NOT FASTINGPERFORMED BY: [facility]ersaveRehabilitation [facility]6370 [facility] [id number] (80232) ALT (SGPT) 50 [iU]/L (Abnormal) Range: 0-32 [...] 8-27 Glucose 84 mg/dL (Normal) Range: 65-99 31-Bfl-182469:39 CBC, PLATELETS & MANUAL Comments: PATIENT NOT FASTINGPERFORMED BY: RUT [facility] Wshkek7573 [facility] [id number] Information: SRC:ANAMARIA DIFF (39947) Immature Grans (Abs) 0.0 {x10E3/uL} (Normal) Range: [...] 3.77-5.28 WBC 8.1 {x10E3/uL} (Normal) Range: 3.4-10.8 0-Ryf-729496:42 CBC W/Diff, Automated Comments: [facility] [address]ylqrt[address] [place], [place], [address] Absolute Lymph 1.04 {X10_3/ul} (Normal) Range: 0.83-4.51 [...] 4.2-5.4 WBC 6.4 K/mm3 (Normal) Range: 4.4-11.0 1-Bjs-258956:42 Comprehensive Metabolic Profil Comments: [facility] [address] [place], [place], [address] GAP 6 (Normal) Range: 5-15 CO2 36.0 [...] Comments: Please note revised GLUCOSE reference range vmjzptigp12/02/2018. 43-Sra-319962:05 Liver Profile Comments: [facility] [address] [place], [place], [address] D BILI 0.12 mg/dL (Normal) Range: 0.00-0.30 T BILI 0.40 mg/dL (Normal) Range: 0.20-1.00 ALT 66 U/L (Abnormal) Range: 13-56 Comments: Please note revised ALT reference range kgcnevoyw57/28/2018. ALK P 79 U/L (Normal) Range: 45-117 AST 49 U/L (Abnormal) Range: 15-37 GLOB 3.4 g/dL (Normal) Range: 2.2-4.2 ALB 3.5 g/dL (Normal) Range: 3.2-5.0 T PROT 6.9 g/dL (Normal) Range: 6.4-8.2 76-Beb-687096:59 LIPID PANEL (17781) Comments: PATIENT WAS FASTINGPERFORMED BY: [facility] Ydbnmh0360 [facility] [id number]; fu 11-19 DF LDL/HDL Ratio 1.1 {ratio} [...] Cholesterol, Total 310 mg/dL (Abnormal) Range: 100-199 47-Fcn-997222:15 Anti-Mitochondrial AB Comments: [place] ORDERED: CMP, CBCDFAST [...] gaudencio quintin biliary cirrhosis.Performed at: - [facility] [address] [id number] Director: Wili Wagner PhD, Phone: [phone] 90-Oyk-105512:15 Anti-Smooth Muscle ABS Comments: [place] ORDERED: CMP, CBCDFAST ORDERED: TSH, VITD, CMP, FE, AMA,HEP A, T4F, T3F,PTHIN, FE, TIBC, CERU, AMS, MISCComments: [id number];LKM;SERUM;[facility]ENLab[facility] (refer to report for specific site)refer to report for address and phone number ANTISMOOTH 0001 2 {Units} (Normal) Range: 0-19 Comments: Negative 0 - 19 Weak positive 20 - 30 Moderate to strong positive >30 Actin Antibodies are found in 52-85% of patients with autoi mmune hepatitis or chronic active hepatitis and in 22% of patients with primary biliary cirrhosis. 09-Lgc-860006:15 CBC W/Diff, Automated Comments: [place] ORDERED: CMP, CBCDFAST ORDERED: TSH, VITD, CMP, FE, AMA,HEP A, T4F, T3F,PTHIN, FE, TIBC, CERU, AMS, MISCHenry [facility] [address]tlkbas[address] [place], [place], [address] Absolute Lymph 1.01 {X10_3/ul} (Normal) Range: 0.83-4.51 [...] 4.2-5.4 WBC 4.2 K/mm3 (Abnormal) Range: 4.4-11.0 72-Mnj-274768:15 Ceruloplasmin Comments: [place] ORDERED: CMP, CBCDFAST ORDERED: TSH, VITD, CMP, FE, AMA,HEP A, T4F, T3F,PTHIN, FE, TIBC, CERU, AMS, MISCComments: [id number];LKM;SERUM;[facility]ENLabCorp (refer to report for specific site)refer to report for address and phone number CERULOPLAS 1560 23.8 mg/dL (Normal) Range: 19.0-39.0 07-Yxd-344157:15 Comprehensive Metabolic Comments: [place] ORDERED: CMP, CBCDFAST ORDERED: TSH, VITD, CMP, FE, AMA,HEP A, T4F, T3F,PTHIN, FE, TIBC, CERU, AMS, MISCLIPID ADDED PER ; FAXED ORDER TO FOLLOWComments: [id number];LKM;SERUM;[facility]ENWooRady [facility] Hccmuaoopn[address] [place], [place], [address] GAP 5 (Normal) Range: 5-15 CO2 32.0 mmol/L (Normal) Range: 21.0-32.0 CL 101 mmol/L (Normal) Range: 98-107 K 3.3 mmol/L (Abnormal) Range: 3.5-5.1 NA 138 mmol/L (Normal) Range: 136-145 T BILI 0.40 mg/dL (Normal) Range: 0.20-1.00 ALT 69 U/L (Abnormal) Range: 13-56 Comments: Please note revised ALT reference range msupqvjxl54/28/2018. ALK P 72 U/L (Normal) Range: 45-117 [...] Comments: Please note revised GLUCOSE reference range mqrteqsxh09/02/2018. 70-Psd-768937:15 Ferritin Comments: [place] ORDERED: CMP, CBCDFAST ORDERED: TSH, VITD, CMP, FE, AMA,HEP A, T4F, T3F,PTHIN, FE, TIBC, CERU, AMS, MISCLIPID ADDED PER ; FAXED ORDER TO FOLLOWComments: [id number];LKM;SERUM;[facility] [address] [place], [place], [address] FERRITIN 12 ng/mL (Normal) Range: 8-252 72-Ihk-202111:15 Free T3 Comments: [place] ORDERED: CMP, CBCDFAST ORDERED: TSH, VITD, CMP, FE, AMA,HEP A, T4F, T3F,PTHIN, FE, TIBC, CERU, AMS, MISCLIPID ADDED PER ; FAXED ORDER TO FOLLOWComments: [id number];LKM;SERUM;[facility] [address] [place], [address] FREE T3 2.8 pg/mL (Normal) Range: 2.18-3.98 94-Dfz-286867:15 Hepatitis A AB, Total Comments: [place] ORDERED: CMP, CBCDFAST ORDERED: TSH, VITD, CMP, FE, AMA,HEP A, T4F, T3F,PTHIN, FE, TIBC, CERU, AMS, MISCComments: [id number];LKM;SERUM;[facility] (refer to report for specific site)refer to report for address and phone number HEP A AB,T.6726 Positive (Abnormal) 76-Aap-519788:15 Hepatitis A IgM Comments: [place] ORDERED: CMP, CBCDFAST ORDERED: TSH, VITD, CMP, FE, AMA,HEP A, T4F, T3F,PTHIN, FE, TIBC, CERU, AMS, MISCComments: [id number];LKM;SERUM;[facility]Lab[facility] (refer to report for specific site)refer to report for address and phone number Antibody HEP A IgM 6734 Negative (Normal) Comments: Performed at: - [facility] [id number] Director: Wili Wagner PhD, Phone: [phone] 52-Som-295124:15 Iron Comments: [place] ORDERED: CMP, CBCDFAST ORDERED: TSH, VITD, CMP, FE, AMA,HEP A, T4F, T3F,PTHIN, FE, TIBC, CERU, AMS, MISCLIPID ADDED PER ; FAXED ORDER TO FOLLOWComments: [id number];LKM;SERUM;[facility] [id number] [place], [address] IRON 53 ug/dL (Normal) Range: 50-170 [id number] Iron Binding Comments: [place] ORDERED: CMP, CBCDFAST ORDERED: TSH, VITD, CMP, FE, AMA,HEP A, T4F, T3F,PTHIN, FE, TIBC, CERU, AMS, MISCLIPID ADDED PER ; FAXED ORDER TO FOLLOWComments: [id number];LKM;SERUM;[facility] [address] [place], [address] TIBC 452 ug/dL (Abnormal) Range: 250-450 14-Ykq-071376:15 Lipid Profile Comments: EVERTON ORDERED: CMP, CBCDFAST ORDERED: TSH, VITD, CMP, FE, AMA,HEP A, T4F, T3F,PTHIN, FE, TIBC, CERU, AMS, MISCLIPID ADDED PER ; FAXED ORDER TO FOLLOWComments: [id number];LKM;SERUM;[facility] [address] [facility] [place], [address] VLDL 16 mg/dL (Normal) Range: [...] 200-240 mg/dL Borderline >240 mg/dL High Risk 25-Djm-590658:15 Miscellaneous Lab Comments: EVERTON ORDERED: CMP, CBCDFAST ORDERED: TSH, VITD, CMP, FE, AMA,HEP A, T4F, T3F,PTHIN, FE, TIBC, CERU, AMS, MISCComments: [id number];LKM;SERUM;FROZENTest(s) Ordered: [id number];LKM;SERUM;[facility] [address] [place], [address] MISC Comments: TEST RESULT LIMITSLiver-Kidney [...] A, T4F, T3F,PTHIN, FE, TIBC, CERU, AMS, [facility] [address] [facility] [place], [place], [phone](320) 0 pg/mL Range: 18.4-80.1 - (Normal) Comments: Please Note: PTH INTACT METHOD AND REFERENCE RANGE CHANGEEffective 03/01/2017. F e b - 2 0 1 8 1 0 : 1 5 22-Mnz-347075:15 T4 Free Direct Comments: EVERTON ORDERED: CMP, CBCDFAST ORDERED: TSH, VITD, CMP, FE, AMA,HEP A, T4F, T3F,PTHIN, FE, TIBC, CERU, AMS, MISCLIPID ADDED PER ; FAXED ORDER TO FOLLOWComments: [id number];LKM;SERUM;[facility] [address] [place], [place], [id number] T4 FREE DIRECT 0.98 ng/dL (Normal) Range: 0.76-1.46 35-Uem-751804:15 Thyroid Stim Hormone Comments: EVERTON ORDERED: CMP, CBCDFAST ORDERED: TSH, VITD, CMP, FE, AMA,HEP A, T4F, T3F,PTHIN, FE, TIBC, CERU, AMS, MISCLIPID ADDED PER ; FAXED ORDER TO FOLLOWComments: [id number];LKM;SERUM;[place] ([place]SH) [facility] [address] [place], [place], [id number] TSH 0.98 {uIU/mL} (Normal) Range: 0.358-3.74 19-Qpi-097213:15 Transferrin Comments: EVERTON ORDERED: CMP, CBCDFAST ORDERED: TSH, VITD, CMP, FE, AMA,HEP A, T4F, T3F,PTHIN, FE, TIBC, CERU, AMS, MISCComments: [id number];LKM;SERUM;[facility] (refer to report for specific site)refer to report for address and phone number TRANSFERRN 4936 365 mg/dL (Normal) Range: 200-370 78-Tbb-292044:15 Vitamin D,25 Hydroxy Comments: EVERTON ORDERED: CMP, CBCDFAST ORDERED: TSH, VITD, CMP, FE, AMA,HEP A, T4F, T3F,PTHIN, FE, TIBC, CERU, AMS, [facility] [address] [place], [id number] Vitamin D 25-OH 57.7 ng/mL (Normal) Range: 19.95-100.01 Comments: Vitamin D 25(OH) Status Range Deficiency <20 ng/mL (50nmol/L) Insuffciency 20 - 30 ng/mL (50 - 75 nmol/L) Sufficiency 30 - 100 ng/mL (75 - 250 nmol/L) Toxicity >100 ng/mL (>250 nmol/L) 51-Gft-927606:50 Anti-Mitochondrial AB Comments: [facility] (refer to report for specific site)refer to report for address and phone number MITOCHN AB <20.0 {Units} (Normal) Range: 0.0-20.0 Comments: Negative 0.0 - 20.0 Equivocal 20.1 - 24.9 Positive >24.9Mitochondrial (M2) Antibodies are found in 90-96% ofpatients with gaudencio quintin biliary cirrhosis.Performed at: - [facility] [address] [id number] Director: Wili Wagner PhD, Phone: [phone] 9-Xqt-308958:10 Magnesium Comments: [facility] [address] [place], [place], [phone](477) MG 2.3 mg/dL (Normal) Range: 1.8-2.4 6-Fuj-044135:10 Potassium Comments: [facility] [address] [place], [place], [phone](805) K 3.5 mmol/L (Normal) Range: 3.5-5.1 3-Xlz-608952:59 Anti-Smooth Muscle ABS Comments: Comments: [id number] [facility] SERUM REFL[facility] (refer to [...] 22% of patients with primary biliary cirrhosis. 8-Szm-257982:59 Ceruloplasmin Comments: Comments: [id number] [facility] SER[facility] (refer to report for specific site)refer to report for address and phone number CERULOPLAS 1560 27.0 mg/dL (Normal) Range: 19.0-39.0 5-Yra-517106:59 Comprehensive Metabolic Profil Comments: Comments: [id number] [facility] SERUM [facility]FWPrem[facility] [address] [place], [place], [phone] GAP 8 (Normal) Range: 5-15 CO2 31.0 [...] 7-18 GLU 100 mg/dL (Normal) Range: 70-110 8-Qwe-901854:59 Ferritin Comments: Comments: [id number] [facility] SERUM [facility] [address] [place], [place], [address] FERRITIN 14 ng/mL (Normal) Range: 8-252 2-Dei-045852:59 Free T3 Comments: Comments: [id number] [facility] SERUM [facility] [address] [place], [place], [phone] FREE T3 4.0 pg/mL (Abnormal) Range: 2.18-3.98 8-Vsk-133840:59 Hepatitis A AB, Total Comments: Comments: [id number] [facility] SER[facility] (refer to report for specific site)refer to report for address and phone number HEP A AB,T.6726 Positive (Abnormal) 8-Jwu-707240:59 Hepatitis A IgM Antibody Comments: Comments: [id number] [facility] SER[facility] (refer to report for specific site)refer to report for address and phone number HEP A IgM 6734 Negative (Normal) Comments: Performed at: [address] [id number] Director: Wili Wagner PhD, Phone: [phone] 9-Mmg-883887:59 Iron Comments: Comments: [id number] [facility] SERUM [facility] [address] [place], [address] IRON 98 ug/dL (Normal) Range: 50-170 5-Epi-711400:59 Iron Binding Capacity,Total Comments: Comments: [id number] [facility] SERUM [facility] [address] [place], [address] TIBC 455 ug/dL (Abnormal) Range: 250-450 4-Omt-156951:59 Miscellaneous Lab Procedure Comments: Comments: [id number] [facility] SERUM REFTest(s) Ordered: [id number] [facility] SERUM [facility] [address], [address] [facility] Comments: TEST RESULT LIMITSLiver-Kidney Microsomal Ab <1.0 [...] TEST SITE INFORMATION. 2 PTHIN 32.3 Comments: [facility] [address] [place], [address] ; will review on 1.17 - pg/mL Range: 18.4-80.1 J (Normal) Comments: Please Note: PTH INTACT METHOD AND REFERENCE RANGE CHANGEEffective 03/01/2017. a n - 2 0 1 8 1 1 : 5 9 1-Usk-068125:59 T4 Free Direct Comments: Comments: [id number] [facility] SERUM [facility] [address] [place], [id number] T4 FREE DIRECT 1.06 ng/dL (Normal) Range: 0.76-1.46 1-Fod-585822:59 Thyroid Stim Hormone (TSH) Comments: Comments: [id number] [facility] SERUM [facility] [address] [place], [place], [address] TSH 0.89 {uIU/mL} (Normal) Range: 0.358-3.74 3-Zmw-817068:59 Transferrin Comments: Comments: [id number] [facility] SER[facility] (refer to report for specific site)refer to report for address and phone number TRANSFERRN 4933 365 mg/dL (Normal) Range: 200-370 0-Oer-058019:59 Vitamin D,25 Hydroxy Comments: [facility] [address] [place], [place], [address] Vitamin D 25-OH 115.2 ng/mL (Normal) Comments: [...] is nointerference with Vitamin D test results. 41-Kgl-27778:06 Pathology Report Comments: PERFORMED BY: KWCYT [facility] [place] [address] [facility] [id number] Information: [id number] See MATER Comments: Material submitted: .SHAVE CHEST [...] IS IN A SINGLE CASSETTE.COR/TMZPathologist provided ICD-10:D04.5CPT .[id number] Plan of Care Name Dates Details Instructions [...] to 24 Planned Observations Vitamin D Hydroxy (37372)Indication: Vitamin D intoxication On: 1-Oey-062329:44 Request METABOLIC PANEL, COMPREHENSIVE (18828)Indication: Elevated glycated hemoglobin On: 2-Myy-974096:43 Request Potassium Serum (46889)Indication: Hypokalemia On: 67-Hmo-128222:43 Request LIPOPROTEIN, BLD, BY NMR (16049)Indication: Familial combined hyperlipidemia On: 9-Qea-893936:43 Request METABOLIC PANEL, COMPREHENSIVE (95743)Indication: Hypokalemia On: 86-Prs-680402:38 Request Metabolic Panel, Basic (70057)Indication: Edema On: 00-Shw-722321:36 Request MICROALBUMIN: CREATININE RATIO (14591) AND (62719)Indication: Elevated glycated hemoglobin On: 9-Kxd-778915:48 Request HGB A1C (47140)Indication: Elevated glycated hemoglobin On: 9-Qmk-544230:47 Request CBC W/AUTO DIFF WBC (43412)Indication: Liver function abnormality On: 1-Cna-523235:35 Request METABOLIC PANEL, COMPREHENSIVE (05876)Indication: Liver function abnormality On: 9-Zdk-403851:35 Request LIPOPROTEIN, BLD, BY NMR (58202)Indication: Familial combined hyperlipidemia On: 6-Xjb-687586:35 Request POTASSIUM SERUM (28572)Indication: Rheumatoid arthritis On: 61-Udj-006028:58 Request HEPATITIS C ANTIBODY (44630)Indication: Encounter for hepatitis C virus screening test for high risk patient On: 08-Gjr-655715:11 Request MAGNESIUM (78164)Indication: Hypokalemia On: 20-Lna-297120:07 Request Electrolyte Panel (43977)Indication: Hypokalemia On: 69-Abs-236685:06 Request CBC W/AUTO DIFF WBC (88102)Indication: Edema On: :44 Request FERRITIN (31586)Indication: Liver function abnormality On: :44 Request IRON BINDING CAPACITY (TIBC) (03147)Indication: Liver function abnormality On: :44 Request IRON (76109)Indication: Liver function abnormality On: :44 Request Vitamin D Hydroxy (56563)Indication: Vitamin D intoxication On: :43 Request T3, FREE (TRIDOTHYRONINE) (89882)Indication: Hyperthyroidism On: :42 Request TSH (29356)Indication: Hyperthyroidism On: 99-Vga-131555:42 Request METABOLIC PANEL, COMPREHENSIVE (98129)Indication: Hypokalemia On: 72-Glf-796217:42 Request Potassium Serum (75546)Indication: Hypokalemia On: 9-Mzq-847803:23 Request Magnesium (75188)Indication: Hypokalemia On: 9-Hza-701713:23 Request HEPATITIS A ANTBDY-IGG/IGM (73367)Indication: Abnormal hepatitis serology On: 98-Xto-914543:50 Request ANTI-LIVER/KIDNEY MICROSOMAL ANTIBODY (19468)Indication: Liver function abnormality On: :27 Request ASM (ANTI SMOOTH MUSCLE ANTIBODY) (86833)Indication: Liver function abnormality On: :27 Request CERULOPLASMIN (03993)Indication: Liver function abnormality On: :27 Request TRANSFERRIN (39524)Indication: Liver function abnormality On: :27 Request ANTIMITOCHONDRIAL ANTIBODY (97135)Indication: Liver function abnormality On: 87-Bvl-829766:27 Request Ferritin (81656)Indication: elevated iron On: 98-Aem-264129:17 Request Iron Binding Capacity (TIBC) (39335)Indication: elevated iron On: :17 Request Iron (94781)Indication: elevated iron On: 99-Pgv-805988:17 Request PARATHORMONE (37907)Indication: Hypercalcemia On: 02-Zgn-617910:14 Request METABOLIC PANEL, COMPREHENSIVE (73040)Indication: Hypercalcemia On: 03-Noo-649101:13 Request Vitamin D Hydroxy (69706)Indication: Vitamin D intoxication On: 12-Nxf-801121:13 Request T3, FREE (TRIDOTHYRONINE) (29052)Indication: Hyperthyroidism On: :59 Request T4, FREE (THYROXINE) (44411)Indication: Hyperthyroidism On: :59 Request TSH (63296)Indication: Hyperthyroidism On: :59 Request Planned Encounters Medical; [facility] 3 Month FU - On: 01-May-2018 13:30 [facility] Kermit Cortez DO Planned Procedures MRI OF CERVICAL SPINE WITH AND On: 26-Jan-2018 Intent WITHOUT CONTRAST (95466)By: Kermit Cortez DO Radiology - Shoulder - RightBy: On: 24-Jan-2018 Intent Kermit Cortez DO Radiology - Cervical SpineBy: On: 24-Jan-2018 Intent Kermit Cortez DO SCREENING DIGITAL TOMOSYNTHESIS On: 30-Oct-2017 Intent OF BREAST (35831)By: Kermit Cortez DO DEXA SCAN AXIAL SKELETON On: 24-Jul-2017 Intent (18345)By: Kermit Cortez DO ELECTROCARDIOGRAM, COMPLETE (ECG) On: 24-Jul-2017 Intent (58826)By: Kermit Cortez DO Radiology - Toe(s) - [...] LUMBAR SPINE W/O CONTRAST On: 28-Feb-2017 Intent (95161)By: Kermit Cortez DO Comments: has had pt [...] fusion- she wants to go back to [place] first before she does surgery to see [...] a year ago by Dr Ben[facility]tez at [facility] and still has same sx- saw Dr Cristofer Goel at [facility] st- back specialist - has had [...] [facility] Maurice BURK; karen guarantor
--- OUTSIDE RECORDS SUMMARY | 2018-05-31 05:54 | XMS RPT_ITS ---
:1955 Author Organization OHIP Support Name Relationship Address Phone D Unavailable Unavailable Unavailable JOSE BURKEL Unavailable [address] + [place] [address] D Unavailable Unavailable Unavailable JOSE BURKEL Unavailable [address] + [place] [address] D Unavailable Unavailable Unavailable JOSE BURKEL Unavailable [address] + [place] [address] D Unavailable Unavailable Unavailable JOSE BURKEL Unavailable [address] + [place] [address] D Unavailable Unavailable Unavailable WM VON Unavailable [address] + [place] [address] D Unavailable Unavailable Unavailable WM, VON Unavailable [address] + [place] [address] D Unavailable Unavailable Unavailable JOSE BURKEL Unavailable [address] + [place] [address] D Unavailable Unavailable Unavailable JOSE BURKEL Unavailable [address] + [place] [address] D Unavailable Unavailable Unavailable JOSE BURKEL Unavailable [address] + [place] [address] D Unavailable Unavailable Unavailable WM VON Unavailable [address] + [place] [address] D Unavailable Unavailable Unavailable JOSE BURKEL Unavailable [address] + [place] [address] D Unavailable Unavailable Unavailable WM VON Unavailable [address] + [place] [address] D Unavailable Unavailable Unavailable JOSE BURKEL Unavailable [address] + [place] [address] D Unavailable Unavailable Unavailable VON BURK Unavailable [address] + [place] [address] R Unavailable Unavailable Unavailable VON BURK Unavailable [address] + [place] [address] R Unavailable Unavailable Unavailable VON BURK Unavailable [address] + [place] [address] R Unavailable Unavailable Unavailable VON BURK Unavailable [address] + [place] [address] R Unavailable Unavailable Unavailable VON BURK Unavailable [address] + [place] [address] R Unavailable Unavailable Unavailable VON BURK Unavailable [address] + [place] [address] R Unavailable Unavailable Unavailable VON BURK Unavailable [address] + [place] [address] R Unavailable Unavailable Unavailable VON BURK Unavailable [address] + [place] [address] R Unavailable Unavailable Unavailable VON BURK Unavailable [address] + [place] [address] R Unavailable Unavailable Unavailable VON BURK Unavailable [address] + [place] [address] R Unavailable Unavailable Unavailable VON BURK Unavailable [address] + [place] [address] R Unavailable Unavailable Unavailable VON BURK Unavailable [address] + [place] [address] R Unavailable Unavailable Unavailable VON BURK Unavailable [address] + [place] [address] R Unavailable Unavailable Unavailable VON BURK Unavailable [address] + [place] [address] R Unavailable Unavailable Unavailable VON BURK Unavailable [address] + [place] [address] Care Team Providers Name Role Phone TOMMIE ELIAS Admitting Unavailable TOMMIE ELIAS Attending Unavailable CAM KAUFMAN S Referring Unavailable CAM KAUFMAN S Referring Unavailable Fast DO, Radha A Attending Unavailable Ciesa, Sara Referring Unavailable Ciesa, Sara Consulting Unavailable Vellanki, Cherelle Attending Unavailable Vellanki, Cherelle Referring Unavailable Fast, Radha Primary Care Unavailable Mandeep, Cam Attending Unavailable Ramonenning, Cam Referring Unavailable Fast, Radha Primary Care Unavailable Fast, Radha Attending Unavailable Fast, Radha Primary Care Unavailable Fast, Radha Referring Unavailable Vellanki, Cherelle Attending Unavailable Vellanki, Cherelle Referring Unavailable Fast, Radha Primary Care Unavailable Vellanki, Cherelle Attending Unavailable Vellanki, Cherelle Referring Unavailable Fast, Radha Primary Care Unavailable Fast, Radha Attending Unavailable Fast, Radha Primary Care Unavailable Fast, Radha Referring Unavailable Fast, Radha Attending Unavailable Fast, Radha Primary Care Unavailable Fast, Radha Primary Care Unavailable Referred, Self Attending Unavailable Vellanki, Cherelle Attending Unavailable Vellanki, Cherelle Referring Unavailable Fast, Radha Primary Care Unavailable Vellanki, Cherelle Attending Unavailable Vellanki, Cherelle Referring Unavailable Fast, Radha Primary Care Unavailable Fast, Radha Attending Unavailable Fast, Radha Referring Unavailable Fast, Radha Primary Care Unavailable Vellanki, Cherelle Attending Unavailable Vellanki, Cherelle Referring Unavailable Fast, Radha Primary Care Unavailable Vellanki, Cherelle Attending Unavailable Vellanki, Cherelle Referring Unavailable Fast, Radha Primary Care Unavailable Vellanki, Cherelle Attending Unavailable Vellanki, Cherelle Referring Unavailable Fast, Radha Primary Care Unavailable Garcia Torres Attending Unavailable Garcia Torres Referring Unavailable Fast, Radha Primary Care Unavailable Fast, Radha Attending Unavailable Fast, Radha Referring Unavailable Fast, Radha Primary Care Unavailable Fast, Radha Attending Unavailable Fast, Radha Primary Care Unavailable Vellanki, Cherelle Attending Unavailable Vellanki, Cherelle Referring Unavailable Fast, Radha Primary Care Unavailable Vellanki, Cherelle Attending Unavailable Vellanki, Cherelle Referring Unavailable Fast, Radha Primary Care Unavailable Vellanki, Cherelle Attending Unavailable Vellanki, Cherelle Referring Unavailable Fast, Radha Primary Care Unavailable Vellanki, Cherelle Attending Unavailable Vellanki, Cherelle Referring Unavailable Fast, Radha Primary Care Unavailable Fast, Radha Attending Unavailable Fast, Radha Primary Care Unavailable Vellanki, Cherelle Attending Unavailable Vellanki, Cherelle Referring Unavailable Fast, Radha Primary Care Unavailable Vellanki, Cherelle Attending Unavailable Vellanki, Cherelle Referring Unavailable Fast, Radha Primary Care Unavailable Vellanki, Cherelle Attending Unavailable Vellanki, Cherelle Referring Unavailable Fast, Radha Primary Care Unavailable Wunning, Cam Attending Unavailable Fast, Radha Primary Care Unavailable Wunning, Cam Referring Unavailable Fast, Radha Attending Unavailable Fast, Radha Referring Unavailable Fast, Radha Primary Care Unavailable Vellanki, Cherelle Attending Unavailable Vellanki, Cherelle Referring Unavailable Fast, Radha Primary Care Unavailable PROBLEMS PROBLEMS DATE TYPE CONDITION / CODE ATTENDING STATUS SOURCE 03/19/2018 Unknown M79.9 - Soft tissue Wunning, Active [facility] disorder, unspecified [facility] / M79.9(ICD-10) Hospital Repository 03/15/2018 Unknown E05.90 - Fast, Radha Active [facility] Thyrotoxicosis, Community unspecified without Hospital thyrotoxic crisis or Repository storm / E05.90(ICD-10) 03/15/2018 Unknown E87.6 - Hypokalemia / Fast, Radha Active [place] E87.6(ICD-10) [facility] Hospital Repository 03/15/2018 Unknown M06.9 - Rheumatoid Fast, Radha Active [place] arthritis, Community unspecified / Hospital M06.9(ICD-10) Repository 02/19/2018 Active Soft tissue disorder, ILASLAN, TOMMIE Active [facility] unspecified / [facility] Main M79.9(ICD-10) [place] Repository 02/19/2018 Active Localized swelling, ILASLAN, TOMMIE Active [facility] mass and lump, right Clinic Main lower limb / [place] R22.41(ICD-10) Repository 01/30/2018 Active Unknown / NA Active [facility] UNK(Unknown) Clinic Main [place] Repository 01/24/2018 Unknown M79.601 - Pain in Fast, Radha Active [facility] right arm / Community M79.601(ICD-10) Hospital Repository 12/11/2017 Unknown M05.79 - Rheumatoid Vellanki, Cherelle Active [place] arthritis with Community rheumatoid factor of Hospital multiple sites Repository without organ or systems involvement / M05.79(ICD-10) 12/11/2017 Unknown Z79.899 - Other long Velaleta, Cherelle Active [facility] term (current) drug Community therapy / Hospital Z79.899(ICD-10) Repository 12/11/2017 Unknown M35.00 - Sicca Vellanki, Cherelle Active [facility] syndrome, unspecified Community / M35.00(ICD-10) Hospital Repository 12/11/2017 Unknown M15.9 - Vellanki, Cherelle Active [facility] Polyosteoarthritis, Community unspecified / Hospital M15.9(ICD-10) Repository 12/11/2017 Unknown M18.0 - Bilateral Vellanki, Cherelle Active [place] primary Community osteoarthritis of Hospital first carpometacarpal Repository joints / M18.0(ICD-10) 12/11/2017 Unknown M47.897 - Other Vellanki, Cherelle Active [place] spondylosis, Community lumbosacral region / Hospital M47.897(ICD-10) Repository 12/11/2017 Unknown H81.03 - Meniere's Vellanmarco antonio, Cherelle Active [place] disease, bilateral / Community H81.03(ICD-10) Hospital Repository 12/11/2017 Unknown E78.5 - Vellanki, Cherelle Active [place] Hyperlipidemia, Community unspecified / Hospital E78.5(ICD-10) Repository 12/11/2017 Unknown J45.909 - Unspecified Vellanki, Cherelle Active [place] asthma, uncomplicated Community / J45.909(ICD-10) Hospital Repository 11/21/2017 Unknown Z12.31 - Encounter Fast, Radha Active [facility] for screening Community mammogram for Hospital malignant neoplasm of Repository breast / Z12.31(ICD-10) 08/10/2017 Unknown Z78.0 - Asymptomatic Fast, Radha Active [facility] menopausal state / Community Z78.0(ICD-10) Hospital Repository 07/28/2017 Unknown I70.245 - Garcia Torres A Active [place] Atherosclerosis of Community [place] arteries of Hospital left leg with Repository ulceration of other part of foot / I70.245(ICD-10) 07/28/2017 Unknown I73.00 - Raynaud's Garcia Torres A Active [facility] syndrome without Community gangrene / Hospital I73.00(ICD-10) Repository 05/23/2017 Unknown M54.16 - Fast, Radha Active [facility] Radiculopathy, lumbar [facility] M54.16(ICD-10) Repository PROCEDURES PROCEDURES No Procedure Records FoundRESULTS RESULTS OPERATIVE REPORT Observed: 03/19/2018 Status: F Source: [place] 8:29 PM [facility] RE[facility] Medical Records Department [address] [place] [address] Operative Report 03/19/18 1458 MR#: [id number] Acct: [id number] Name: MASON BURK Rep #: [id number] : 1955 62 From: Cam Kaufman DPM PCP: Radha Cortez DO Status: [facility] Location: [facility] Report of Operation Date of Procedure: 03/19/18 Pre-Operative Diagnosis: Ganglion cyst soft tissue mass right foot Post-Operative Diagnosis: Same Surgery/Procedure Performed:: Excision of ganglion cyst soft tissue mass from right foot commercial designer: yes - Dr. Jacoby Cates Type of Anesthesia:: Local MAC Specimen's removed: Excised cyst/soft tissue mass from right foot sent to pathology Estimated Blood Loss (mL): 1mL Description of Procedure: Indications: This is a 62 year old female with persistent soft tissue mass/cyst to the right forefoot, this has been confirmed with MRI and ultrasound imaging. She has pain and swelling. Shoegear and activity are difficult. She has had two aspirations as well as two corticosteroid injections, but the mass persists. Preoperative biopsy which was done under ultrasound at [facility] came back as ganglion cyst. She elected to proceed with excision of the mass/cyst. We discussed this in great detail, reviewing the procedure in detail, along with the possible benefits vs risks/possible complications, all alternative options were discussed and reviewed with her. Typical post op recovery course was reviewed with her. She elected to proceed with the procedures. All of her questions were answered, the consent forms were reviewed with her and she freely signed them. No guarantees were given nor implied. Also of note she has been medically optimized by Dr. Cortez for this procedure, and also ok to proceed per Dr. Perez (her park attendant) as well as Dr. Torres (from vascular, due to her Raynauds) Operative procedure: The patient was brought back into the operating room and was placed on the operating table in the supine position. The patient was carefully secured to the operating room table with a safely belt around patient's waist. A timeout was performed and the patient was properly identified and the surgical plan was confirmed. The patient received 2 grams of intravenous Ancef for antibiotic prophylaxis. Also of noted 60mL of Solumedrol was given IV 1 hours preoperative. A well padded pneumatic tourniquet was applied around the right ankle. The patient received MAC anesthesia per the anesthesiologist, and after the overlying skin was cleansed with 70% isopropyl a total of 20mL of a 50/50 mixture of 1% Lidocaine plain and 0.5% Bupivacaine plain was given as a regional infiltrative nerve block around the foot. The right foot was scrubbed, prepped, draped in the usual aseptic fashion. The right foot was elevated for 3 minutes, and the right ankle pneumatic tourniquet was inflated to 250mmHg. A prominent soft tissue mass was noted on the dorsal right foot extending from the medial 1st ray all the away across dorsal forefoot to the 5th metatarsal head. Two skin incisions were made, first one was made to the dorsal aspect of the 1st ray just medial to the Extensor Hallucis Longus tendon, and a second overlying to the dorsal central forefoot in curvilinear fashion. The skin incisions were made using a 15 scalpel blade, careful dissection was completed down to the soft tissue mass. The mass was identified, it was very extensive as it extended across the entire forefoot, it was fluid filled and soft. The fluid was mostly a watery synovial fluid consistency. The mass was multi-lobulated and cystic, it was noted to be wrapped around the dorsal foot nerves and veins which significant adhesions present. Again, it was noted the mass did have multiple lobulations and stalks communicating with the extensor tendons of the foot. The medial aspect of the mass at level of the distal medial 1st metatarsal head did have two areas of localized firmness and hardness (both were dimed sized, these were excised as part of the mass as noted below). Careful dissection was completed around the mass, freeing up all of the lobulations and adhesions, along with releasing it from the dorsal foot nerves and veins. There was noted to be some degenerative of the nerves from impingement. The mass, with all its lobulations and stalks, was excised in toto. The fluid was somewhat jelly like, but mostly a watery synovial fluid consistency as noted above. There was no purulence, no necrosis, no diana tissue, no evidence of abscess. The mass did not appear to extend down to the intermetatarsal spaces nor to the plantar foot. The excised mass was sent to pathology for further evaluation. The site was flushed out with copious amounts of normal saline solution. All remaining tissue was noted to be healthy and viable with no further evidence of remaining mass. The subcutaneous tissue layer was reapproximated using 4-0 Vicryl, the skin was reapproximated using 4-0 Monocryl. A dressing was applied which consisted of Betadine soaked adaptic, 4x4 gauze, Kerlix and cinda dressing. An additional 10mL of a 50/50 mixture of 1% Lidocaine plain and 0.5% Bupivacaine plain was given as a regional infiltrative nerve block around the surgical site to aid with further post operative pain control. Of note, all vital structure including all vital neurovascular structures were properly identified and carefully protected/retracted as necessary throughout the above procedures. The pneumatic tourniquet was deflated and there was immediate return of flow and perfusion to the foot and all toes. CFT was < 2 seconds to all toes with normal temperature gradient present. The tourniquet was deflated prior to dressing application, hemostasis had been achieved. Pedal pulses were intact. CFT was again noted to be < 2 seconds to all toes with normal color and temperature present. Total tourniquet time was 58 minutes. The patient was transported from the operating room to the recovery room with vital signs stable and in good condition. Post operative orders were placed and post operative instructions were reviewed with patient and her who was with her today. Keep right foot elevated for at least 50 minutes of every hour. Keep dressing clean, dry, and intact. A surgical shoe was fitted and dispensed. She is to follow up with me within 1 week or sooner if needed. A prescription for Percocet 1 tab PO q 6 hours was provided for pain control. Also patient was prescribed Cefadroxil 500mg PO q 12 hours to help prevent infection (due to risks of chronic prednisone/steroids, and RA). Grafts/Implants Used: None - Complications None 03/19/182028 <Electronically signed by Cam Kaufman DPM> Date Cam Kaufman DPM CC: Radha Cortez DO; Cam Kaufman DPM Signed DISCHARGE INSTRUCTION Observed: 03/19/2018 Status: F Source: [place] 2:58 PM [facility] RE[facility]IT[facility] Medical Records Department [address] [place] [address] Instructions for Home/Discharge Instructions 03/19/18 1456 MR#: [id number] Acct: [id number] Name: MASON BURK Rep #: [id number] : 1955 62 From: Cam Kaufman DPM PCP: Radha Cortez DO Status: REG SDC Discharge Diet: Light diet - advance as tolerated Discharge Activity: May Not Drive, Use Crutches Weight Bearing Status: No weight bearing - Avoid weight to right foot Keep extremity elevated above heart level: Right Leg - Keep right foot elevated using pillows for at least 50 minutes per hour Call your doctor if your incision/area has: Continuous Slow Oozing, Sudden Increased Bleeding, Foul Smelling Discharge Call your doctor if you observe: Fever of 101 or Higher, Shortness of breath, Chest pain, Increased palpitations (irregular heartbeat), Calf discomfort, Uncontrolled pain Cleanse incision/area with: Do not get Incision Wet, Keep Dressing Clean AND Dry Allergies/Adverse Reactions: Allergies methotrexate [Methotrexate] Allergy (Verified 01/29/18 15:01) Other tocilizumab [From Actemra] Allergy (Verified 01/29/18 15:01) Itching alendronate sodium [From Fosamax] Adverse Reaction (Verified 03/16/18 08:25) Other HEADACHE, HEARTBURN, NAUSEA duloxetine HCl [From Cymbalta] Adverse Reaction (Verified 01/29/18 15:01) Diarrhea Sulfa (Sulfonamide Antibiotics) Adverse Reaction (Verified 01/29/18 15:01) Unknown Medications to take at Discharge Fluticasone Furoate [Veramyst] 10 gm NS DAILY 01/16/13 predniSONE tablet 5 mg PO DAILY 01/16/13 Biotin [Azar Biotin] 10,000 mcg PO DAILY 10/21/13 Multivit with Calcium,Iron,Min [Multiple Vitamins For Women] 1 each PO DAILY 10/21/13 CycloSPORINE Ophthalmic [Restasis Ophthalmic] 1 drop OPHTHALMIC BID 01/01/15 [place]-3 Fatty Acids [Fish Oil] 1,000 mg PO QODAY 05/05/15 Atorvastatin Calcium [Lipitor] 20 mg PO QHS 04/04/16 Furosemide [Lasix] 20 mg PO DAILY 09/29/16 Abatacept [Orencia] 1,000 mg IV X1 03/16/18 Cholecalciferol (Vitamin D3) [Vitamin D3] 15,000 unit PO DAILY 03/16/18 Senna [Senokot] 2 tablet PO DAILY 03/16/18 Cefadroxil [Duricef] 500 mg PO Q12H #14 cap 03/19/18 Oxycodone HCl/Acetaminophen [Percocet 5/325] 1 tab PO Q6H PRN PRN 4 Days #30 tab 03/19/18 The following prescriptions were given: Oxycodone HCl/Acetaminophen [Percocet 5/325] 1 tab PO Q6H PRN PRN 4 Days #30 tab PRN Reason: Pain Cefadroxil [Duricef] 500 mg PO Q12H #14 cap Primary Care Physician: Radha Cortez DO [Primary Care Provider] - Test Results: Test results from this visit will be discussed in further detail at your follow-up appointment, if applicable. Please Follow Up With: Cam Kaufman DPM When: within 1 week, sooner if needed 03/19/18 1458 <Electronically signed by Cam Kaufmna DPM> Date Cam Kaufman DPM CC: Radha Cortez DO Signed GANGLION Observed: 03/19/2018 Status: F Source: [place] 1:00 PM [facility] RE[facility] Patient: MASON BRUK : 1955 (62/F) Acct Num: [id number] Phys: Cam Kaufman DPM Unit Num: [id number] Loc: [facility] Specimen: [id number] Received: 03/19/181521 Spec Type: GANGLION TISSUES 1 TISSUES: GANGLION CYST GROSS DESCRIPTION Received in fixative is one container labeled with the patient's name and designated ganglion tissue. The specimen consists of multiple irregular fragments of rubbery pink-kenyon soft tissue that in aggregate measure 7 x 5 x 0.6 cm. Executive Sous Chef portions are submitted in one cassette. / AM:flakiat 03/20/18 TC :5 CPT: 52251 HEADER OPERATION: Excision ganglion cyst with possible skin rotation flap/plasty PRE-OP DIAGNOSIS: Ganglion cyst right foot TISSUE SUBMITTED: Ganglion tissue MICROSCOPIC DESCRIPTION Slides are reviewed. MICROSCOPIC DIAGNOSIS Ganglion tissue: Consistent with ganglion cyst with reactive changes. SJ:flakita 03/21/18 Signed Mohan Zelaya MD 03/21/18 <signature on file> Performed By: #### PGANG #### [facility] [address] [place] [address]. [place], [place], [address] URINALYSIS, COMPLETE Collected: 03/14/2018 Status: F Source: [place] 3:27 PM [facility] REPOSITORY Order Comment: How was Urine Obtained? TRANSMISSION ENGINEER TO SPECIFY TYPE CODE TESTS RESULT OUT OF RANGE REFERENCE UNITS LAB L400.3000 Yellow COLOR Normal Yellow LAB L400.3050 Clear Normal CLARITY Clear LAB L400.3200 Normal mg/dl Normal GLUCOSE, UR Normal LAB L400.3300 Negative mg/dL Normal BILIRUBIN URINE Negative LAB L400.3400 Negative mg/dl Normal KETONE UR Negative LAB L400.3465 1.002-1.030 Normal SP.GR. DIPSTX 1.010 LAB L400.3550 5.0 - 8.0 pH UR Normal 8.0 LAB L400.3600 Negative mg/dl PROT Normal DIPSTX Negative LAB L400.3700 Normal mg/dl Normal UROBILI Normal LAB L400.3750 Negative Normal NITRITE UR Negative LAB L400.3780 Negative /ul Normal OCCULT BLOOD-UR Negative LAB L400.3800 Negative /ul High LEUK 25 ESTERASE LAB L400.4050 0-5 /hpf WBC Normal 0-5 SEEN LAB L400.4100 0-5 /hpf 0 Normal RBC-UA SEEN LAB L400.4150 5-10 /hpf SQUAM Normal EPI 0-5 SEEN LAB L400.4300 None Seen /hpf 0 Normal BACTERIA SEEN LAB L400.4350 <or=2+ /hpf 0 Normal MUCUS, URINE SEEN Performed By: #### L400.0001, L100.0100, L500.4050, L501.5200, L501.88766, L501.9520, L506.0400 #### [facility] [place], [address] CBC W/DIFF, AUTOMATED Collected: 03/14/2018 Status: F Source: [place] 3:27 PM [facility] REPOSIT[facility] TYPE CODE TESTS RESULT OUT OF RANGE REFERENCE UNITS LAB L100.1000 4.4-11.0 K/mm3 Normal WBC 10.4 LAB L100.1200 4.2-5.4 M/mm3 Normal RBC 4.86 LAB L100.1300 12.0-15.0 g/dl High HGB 15.1 LAB L100.1400 37-47 % Normal HCT 45.3 LAB L100.1500 81-99 fL Normal MCV 93.2 LAB L100.1600 27.0-32.0 pg Normal MCH 31.1 LAB L100.1700 32-36 g/gl Normal MCHC 33.3 LAB L100.1810 11.6-14.6 % High RDW CV 14.8 LAB L100.1820 35.1-43.9 fl High RDW SD 49.0 LAB L100.1900 150-450 K/mm3 Normal PLT 348 LAB L100.2000 6.2-12.0 fl Normal MPV 9.9 LAB L100.2100 47-70 % High NEUT% 81.2 LAB L100.2200 19-41 % Low LY% 11.1 LAB L100.2300 0-10 % Normal MONO% 7.1 LAB L100.2400 0-5 % Normal EO% 0.1 LAB L100.2500 0-1 % Normal BASO% 0.2 LAB L100.2550 0.0-0.9 % Normal IM GRAN % 0.300 Result Comment: IG% - Immature Granulocytes (promyelocytes, myelocytes and metamyelocytes) > 1% indicates that a LEFT SHIFT is Present. LAB L100.2620 2.0-7.7 X10 3/uL High Absolute Neut 8.5 LAB L100.2720 0.83-4.51 X10 3/ul Normal Absolute Lymph 1.15 Performed By: #### L400.0001, L100.0100, L500.4050, L501.5200, L501.91591, L501.9520, L506.0400 #### [facility] [address] [place], [place], [address] COMPREHENSIVE METABOLIC Collected: 03/14/2018 Status: F Source: [place] [facility] 3:24 PM [facility]POSIT[facility] TYPE CODE TESTS RESULT OUT OF RANGE REFERENCE UNITS LAB L501.0100 74-106 mg/dL Normal GLU 81 Result Comment: Please note revised GLUCOSE reference range effective 2017. LAB L501.1000 7-18 mg/dL Normal BUN 17 LAB L501.1100 0.55-1.02 mg/dL Normal CREAT,SERUM 0.81 Result Comment: The validity of the calculated GFR AND GFRAA in patients over 70 years has not been determined. Clinical correlation is essential. LAB L501.1110 >60 mL/min Normal EST GFR 76 Result Comment: Non- GFR Calc LAB L501.1115 >60 mL/min Normal EST GFR - AA 92 Result Comment: GFR Calc LAB L501.1300 10-20 RATIO High BUN/CRE 20.9 LAB L501.1500 6.4-8.2 g/dL T Normal PROT 6.9 LAB L501.1800 3.2-5.0 g/dL Normal ALB 3.8 LAB L501.1950 2.2-4.2 g/dL Normal GLOB 3.1 LAB L501.2000 0.9-2.4 RATIO Normal A/G 1.2 LAB L501.2200 8.5-10.1 mg/dL CA Normal 9.3 LAB L501.4100 15-37 U/L Normal AST 33 LAB L501.4305 45-117 U/L Normal ALK P 78 LAB L501.4405 13-56 U/L High ALT 60 LAB L501.4600 0.20-1.00 mg/dL T Normal BILI 0.60 LAB L501.5300 136-145 mmol/L NA Normal 138 LAB L501.5600 3.5-5.1 mmol/L K Normal 3.7 LAB L501.5900 98-107 mmol/L CL Normal 98 LAB L501.6100 21.0-32.0 mmol/L Normal CO2 29.0 LAB L501.6200 5-15 Normal GAP 11 Performed By: #### L400.0001, L100.0100, L500.4050, L501.5200, L501.71545, L501.9520, L506.0400 #### [facility] [address] [place], [address] MAGNESIUM Collected: 03/14/2018 Status: F Source: [place] 3:24 PM [facility] REPOSITORY TYPE CODE TESTS RESULT OUT OF RANGE REFERENCE UNITS LAB L501.5200 1.6-2.6 mg/dL Normal MG 2.2 Performed By: #### L400.0001, L100.0100, L500.4050, L501.5200, L501.20768, L501.9520, L506.0400 #### [facility] [address] [place], [place], [address] FREE T3 Collected: 03/14/2018 Status: F Source: [place] 3:24 PM [facility] REPOSITORY TYPE CODE TESTS RESULT OUT OF RANGE REFERENCE UNITS LAB L501.37635 2.18-3.98 pg/mL High FREE T3 5.4 Performed By: #### L400.0001, L100.0100, L500.4050, L501.5200, L501.40293, L501.9520, L506.0400 #### [facility] [address] [place], [place], [address] THYROID STIM HORMONE Collected: 03/14/2018 Status: F Source: [place] (TSH) 3:24 PM [facility] REPOSITORY TYPE CODE TESTS RESULT OUT OF RANGE REFERENCE UNITS LAB L501.9520 0.358-3.74 uIU/mL Normal TSH 0.70 Performed By: #### L400.0001, L100.0100, L500.4050, L501.5200, L501.26434, L501.9520, L506.0400 #### [facility] [address] [place], [address] T4 FREE DIRECT Collected: 03/14/2018 Status: F Source: [place] 3:24 PM [facility] REPOSITORY TYPE CODE TESTS RESULT OUT OF RANGE REFERENCE UNITS LAB L506.0400 0.76-1.46 ng/dL Normal T4 FREE 1.06 DIRECT Performed By: #### L400.0001, L100.0100, L500.4050, L501.5200, L501.48993, L501.9520, L506.0400 #### [facility] [address] [place], [address] NURSING PROG Observed: 02/19/2018 Status: COMPLETED Source: [place] 8:00 PM [facility] REPOSITORY HNO ID: [id number] Author: Dg Strickland) WANDA Lopez Service: (none) Author Type: LICENSED NURSE Type: Nursing Progress Note Filed: 02/20/2018 10:42 AM Note Text: 1025- Call place to patient regarding aspiration on 02/20/2018. Denies any pain, edema or bleeding @ site. States I did have diarrhea 3 or 4 times last night. But its stopped now. I think that it was the medicine they gave me for the procedure that did it . Encouraged pt to advise staff before any future procedure that would require procedural sedation. Encouraged pt to call [phone] with any concerns about procedure. US BIOPSY SOFT TISS Observed: 02/19/2018 Status: F Source: [place] MASS/MUSCLE 4:15 PM [facility] REPOSITORY * * *Final Report* * * DATE OF EXAM: Feb 19 2018 4:15PM [facility] [place] BIOPSY SOFT TISS MASS/MUSCLE / PROCEDURE REASON: Soft tissue mass [M79.9] Foot mass, right [R22.41] * * * * Physician Interpretation * * * * ULTRASOUND GUIDED RIGHT FOOT BIOPSY INDICATION: The patient is a 62 years year old Female who presented with enlarging right foot lesion, history of rheumatoid arthritis. CONSENT: The risks, benefits, treatment options, potential complications and personnel to be involved were discussed with the patient and family. All questions were answered and consent was obtained. The patient indicated willingness to proceed. GENERAL: a) Positioning: The patient was placed Supine on the Ultrasound table. b) Ultrasound guidance was used to target the dorsal foot soft tissue cystic lesion and a solid soft tissue lesion overlying the first MTP joint which was then sterilely prepped and draped. Ultrasound images were saved and sent to a permanent archive. c) Time Out: An audible time out was performed immediately prior to the start of the procedure. Procedure Start Time / Timeout Time: 1522/1524; d) Anesthesia Type: Local anesthesia: 1% Lidocaine PRE-PROCEDURE IMAGING: Dedicated ultrasound of the right foot demonstrated a cystic-like structure with thin septations spanning the dorsum of the foot. A soft tissue nodular prominence overlying the tibial aspect of the first MTP appeared more solid. Both sides were targeted and marked. Care was made to avoid the dorsalis pedis artery which was also marked along its course. ANESTHESIA: a) Local anesthesia: 1% Lidocaine b) Anesthesia Type: Induction of moderate procedural sedation. c) Anesthesia Medications: Fentanyl 50 mcg; Midazolam 1 mg; d) Intra-service time (starts with administration of agent, ends when continuous [id number] time ends): 15 minutes e) Patient monitoring:I personally supervised and directed an independent trained observer who assisted in monitoring the patient?s level of consciousness and physiological status throughout the procedure. PROCEDURE: a) Procedure Details: A 16-gauge [employer] [place] biopsy device was inserted into the foot soft tissues overlying the first MTP using ultrasound guidance. . The needle was passed into the soft tissue lesion and 3 total biopsies of this area was performed. Next, attention was turned to the dorsal soft tissue cystic lesion. Under ultrasound guidance, the needle was passed into the subcutaneous tissues and into the cystic lesion. A total of 3 biopsies were performed. All biopsy specimens were placed in formalin and sent for surgical pathology. The biopsy device was removed. Images were stored to the digital archive documenting needle position. b) Estimated Blood Loss: 0 mls c) Number and Type of Removed Specimens: 6 core biopsies of the foot as described POST PROCEDURE: a) Hemostasis: Hemostasis was achieved using light manual compression. b) Procedure End Time: 1540 c) Conclusion: The patient was discharged from the radiology department in stable condition. COMPLICATIONS: a) Significant Patient Complication: None b) Complications during the procedure: None RESULTS: TECHNICALLY SUCCESSFUL CORE BIOPSIES OF 2 SITES IN THE RIGHT FOOT DESCRIBED IMPRESSION: SUCCESSFUL ULTRASOUND GUIDED CORE BIOPSY OF THE RIGHT FOOT DESCRIBED ABOVE. Attending Radiologist: Dr. Tommie Elias MD Key Account Executive: Dr. Sagar Beckford The procedure was performed by the: the funeral director's assistant, and the attending radiologist personally supervised the entire procedure. The attending radiologist performed the following procedural activities: None. Proofsheet Corrector: FRANKIE Transcribe Date/Time: Feb 19 2018 4:16P Dictated by : SAGAR BECKFORD MD This examination was interpreted and the report reviewed and electronically signed by: TOMMIE ELIAS MD on Feb 20 2018 11:39AM EST [id number] BRIEF OP NOT Observed: 02/19/2018 Status: COMPLETED Source: [place] 4:08 PM [facility] REPOSITORY HNO ID: [id number] Author: Sagar Beckford (Fel) Service: Radiology Author Type: Fellow Type: Brief Op Note Filed: 02/19/2018 4:09 PM Note Text: BRIEF OP NOTE LOG ID: [id number] Surgery/Procedure Date: 02/19/2018 Incision/Procedure Start Time: 3:24 PM Incision Close/Procedure End Time: 3:42 PM Surgeon(s)/Proceduralist(s) and Key Account Executive(s): Surgeon(s) and Role: * Tommie Elias - Primary * Sagar Beckford (Fel) - Fellow Procedure(s): Percutaneous biopsy of right foot Anesthesia: Procedural Sedation Findings: Technically successful biopsy of a solid appearing lesion near first MTP and dorsal soft tissue cystic area. Estimated Blood Loss: 0 ml Specimens: 6 total core biopsies. 3 from the solid lesion overlying the first MTP and 3 from the dorsal foot. Complications: None Pre-Op/Pre-Procedure Diagnosis: Soft tissue lesions of indeterminate etiology. Post-Op/Post-Procedure Diagnosis: * No post-op diagnosis entered * SIGNATURE: Sagar Beckford DO PATIENT NAME: Mason Burk DATE: February 19, 2018 TIME: 4:08 PM PAGER/CONTACT #: PT ED Observed: 02/19/2018 Status: COMPLETED Source: [place] 3:29 PM [facility] REPOSITORY HNO ID: [id number] Author: Barbara Moss RN Service: Nursing Author Type: Registered Nurse Type: Patient Education Filed: 02/19/2018 3:30 PM Note Text: AMBULATORY PATIENT EDUCATION TOPIC: Survival Skills: SURVIVAL SKILLS: Wound Care READINESS TO LEARN COGNITIVE ABILITY: Alert and oriented MOTIVATION TO LEARN: Interested FAMILY SUPPORT: High - Very involved in pt care INSTRUCTION PROVIDED TO: Patient and family member and Caregiver PATIENT LEARNS BEST BY: Multiple Methods FACTORS AFFECTING LEARNING: None PHYSICAL LIMITATIONS AFFECTING LEARNING: None LEARNING RESPONSE DIAGNOSIS: Foot mass METHOD OF INSTRUCTION: Individual instruction Verbal instruction PATIENT / FAMILY RESPONSE: Information received as demonstrated by interest and questions FOLLOW-UP PLAN: Follow-up with Primary Care SUPPLEMENTAL MATERIAL: None REFERRAL (RECOMMENDATION): None Electronically Signed By: Barbara Moss RN In Department: [facility] SURGICAL PATHOLOGY Observed: 02/19/2018 Status: F Source: [place] 2:45 PM [facility] REPOSITORY Specimen originated from [facility] Specimen #: [id number] Submitting Physician: SAGAR BECKFORD DO FINAL DIAGNOSIS Soft tissue, right foot, excision - Ganglion cyst. Adithya Faustin MD (Electronic Signature) SPECIMEN SUBMITTED A: DORSAL RIGHT FOOT CLINICAL DATA soft tissue lesion dorsal right foot- indeterminate, LMP: NA GROSS DESCRIPTION A. Received in formalin are multiple pieces of kenyon and red- brown, soft tissue aggregating to 1.2 x 0.5 x 0.1 cm. Totally submitted in one cassette. Gross examination performed at [facility], [address] [place], [place] [address]/22/2017 9:28:03 PM Date of Report: 02/20/2018 Date of Procedure: 02/19/2018 Date of Receipt: 02/19/2018 Submitted by: SAGAR BECKFORD DO Location: [facility] Diagnostic interpretation performed at [place] [address] [address], [facility] [address]. HISTORY PHYSICAL Observed: 02/19/2018 Status: COMPLETED Source: [place] 2:29 PM [facility] REPOSITORY HNO ID: [id number] Author: Sagar Beckford (Fel) Service: Radiology Author Type: Fellow Type: HANDP Filed: 02/19/2018 2:33 PM Note Text: HISTORY AND PHYSICAL EXAMINATION SERVICE DATE: 02/19/2018 SERVICE TIME: 2:29 PM PRIMARY CARE PHYSICIAN: Radha Cortez MD Subjective CHIEF COMPLAINT: Right foot cystic lesion in need of percutaneous sampling HPI: This is a 62 year old female who presents with right foot lesion in need of percutaneous biopsy FUNCTIONAL STATUS: Independent PAST MEDICAL HISTORY Diagnosis Date - Family history of hyperlipidemia - HLD (hyperlipidemia) - STEBBINS (hard of hearing) lip reads, does not sign - HTN (hypertension) - Rheumatoid arthritis (HCC) PAST SURGICAL HISTORY Procedure Laterality Date - PAST SURGICAL HISTORY OF 1998 umbilical hernia repair - S B[place],UTERINE ABLATION [id number] 2012 - TUBAL LIGATION HX 1986 FAMILY HISTORY Problem Relation Age of Onset - Heart Mother - Heart Father - Cancer Mother lung - Cancer Father lung - Heart Sister of heart Social History Substance Use Topics - Smoking status: Never Smoker - Smokeless tobacco: Never Used Comment: quit in her 20's - Alcohol use Yes Comment: occasional Prescriptions Prior to Admission: azelastine-fluticasone (DYMISTA) 137-50 mcg/spray spry Use 2 Sprays in each nostril once daily. Disp: Rfl: 02/19/2018 at Unknown time albuterol HFA (VENTOLIN HFA) 90 mcg/actuation inhaler Inhale 2 Puffs as instructed. Disp: Rfl: DIPHENHYDRAMINE HCL (BENADRYL ORAL) Take by mouth. Disp: Rfl: melatonin 1 mg tab Take by mouth daily at bedtime. Disp: Rfl: 02/17/2018 Sennosides (SENNA) 8.6 mg cap Take 1 capsule by mouth once daily as needed (constipation). Disp: 10 capsule Rfl: 0 02/18/2018 at Unknown time traMADol (ULTRAM) 50 mg tablet Take 50 mg by mouth twice daily as needed. Disp: Rfl: 01/28/2016 at 0530 cycloSPORINE (RESTASIS) 0.05 % ophthalmic emulsion 1 Drop twice daily. Disp: Rfl: 01/28/2016 at 0530 CARBOXYMETHYLCELLULOSE SODIUM (REFRESH LIQUIGEL OPHTHALMIC) Use 1 Drop in both eyes twice daily. Disp: Rfl: months cyanocobalamin (VITAMIN B-12) 1,000 mcg tab Take 1,000 mcg by mouth twice daily. Disp: Rfl: Past Week at Unknown time atorvastatin (LIPITOR) 20 mg tablet Take 20 mg by mouth daily at bedtime. Disp: Rfl: 01/27/2016 at 1900 predniSONE (DELTASONE) 5 mg tablet Take 5 mg by mouth once daily. Disp: Rfl: 01/27/2016 at 0800 triamterene-hydrochlorothiazide (MAXZIDE) 75-50 mg per tablet Take 0.5 tablets by mouth once daily. Disp: Rfl: 01/27/2016 at 0800 abatacept (ORENCIA, WITH MALTOSE,) 250 mg injection Inject 1,000 mg intravenously once every month. 1000 milligrams once a month Disp: Rfl: 12/26/15 Biotin 10,000 mcg cap Take by mouth once daily. Disp: Rfl: 01/27/2016 at 12 cholecalciferol (VITAMIN D-3) 5,000 unit tab Take 5,000 Units by mouth once daily. Disp: Rfl: 02/17/2018 ALLERGIES Allergen Reactions - Cymbalta [Duloxetin* GI Upset - Fosamax [Alendronat* Vomiting - Methotrexate Other: See Comments Mouth and stomach sores - Sulfa (Sulfonamide * Other: See Comments Unknown COMPLETE REVIEW OF SYSTEMS: PAIN ASSESSMENT: Negative for pain, history of chronic pain, or current treatment for a chronic pain condition. GENERAL: No weight loss, malaise or fevers RESPIRATORY: Negative for cough, hemoptysis, wheezing, COPD, dyspnea or shortness of breath CARDIOVASCULAR: Negative for chest pain, leg swelling, hypertension, CHF or palpitations MUSCULOSKELETAL: tenderness of the right foot. Objective PHYSICAL EXAM: Physical Exam Performed: GENERAL: Alert, no distress, cooperative SKIN: Skin color, texture, turgor normal. No rashes or lesions. LUNGS: Lungs clear to auscultation, Good diaphragmatic excursion CARDIAC: Normal S1 and S2; no rubs, murmurs, or gallops EXTREMITIES: No ulcers, soft tissue prominence on the dorsal aspect of the right foot. BP 143/95 Pulse 86 Temp 98.6 Resp 12 SpO2 96% DATA: Diagnostic tests reviewed for today's visit: Most recent labs and imaging results. Assessment/Plan 62 yo F with right foot lesion in Need of percutaneous sampling. -Proceed with biopsy SIGNATURE: Sagar Beckford DO PATIENT NAME: Mason Burk DATE: February 19, 2018 TIME: 2:29 PM PAGER/CONTACT #: NIA HERNANDEZG Observed: 02/13/2018 Status: COMPLETED Source: [place] 12:20 PM [facility] REPOSITORY HNO ID: [id number] Author: Crystal Strickland) WANDA Mccann Service: (none) Author Type: LICENSED NURSE Type: Nursing Progress Note Filed: 02/13/2018 12:37 PM Note Text: Pre-procedure phone calls: Contacted Mason Burk and confirmed appt. for Biopsy right foot scheduled on 02/19/2018, at [facility]. I will be providing you with instructions if not followed; your procedure may be rescheduled. At the end of our conversation, I will be asking you a few questions, I will wait while you get a pen and paper. Diet: patient prefers local anesthetic , you may eat , drink and take medications as prescribed Medications: IF ok with your Prescribing Provider: RADIOLOGY RECOMMENDS THESE MEDICATION RESTRICTIONS Meloxicam: Stop Melociam 5 days prior to this procedure Contrast Dye Prep: Do you have a contrast dye allergy? No Labs: Labs completed on 01/18 Arrival: Please bring your Photo ID and Insurance Card. A general consent may need to be signed. Arrive to [facility] ([facility]) Admitting/Registration by 1230pm. Then proceed to desk - ([facility] [place] [place] and check in for your procedure. Your anticipated procedure start time will be between 2 AND 2:30pm. Investigations Consultant/Transportation: How will you be arriving for your procedure? private car. Recovery expectations: You will be in the recovery room post procedure for a minimum of 1 Hour. Special concerns: Do you use CPAP or BPAP? No If you use CPAP or BiPAP, please call to discuss. We do not want your procedure to be rescheduled I have a few questions for you... What is your arrival time to [facility]? 1230pm What time do you stop eating food? n/a What time can you have clears until? n/a Tell me how you will be taking your medications the morning of your procedure? asusual Written instructions provided to patient via Patient Declined If you have any questions please call [phone] HOSP Observed: 02/12/2018 Status: COMPLETED Source: [place] 12:00 AM [facility] REPOSITORY Patient:Mason Burk MRN: <[id number]> Height:5' 4(1.626 m) Weight:No patient weight recorded within the last 30 days. Outpatient Medications as of 02/19/18: azelastine-fluticasone (DYMISTA) 137-50 mcg/spray spry cholecalciferol (VITAMIN D-3) 5,000 unit tab meloxicam (MOBIC) 15 mg tablet albuterol HFA (VENTOLIN HFA) 90 mcg/actuation inhaler DIPHENHYDRAMINE HCL (BENADRYL ORAL) melatonin 1 mg tab alendronate (FOSAMAX) 70 mg tablet Sennosides (SENNA) 8.6 mg cap lidocaine (LIDODERM) 5 % lidocaine-prilocaine (LIVIXIL MICH) cream traMADol (ULTRAM) 50 mg tablet cycloSPORINE (RESTASIS) 0.05 % ophthalmic emulsion CARBOXYMETHYLCELLULOSE SODIUM (REFRESH LIQUIGEL OPHTHALMIC) cyanocobalamin (VITAMIN B-12) 1,000 mcg tab atorvastatin (LIPITOR) 20 mg tablet predniSONE (DELTASONE) 5 mg tablet triamterene-hydrochlorothiazide (MAXZIDE) 75-50 mg per tablet leflunomide (ARAVA) 20 mg tablet abatacept (ORENCIA, WITH MALTOSE,) 250 mg injection Biotin 10,000 mcg cap Multivitamin capsule PSYLLIUM SEED, WITH SUGAR, (METAMUCIL ORAL) [id number] ORAL Admission/Clinic Administered Medications as of 02/19/18: Patient has no admission medications. Problem List: Gallbladder polyp [K82.4] Musculoskeletal pain [M79.18] Pure hypercholesterolemia [E78.00] Essential hypertension [I10] Other specified rheumatoid arthritis, multiple sites (HCC) [M06.89] Bilateral hearing loss [H91.93] Hip joint replacement status [Z96.649] Allergies: Allergies have not been reviewed in the past 30 days. Lab Values No results within the last 30 days for the following basenames: K,HCT Progress Notes (RADIO BIOPSY MAIN QB1): Donnie Bertrand 02/07/2018 11:47 AM Signed RADIOLOGY CALL CENTER INTAKE EXAMINATION GRADER: Donnie EXT: [id number] DATE: February 07, 2018 TIME: 11:43 AM TRACKING #. [id number] REQUESTING STAFF: Dr. Epifanio Kaufman PHONE: [phone] ORDERING DESK LOCATION: Outside If inpatient, patient location: N/A (Note: requests for inpatient's procedures should be given to the O.D. nurse at pager #[phone]) If outpatient, best way to reach patient: MOBILE Best time to call: ANY SCHEDULING: DANIEL (Specific requests must be greater than 10 days from the date of request) RADIOLOGY SERVICE GROUP: Muscuoloskeletal SPECIFICS OF THE REQUEST: BIOPSY of MASS - RIGHT FOOT / Biopsy Type: No Preference SPECIAL REQUESTS: TISSUE SAMPLE TO PATHOLOGY FOR: Routine Evaluation MEDICAL DIAGNOSIS: Unknown soft tissue masses right foot (i.e. Does the patient have a known cancer? Ask for the site of any known primary cancer, or is it unknown primary or new diagnosis. If no information, ask for a suspected diagnosis as a reason for the biopsy) TYPE AND DATE OF THE EXAM THAT IS THE BASIS OF THE REQUEST: MRI Date: 01/30/2018 (Note: Requests for random organ biopsies, specifically liver and kidney random biopsies do not need imaging.) IMAGING: [facility] (If the imaging was obtained outside the [facility] system, then it needs to be submitted for review prior to approval.) Note to all persons requesting biopsies: All biopsy requests will be scheduled as quickly as possible, based on the clinical urgency, availability of appointment times, the need to hold anti-thrombolytic therapy (aspirin, blood thinners) and the patient?s schedule, including the need for an available rail car driver. If a percutaneous biopsy or drainage is not felt to be safe or an alternative method for establishing a diagnosis is possible, this will be discussed directly with the requesting physician. Crystal Mccann LPN, LPN 02/07/2018 12:40 PM Signed . BX. COORDINATOR INFORMATION LAB RESULTS: No results found for: INR No results found for: APTT Platelet Count (k/uL) Date Value 01/29/2016 174 Current Outpatient Prescriptions: azelastine-fluticasone (DYMISTA) 137-50 mcg/spray spry Use 2 Sprays in each nostril once daily. cholecalciferol (VITAMIN D-3) 5,000 unit tab Take 5,000 Units by mouth once daily. meloxicam (MOBIC) 15 mg tablet Take 15 mg by mouth once daily. albuterol HFA (VENTOLIN HFA) 90 mcg/actuation inhaler Inhale 2 Puffs as instructed. DIPHENHYDRAMINE HCL (BENADRYL ORAL) Take by mouth. melatonin 1 mg tab Take by mouth daily at bedtime. alendronate (FOSAMAX) 70 mg tablet Take 70 mg by mouth. Sennosides (SENNA) 8.6 mg cap Take 1 capsule by mouth once daily as needed (constipation). lidocaine (LIDODERM) 5 % Apply 1 Patch as directed every 24 hours. lidocaine-prilocaine (LIVIXIL MICH) cream Apply 1 application to affected area one time only. traMADol (ULTRAM) 50 mg tablet Take 50 mg by mouth twice daily as needed. cycloSPORINE (RESTASIS) 0.05 % ophthalmic emulsion 1 Drop twice daily. CARBOXYMETHYLCELLULOSE SODIUM (REFRESH LIQUIGEL OPHTHALMIC) Use 1 Drop in both eyes twice daily. cyanocobalamin (VITAMIN B-12) 1,000 mcg tab Take 1,000 mcg by mouth twice daily. atorvastatin (LIPITOR) 20 mg tablet Take 20 mg by mouth daily at bedtime. predniSONE (DELTASONE) 5 mg tablet Take 5 mg by mouth once daily. triamterene-hydrochlorothiazide (MAXZIDE) 75-50 mg per tablet Take 0.5 tablets by mouth once daily. leflunomide (ARAVA) 20 mg tablet Take 20 mg by mouth once daily. abatacept (ORENCIA, WITH MALTOSE,) 250 mg injection Inject 1,000 mg intravenously once every month. 1000 milligrams once a month Biotin 10,000 mcg cap Take by mouth once daily. Multivitamin capsule Take 1 capsule by mouth once daily. PSYLLIUM SEED, WITH SUGAR, (METAMUCIL ORAL) Take by mouth. Three capsules a day HUQQDEK-ROZOOIJXE-NHYA ORAL Take by mouth once daily. No current facility-administered medications for this visit. ALLERGIES Allergen Reactions - Cymbalta [Duloxetin* GI Upset - Methotrexate Other: See Comments Mouth and stomach sores - Sulfa (Sulfonamide * Other: See Comments Unknown FILMS SENT TO WORKSTATION: GUIDELINES FOR HOLDING ANTI-PLATELET AND ANTI- COAGULATION THERAPY: Hold Mobic 5 days NURSE SIGNATURE: Crystal Mccann LPN DATE: February 07, 2018 TIME: 12:39 PM Prabhakar Winn MD, 02/07/2018 4:20 PM Signed RADIOLOGIST REQUEST / APPROVAL FORM STAFF RADIOLOGIST: El PROCEDURE TO BE DONE UNDER: US PROCEDURE REQUESTED: CORE Requested PROCEDURE: Approved TIME SLOT NEEDED: 1 hour NOTES: target solid/blood flow area SPECIAL LABS/ PROCESSING: none STAFF SIGNATURE: Prabhakar Winn MD DATE: February 07, 2018 TIME: 4:19 PM Latoya Mendiola 02/08/2018 3:29 PM Signed Called pt to schedule and a message was left. 1st attempt Latoya Mendiola 02/12/2018 3:51 PM Signed Called pt to schedule and a message was left. 2nd attempt Latoya Mendiola 02/12/2018 4:40 PM Signed Spoke to pt and scheduled biopsy for 02/19/18 Progress Notes (RADIO MRI [facility]): RT Jason, Tech 01/30/2018 1:06 PM Signed Radiology Service Progress Note PATIENT NAME: Mason Burk DATE OF SERVICE: January 30, 2018 TIME: 1:05 PM PATIENT IDENTITY VERIFICATION COMPLETED USING TWO (2) METHODS: Patient confirmed name verbally and Date of . PATIENT GENDER DATA: Female. status: : No status: NO. PATIENT RELEVANT IMPLANT DATA REVIEWED: Yes RADIOLOGY DEPARTMENT: MR; Exam(s) Completed: Lower MSK: Forefoot/Midfoot, left PERIPHERAL IV DATA: Not applicable SIGNED BY: RT Jason January 30, 2018 1:05 PM MRI FOOT/TOES WO IVCON Observed: 01/30/2018 Status: F Source: [facility] 1:35 PM [facility] REPOSITORY * * *Final Report* * * DATE OF EXAM: Jan 30 2018 1:35PM [facility] 0194 - MRI FOOT/TOES WO IVCON LT / PROCEDURE REASON: foot bilateral * * * * Physician Interpretation * * * * History: One cyst/node on 1st distal metatarsal of lt foot. Technique: Routine MRI of the left forefoot. Comparison: None Result: BONE MARROW: Subchondral cyst formation in cuneiform proximally with surrounding bone marrow edema. Subchondral cyst formation at the base of fourth metatarsal. CARTILAGE: Chondral fissuring at the first MTP joint. TENDONS: The flexor and extensor tendons are intact and normal appearing. PLANTAR PLATES: The plantar plates are intact appearing. JOINT FLUID: Small size first MTP joint fluid with capsular thickening.. INTERMETATARSAL SPACES: 5 mm foci of rounded soft tissue thickening between second-third and third-fourth metatarsal heads on the plantar side consistent with Do's neuromas. LISFRANC LIGAMENT: Intact PLANTAR APONEUROSIS: The visualized portions of the plantar aponeurosis in within normal limits. MUSCLES: Muscle bulk and signal intensity is within normal limits. OTHER: No other significant abnormality identified. IMPRESSION: MILD FIRST MTP/MIDFOOT OSTEOARTHRITIS AND FIRST MTP JOINT EFFUSION. 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 Proofsheet Corrector: FRANKIE Transcribe Date/Time: Jan 30 2018 2:31P Dictated by : TOMMIE ELIAS MD This examination was interpreted and the report reviewed and electronically signed by: TOMMIE ELIAS MD on Jan 31 2018 12:30PM EST [id number] MRI FOOT/TOES WO IVCON Observed: 01/30/2018 Status: F Source: [place] 1:35 PM [facility] [place] REPOSITORY * * *Final Report* * * DATE OF EXAM: Jan 30 2018 1:35PM [facility] 0195 - MRI FOOT/TOES WO IVCON RT / PROCEDURE REASON: foot bilateral * * * * Physician Interpretation * * * * History: Multiple cysts/nodes pain \EandE\ swelling inthose areas. Pt has RA. Trying to differentiate btw cysts \EandE\ nodes. Technique: Routine MRI of the right forefoot. Comparison: None Result: Subcutaneous tissues: There is an approximately 6 x 1.2 x 8.8 cm masslike multilocular structure in the subcutaneous tissues dorsally involving the midfoot and forefoot. Signal characteristics are not typical of fluid and findings are suspicious for neoplasm. Similar solitary approximately 8 mm structure medial to first MTP joint. BONE MARROW: Cystlike changes in the medial cuneiform proximally.. CARTILAGE: No discrete articular cartilage abnormalities seen. TENDONS: Fusiform thickening of the Achilles tendon with intermediate signal suggestive of tendinosis. Ankle and foot tendons are otherwise intact. PLANTAR PLATES: The plantar plates are intact appearing. JOINT FLUID: No significant joint effusion seen. INTERMETATARSAL SPACES: 5 mm round focus of soft tissue nodule between second and third metatarsal heads suggestive of Do's trauma. LISFRANC LIGAMENT: Intact PLANTAR APONEUROSIS: The visualized portions of the plantar aponeurosis in within normal limits. MUSCLES: Muscle bulk and signal intensity is within normal limits. OTHER: Small osteophytes at the first MTP joint. 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 Proofsheet Corrector: FRANKIE Transcribe Date/Time: Jan 30 2018 2:30P Dictated by : TOMMIE ELIAS MD This examination was interpreted and the report reviewed and electronically signed by: TOMMIE ELIAS MD on Jan 31 2018 12:42PM EST [id number] PROGRESS Observed: 01/30/2018 Status: COMPLETED Source: [place] 1:05 PM [facility] REPOSITORY HNO ID: [id number] Author: Libra Gomez (Rt) Service: (none) Author Type: Philosophy And Religion Instructor Type: Progress Notes Filed: 01/30/2018 1:06 PM Note Text: Radiology Service Progress Note PATIENT NAME: Mason Burk DATE OF SERVICE: January 30, 2018 TIME: 1:05 PM PATIENT IDENTITY VERIFICATION COMPLETED USING TWO (2) METHODS: Patient confirmed name verbally and Date of . PATIENT GENDER DATA: Female. status: : No status: NO. PATIENT RELEVANT IMPLANT DATA REVIEWED: Yes RADIOLOGY DEPARTMENT: MR; Exam(s) Completed: Lower MSK: Forefoot/Midfoot, left PERIPHERAL IV DATA: Not applicable SIGNED BY: RT Jason January 30, 2018 1:05 PM PROGRESS Observed: 01/30/2018 Status: COMPLETED Source: [place] 1:04 PM [facility] REPOSITORY HNO ID: [id number] Author: Libra Gomez (Rt) Service: (none) Author Type: Philosophy And Religion Instructor Type: Progress Notes Filed: 01/30/2018 1:05 PM Note Text: Radiology Service Progress Note PATIENT NAME: Mason Burk DATE OF SERVICE: January 30, 2018 TIME: 1:05 PM PATIENT IDENTITY VERIFICATION COMPLETED USING TWO (2) METHODS: Patient confirmed name verbally and Date of . PATIENT GENDER DATA: Female. status: : No status: NO. PATIENT RELEVANT IMPLANT DATA REVIEWED: Yes RADIOLOGY DEPARTMENT: MR; Exam(s) Completed: Lower MSK: Forefoot/Midfoot, right PERIPHERAL IV DATA: Not applicable SIGNED BY: RT Jason January 30, 2018 1:05 PM CERV SPINE 4 OR 5 Observed: 01/24/2018 Status: F Source: [place] VIEWS 11:31 AM [facility] REPOSITORY [facility] Imaging Services [address] [place] [address] Cerv Spine 4 or 5 Views MR#: [id number] Acct: [id number] Name: MASON BURK Rep #: [id number] : 1955 F 62 From: Perico Stewart MD PCP: Radha Cortez DO Status: REG CLI Study: Cerv Spine 4 or 5 Views Date of Exam: 01/24/18 Exam# [id number] Ordering Dr: Radha Cortez DO STUDY: X-RAY - CERVICAL SPINE REASON FOR EXAM: Female, 62 years old. Right shoulder pain. History of rheumatoid arthritis. Arm weakness. TECHNIQUE: 5 view(s) of the cervical spine were obtained. COMPARISON: None FINDINGS: Normal anterior atlantoaxial articulation. Normal odontoid process. Straightening. 4 mm retrolisthesis of C5 on C6. Spondylosis and severe degenerative disc changes at C3-C4, C4-C5, and C5-C6. There is narrowing of the right neural foramina at C3-C4 and the left neural foramina at C2-C3, C3-C4, and C4-C5. The soft tissue structures are unremarkable. There is no demonstrated fracture of the cervical spine. RAD/Cerv Spine 4 or 5 Views IMPRESSION: No acute fracture or dislocation. Moderate to severe multilevel degenerative changes of the mid cervical spine. Electronically Signed: Perico Stewart MD at 10:36 EST , Service support , CC: Radha Cortez DO Proofsheet Corrector: Signed SHOULDER MIN 2 VIEWS Observed: 01/24/2018 Status: F Source: [place] 11:31 AM [facility] REPOSITORY [facility] Imaging Services [address] [place] [address] Shoulder min 2 Views MR#: [id number] Acct: [id number] Name: MASON BURK Rep #: [id number] : 1955 F 62 From: Perico Stewart MD PCP: Radha Cortez DO Status: REG CLI Study: Shoulder min 2 Views Date of Exam: 01/24/18 Exam# [id number] Ordering Dr: Radha Cortez DO STUDY: X-RAY - RIGHT SHOULDER REASON FOR EXAM: Female, 62 years old. Right shoulder pain TECHNIQUE: 4 view(s) of the shoulder. COMPARISON: None. FINDINGS: Normal glenohumeral articulation. Normal acromioclavicular joint. Normal acromion. Normal humeral head and visualized proximal humerus. The soft tissue structures are unremarkable. There is no demonstrated fracture. Normal visualized pulmonary apex. RAD/Shoulder min 2 Views IMPRESSION: Normal x-ray examination of the shoulder. Electronically Signed: Perico Stewart MD at 10:42 EST , Service support , CC: Radha Cortez DO Proofsheet Corrector: Signed CRYSTALS, BODY FLUID Collected: 01/10/2018 Status: C Source: [place] 5:00 PM [facility] REPOSITORY TYPE CODE TESTS RESULT OUT OF RANGE REFERENCE UNITS LAB L200.4200 Normal SEE PATH REV CRYSTALS/BF LAB L200.4225 Normal SYNOVIAL SOURCE/BF LAB L200.6020 Normal PATH Reviewed REV Result Comment: No diagnostic crystals identified. Trevon Fuchs D.O. 01/11/18 AMENDED REPORT 01/11/18 1417 PATH REV previously reported as: Will follow Performed By: #### L200.4175 #### [facility] [address] [facility] [place], [address] Observed: 01/10/2018 Status: F Source: [place] CULTURE, BODY FLUID 5:00 PM [facility] REPOSITORY List Antibiotics Last 48 Hours? N List Antibiotics to be Started? N Gram Stain Gram Stain No organisms seen 1+ Red Blood Cells 1+ Red Cell Stroma Body Fluid Cult NO GROWTH IN 14 DAYS Cult, Anaerobic No growth in 5 days. Performed By: #### M100.1300 #### [facility] [address] [place], [address] COMPREHENSIVE METABOLIC Collected: 12/11/2017 Status: F Source: [place]IL 12:05 PM [facility] REPOSITORY TYPE CODE TESTS RESULT OUT OF RANGE REFERENCE UNITS LAB L501.0100 74-106 mg/dL High GLU 108 Result Comment: Fasting Glucose result from 100 to 125 mg/dL suggests IMPAIRED HOMEOSTASIS per A.D.A. criteria. Please note revised GLUCOSE reference range effective 2017. LAB L501.1000 7-18 mg/dL Normal BUN 10 LAB L501.1100 0.55-1.02 mg/dL Normal CREAT,SERUM 0.78 Result Comment: The validity of the calculated GFR AND GFRAA in patients over 70 years has not been determined. Clinical correlation is essential. LAB L501.1110 >60 mL/min Normal EST GFR 80 Result Comment: Non- GFR Calc LAB L501.1115 >60 mL/min Normal EST GFR - AA 97 Result Comment: GFR Calc LAB L501.1300 10-20 RATIO Normal BUN/CRE 12.9 LAB L501.1500 6.4-8.2 g/dL T Normal PROT 7.3 LAB L501.1800 3.2-5.0 g/dL Normal ALB 3.7 LAB L501.1950 2.2-4.2 g/dL Normal GLOB 3.6 LAB L501.2000 0.9-2.4 RATIO Normal A/G 1.0 LAB L501.2200 8.5-10.1 mg/dL CA Normal 9.5 LAB L501.4100 15-37 U/L High AST 40 LAB L501.4305 45-117 U/L Normal ALK P 69 LAB L501.4405 13-56 U/L High ALT 72 LAB L501.4600 0.20-1.00 mg/dL T Normal BILI 0.70 LAB L501.5300 136-145 mmol/L NA Normal 139 LAB L501.5600 3.5-5.1 mmol/L Low K 3.1 LAB L501.5900 98-107 mmol/L Low CL 96 LAB L501.6100 21.0-32.0 mmol/L High CO2 33.0 LAB L501.6200 5-15 Normal GAP 10 Performed By: #### L500.4050 #### [facility] [address] [place], [address] CBC W/DIFF, AUTOMATED Collected: 12/11/2017 Status: F Source: [place] 12:05 PM [facility] REPOSITORY TYPE CODE TESTS RESULT OUT OF RANGE REFERENCE UNITS LAB L100.1000 4.4-11.0 K/mm3 Normal WBC 7.9 LAB L100.1200 4.2-5.4 M/mm3 Normal RBC 4.97 LAB L100.1300 12.0-15.0 g/dl High HGB 15.1 LAB L100.1400 37-47 % Normal HCT 44.7 LAB L100.1500 81-99 fL Normal MCV 89.9 LAB L100.1600 27.0-32.0 pg Normal MCH 30.4 LAB L100.1700 32-36 g/gl Normal MCHC 33.8 LAB L100.1810 11.6-14.6 % High RDW CV 15.5 LAB L100.1820 35.1-43.9 fl High RDW SD 50.4 LAB L100.1900 150-450 K/mm3 Normal PLT 318 LAB L100.2000 6.2-12.0 fl Normal MPV 9.7 LAB L100.2100 47-70 % High NEUT% 79.0 LAB L100.2200 19-41 % Low LY% 13.8 LAB L100.2300 0-10 % Normal MONO% 6.7 LAB L100.2400 0-5 % Normal EO% 0.3 LAB L100.2500 0-1 % Normal BASO% 0.1 LAB L100.2550 0.0-0.9 % Normal IM GRAN % 0.100 Result Comment: IG% - Immature Granulocytes (promyelocytes, myelocytes and metamyelocytes) > 1% indicates that a LEFT SHIFT is Present. LAB L100.2620 2.0-7.7 X10 3/uL Normal Absolute Neut 6.3 LAB L100.2720 0.83-4.51 X10 3/ul Normal Absolute Lymph 1.09 Performed By: #### L100.0100 #### [facility] [address] [place], [address] SCREENING MAMM (CAD), Observed: 11/21/2017 Status: F Source: [facility] 3:22 PM [facility] REPOSITORY [facility] Imaging Services [address] [place] [address] SCREENING MAMM (CAD), BILAT MR#: [id number] Acct: [id number] Name: MASON BURK Rep #: [id number] : 1955 F 62 From: Shreyas Garcia MD PCP: Radha Cortez DO Status: REG CLI Study: SCREENING MAMM (CAD), BILAT Date of Exam: 11/21/17 Exam# [id number] Ordering Dr: Radha Cortez DO MAMMOGRAPHY - BILATERAL SCREENING REASON FOR EXAM: Female, 62 years old. Routine annual screening examination. PERTINENT HISTORY: Non-contributory. TECHNIQUE: Digital bilateral breast ariadna (3D mammographic acquisition) in the CC and MLO projections. 2-D mediolateral oblique (MLO) and craniocaudad (CC) views of both breasts were obtained. CAD: Full Field Digital Mammography with Computer Added Detection was performed. COMPARISON: Comparison is made with prior study dated October 06, 2016 and October 23, 2012. FINDINGS: Breast Composition: The breasts are extremely dense, which lowers the sensitivity of mammography. There are no dominant masses or suspicious calcifications. No other significant abnormalities are identified. There has been no significant change since the prior study. BI/SCREENING MAMM (CAD), BILAT IMPRESSION: Stable bilateral screening mammogram. Yearly follow-up mammogram recommended. (A) ASSESSMENT CATEGORY: BIRADS Category 1: Negative. A letter regarding these results will be sent to the patient by the facility within 30 days. Approximately 10% of breast cancers are not detected by mammography. A normal mammogram should not delay biopsy of a clinically suspicious abnormality. [id number] Electronically Signed: Shreyas Garcia MD at 12:28 EDT Tel [phone], Service support , CC: Radha Cortez DO Proofsheet Corrector: Signed CBC W/DIFF, AUTOMATED Collected: 10/16/2017 Status: F Source: [place] 1:05 PM [facility] REPOSITORY TYPE CODE TESTS RESULT OUT OF RANGE REFERENCE UNITS LAB L100.1000 4.4-11.0 K/mm3 Normal WBC 5.2 LAB L100.1200 4.2-5.4 M/mm3 Normal RBC 4.57 LAB L100.1300 12.0-15.0 g/dl Normal HGB 13.3 LAB L100.1400 37-47 % Normal HCT 41.3 LAB L100.1500 81-99 fL Normal MCV 90.4 LAB L100.1600 27.0-32.0 pg Normal MCH 29.1 LAB L100.1700 32-36 g/gl Normal MCHC 32.2 LAB L100.1810 11.6-14.6 % Normal RDW CV 13.8 LAB L100.1820 35.1-43.9 fl High RDW SD 45.4 LAB L100.1900 150-450 K/mm3 Normal PLT 265 LAB L100.2000 6.2-12.0 fl Normal MPV 9.5 LAB L100.2100 47-70 % High NEUT% 75.7 LAB L100.2200 19-41 % Low LY% 13.3 LAB L100.2300 0-10 % Normal MONO% 9.8 LAB L100.2400 0-5 % Normal EO% 0.8 LAB L100.2500 0-1 % Normal BASO% 0.4 LAB L100.2550 0.0-0.9 % Normal IM GRAN % 0.000 Result Comment: IG% - Immature Granulocytes (promyelocytes, myelocytes and metamyelocytes) > 1% indicates that a LEFT SHIFT is Present. LAB L100.2620 2.0-7.7 X10 3/uL Normal Absolute Neut 3.9 LAB L100.2720 0.83-4.51 X10 3/ul Low Absolute Lymph 0.69 Performed By: #### L100.0100 #### [facility] [address] [place], [address] COMPREHENSIVE METABOLIC Collected: 10/16/2017 Status: F Source: [facility] 1:05 PM [facility] REPOSITORY TYPE CODE TESTS RESULT OUT OF RANGE REFERENCE UNITS LAB L501.0100 74-106 mg/dL Normal GLU 86 Result Comment: Please note revised GLUCOSE reference range effective 2017. LAB L501.1000 7-18 mg/dL Normal BUN 8 LAB L501.1100 0.55-1.02 mg/dL Normal CREAT,SERUM 0.80 Result Comment: The validity of the calculated GFR AND GFRAA in patients over 70 years has not been determined. Clinical correlation is essential. LAB L501.1110 >60 mL/min Normal EST GFR 78 Result Comment: Non- GFR Calc LAB L501.1115 >60 mL/min Normal EST GFR - AA 94 Result Comment: GFR Calc LAB L501.1300 10-20 RATIO Normal BUN/CRE 10.0 LAB L501.1500 6.4-8.2 g/dL T Normal PROT 6.7 LAB L501.1800 3.2-5.0 g/dL Normal ALB 3.5 LAB L501.1950 2.2-4.2 g/dL Normal GLOB 3.2 LAB L501.2000 0.9-2.4 RATIO Normal A/G 1.1 LAB L501.2200 8.5-10.1 mg/dL CA Normal 9.1 LAB L501.4100 15-37 U/L High AST 56 LAB L501.4305 45-117 U/L Normal ALK P 66 LAB L501.4405 13-56 U/L High ALT 75 LAB L501.4600 0.20-1.00 mg/dL T Normal BILI 0.50 LAB L501.5300 136-145 mmol/L NA Normal 139 LAB L501.5600 3.5-5.1 mmol/L Low K 2.9 LAB L501.5900 98-107 mmol/L Low CL 95 LAB L501.6100 21.0-32.0 mmol/L High CO2 36.0 LAB L501.6200 5-15 Normal GAP 8 Performed By: #### L500.4050 #### [facility] [address] [place], [address] DEXA BONE DENSITY Observed: 08/10/2017 Status: F Source: [place] STUDY 1:39 PM [facility] REPOSITORY [facility] Imaging Services [address] [place] [address] Dexa Bone Density Study MR#: [id number] Acct: [id number] Name: MASON BURK Rep #: [id number] : 1955 F 62 From: Shreyas Garcia MD PCP: Radha Cortez DO Status: REG CLI Study: Dexa Bone Density Study Date of Exam: 08/10/17 Exam# [id number] Ordering Dr: Radha Cortez DO STUDY: DUAL ENERGY X-RAY ABSORPTIOMETRY / DXA REASON FOR EXAM: Female, 62 years old. The patient is postmenopausal. Loss of height. TECHNIQUE: Bone Mineral Density (BMD) measurements of lumbar spine and right hip were obtained. The patient is status post left hip replacement. COMPARISON: None. FINDINGS: Lumbar Spine (L1-L4): g/cm2 (0.884) / T-score (-2.4) / Z-score (-1.1) Findings are suggestive of osteopenia with a moderate fracture risk. Increased thoracic kyphosis. Right Femur Total: g/cm2 (0.721) / T-score (-2.3) / Z- score (-1.3) Right Femoral Neck: g/cm2 (0.672) / T-score (-2.6) / Z-score (-1.3) BD/Dexa Bone Density Study IMPRESSION: The patient is considered osteoporotic as outlined below according to World Geoff Organization (WHO) criteria with a high [...] Severe -2.1 through -2.4 The Z-score is the number of standard deviations above or below age-matched controls. A Z-score of less than -1.5 would be considered abnormal. References: 1. NIH Osteoporosis and Related Bone Diseases http://www.osteo.org 2. International Society for Clinical Densitometry http://www.iscd.org 3. National Osteoporosis Foundation http://www.nof.org Electronically Signed: Shreyas Garcia MD at 14:58 EDT Tel [phone], Service support , CC: Radha DOVE Proofsheet Corrector: Signed ARTERIAL DUPLEX US, Observed: 08/02/2017 Status: F Source: [facility] 11:08 AM [facility] REPOSITORY [facility] Cardiovascular Services [address] [place] [address] Art Duplex US Unilat Lower Ext 07/28/17 1320 MR#: [id number] Acct: [id number] Name: MASON BURK Rep #: [id number] : 1955 62 From: Garcia Torres MD Attending Dr: Garcia Torres MD Status: REG CLI Ordering Dr: Garcia Torres MD Date: 07/28/17 Location: [facility] Sex: F C Admitted: Reason For Study: ATHEROSCLEROSIS, RAYNAUDS Right Velocities Ext. Iliac Artery, dist = 133.0 cm./sec. Common Femoral Artery, mid = 66.3 cm./sec. Supf Femoral Artery, prox = 75.0 cm./sec. Supf Femoral Artery, mid = 75.6 cm./sec. Supf Femoral Artery, dist. = 65.7 cm./sec. Profunda Femoral Artery = 66.8 cm./sec. Popliteal Artery, prox. = 46.3 cm./sec. Popliteal Artery, mid = 45.1 cm./sec. Popliteal Artery, dist = 38.7 cm./sec. Post. Tibial [...] triphasic flow seen throughout.,. Ordering Physician: Garcia Torres Referring Physician: Radha Cortez D.O. Performed By: Katlyn Berg, LENNY, RVT 08/02/17 1108 Date Garcia Torres MD CC: Garcia Torres MD; Radha Cortez DO Date Dictated: 07/28/17 1320 Date Transcribed: 08/02/17 110 Proofsheet Corrector: Signed LOWER EXT ARTERIAL Observed: 08/02/2017 Status: F Source: [facility] 8:34 AM [facility] REPOSITORY [facility] Cardiovascular Services [address] [place] [address] 08/02/17 0832 MR#: [id number] Acct: [id number] Name: MASON BURK Rep #: [id number] : 1955 62 From: Garcia Torres MD Attending Dr: Garcia Torres MD Status: REG CLI Ordering Dr: Date: 08/02/17 Location: [facility] Sex: F C Admitted: Arterial Study - Arterial Study Arterial Study: Record number: [id number] next Date of scan 07/28/[address] Torres History patient with atherosclerosis and possible were nods with some known hyperlipidemia. Interpretation: Right lower extremity normal pulsatile flow noted at the ankle slightly peaked waveforms adequate waveform out to the digits. Duplex shows triphasic flow at the ankle. NISH 1.23 the posterior tib 1.27 of the dorsalis pedis. Digital brachial index 0.97 next Remedy with normal pulsatile flow noted at the ankle slightly peaked waveforms. Normal waveform out through the digits. Duplex shows triphasic flow both vessels with an NISH 1.27 posterior [...] flow in the digit brachial index 0.74. 08/02/17833 <Electronically signed by Garcia Torres MD> Date Garcia Torres MD CC: Garcia Torres MD; Radha Fast DO Date Dictated: 08/02/17831 Date Transcribed: 08/02/17831 Proofsheet Corrector: MELITON Signed CBC W/DIFF, AUTOMATED Collected: 07/18/2017 Status: F Source: [place] 3:42 PM [facility] REPOSITORY TYPE CODE TESTS RESULT OUT OF RANGE REFERENCE UNITS LAB L100.1000 4.4-11.0 K/mm3 Normal WBC 6.4 LAB L100.1200 4.2-5.4 M/mm3 Normal RBC 4.46 LAB L100.1300 12.0-15.0 g/dl Normal HGB 13.7 LAB L100.1400 37-47 % Normal HCT 40.9 LAB L100.1500 81-99 fL Normal MCV 91.7 LAB L100.1600 27.0-32.0 pg Normal MCH 30.7 LAB L100.1700 32-36 g/gl Normal MCHC 33.5 LAB L100.1810 11.6-14.6 % Normal RDW CV 13.8 LAB L100.1820 35.1-43.9 fl High RDW SD 45.9 LAB L100.1900 150-450 K/mm3 Normal PLT 314 LAB L100.2000 6.2-12.0 fl Normal MPV 10.0 LAB L100.2100 47-70 % High NEUT% 71.6 LAB L100.2200 19-41 % Low LY% 16.4 LAB L100.2300 0-10 % High MONO% 10.7 LAB L100.2400 0-5 % Normal EO% 0.8 LAB L100.2500 0-1 % Normal BASO% 0.5 LAB L100.2550 0.0-0.9 % Normal IM GRAN % 0.000 Result Comment: IG% - Immature Granulocytes (promyelocytes, myelocytes and metamyelocytes) > 1% indicates that a LEFT SHIFT is Present. LAB L100.2620 2.0-7.7 X10 3/uL Normal Absolute Neut 4.6 LAB L100.2720 0.83-4.51 X10 3/ul Normal Absolute Lymph 1.04 Performed By: #### L100.0100 #### [facility] [address] [place], [address] COMPREHENSIVE METABOLIC Collected: 07/18/2017 Status: F Source: [facility] [place] 3:42 PM [facility] REPOSIT[facility] TYPE CODE TESTS RESULT OUT OF RANGE REFERENCE UNITS LAB L501.0100 74-106 mg/dL Normal GLU 91 Result Comment: Please note revised GLUCOSE reference range effective 2017. LAB L501.1000 7-18 mg/dL Normal BUN 18 LAB L501.1100 0.55-1.02 mg/dL Normal CREAT,SERUM 0.80 Result Comment: The validity of the calculated GFR AND GFRAA in patients over 70 years has not been determined. Clinical correlation is essential. LAB L501.1110 >60 mL/min Normal EST GFR 77 Result Comment: Non- GFR Calc LAB L501.1115 >60 mL/min Normal EST GFR - AA 94 Result Comment: GFR Calc LAB L501.1300 10-20 RATIO High BUN/CRE 22.5 LAB L501.1500 6.4-8.2 g/dL T Normal PROT 7.1 LAB L501.1800 3.2-5.0 g/dL Normal ALB 3.7 LAB L501.1950 2.2-4.2 g/dL Normal GLOB 3.4 LAB L501.2000 0.9-2.4 RATIO Normal A/G 1.1 LAB L501.2200 8.5-10.1 mg/dL CA Normal 9.1 LAB L501.4100 15-37 U/L High AST 50 LAB L501.4305 45-117 U/L Normal ALK P 69 LAB L501.4405 13-56 U/L High ALT 66 LAB L501.4600 0.20-1.00 mg/dL T Normal BILI 0.60 LAB L501.5300 136-145 mmol/L NA Normal 139 LAB L501.5600 3.5-5.1 mmol/L Low K 2.9 LAB L501.5900 98-107 mmol/L Low CL 97 LAB L501.6100 21.0-32.0 mmol/L High CO2 36.0 LAB L501.6200 5-15 Normal GAP 6 Performed By: #### L500.4050 #### [facility] [address] [place], [address] TOE(S) MIN 2 VIEWS Observed: 06/19/2017 Status: F Source: [facility] 1:49 PM [facility] RE[facility]ITORY [facility] Imaging Services [address] [place] [address] Toe(s) Min 2 Views MR#: [id number] Acct: [id number] Name: MASON BURK Rep #: [id number] : 1955 F 61 From: Shreyas Garcia MD PCP: Radha Cortez DO Status: REG CLI Study: Toe(s) Min 2 Views Date of Exam: 06/19/17 Exam# [id number] Ordering Dr: Radha Cortez DO STUDY: X-RAY LEFT FOOT, FOURTH TOE REASON FOR EXAM: Female, 61 years old. Ulceration. TECHNIQUE: 3 view(s) of the toe were obtained. COMPARISON: None. FINDINGS: Normal visualized metatarsus. Normal metatarsophalangeal (M.T.P) joint. Normal interphalangeal joints. Normal phalanges and interphalangeal joints. Soft tissue swelling overlying the fourth toe. No bony abnormality is seen. RAD/Toe(s) Min 2 Views IMPRESSION: Soft tissue swelling. Electronically Signed: Shreyas Garcia MD at 14:12 EDT Tel [phone], Service support , CC: Radha Cortez DO Proofsheet Corrector: Signed LIVER PROFILE Collected: 06/06/2017 Status: F Source: MAGED 3:05 PM [facility] REPOSITORY TYPE CODE TESTS RESULT OUT OF RANGE REFERENCE UNITS LAB L501.1500 6.4-8.2 g/dL Normal T PROT 6.9 LAB L501.1800 3.2-5.0 g/dL Normal ALB 3.5 LAB L501.1950 2.2-4.2 g/dL Normal GLOB 3.4 LAB L501.4100 15-37 U/L High AST 49 LAB L501.4305 45-117 U/L Normal ALK P 79 LAB L501.4405 13-56 U/L High ALT 66 Result Comment: Please note revised ALT reference range effective 2017. LAB L501.4600 0.20-1.00 mg/dL Normal T BILI 0.40 LAB L501.4700 0.00-0.30 mg/dL Normal D BILI 0.12 Performed By: #### L500.3400 #### [facility] [address] [place], [place], [address] PT D/C SUMMARY (1) Observed: 05/22/2017 Status: F Source: PALMY[place] 4:02 PM [facility] REPOSITORY [facility] [address] [place] [address] Fax REHABILITATION SERVICES DISCHARGE SUMMARY MR#: [id number] Acct: [id number] Name: MASON BURK Rep #: [id number] : 1955 61 From: Melissa King PT, Cert. MDT Referring DrBlake: Radha Cortez DO Status: REG RCR Insurance: [employer] SELF PAY INSURANCE HP - PT D/C Summary It has been my pleasure to treat MASON BURK under orders from Radha Cortez DO, DR.DFAST for the diagnosis of LUMBAR RADICULOPATHY for a total of 10 visit(s). Discharge Date: Please see the [...] STRONGER. SHE STATES SHE FEELS LIKE SHE HAS BEEN IN GOOD HANDS WITH US TO PROTECT HER BACK SHE GETS STRONGER. SHE REPORTS SHE IS HAPPIER MENTALLY DOING THESE EX'S INSTEAD OF BEATING HERSELF UP LIKE SHE WAS. SHE REPORTS SHE FEELS SHE IS WORKING MUCH SMARTER. SHE REPORTS SHE FEELS GOOD ABOUT TRYING TO CONTINUE ON HER OWN AT THIS TIME. PLANS TO HAVE A PHYSICAL WITH DR. CORTEZ SOON. I AM DEFINATELY HEADED THE RIGHT DIRECTION NOW. PATIENT REPORTS THAT EVEN IF SHE DOES [...] A GOOD UNDERSTANDING OF PROPER BODY MECHANICS NOW. Motor deficit: RIGHT HIP 4/5, KNEE EXT [...] A RESULT. Core strength: FAIR WITH CONTROL INCREASING. Palpation: PATIENT DOES NOT HAVE TENDERNESS WITH PALPATION OF THE ENTIRE LUMBAR, SACRAL, LEFT BUTTOCK, LEFT HIP AND LEFT ANTEROLATERAL THIGH TODAY. - Goals Goal 1:: DECREASE C/O BACK AND LEFT LE SX'S. Goal Progress: Goal Met Goal 2:: IMPROVE PERSONAL CARE, LIFTING, SITTING*, STANDING, SLEEP*, SOCIAL LIFE, TRAVEL AND HOMEMAKING FUNCTION. Goal Progress: Goal Met Goal 3:: INSTRUCT IN PROPHYLAXIS Goal Progress: Goal Met - Plan Plan: D/C TO [facility]. PATIENT IS AGREEABLE. - D/C Information If there are questions or concerns regarding this patient's physical therapy, please feel free to call me at [phone]. Thank you for the referral of this patient. Sincerely, Melissa King <Electronically signed by Melissa King PT, Cert. MDT> 05/22/17 1602 CC: Radha Cortez TOM Signed CBC W/DIFF, AUTOMATED Collected: 05/02/2017 Status: F Source: MAGED 10:15 AM [facility] REPOSITORY Order Comment: [place] ORDERED: CMP, CBCD FAST ORDERED: TSH, VITD, CMP, FE, AMA,HEP A, T4F, T3F, PTHIN, FE, TIBC, CERU, AMS, MISC TYPE CODE TESTS RESULT OUT OF RANGE REFERENCE UNITS LAB L100.1000 4.4-11.0 K/mm3 Low WBC 4.2 LAB L100.1200 4.2-5.4 M/mm3 Low RBC 4.15 LAB L100.1300 12.0-15.0 g/dl Normal HGB 12.9 LAB L100.1400 37-47 % Normal HCT 39.3 LAB L100.1500 81-99 fL Normal MCV 94.7 LAB L100.1600 27.0-32.0 pg Normal MCH 31.1 LAB L100.1700 32-36 g/gl Normal MCHC 32.8 LAB L100.1810 11.6-14.6 % Normal RDW CV 13.8 LAB L100.1820 35.1-43.9 fl High RDW SD 47.5 LAB L100.1900 150-450 K/mm3 Normal PLT 259 LAB L100.2000 6.2-12.0 fl Normal MPV 9.7 LAB L100.2100 47-70 % Normal NEUT% 55.5 LAB L100.2200 19-41 % Normal LY% 24.0 LAB L100.2300 0-10 % High MONO% 17.6 LAB L100.2400 0-5 % Normal EO% 2.4 LAB L100.2500 0-1 % Normal BASO% 0.5 LAB L100.2550 0.0-0.9 % Normal IM GRAN % 0.000 Result Comment: IG% - Immature Granulocytes (promyelocytes, myelocytes and metamyelocytes) > 1% indicates that a LEFT SHIFT is Present. LAB L100.2620 2.0-7.7 X10 3/uL Normal Absolute Neut 2.3 LAB L100.2720 0.83-4.51 X10 3/ul Normal Absolute Lymph 1.01 Performed By: #### L100.0100 #### [facility] [address], [address] COMPREHENSIVE METABOLIC Collected: 05/02/2017 Status: F Source: MAGED SPARKS 10:15 AM [facility] REPOSITORY Order Comment: [place] ORDERED: CMP, CBCD FAST ORDERED: TSH, VITD, CMP, FE, AMA,HEP A, T4F, T3F, PTHIN, FE, TIBC, CERU, AMS, MISC LIPID ADDED PER ; FAXED ORDER TO FOLLOW Comments: [id number];LKM;SERUM;FROZEN TYPE CODE TESTS RESULT OUT OF RANGE REFERENCE UNITS LAB L501.0100 74-106 mg/dL Normal GLU 92 Result Comment: Please note revised GLUCOSE reference range effective 2017. LAB L501.1000 7-18 mg/dL Normal BUN 15 LAB L501.1100 0.55-1.02 mg/dL Normal CREAT,SERUM 0.67 Result Comment: The validity of the calculated GFR AND GFRAA in patients over 70 years has not been determined. Clinical correlation is essential. LAB L501.1110 >60 mL/min Normal EST GFR 95 Result Comment: Non- GFR Calc LAB L501.1115 >60 mL/min Normal EST GFR - AA 115 Result Comment: GFR Calc LAB L501.1300 10-20 RATIO High BUN/CRE 22.4 LAB L501.1500 6.4-8.2 g/dL T Normal PROT 6.7 LAB L501.1800 3.2-5.0 g/dL Normal ALB 3.3 LAB L501.1950 2.2-4.2 g/dL Normal GLOB 3.4 LAB L501.2000 0.9-2.4 RATIO Normal A/G 1.0 LAB L501.2200 8.5-10.1 mg/dL CA Normal 9.0 LAB L501.4100 15-37 U/L High AST 47 LAB L501.4305 45-117 U/L Normal ALK P 72 LAB L501.4405 13-56 U/L High ALT 69 Result Comment: Please note revised ALT reference range effective 2017. LAB L501.4600 0.20-1.00 mg/dL Normal T BILI 0.40 LAB L501.5300 136-145 mmol/L Normal NA 138 LAB L501.5600 3.5-5.1 mmol/L Low K 3.3 LAB L501.5900 98-107 mmol/L Normal CL 101 LAB L501.6100 21.0-32.0 mmol/L Normal CO2 32.0 LAB L501.6200 5-15 Normal GAP 5 Performed By: #### L500.4050, L501.31911, L501.9520, L503.6075, L503.6150, L503.6550, L506.0400, L500.4100 #### [facility] [address] [place], [place], [id number] FREE T3 Collected: 05/02/2017 Status: F Source: MAGED 10:15 AM [facility] REPOSITORY Order Comment: [place] ORDERED: CMP, CBCD FAST ORDERED: TSH, VITD, CMP, FE, AMA,HEP A, T4F, T3F, PTHIN, FE, TIBC, CERU, AMS, MISC LIPID ADDED PER ; FAXED ORDER TO FOLLOW Comments: [id number];LKM;SERUM;FROZEN TYPE CODE TESTS RESULT OUT OF RANGE REFERENCE UNITS LAB L501.73301 2.18-3.98 pg/mL Normal FREE T3 2.8 Performed By: #### L500.4050, L501.60987, L501.9520, L503.6075, L503.6150, L503.6550, L506.0400, L500.4100 #### [facility] [address] [place], [address] THYROID STIM HORMONE Collected: 05/02/2017 Status: F Source: MAGED (TSH) 10:15 AM [facility] REPOSITORY Order Comment: [place] ORDERED: CMP, CBCD FAST ORDERED: TSH, VITD, CMP, FE, AMA,HEP A, T4F, T3F, PTHIN, FE, TIBC, CERU, AMS, MISC LIPID ADDED PER ; FAXED ORDER TO FOLLOW Comments: umu;VICTOR MANUELM;SERUM;FROZEN TYPE CODE TESTS RESULT OUT OF RANGE REFERENCE UNITS LAB L501.9520 0.358-3.74 uIU/mL Normal TSH 0.98 Performed By: #### L500.4050, L501.79005, L501.9520, L503.6075, L503.6150, L503.6550, L506.0400, L500.4100 #### [facility] [address] [place], [place], [id number] IRON BINDING Collected: 05/02/2017 Status: F Source: [facility],T[facility] 10:15 AM [facility] REPOSITORY Order Comment: [place] ORDERED: CMP, CBCD FAST ORDERED: TSH, VITD, CMP, FE, AMA,HEP A, T4F, T3F, PTHIN, FE, TIBC, CERU, AMS, MISC LIPID ADDED PER ; FAXED ORDER TO FOLLOW Comments: [id number];SERUM;FROZEN TYPE CODE TESTS RESULT OUT OF RANGE REFERENCE UNITS LAB L503.6075 250-450 ug/dL High TIBC 452 Performed By: #### L500.4050, L501.17837, L501.9520, L503.6075, L503.6150, L503.6550, L506.0400, L500.4100 #### [facility] [address] [place], [place], [address] (173) IRON Collected: 05/02/2017 Status: F Source: MAGED 10:15 AM [facility] REPOSITORY Order Comment: [place] ORDERED: CMP, CBCD FAST ORDERED: TSH, VITD, CMP, FE, AMA,HEP A, T4F, T3F, PTHIN, FE, TIBC, CERU, AMS, MISC LIPID ADDED PER ; FAXED ORDER TO FOLLOW Comments: [id number];LKM;SERUM;FROZEN TYPE CODE TESTS RESULT OUT OF RANGE REFERENCE UNITS LAB L503.6150 50-170 ug/dL Normal IRON 53 Performed By: #### L500.4050, L501.77081, L501.9520, L503.6075, L503.6150, L503.6550, L506.0400, L500.4100 #### [facility] [address] [place], [address] FERRITIN Collected: 05/02/2017 Status: F Source: [place] 10:15 AM [facility] REPOSITORY Order Comment: [place] ORDERED: CMP, CBCD FAST ORDERED: TSH, VITD, CMP, FE, AMA,HEP A, T4F, T3F, PTHIN, FE, TIBC, CERU, AMS, MISC LIPID ADDED PER ; FAXED ORDER TO FOLLOW Comments: [id number];LKM;SERUM;FROZEN TYPE CODE TESTS RESULT OUT OF RANGE REFERENCE UNITS LAB L503.6550 8-252 ng/mL Normal FERRITIN 12 Performed By: #### L500.4050, L501.69712, L501.9520, L503.6075, L503.6150, L503.6550, L506.0400, L500.4100 #### [facility] [address] [place], [address] T4 FREE DIRECT Collected: 05/02/2017 Status: F Source: [place] 10:15 AM [facility] REPOSITORY Order Comment: [place] ORDERED: CMP, CBCD FAST ORDERED: TSH, VITD, CMP, FE, AMA,HEP A, T4F, T3F, PTHIN, FE, TIBC, CERU, AMS, MISC LIPID ADDED PER ; FAXED ORDER TO FOLLOW Comments: [id number];LKM;SERUM;FROZEN TYPE CODE TESTS RESULT OUT OF RANGE REFERENCE UNITS LAB L506.0400 0.76-1.46 ng/dL Normal T4 FREE 0.98 DIRECT Performed By: #### L500.4050, L501.72115, L501.9520, L503.6075, L503.6150, L503.6550, L506.0400, L500.4100 #### [facility] [address] [place], [address] LIPID PROFILE Collected: 05/02/2017 Status: F Source: [place] 10:15 AM [facility]ITORY Order Comment: [place] ORDERED: CMP, CBCD FAST ORDERED: TSH, VITD, CMP, FE, AMA,HEP A, T4F, T3F, PTHIN, FE, TIBC, CERU, AMS, MISC LIPID ADDED PER ; FAXED ORDER TO FOLLOW Comments: [id number];LKM;SERUM;FROZEN TYPE CODE TESTS RESULT OUT OF RANGE REFERENCE UNITS LAB L501.4900 200 mg/dL High CHOL 314 Result Comment: <200 mg/dL Desirable 200-240 mg/dL Borderline >240 mg/dL High Risk LAB L501.5000 mg/dL Normal TRIG 79 Result Comment: The drugs N-Acetylcysteine and Metamizole may falsely depress this assay. Serum Triglycerides Reference Interval Normal <150 mg/dL Borderline high 150 - 199 mg/dL High 200 - 499 mg/dL Very High > or = 500 mg/dL LAB L501.6400 mg/dL Normal HDL 101 Result Comment: The drugs N-Acetylcysteine and Metamizole may falsely depress this assay. Reference Range HDL <40 mg/dL Low HDL Cholesterol HDL >or= 60 mg/dL High HDL Cholesterol LAB L501.6500 0-130 mg/dL High LDL 197 LAB L501.6600 5-40 mg/dL Normal VLDL 16 Performed By: #### L500.4050, L501.10233, L501.9520, L503.6075, L503.6150, L503.6550, L506.0400, L500.4100 #### [facility] [address] [place], [address] PTHIN Collected: 05/02/2017 Status: F Source: MAGED 10:15 AM [facility]ITORY Order Comment: [place] ORDERED: CMP, CBCD FAST ORDERED: TSH, VITD, CMP, FE, AMA,HEP A, T4F, T3F, PTHIN, FE, TIBC, CERU, AMS, MISC TYPE CODE TESTS RESULT OUT OF RANGE REFERENCE UNITS LAB L509.1000 18.4-80.1 pg/mL Normal PTHIN 65.9 Result Comment: Please Note: PTH INTACT METHOD AND REFERENCE RANGE CHANGE Effective 03/01/2017. Performed By: #### L509.1000 #### [facility] [address] [place], [address] VITAMIN D,25 HYDROXY Collected: 05/02/2017 Status: F Source: [place] 10:15 AM [facility]POSITORY Order Comment: [place] ORDERED: CMP, CBCD FAST ORDERED: TSH, VITD, CMP, FE, AMA,HEP A, T4F, T3F, PTHIN, FE, TIBC, CERU, AMS, MISC TYPE CODE TESTS RESULT OUT OF RANGE REFERENCE UNITS LAB L506.1000 19.95-100.01 ng/mL Normal Vitamin D 57.7 25-OH Result Comment: Vitamin D 25(OH) Status Range Deficiency <20 ng/mL (50nmol/L) Insuffciency 20 - 30 ng/mL (50 - 75 nmol/L) Sufficiency 30 - 100 ng/mL (75 - 250 nmol/L) Toxicity >100 ng/mL (>250 nmol/L) Performed By: #### L506.1000 #### [facility] [place], [address] ANTI-MITOCHONDRIAL AB Collected: Status: F Source: [place] 05/02/2017 10:15 AM [facility] REPOSITORY Order Comment: [place] ORDERED: CMP, CBCD FAST ORDERED: TSH, VITD, CMP, FE, AMA,HEP A, T4F, T3F, PTHIN, FE, TIBC, CERU, AMS, MISC TYPE CODE TESTS RESULT OUT OF RANGE REFERENCE UNITS LAB L800.1280 0.0-20.0 Units Normal MITOCHN AB <20.0 Result Comment: Negative 0.0 - 20.0 Equivocal 20.1 - 24.9 Positive >24.9 Mitochondrial (M2) Antibodies are found in 90-96% of patients with primary biliary cirrhosis. Performed at: - [facility] [id number] Entry Level Account Executive: Wili Wagner PhD, Phone: [phone] Performed By: #### L800.1280 #### [facility] (refer to report for specific site) refer to report for address and phone number ANTI-SMOOTH MUSCLE ABS Collected: 05/02/2017 Status: F Source: [place] 10:15 AM [facility] RE[facility]ITORY Order Comment: [place] ORDERED: CMP, CBCD FAST ORDERED: TSH, VITD, CMP, FE, AMA,HEP A, T4F, T3F, PTHIN, FE, TIBC, CERU, AMS, MISC Comments: [id number];LKM;SERUM;FROZEN TYPE CODE TESTS RESULT OUT OF RANGE REFERENCE UNITS LAB L803.2200 0-19 Units Normal ANTISMOOTH 6643 2 Result Comment: Negative 0 - 19 Weak positive 20 - 30 Moderate to strong positive >30 Actin Antibodies are found in 52-85% of patients with autoimmune hepatitis or chronic active hepatitis and in 22% of patients with primary biliary cirrhosis. Performed By: #### L803.2200, L3100.0200, L3100.0300, L3400.0700, L3400.3800 #### [facility] (refer to report for specific site) refer to report for address and phone number HEPATITIS A IGM Collected: 05/02/2017 Status: F Source: MAGED ANTIBODY 10:15 AM [facility] REPOSITORY Order Comment: [place] ORDERED: CMP, CBCD FAST ORDERED: TSH, VITD, CMP, FE, AMA,HEP A, T4F, T3F, PTHIN, FE, TIBC, CERU, AMS, MISC Comments: [id number];LKM;SERUM;FROZEN TYPE CODE TESTS RESULT OUT OF RANGE REFERENCE UNITS LAB L3100.0200 Negative Normal HEP A Negative IgM 6734 Result Comment: Performed at: [facility] [id number] Entry Level Account Executive: Wili Wagner PhD, Phone: [phone] Performed By: #### L803.2200, L3100.0200, L3100.0300, L3400.0700, L3400.3800 #### [facility] (refer to report for specific site) refer to report for address and phone number HEPATITIS A AB, TOTAL Collected: 05/02/2017 Status: F Source: MAGED 10:15 AM [facility]IT[facility] Order Comment: [place] ORDERED: CMP, CBCD FAST ORDERED: TSH, VITD, CMP, FE, AMA,HEP A, T4F, T3F, PTHIN, FE, TIBC, CERU, AMS, MISC Comments: [id number];LKM;SERUM;FROZEN TYPE CODE TESTS RESULT OUT OF REFERENCE UNITS RANGE LAB L3100.0300 Negative High HEP A Positive AB,T.6726 Performed By: #### L803.2200, L3100.0200, L3100.0300, L3400.0700, L3400.3800 #### [facility] (refer to report for specific site) refer to report for address and phone number CERULOPLASMIN Collected: 05/02/2017 Status: F Source: MAGED 10:15 AM [facility] Order Comment: [place] ORDERED: CMP, CBCD FAST ORDERED: TSH, VITD, CMP, FE, AMA,HEP A, T4F, T3F, PTHIN, FE, TIBC, CERU, AMS, MISC Comments: [id number];LKM;SERUM;FROZEN TYPE CODE TESTS RESULT OUT OF RANGE REFERENCE UNITS LAB L3400.0700 19.0-39.0 mg/dL Normal CERULOPLAS 1560 23.8 Performed By: #### L803.2200, L3100.0200, L3100.0300, L3400.0700, L3400.3800 #### [facility] (refer to report for specific site) refer to report for address and phone number TRANSFERRIN Collected: 05/02/2017 Status: F Source: MAGED 10:15 AM [facility] Order Comment: [place] ORDERED: CMP, CBCD FAST ORDERED: TSH, VITD, CMP, FE, AMA,HEP A, T4F, T3F, PTHIN, FE, TIBC, CERU, AMS, MISC Comments: [id number];LKM;SERUM;FROZEN TYPE CODE TESTS RESULT OUT OF RANGE REFERENCE UNITS LAB L3400.3800 200-370 mg/dL Normal TRANSFERRN 4937 365 Performed By: #### L803.2200, L3100.0200, L3100.0300, L3400.0700, L3400.3800 #### [facility] (refer to report for specific site) refer to report for address and phone number MISCELLANEOUS LAB Collected: 05/02/2017 Status: F Source: MAGED PROCEDURE 10:15 AM [facility] Order Comment: [place] ORDERED: CMP, CBCD FAST ORDERED: TSH, VITD, CMP, FE, AMA,HEP A, T4F, T3F, PTHIN, FE, TIBC, CERU, AMS, MISC Comments: [id number];LKM;SERUM;FROZEN Test(s) Ordered: [id number];LKM;SERUM;FROZEN TYPE CODE TESTS RESULT OUT OF RANGE REFERENCE UNITS LAB L801.1541 Normal [facility] Result Comment: TEST RESULT LIMITS Liver-Kidney Microsomal Ab <1.0 Units 0.0 - 20.0 Negative 0.0 - 20.0 Equivocal 20.1 - 24.9 Positive >24.9 LKM type 1 antibodies are detected in patients with autoimmune hepatitis type 2 and in up to 8% of patients with chronic HCV infection. TESTING PERFORMED AT [facility]. ORIGINAL REPORT ON FILE IN LAB CONTAINS ADDITIONAL TEST SITE INFORMATION. Performed By: #### L801.1541 #### [facility] [address] [place], [address] INITAL EVALUATION (1) Observed: 04/19/2017 Status: F Source: MAGED - PT 2:40 PM [facility] RE[facility]IT[facility] [place] [address] Fax REHABILITATION SERVICES INITIAL EVALUATION MR#: [id number] Acct: [id number] Name: MASON BURK Rep #: [id number] : 1955 61 From: Melissa King PT, Cert. MDT Referring DrBlake: Radha Cortez DO Status: REG RCR Insurance: [employer] SELF PAY INSURANCE Patient's Visit Information MASON BURK is a 61 year old F referred to Physical Therapy by DO CLARITZA Patrick with a diagnosis of LUMBAR RADICULOPATHY. Date of Evaluation: 04/19/17 Physical Therapist: Melissa Rosario Cross - Visit Plan Frequency: 2-3x /Week Duration: 4-6 Weeks Plan: *RA* AQUATIC THERAPY. POSTURE CORRECTION/STRENGTHENING, INSTRUCTION IN APPROPRIATE BODY MECHANICS AND ACTIVITY MODIFICATIONS. DLS STARTING WITH A NEUTRAL SPINE PROGRESSING ROM TOLERATED. RAMESH LE ROM, STRETCHING AND STRENGTHENING. HEP INSTRUCTION. 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 Present since: ABOUT 6 YEARS AGO. Pain Scale: WORST 9/10, LEAST 2/10. Currently: 5/10. WORSENING. ESPECIALLY THE LEFT THIGH PAIN IS WORSENING. Commenced as a result of: NO APPARENT REASON. Symptoms at onset: LOW BACK L>R. Worse: SITTING, EXERCISING, SQUATTING, LEANING BACK, LEANING FORWARD/BENDING, ANY SORT OF ACTIVITY, WASHING THE FLOOR, SEX. Better: TRAMADOL, WARM WATER, LYING DOWN. Disturbed sleep: YES. Previous history/Previous treatment: LEFT THR JAN [address] PATEL AT [facility] IN [place] , LUMBAR HERMES'S X [address] SHORT - THEY DID NOTHING, MASSAGE THERAPY SINCE AUGUST - HURTS WORSE THAN HELPS SO STOPPED IN FEBRUARY. CHIROPRACTOR X 1 YEAR TO 2016 - STOPPED WHEN SHE GOT THE HIP REPLACEMENT IN JAN 2017. MEDICATIONS. DR. LOUIE 2013 NO INJECTIONS BUT COMPOUND PAIN CREAM WITH SOME BENEFIT. HOME PT X 2 VISITS ONLY AFTER THR - STATES IT WAS MAKING IT WORSE SO STATES SHE JUST USED THE BOOKLET OF EX'S AND DID IT ON HER OWN. Coughing/sneezing/straining: POSTIVE. Gait: WALKING EVERYDAY ABOUT 3 MILES BUT STATES IT IS SLOWER THAN SHE WANTS TO GO AND IT HURTS THE WHOLE TIME WITH NERVE PAIN COMING INTO PLAY - I JUST KEEP GOING UNTIL IT GETS TIRED AND PAINFUL UNTIL I HAVE TO QUIT. Difficulty initiating urinatin: NO. Accidents: NO. Unexplained weight loss: NO. Imaging: RECENT LUMBAR MRI Mar WITH PATIENTS UNDERSTANDING BEING THAT SHE HAS SOME BULGING DISCS AND [...] TO SEE AN ORTHOPEDIC SURGEON - DR. DICKERSON - AND HE RECOMMENDED SURGERY - LAMINECTOMY AND FUSION - PATIENT SAID NO THANK YOU AND THAT IS WHY SHE IS HERE. HAS A DOCTOR IN [place] THAT SHE THINKS IS A FUNCTIONAL MEDICINE DOCTOR. THIS DOCTOR HAS PRESCRIBED EXERCISES AND SUPPLEMENTS AND DIET. 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 HE HELPED HER LE EDEMA IN 5 DAYS AFTER SUFFERING WITH IT FOR 3 YEARS. HER DAUGHTER LIVES IN [place] AND THIS IS HOW SHE FOUND HIM AND SHE SEES HIM 3-4 TIMES A YEAR. PATIENT REPORTS SHE WILL TRY ANYTHING TO AVOID SURGERY AT THIS POINT. - Objective Sitting Posture: POOR. Standing Posture: POOR. Lordosis: REDUCED. Lateral shift: NO. Relevant shift: N/A. Active Correction of posture: WORSE. Other Observations: INDEP GAIT INTO PT WITH MILD INCREASED TRUNK FLEXION AND DECREASED CADANCE. NO AD'S. Motor deficit: RIGHT HIP 4/5, KNEE EXT 5/5, KNEE FLEX 5/5, ANKLE 5/5, EHL 5/5. LEFT HIP 3+/5, KNEE EXT 4/5, KNEE FLEX 4/4, ANKLE 5/5, EHL 5/5. Sensory deficit: DECREASED LEFT ANTERIOR THIGH LIGHT TOUCH SENSATION COMPARED [...] AND LEFT ANTEROLATERAL THIGH. - Goals Goal 1:: DECREASE C/O BACK AND LEFT LE SX'S. Goal Time Frame: 4-6 Weeks Goal 2:: IMPROVE PERSONAL CARE, LIFTING, SITTING*, STANDING, SLEEP*, SOCIAL LIFE, TRAVEL AND HOMEMAKING FUNCTION. Goal Time Frame: 4-6 Weeks Goal 3:: INSTRUCT IN PROPHYLAXIS Goal Time Frame: 4-6 Weeks - Rehabilitation Potential Rehabilitation Potential: Fair - Anticipated Interventions Patient/Client Instruction: Educate patient on: Condition, Plan of Care, Risk Factors, Benefits of Fitness Program For the Purpose of:: To improve self management Therapeutic Exercise to Include: Strength training, Body mechanics, Postural training, In an aquatic setting, Dynamic Lumbar Stabilization For the Purpose of:: To improve ability of physical actions for home/community/work/leisure Thank you for the opportunity to evaluate your patient. For Medicare and Medicare HMO plans, please review the plan of care and approve it. It will need to be FAXED BACK to us at [phone] for Medicare purposes. Please let me know if there are questions or concerns regarding this plan of care. Physician Signature: Date: <Electronically signed by Melissa King PT, Cert. MDT> 04/19/17 1440 CC: Radha Cortez DO TOM Signed For Medicare only, by signing this I certify the plan of care. Physicians Signature Date ALLERGIES ALLERGIES DATE TYPE / CODE NAME / CODE REACTION SEVERITY SOURCE 03/16/2018 Drug alendronate Other Unknown [place] Allergy/416 sodium/[id number](R Community [id number]([facility] XNORM) [facility] ED CT) Repository 01/29/2018 Drug duloxetine Diarrhea Unknown [place] Allergy/416 HCl/[id number](RXNO Community 083292([facility]) Hospital ED CT) Repository 01/29/2018 Drug Sulfa (Sulfonamide Unknown Unknown [place] Allergy/416 Antibiotics)/[id number] Community [id number]([facility] 0491(RXNO) Hospital ED CT) Repository 01/29/2018 Drug methotrexate/[id number] Other Unknown [place] Allergy/416 2644(RXNORM) Community 689912([facility] ED CT) Repository 01/29/2018 Drug tocilizumab/[id number] Itching Unknown [place] Allergy/416 198(RXNORM) Community 810582([facility] ED CT) Repository 01/20/2014 [facility] [address] [place] 574738(SNOM Repository ED CT) 01/20/2014 DRUG [facility]REXATE [facility]: [facility] [address] [place] 047456(SNOM Repository ED CT) 01/20/2014 Drug SULFA (SULFONAMIDE OTHER: SEE C [facility] Class/24903 ANTIBIOTICS) [address] [place] 1003(SNOMED Repository CT) ENCOUNTERS ENCOUNTERS ADMIT/DISCHARGE ACCOUNT ADMITTING ENCOUNTER LOCATION SOURCE NUMBER CLASS 03/19/2018/03/19/[id number] ing:SDCRoom: Repository AC15 03/15/2018 [id number] [facility] ing:MASS Repository 03/14/2018 [id number] [facility] Hospital ing:LABSPEC Repository 03/14/2018 [id number] Ambulatory Building:[facility] Repository 02/26/2018 [id number] [facility] Hospital ing:MEDOUTP Repository 02/19/2018 [id number] EL, Ambulatory [facility] Main [place] Repository 01/30/2018/01/31/20 [id number] Ambulatory [address] Main [place] Repository 01/30/2018/01/31/20 [id number] Ambulatory [address] Main [place] Repository 01/29/2018 [id number] Ambulatory [facility] Hospital ing:MEDOUTP Repository 01/24/2018 [id number] [facility] Hospital ing:MTRAD Repository 01/10/2018 [id number] [facility] ing:LABSPEC Repository 12/28/2017 [id number] [facility] ing:MEDOUTP Repository 12/11/2017 [id number] Ambulatory [place] [facility] Hospital ing:MTLAB Repository 11/23/2017 [id number] [place] [facility] Hospital ing:MEDOUTP Repository 11/21/2017 [id number] Ambulatory [place] [facility] Hospital ing:OPBI Repository 10/30/2017 [id number] Ambulatory Maged [place] [facility] Hospital ing:MEDOUTP Repository 10/16/2017 [id number] Ambulatory Maged [facility] Hospital ing:MTLAB Repository 09/21/2017 [id number] [place] [facility] Hospital ing:MEDOUTP Repository 08/28/2017 [id number] Ambulatory [place] [facility] Hospital ing:MEDOUTP Repository 08/11/2017 [id number] [place] [facility] Hospital ing:LAB.FUTUR Repository E 08/10/2017 [id number] [place] [facility] Hospital ing:OPBD Repository 07/28/2017 [id number] [facility] [place] [facility] ing:[facility] Repository 07/27/2017 [id number] [facility] [place] [facility] Hospital ing:MEDOUTP Repository 07/18/2017 [id number] [place] [facility] Hospital ing:MTLAB Repository 06/30/2017 [id number] Ambulatory [facility] [place] [facility] Hospital ing:MEDOUTP Repository 06/19/2017 [id number] Ambulatory [facility] [place] [facility] Hospital ing:HPRAD Repository 06/06/2017 [id number] Ambulatory [place] [facility] Hospital ing:MTLAB Repository 05/29/2017 [id number] [facility] ing:MEDOUTP Repository 05/22/2017/05/23/19 [id number] Ambulatory Maged [facility]aged [address] [place] [address] HospitalBuild Hospital ing:PT Repository 05/08/2017 [id number] Ambulatory [place] [facility] Hospital ing:LAB.FUTUR Repository E 05/02/2017 [id number] [facility] ing[facility]MTLAB Repository 05/01/2017 [id number] Ambulatory [place] [facility] ing:MEDOUTP Repository PAYERS PAYERS ENCOUNTER GUARANTOR PAYER SUBSCRIBER SOURCE 03/19/2018 [place] [facility] MASON Diaz [place] [id number] Insurance:[employer] CARE SHANAHANDOB: [id number] Number: Repository [address]Boa: 716 [id number] [phone] () Date:8155-39-57QE [address], [place] [address]VW: 03/19/2018 Secondary NOT GIVENUNK Maged Insurance:SELF PAY [facility] Number: Effective Repository Date:2018-02-28 03/15/2018 VON [place] Primary NOT GIVENUNK Maged [id number] Insurance:SELF PAY [place] Number: Effective Repository 17792Loo: 716) Date:2017-05-03 [phone] () 03/14/2018 VON J Primary MASON L [place] [id number] Insurance:[employer] CARE SHANAHANDOB: Community [place] [id number], [place] Number: Repository [address]Jbr: 716 [id number] [phone] () Date:6785-06-78LD [address]PRRHYSchurch [place], [place] [address]VP: 03/14/2018 Secondary NOT GIVENUNK Maged Insurance:SELF PAY [facility] Number: Effective Repository Date:2018-03-14 03/14/2018 MASON Diaz Primary MASON L OHIP Practices SHANAHANDOB: Insurance:[employer] SHANAHANDOB: Repository [facility] [id number] [place] Number: [place], [place] [id number] [place], [place] [address]Hae: 716) Date:7018-63-35Mfco [address]Qff: Name:[phone] (HP) (HP)Tel: (326) 3620AkrhysSELFRIDGE, [place] [phone] () 238[address]SF: 02/26/2018 VON Diaz Maged [id number] [facility] SHANAHANDOB: Community [place] [id number], [place] Number: Repository [address]Rbh: ([phone] [id number] [phone] (HP) Date:2203-47-93CC [address], [place] [address]YS: 02/26/2018 Secondary NOT GIVENUNK [place] Insurance:SELF PAY [facility] Number: Effective Repository Date:2018-02-23 01/29/2018 VON Diaz Maged [id number] [facility] [place] [id number], [place] Number: Repository [address]Qfb: 716 [id number] [phone] () Date:7685-75-98KX [address] [place] [address]UJ: 01/29/2018 Secondary NOT GIVENUNK [place] Insurance:SELF PAY [facility] Number: Effective Repository Date:2017-02-28 01/24/2018 VON Diaz [place] [id number] Insurance[facility] SHANAHANDOB: Community [place] [id number], [place] Number: Repository [address]Kwv: 712) [id number] [phone] (HP) Date:0270-95-91DC [address] [place] [address]HZ: 01/24/2018 Secondary NOT GIVENUNK Maged Insurance:SELF PAY [facility] Number: Effective Repository Date:2018-01-24 01/10/2018 VON Diaz Maged [id number] Insurance:[facility] [place] [id number], [place] Number: Repository [address]Wvm: 716 [id number] [phone] (HP) Date:5253-98-92IX [address] [facility] CENT[facility]HYS[place], [place] [address]SK: 01/10/2018 Secondary NOT GIVENUNK Maged Insurance:SELF PAY [facility] Number: Effective Repository Date:2018-01-10 12/28/2017 VON Diaz Maged [id number] Insurance:[employer] CARE SHANAHANDOB: Community [place] [id number], [place] Number: Repository [address]Iaj: 716 [id number] [phone] (HP) Date:5279-02-32SY [address] [place] [address]WU: 12/28/2017 Secondary NOT GIVENUNK Maged Insurance:SELF PAY [facility] Number: Effective Repository Date:2017-02-28 12/11/2017 VON Diaz Maged [id number] [facility] SHANAHANDOB: Community [place] [id number], [place] Number: Repository [address]Fbs: 716 [id number] [phone] (HP) Date:4464-02-26IV [address]ETRHYSchurch [place], [place] [address]EH: 12/11/2017 Secondary NOT GIVENUNK Maged Insurance:SELF PAY [facility] Number: Effective Repository Date:2017-12-11 11/23/2017 VON Diaz Maged [id number] Insurance:[facility] SHANAHANDOB: Community [place] [id number], [place] Number: Repository [address]Zpj: 716 [id number] [phone] (HP) Date:1038-99-10JO [address] [place] [address]PY: 11/23/2017 Secondary NOT GIVENUNK [place] Insurance:SELF PAY [facility] Number: Effective Repository Date:2017-02-28 11/21/2017 VON Diaz Maged [id number] Insurance[facility] [place] [id number], [place] Number: Repository [address]Rnj: 716 [id number] [phone] (HP) Date:8881-24-11ME [address], [place] [address]QJ: 11/21/2017 Secondary NOT GIVENUNK [place] Insurance:SELF PAY [facility] Number: Effective Repository Date:2017-10-31 10/30/2017 VON Diaz [place] [id number] Insurance:[facility] CARE SHANFORMERLY [facility] [place] [id number], [place] Number: Repository [address]Eft: 716 [id number] [phone] (HP) Date:7719-18-94TF [address] [place] [address]SY: 10/30/2017 Secondary NOT GIVENUNK Maged Insurance:SELF PAY [facility] Number: Effective Repository Date:2017-02-28 10/16/2017 VON Diaz [place] [id number] Insurance:[facility] SHANAHANDOB: Community [place] [id number], [place] Number: Repository [address]Bau: 716 [id number] [phone] (HP) Date:5880-86-90XS [address], [place] [address]JK: 10/16/2017 Secondary NOT GIVENUNK Maged Insurance:SELF PAY [facility] Number: Effective Repository Date:2017-10-16 09/21/2017 VON Diaz Maged [id number] Insurance:[facility] SHANAHANDOB: Community [place] [id number], [place] Number: Repository [address]Gxo: 716 [id number] [phone] (HP) Date:3220-93-27RQ [address]Teresa[place], [place] [address]EO: 09/21/2017 Secondary NOT GIVENUNK [place] Insurance:SELF PAY [facility] Number: Effective Repository Date:2017-02-28 08/28/2017 VON Diaz [place] [id number] Insurance:[facility] [place] [id number], [place] Number: Repository [address]Vox: 716 [id number] [phone] Date:1377-51-04AD [address] [place]YS[place], [place] [address]RN: 08/28/2017 Secondary NOT GIVENUNK Maged Insurance:SELF PAY [facility] Number: Effective Repository Date:2017-02-28 08/11/2017 VON Diaz Maged [id number] Insurance:[facility] Community [place] [id number], [place] Number: Repository [address]Juz: 716 [id number] [phone] () Date:0275-29-16XK [address]TeresaPRRHYS[place], [place] [address]FA: 08/11/2017 Secondary NOT GIVENUNK [place] Insurance:SELF PAY [facility] Number: Effective Repository Date:2017-08-11 08/10/2017 VON Diaz [place] [id number] Insurance:[facility] SHANAHANDOB: Community [place] [id number], [place] Number: Repository [address]Xnl: 716 [id number] [phone] () Date:8006-05-58VM [address] [place], [place] [address]QZ: 08/10/2017 Secondary NOT GIVENUNK Maged Insurance:SELF PAY [facility] Number: Effective Repository Date:2017-07-24 07/28/2017 VON Diaz Maged [id number] Insurance:[facility] Community [place] [id number], [place] Number: Repository [address]Czr: 716 [id number] [phone] (HP) Date:4226-38-66PR [address]REJIchurch [place], [place] [address]DQ: 07/28/2017 Secondary NOT GIVENUNK Maged Insurance:SELF PAY [facility] Number: Effective Repository Date:2017-07-13 07/27/2017 VON CUEVAS L Maged [id number] Insurance:[employer] CARE SHANAHANDOB: [facility] MEDICAREPolicy [id number], [place] Number: Repository [address]Gaz: 716 [id number] [phone] (HP) Date:9237-33-12WX [address] [place]RHYS[place], [place] [address]CR: 07/27/2017 Secondary NOT GIVENUNK [place] Insurance:SELF PAY [facility] Number: Effective Repository Date:2017-02-28 07/18/2017 VON CUEVAS L Maged [id number] Insurance:[facility] SHANAHANDOB: Community [place] [id number], [place] Number: Repository [address]Vjf: 716 [id number] [phone] (HP) Date:1533-06-20LL [address]PRRHYS[place], [place] [address]RF: 07/18/2017 Secondary NOT GIVENUNK Maged Insurance:SELF PAY [facility] Number: Effective Repository Date:2017-07-18 06/30/2017 VON Diaz [place] [id number] Insurance:[facility] SHANAHANDOB: Community [place] [id number], [place] Number: Repository [address]Ibo: 716 [id number] [phone] (HP) Date:2481-62-05RE [address]PRRHYS[place], [place] [address]NL: 06/30/2017 Secondary NOT GIVENUNK [place] Insurance:SELF PAY [facility] Number: Effective Repository Date:2017-02-28 06/19/2017 VON Diaz [place] [id number] Insurance:[facility] SHANAHANDOB: Community [place] MED[place] [id number], [place] Number: Repository [address]Zyy: 716 [id number] [phone] (HP) Date:8912-84-79MF [address], [place] [address]RB: 06/19/2017 Secondary NOT GIVENUNK [place] Insurance:SELF PAY [facility] Number: Effective Repository Date:2017-06-19 06/06/2017 Von Diaz Maged [id number] Insurance:[facility] SHANAHANDOB: Community [place] [id number], [place] Number: Repository [address]Lww: 716 [id number] [phone] (HP) Date:2578-78-65SM [address] [place] [address]IT: 06/06/2017 Secondary NOT GIVENUNK Maged Insurance:SELF PAY [facility] Number: Effective Repository Date:2017-06-06 05/29/2017 [place] Maged [id number] Insurance:[facility] SHANAHANDOB: Community [place] [id number], [place] Number: Repository [address]Hox: 716 [id number] [phone] (HP) Date:6094-12-02UF [address] [place] [address]DS: 05/29/2017 Secondary NOT GIVENUNK [place] Insurance:SELF PAY [facility] Number: Effective Repository Date:2017-02-28 05/22/2017 [place] Maged [id number] Insurance:[facility] SHANAHANDOB: Community [place] [id number], [place] Number: Repository [address]Pyl: 716 [id number] [phone] (HP) Date:5604-74-23XR [address]KADEchurch [place], [place] [address]OF: 05/22/2017 Secondary NOT GIVENUNK Maged Insurance:SELF PAY [facility] Number: Effective Repository Date:2017-04-13 05/08/2017 [place] Maged [id number] Insurance:[facility] SHANAHANDOB: Community [place] MED[place] [id number] Number: Repository [address]Qtf: 716 [id number] [phone] (HP) Date:1574-12-10YJ [address]KADEchurch [place], [place] [address]LJ: 05/08/2017 Secondary NOT GIVENUNK Maged Insurance:SELF PAY [facility] Number: Effective Repository Date:2017-05-08 05/02/2017 [place] [id number] Insurance:[facility] [place] [id number] Number: Repository [address]Xmo: 716 [id number] [phone] () Date:8487-24-62GO [address]TeresaPRRHYS[place], [place] [address]MU: 05/02/2017 Secondary NOT GIVENUNK [place] Insurance:SELF PAY [facility] Number: Effective Repository Date:2017-05-02 05/01/2017 Von Diaz Maged [id number] Insurance:[facility] SHANAHANDOB: Community [place] [id number], [place] Number: Repository [address]Ziw: (725) [id number] [phone] (HP) Date:5655-28-81AN [address]TeresaPRRHYS[place], [place] [address]XD: 05/01/2017 Secondary NOT GIVENUNK [place] Insurance:SELF PAY [facility] Number: Effective Repository Date:2017-02-28
== END ==
PROVIDERS: Family Provider Internal Medicine; PCP Internal Medicine; Referring Provider Internal Medicine Rheumatology; Visit Provider Internal Medicine Rheumatology
DX: M06.9 Rheumatoid arthritis, unspecified (principal)
CPT/HCPCS: 96372; 96413; J7050; A4216; J0129

== ENCOUNTER → 2018-03-14 15:22 | Outpatient (CLI) | payer MEDICARE, SELFPAY ==
[2018-02-26 14:39] VITALS: BMI 18.7
[2018-03-14 15:29] LABS: Bacteria 0 SEEN /hpf (None Seen); Mucous, Urine 0 SEEN /hpf (<or=2+); Red Blood Cells-Urine 0 SEEN /hpf (0-5)
[2018-03-14 15:39] LABS: Color, Urine Yellow (Yellow); Glucose, Dipstick Normal (Normal); Ketone-Dipstick Negative (Negative); Leukocyte Esterase-Dipstick 25 /ul (Negative); Nitrite-Dipstick Negative (Negative); Occult Blood-Urine Negative /ul (Negative); Protein-Dipstick Negative (Negative); Urine Bilirubin Dipstick Negative (Negative); Urine Clarity Clear (Clear); Urine Urobilinogen Normal (Normal)
[2018-03-14 15:43] LABS: Absolute Lymphocyte Count 1.15 X10^3/ul (0.83-4.51); Absolute Neutrophil Count 8.5 X10^3/uL (2.0-7.7); Basophil# 0.02 X10^3/uL; Basophil% 0.2 % (0-1); Eosinophil# 0.01 X10^3/uL; Eosinophils% 0.1 % (0-5); Hematocrit 45.3 % (37-47); Hemoglobin 15.1 g/dl (12.0-15.0); Lymphocyte # 1.15 X10^3/ul (4.0); Lymphocyte % 11.1 % (19-41); Mean Corp Hgb Conc 33.3 g/gl (32-36); Mean Corpuscular Hgb 31.1 pg (27.0-32.0); Mean Corpuscular Volume 93.2 fL (81-99); Mean Platelet Vol. 9.9 fl (6.2-12.0); Monocyte# 0.74 X10^3/uL; Monocyte% 7.1 % (0-10); Neutrophil # 8.45 X10^3/uL (2.7-7.7); Neutrophil % 81.2 % (47-70); Platelet Count 348 K/mm3 (150-450); RBC Distribution Width CV 14.8 % (11.6-14.6); Red Blood Count 4.86 M/mm3 (4.2-5.4); White Blood Count 10.4 K/mm3 (4.4-11.0)
[2018-03-14 15:47] LABS: Squamous Epithelial Cells - UA 0-5 SEEN /hpf (5-10); White Blood Cells 0-5 SEEN /hpf (0-5)
[2018-03-14 15:55] LABS: POSITIVE COUNT NO; POSITIVE DIFFERENTIAL NO; POSITIVE MORPHOLOGY NO
[2018-03-14 16:19] LABS: ALB/GLOB Ratio 1.2 RATIO (0.9-2.4); AST(SGOT) 33 U/L (15-37); Alanine Aminotransfer ALT/SGPT 60 U/L (13-56); Albumin, Serum 3.8 g/dL (3.2-5.0); Alkaline Phosphatase 78 U/L (45-117); Anion Gap 11 (5-15); BUN 17 mg/dL (7-18); BUN/Creat Ratio 20.9 RATIO (10-20); Calcium,Total 9.3 mg/dL (8.5-10.1); Chloride 98 mmol/L (98-107); Creatinine, Serum 0.81 mg/dL (0.55-1.02); EST Glomerular Filtration Rate 76 mL/min (>60); Est Glom Filt Rate - Afr Amer 92 mL/min (>60); Free T3 5.4 pg/mL (2.18-3.98); Globulin 3.1 g/dL (2.2-4.2); Glucose 81 mg/dL (74-106); Magnesium 2.2 mg/dL (1.6-2.6); Potassium 3.7 mmol/L (3.5-5.1); Protein, Total 6.9 g/dL (6.4-8.2); Sodium Level 138 mmol/L (136-145); T4 Free Direct 1.06 ng/dL (0.76-1.46)
== END ==
PROVIDERS: Family Provider Internal Medicine; PCP Internal Medicine; Referring Provider Internal Medicine; Visit Provider Internal Medicine
DX: Z01.818 Encounter for other preprocedural examination (principal); E05.90 Thyrotoxicosis, unspecified without thyrotoxic crisis or storm; E87.6 Hypokalemia; M06.9 Rheumatoid arthritis, unspecified
CPT/HCPCS: 80053; 81001; 83735; 84439; 84443; 84481; 85025

== ENCOUNTER 2018-03-19 11:36 | Day surgery (SDC) | payer MEDICARE, SELFPAY ==
[2018-02-26 14:39] VITALS: BMI 18.7
[2018-03-19] VITALS (7 sets, daily range): BP systolic 117–130; BP diastolic 80–96; PULSE 68–76; RESP 16; TEMP 36.5–37.2; O2SAT 97–100; BMI 18.8
[2018-03-19] MEDS: MethylPREDNISolone 125 MG/2 ML Vial 60 MG IV (12:15)
[2018-03-19] MEDS: Cefazolin 2 GM in 0.9% Normal Saline 100 ML IV (12:15)
--- NOTE | 2018-03-19 13:00 | GANG_PTH ---
PATIENT: MATT BURK LOC[place] [facility] [place][id number] AGE/SX: 62/F ROOM: RE03/19/[address]: Dr. Cam Kaufman DPM : [id number] BED: DIS: 03/19/2018 SPEC #: [id number] RECD: 03/19/18 15:22 STATUS: MELITA MADYSON #: [id number] MILY: 03/19/18 13:[address]: Cam Kaufman DEPT: SURGICAL PATHOLOGY RECD BY: Higinio Munroe ENTERED: 03/20/18 11:40 SP TYPE: GANGLION OTHR DR: Dr. Radha Haas DO Tissues: GANGLION CYST Procedures: Surgery Specimen Level III HEADER OPERATION: Excision ganglion cyst with possible skin rotation flap/plasty PRE-OP DIAGNOSIS: Ganglion cyst right foot TISSUE SUBMITTED: Ganglion tissue MICROSCOPIC DIAGNOSIS Ganglion tissue: Consistent with ganglion cyst with reactive changes. SJ:flakita 03/21/18 MICROSCOPIC DESCRIPTION Slides are reviewed. GROSS DESCRIPTION Received in fixative is one container labeled with the patient's name and designated ganglion tissue. The specimen consists of multiple irregular fragments of rubbery pink-kenyon soft tissue that in aggregate measure 7 x 5 x 0.6 cm. [place] portions are submitted in one cassette. / AM:flakita 03/20/18 TC:5 CPT: 38337
[2018-03-19] MEDS: Bupivacaine 0.5% PF 10 ML VIAL (13:25)
--- NOTE | 2018-03-19 14:58 | DCINST_ITS ---
Discharge Diet: Light diet - advance as tolerated Discharge Activity: May Not Drive, Use Crutches Weight Bearing Status: No weight bearing - Avoid weight to right foot Keep extremity elevated above heart level: Right Leg - Keep right foot elevated using pillows for at least 50 minutes per hour Call your doctor if your incision/area has: Continuous Slow Oozing, Sudden Increased Bleeding, Foul Smelling Discharge Call your doctor if you observe: Fever of 101 or Higher, Shortness of breath, Chest pain, Increased palpitations (irregular heartbeat), Calf discomfort, Uncontrolled pain Cleanse incision/area with: Do not get Incision Wet, Keep Dressing Clean & Dry Allergies/Adverse Reactions: Allergies methotrexate [Methotrexate] Allergy (Verified 01/29/18 15:01) Other tocilizumab [From Actemra] Allergy (Verified 01/29/18 15:01) Itching alendronate sodium [From Fosamax] Adverse Reaction (Verified 03/16/18 08:25) Other HEADACHE, HEARTBURN, NAUSEA duloxetine HCl [From Cymbalta] Adverse Reaction (Verified 01/29/18 15:01) Diarrhea Sulfa (Sulfonamide Antibiotics) Adverse Reaction (Verified 01/29/18 15:01) Unknown Medications to take at Discharge Fluticasone Furoate [Veramyst] 10 gm NS DAILY 01/16/13 predniSONE tablet 5 mg PO DAILY 01/16/13 Biotin [Azar Biotin] 10,000 mcg PO DAILY 10/21/13 Multivit with Calcium,Iron,Min [Multiple Vitamins For Women] 1 each PO DAILY 10/21/13 CycloSPORINE Ophthalmic [Restasis Ophthalmic] 1 drop OPHTHALMIC BID 01/01/15 Thurman-3 Fatty Acids [Fish Oil] 1,000 mg PO QODAY 05/05/15 Atorvastatin Calcium [Lipitor] 20 mg PO QHS 04/04/16 Furosemide [Lasix] 20 mg PO DAILY 09/29/16 Abatacept [Orencia] 1,000 mg IV X1 03/16/18 Cholecalciferol (Vitamin D3) [Vitamin D3] 15,000 unit PO DAILY 03/16/18 Senna [Senokot] 2 tablet PO DAILY 03/16/18 Cefadroxil [Duricef] 500 mg PO Q12H #14 cap 03/19/18 Oxycodone HCl/Acetaminophen [Percocet 5/325] 1 tab PO Q6H PRN PRN 4 Days #30 tab 03/19/18 The following prescriptions were given: Oxycodone HCl/Acetaminophen [Percocet 5/325] 1 tab PO Q6H PRN PRN 4 Days #30 tab PRN Reason: Pain Cefadroxil [Duricef] 500 mg PO Q12H #14 cap Primary Care Physician: Radha Haas DO [Primary Care Provider] - Test Results: Test results from this visit will be discussed in further detail at your follow- up appointment, if applicable. Please Follow Up With: Cam Kaufman DPM When: within 1 week, sooner if needed
--- NOTE | 2018-03-19 15:01 | OP.PCM_ITS ---
Report of Operation Date of Procedure: 03/19/18 Pre-Operative Diagnosis: Ganglion cyst soft tissue mass right foot Post-Operative Diagnosis: Same Surgery/Procedure Performed:: Excision of ganglion cyst soft tissue mass from right foot painter aircraft: yes - Dr. Jacoby Cates Type of Anesthesia:: Local MAC Specimen's removed: Excised cyst/soft tissue mass from right foot sent to pathology Estimated Blood Loss (mL): 1mL Description of Procedure: Indications: This is a 62 year old female with persistent soft tissue mass/cyst to the right forefoot, this has been confirmed with MRI and ultrasound imaging. She has pain and swelling. Shoegear and activity are difficult. She has had two aspirations as well as two corticosteroid injections, but the mass persists. Preoperative biopsy which was done under ultrasound at [facility] came back as ganglion cyst. She elected to proceed with excision of the mass/cyst. We discussed this in great detail, reviewing the procedure in detail, along with the possible benefits vs risks/possible complications, all alternative options were discussed and reviewed with her. Typical post op re covery course was reviewed with her. She elected to proceed with the procedures. All of her questions were answered, the consent forms were reviewed with her and she freely signed them. No guarantees were given nor implied. Also of note she has been medically optimized by Dr. Haas for this procedure, and also ok to proceed per Dr. Perez (her behavioral therapist) as well as Dr. Torres (from vascular, due to her Raynauds) Operative procedure: The patient was brought back into the operating room and was placed on the operating table in the supine position. The patient was carefully secured to the operating room table with a safely belt around patient's waist. A timeout was performed and the patient was properly identified and the surgical plan was confirmed. The patient received 2 grams of intravenous Ancef for antibiotic prophylaxis. Also of noted 60mL of Solumedrol was given IV 1 hours preoperative. A well padded pneumatic tourniquet was applied around the right ankle. The patient received MAC anesthesia per the anesthesiologist, and after the overlying skin was cleansed with 70% isopropyl a total of 20mL of a 50/50 mixture of 1% Lidocaine plain and 0.5% Bupivacaine plain was given as a regional infiltrative nerve block around the foot. The right foot was scrubbed, prepped, draped in the usual aseptic fashion. The right foot was elevated for 3 minutes, and the right ankle pneumatic tourniquet was inflated to 250mmHg. A prominent soft tissue mass was noted on the dorsal right foot extending from the medial 1st ray all the away across dorsal forefoot to the 5th metatarsal head. Two skin incisions were made, first one was made to the dorsal aspect of the 1st ray just medial to the Extensor Hallucis Longus tendon, and a second overlying to the dorsal central forefoot in curvilinear fashion. The skin incisions were made using a 15 scalpel blade, careful dissection was completed down to the soft tissue mass. The mass was identified, it was very extensive as it extended across the entire forefoot, it was fluid filled and soft. The fluid was mostly a watery synovial fluid consistency. The mass was multi-lobulated and cystic, it was noted to be wrapped around the dorsal foot nerves and veins which significant adhesions present. Again, it was noted the mass did have multiple lobulations and stalks communicating with the extensor tendons of the foot. The medial aspect of the mass at level of the distal medial 1st metatarsal head did have two areas of localized firmness and hardness (both were dimed sized, these were excised as part of the mass as noted below). Careful dissection was completed around the mass, freeing up all of the lobulations and adhesions, along with releasing it from the dorsal foot nerves and veins. There was noted to be some degenerative of the nerves from impingement. The mass, with all its lobulations and stalks, was excised in toto. The fluid was somewhat jelly like, but mostly a watery synovial fluid consistency as noted above. There was no purulence, no necrosis, no diana tissue, no evidence of abscess. The mass did not appear to extend down to the intermetatarsal spaces nor to the plantar foot. The excised mass was sent to pathology for further evaluation. The site was flushed out with copious amounts of normal saline solution. All remaining tissue was noted to be healthy and viable with no further evidence of remaining mass. The subcutaneous tissue layer was reapproximated using 4-0 Vicryl, the skin was reapproximated using 4-0 Monocryl. A dressing was applied which consisted of Betadine soaked adaptic, 4x4 gauze, Kerlix and cinda dressing. An additional 10mL of a 50/50 mixture of 1% Lidocaine plain and 0.5% Bupivacaine plain was given as a regional infiltrative nerve block around the surgical site to aid with further post operative pain control. Of note, all vital structure including all vital neurovascular structures were properly identified and carefully protected/retracted as necessary throughout the above procedures. The pneumatic tourniquet was deflated and there was immediate return of flow and perfusion to the foot and all toes. CFT was < 2 seconds to all toes with normal temperature gradient present. The tourniquet was deflated prior to dressing application, hemostasis had been achieved. Pedal pulses were intact. CFT was again noted to be < 2 seconds to all toes with normal color and temperature present. Total tourniquet time was 58 minutes. The patient was transported from the operating room to the recovery room with vital signs stable and in good condition. Post operative orders were placed and post operative instructions were reviewed with patient and her who was with her today. Keep right foot elevated for at least 50 minutes of every hour. Keep dressing clean, dry, and intact. A surgical shoe was fitted and dispensed. She is to follow up with me within 1 week or sooner if needed. A prescription for Percocet 1 tab PO q 6 hours was provided for pain control. Also patient was prescribed Cefadroxil 500mg PO q 12 hours to help prevent infection (due to risks of chronic prednisone/steroids, and RA). Grafts/Implants Used: None - Complications None
== END 2018-03-19 16:24 | disposition home or self-care (01) ==
LOC: SDC 11:36 → AC 11:38
PROVIDERS: Family Provider Internal Medicine; PCP Internal Medicine; Referring Provider Podiatrist; Visit Provider Podiatrist
PROC: (CPT 28090; principal; 2018-03-19 12:45)
DX: M67.471 Ganglion, right ankle and foot (principal); M06.9 Rheumatoid arthritis, unspecified; M85.80 Other specified disorders of bone density and structure, unspecified site; E87.6 Hypokalemia; E05.90 Thyrotoxicosis, unspecified without thyrotoxic crisis or storm; I73.00 Raynaud's syndrome without gangrene; R73.09 Other abnormal glucose; E78.00 Pure hypercholesterolemia, unspecified; H81.10 Benign paroxysmal vertigo, unspecified ear; I89.0 Lymphedema, not elsewhere classified; M54.12 Radiculopathy, cervical region; M54.16 Radiculopathy, lumbar region; J30.9 Allergic rhinitis, unspecified; H91.90 Unspecified hearing loss, unspecified ear; F32.9 Major depressive disorder, single episode, unspecified; Z79.52 Long term (current) use of systemic steroids; Z79.899 Other long term (current) drug therapy; Z78.0 Asymptomatic menopausal state
CPT/HCPCS: 28090; 88304; J7120; J2405

== ENCOUNTER → 2018-04-13 12:36 | Outpatient (CLI) | payer MEDICARE, SELFPAY ==
[2018-03-19 12:00] VITALS: BMI 18.8
[2018-04-13 14:45] LABS: Absolute Lymphocyte Count 0.86 X10^3/ul (0.83-4.51); Absolute Neutrophil Count 8.5 X10^3/uL (2.0-7.7); Basophil# 0.01 X10^3/uL; Basophil% 0.1 % (0-1); Eosinophil# 0.02 X10^3/uL; Eosinophils% 0.2 % (0-5); Hematocrit 42.7 % (37-47); Hemoglobin 14.8 g/dl (12.0-15.0); Lymphocyte # 0.86 X10^3/ul (4.0); Lymphocyte % 8.5 % (19-41); Mean Corp Hgb Conc 34.7 g/gl (32-36); Mean Corpuscular Volume 92.2 fL (81-99); Mean Platelet Vol. 9.7 fl (6.2-12.0); Monocyte# 0.67 X10^3/uL; Monocyte% 6.6 % (0-10); Neutrophil # 8.51 X10^3/uL (2.7-7.7); Neutrophil % 84.3 % (47-70); Platelet Count 343 K/mm3 (150-450); RBC Distribution Width CV 13.1 % (11.6-14.6); RBC Distribution Width SD 43.8 fl (35.1-43.9); Red Blood Count 4.63 M/mm3 (4.2-5.4); White Blood Count 10.1 K/mm3 (4.4-11.0)
[2018-04-13 14:46] LABS: POSITIVE COUNT NO; POSITIVE DIFFERENTIAL NO; POSITIVE MORPHOLOGY NO
[2018-04-13 15:07] LABS: ALB/GLOB Ratio 0.9 RATIO (0.9-2.4); AST(SGOT) 40 U/L (15-37); Alanine Aminotransfer ALT/SGPT 62 U/L (13-56); Albumin, Serum 3.4 g/dL (3.2-5.0); Alkaline Phosphatase 80 U/L (45-117); Anion Gap 11 (5-15); BUN 10 mg/dL (7-18); BUN/Creat Ratio 12.4 RATIO (10-20); Calcium,Total 9.5 mg/dL (8.5-10.1); Chloride 93 mmol/L (98-107); EST Glomerular Filtration Rate 77 mL/min (>60); Est Glom Filt Rate - Afr Amer 93 mL/min (>60); Globulin 3.6 g/dL (2.2-4.2); Glucose 101 mg/dL (74-106); Potassium 2.9 mmol/L (3.5-5.1); Sodium Level 132 mmol/L (136-145)
== END ==
PROVIDERS: Family Provider Internal Medicine; PCP Internal Medicine; Referring Provider Internal Medicine Rheumatology; Visit Provider Internal Medicine Rheumatology
DX: M05.79 Rheumatoid arthritis with rheumatoid factor of multiple sites without organ or systems involvement (principal); M35.00 Sjogren syndrome, unspecified; M18.0 Bilateral primary osteoarthritis of first carpometacarpal joints; M47.897 Other spondylosis, lumbosacral region; H81.03 Meniere's disease, bilateral; E78.5 Hyperlipidemia, unspecified; J45.909 Unspecified asthma, uncomplicated; Z79.899 Other long term (current) drug therapy
CPT/HCPCS: 36415; 80053; 85025

== ENCOUNTER → 2018-05-18 12:56 | Outpatient (CLI) | payer MEDICARE, SELFPAY ==
[2018-02-26 14:39] VITALS: BMI 18.7
[2018-03-19 12:00] VITALS: BMI 18.8
[2018-05-18 13:08] VITALS: BP 119/83; PULSE 73; RESP 16; TEMP 36.2; BMI 19.1
[2018-05-18] MEDS: Triamcinolone Acetonide 40 MG/ML Vial 30 MG IM (13:14)
== END ==
PROVIDERS: Family Provider Internal Medicine; PCP Internal Medicine; Referring Provider Internal Medicine Rheumatology; Visit Provider Internal Medicine Rheumatology
DX: M06.9 Rheumatoid arthritis, unspecified (principal)
CPT/HCPCS: 96372; 96413; J7050; A4216; J0129

== ENCOUNTER → 2018-06-19 12:49 | Outpatient (CLI) | payer MEDICARE, SELFPAY ==
[2018-02-26 14:39] VITALS: BMI 18.7
[2018-05-18 13:08] VITALS: BMI 19.1
[2018-06-19 13:06] VITALS: BP 108/70; PULSE 71; RESP 18; TEMP 36.6; O2SAT 98; BMI 19.3
[2018-06-19] MEDS: Triamcinolone Acetonide 40 MG/ML Vial 30 MG IM (13:11)
== END ==
PROVIDERS: Family Provider Internal Medicine; PCP Internal Medicine; Referring Provider Internal Medicine Rheumatology; Visit Provider Internal Medicine Rheumatology
DX: M06.9 Rheumatoid arthritis, unspecified (principal)
CPT/HCPCS: 96372; 96413; J7050; A4216; J0129

== ENCOUNTER 2018-06-20 17:00 | Outpatient (RCR) | payer MEDICARE, SELFPAY ==
[2018-03-19 12:00] VITALS: BMI 18.8
--- NOTE | 2018-05-15 15:44 | HP.PTEVAL ---
Patient's Visit Information MASON BURK is a 62 year old F referred to Physical Therapy by Radha Haas DO with a diagnosis of neck pain. Date of Evaluation: 05/15/18 Physical Therapist: Santiago York, PT, ATC - Visit Plan Frequency: 2x /Week Duration: 2-4 Weeks Plan: Postural awareness, CTx, DTR, US, MH, DTR, scap stab ex's, UBE, and HEP - Subjective Findings: Pt reports she has had neck pain for several years. Pt reports she wanted to get an MRI for it, but she has to do PT prior to getting it done. Pt also notes R UE pain she has had as well. Pt notes her shoulder pain is intermittent. Pt reports she gets her R shoulder pain when she reaches overhead. 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 Pt reports liiking up and down increases her pain. Pt notes stretching helps to take away her pain. Pt reports she has RA, and notes she has pain all throughout her body. Pt reports intermittent sleep difficulty secondary to pain. 3/10 pain at rest, 7/10 pain at worst - Pain C/S Pain Intensity (Out of 10): 3 Pain Intensity Range: 7 - Objective Neuro: B UE sensation is WNL to light touch. Palpation: sig muscle guarding in C/S. No obvious deformity. ROM: Pt is moderately limited with B rot, and SB of the C/S. MMT: B UE MMT: 4-/5 throughout. Special testing: Pos Apley compression test and distraction tests - Goals Goal 1:: Decrease neck pain x 50% to aid with sleep Goal Time Frame: 2-4 Weeks Goal 2:: Increase c/s ROM x 1 grade to aid with IADL's Goal Time Frame: 2-4 Weeks Goal 3:: Increase B UE strength x 1 sgrade to aid with exercise Goal Time Frame: 2-4 Weeks Goal 4:: I with HEP Goal Time Frame: 2-4 Weeks - Rehabilitation Potential Physical Therapy Diagnosis: Pt has neck pain, ZIEGLER's, and decreased c/s ROM secondary to deg changes in the c/s Rehabilitation Potential: Good - Anticipated Interventions Patient/Client Instruction: Educate patient on: Condition, Plan of Care For the Purpose of:: To improve self management Therapeutic Exercise to Include: Strength training, Flexibilty training, Scapular Strength/Stabilization For the Purpose of:: To decrease pain, To increase ROM, To improve muscle performance and motor function Manual Therapy Techniques to Include: Soft tissue mobilization For the Purpose of:: To decrease pain, To increase ROM Ultrasound (thermal/non thermal): Yes Intermittent cervical traction: Yes For the Purpose of:: To decrease pain Thank you for the opportunity to evaluate your patient. For Medicare and Medicare HMO plans, please review the plan of care and approve it. It will need to be FAXED BACK to us at [phone] for Medicare purposes. For Medicare only, by signing this I certify the plan of care. Please let me know if there are questions or concerns regarding this plan of care. Physician Signature: Date:
--- NOTE | 2018-05-18 08:19 | HP.OTEVAL_ITS ---
Patient's Visit Information MASON BURK is a 62 year old F, referred to Occupational Therapy by Radha Haas DO, with a diagnosis of BLE swelling/lymphedema. Date of Evaluation: 05/17/18 Occupational Therapist: MARTÍN Castellano/Emily, CHT - Subjective Subjective: pt states she has had swelling in her LE for about 4 years. pt states she has had her vains looked at and per pt I have vains like a 12 year old. pt states she has changed her diet, and does wear compression hose- pt was unable to recall brand name or compression class of the compression hose. Pt states she exercies daily and states she does wear her compression hose- pt states when she massages her legs with oil the swelling does go down. pt just recently had sx on her right foot to have cyst removed- pt states many were removed. At this time right foot and ankle are more swollen. pt would like to know how to mtg. her LE swelling. - ADLs Comments: pt states more tasks that req. her to stand on her feet become more challenging as her feet begin to hurt. IE - cleaning, cooking etc. - Pain bilateral feet 1 Pain Intensity Range: 0, 4 - Objective Objective/Observation: pt demo with new scar on right dorsal foot. right foot and ankle swollen and tissue is firm to touch. - Lymphedema (Circumferential Measure) Mid-foot: left 22cm Right 24cm Ankle: left 25cm Right 28cm Lower calf: Left 21cm Right 21.2cm Largest calf: Left 32cm Right 33.5cm Below knee: Left 32 cm Right 33cm - Sensation Sensation Comments: denies - Goals Demonstrate a 20% reduction in edema by d/c: Yes Demonstrate adequate knowledge of self-bangaging by 1st week: Yes Demonstrate adequate knowledge of self-massage by 2nd week: Yes Demonstrate adequate knowledge skin care/prec by 2nd week: Yes Demonstrate adequate knowledge therapeutic exercises by d/c: Yes Select approp compression garment w/donning/care/wear by d/c: Yes Voice need to replace compression garment every 4-6mo by dc: Yes - Rehabilitation General Assessment: Pt demo with bilateral LE edema. pt would benefit from skilled OT services 1-2x week for 4 weeks to ed. pt on lymphedema mtg, lymph ex, and use of compression garments. Pt agrees to POC. Rehabilitation Potential: Good - Anticipated Interventions Anticipated Interventions: Education re Diagnosis, Manual Lymph Drainage, Educ ation re Life-long lymphedema Management, Education re Self-Bandaging Techniques, Education re Skin Care and Precautions, Education re Self Massage Techniques, Education re Correct Donning Tech,Care&Wearing Sched Comp Garments, Home Program - Visit Plan Frequency: 1-2x /Week Duration: 3 Weeks TEXT: Thank you for the opportunity to evaluate your patient. For Medicare and Medicare HMO plans, please review the plan of care and approve it. It will need to be FAXED BACK to us at [phone] for Medicare purposes. Please let me know if there are questions or concerns regarding this plan of care. Physician Signature: Dat e:
--- NOTE | 2018-09-26 15:53 | HP.OT.NRP ---
HP - Discharge Summary - Patient Information MATT BURK was seen in my office for initial evaluation on 05/17/18. The following Plan of Care was established for this patient: Initial Frequency: 1-2x /Week Initial Duration: 3 Weeks Plan: d/c in three weeks - Anticipated Interventions Anticipated Interventions: Education re Diagnosis, Manual Lymph Drainage, Education re Life-long lymphedema Management, Education re Self-Bandaging Techniques, Education re Skin Care and Precautions, Education re Self Massage Techniques, Education re Correct Donning Tech,Care&Wearing Sched Comp Garments, Home Program This patient was last seen in our office 06/20/18. Pertinent comments regarding their Occupational therapy will appear below: Pt was seen for 5 OT visits for LE lymphedema- pt was ed. on HEP and demo understanding of lymphedema mtg. pt has not scheduled any further apts and is d/c due to time lapse in services. At this point I will be discontinuing this patient from occupational therapy. I would be happy to see this patient again in the future if found appropriate by the physician. Thank you! Lourdes Max, OTR/L, CHT
== END 2018-06-20 19:00 | disposition home or self-care (01) ==
LOC: OT 17:00
PROVIDERS: Family Provider Internal Medicine; PCP Internal Medicine; Referring Provider Internal Medicine; Visit Provider Internal Medicine
DX: M54.12 Radiculopathy, cervical region (principal); M54.16 Radiculopathy, lumbar region; I89.0 Lymphedema, not elsewhere classified
CPT/HCPCS: 97012; 97110; 97140; 97161; 97166; 97530

== ENCOUNTER → 2018-07-04 14:59 | Outpatient (CLI) | payer MEDICARE, SELFPAY ==
[2018-06-19 13:06] VITALS: BMI 19.3
[2018-07-04 17:36] LABS: Absolute Lymphocyte Count 1.38 X10^3/ul (0.83-4.51); Absolute Neutrophil Count 6.1 X10^3/uL (2.0-7.7); Basophil# 0.03 X10^3/uL; Basophil% 0.4 % (0-1); Eosinophil# 0.01 X10^3/uL; Eosinophils% 0.1 % (0-5); Hematocrit 43.6 % (37-47); Hemoglobin 14.8 g/dl (12.0-15.0); Lymphocyte # 1.38 X10^3/ul (4.0); Lymphocyte % 16.7 % (19-41); Mean Corp Hgb Conc 33.9 g/gl (32-36); Mean Corpuscular Hgb 31.2 pg (27.0-32.0); Mean Platelet Vol. 9.7 fl (6.2-12.0); Monocyte# 0.73 X10^3/uL; Monocyte% 8.8 % (0-10); Platelet Count 324 K/mm3 (150-450); RBC Distribution Width CV 13.4 % (11.6-14.6); RBC Distribution Width SD 44.9 fl (35.1-43.9); Red Blood Count 4.74 M/mm3 (4.2-5.4); White Blood Count 8.3 K/mm3 (4.4-11.0)
[2018-07-04 17:51] LABS: POSITIVE COUNT NO; POSITIVE DIFFERENTIAL NO; POSITIVE MORPHOLOGY NO
[2018-07-04 17:57] LABS: ALB/GLOB Ratio 1.1 RATIO (0.9-2.4); AST(SGOT) 43 U/L (15-37); Alanine Aminotransfer ALT/SGPT 75 U/L (13-56); Albumin, Serum 3.7 g/dL (3.2-5.0); Alkaline Phosphatase 65 U/L (45-117); Anion Gap 7 (5-15); BUN 12 mg/dL (7-18); Calcium,Total 9.1 mg/dL (8.5-10.1); Chloride 98 mmol/L (98-107); Creatinine, Serum 0.75 mg/dL (0.55-1.02); EST Glomerular Filtration Rate 83 mL/min (>60); Est Glom Filt Rate - Afr Amer 100 mL/min (>60); Globulin 3.3 g/dL (2.2-4.2); Glucose 83 mg/dL (74-106); Sodium Level 137 mmol/L (136-145)
== END ==
PROVIDERS: Family Provider Internal Medicine; PCP Internal Medicine; Referring Provider Internal Medicine Rheumatology; Visit Provider Internal Medicine Rheumatology
DX: M05.70 Rheumatoid arthritis with rheumatoid factor of unspecified site without organ or systems involvement (principal); M35.00 Sjogren syndrome, unspecified; M18.0 Bilateral primary osteoarthritis of first carpometacarpal joints; M47.897 Other spondylosis, lumbosacral region; H81.03 Meniere's disease, bilateral; E78.5 Hyperlipidemia, unspecified; J45.909 Unspecified asthma, uncomplicated; I89.0 Lymphedema, not elsewhere classified; Z79.899 Other long term (current) drug therapy
CPT/HCPCS: 36415; 80053; 85025

== ENCOUNTER → 2018-07-19 14:08 | Outpatient (CLI) | payer MEDICARE, SELFPAY ==
[2018-02-26 14:39] VITALS: BMI 18.7
[2018-06-19 13:06] VITALS: BMI 19.3
[2018-07-19] MEDS: Triamcinolone Acetonide 40 MG/ML Vial 30 MG IM (14:19)
[2018-07-19 14:36] VITALS: BP 112/76; PULSE 67; RESP 16; TEMP 37; O2SAT 100; BMI 19.1
== END ==
PROVIDERS: Family Provider Internal Medicine; PCP Internal Medicine; Referring Provider Internal Medicine Rheumatology; Visit Provider Internal Medicine Rheumatology
DX: M05.79 Rheumatoid arthritis with rheumatoid factor of multiple sites without organ or systems involvement (principal)
CPT/HCPCS: 96372; 96413; J7050; A4216; J0129

== ENCOUNTER → 2018-08-27 14:07 | Outpatient (CLI) | payer MEDICARE, SELFPAY ==
[2018-02-26 14:39] VITALS: BMI 18.7
[2018-07-19 14:36] VITALS: BMI 19.1
[2018-08-27 14:13] VITALS: BP 103/70; PULSE 74; RESP 18; TEMP 36.8; O2SAT 100; BMI 19.7
[2018-08-27] MEDS: Triamcinolone Acetonide 40 MG/ML Vial 20 MG IM (14:30)
== END ==
PROVIDERS: Family Provider Internal Medicine; PCP Internal Medicine; Referring Provider Internal Medicine Rheumatology; Visit Provider Internal Medicine Rheumatology
DX: M06.9 Rheumatoid arthritis, unspecified (principal)
CPT/HCPCS: 96372; 96413; A4216; J0129

== ENCOUNTER → 2018-09-19 13:56 | Outpatient (CLI) | payer MEDICARE, SELFPAY ==
[2018-02-26 14:39] VITALS: BMI 18.7
[2018-08-27 14:13] VITALS: BMI 19.7
[2018-09-19 14:06] VITALS: BP 117/81; PULSE 62; RESP 15; TEMP 37.1; O2SAT 97; BMI 20.2
[2018-09-19] MEDS: Triamcinolone Acetonide 40 MG/ML Vial 20 MG IM (14:45)
== END ==
PROVIDERS: Family Provider Internal Medicine; PCP Internal Medicine; Referring Provider Internal Medicine Rheumatology; Visit Provider Internal Medicine Rheumatology
DX: M06.9 Rheumatoid arthritis, unspecified (principal)
CPT/HCPCS: 96372; 96413; J7050; A4216; J0129

== ENCOUNTER → 2018-10-01 11:47 | Outpatient (CLI) | payer MEDICARE, SELFPAY ==
[2018-09-19 14:06] VITALS: BMI 20.2
[2018-10-01 13:50] LABS: Absolute Lymphocyte Count 1.03 X10^3/uL (0.83-4.51); Basophil# 0.03 X10^3/uL; Basophil% 0.3 % (0-1); Eosinophil# 0.02 X10^3/uL; Eosinophils% 0.2 % (0-5); Hematocrit 46.2 % (37-47); Hemoglobin 15.6 g/dL (12.0-15.0); Lymphocyte # 1.03 X10^3/ul (4.0); Lymphocyte % 10.6 % (19-41); Mean Corp Hgb Conc 33.8 g/dL (32-36); Mean Corpuscular Volume 91.7 fL (81-99); Mean Platelet Vol. 10.1 fl (6.2-12.0); Monocyte# 0.64 X10^3/uL; Monocyte% 6.6 % (0-10); NRBC Flagged by Analyzer 0 % (0-5); Neutrophil # 7.98 X10^3/uL (2.7-7.7); Neutrophil % 81.9 % (47-70); Platelet Count 337 K/mm3 (150-450); RBC Distribution Width CV 14.1 % (11.6-14.6); RBC Distribution Width SD 47.6 fl (35.1-43.9); Red Blood Count 5.04 M/mm3 (4.2-5.4); White Blood Count 9.7 K/mm3 (4.4-11.0)
[2018-10-01 14:03] LABS: ALB/GLOB Ratio 1.1 RATIO (0.9-2.4); AST(SGOT) 25 U/L (15-37); Alanine Aminotransfer ALT/SGPT 45 U/L (13-56); Albumin, Serum 3.9 g/dL (3.2-5.0); Alkaline Phosphatase 56 U/L (45-117); Anion Gap 4 (5-15); BUN 13 mg/dL (7-18); BUN/Creat Ratio 14.6 RATIO (10-20); Calcium,Total 9.6 mg/dL (8.5-10.1); Chloride 95 mmol/L (98-107); Creatinine, Serum 0.89 mg/dL (0.55-1.02); EST Glomerular Filtration Rate 68 mL/min (>60); Est Glom Filt Rate - Afr Amer 82 mL/min (>60); Globulin 3.4 g/dL (2.2-4.2); Glucose 112 mg/dL (74-106); Potassium 3.1 mmol/L (3.5-5.1); Protein, Total 7.3 g/dL (6.4-8.2); Sodium Level 133 mmol/L (136-145)
== END ==
PROVIDERS: Family Provider Internal Medicine; PCP Internal Medicine; Referring Provider Internal Medicine Rheumatology; Visit Provider Internal Medicine Rheumatology
DX: M05.70 Rheumatoid arthritis with rheumatoid factor of unspecified site without organ or systems involvement (principal); M18.0 Bilateral primary osteoarthritis of first carpometacarpal joints; M47.897 Other spondylosis, lumbosacral region; M35.00 Sjogren syndrome, unspecified; H81.03 Meniere's disease, bilateral; E78.5 Hyperlipidemia, unspecified; J45.909 Unspecified asthma, uncomplicated; I89.0 Lymphedema, not elsewhere classified; Z79.899 Other long term (current) drug therapy
CPT/HCPCS: 36415; 80053; 85025

== ENCOUNTER → 2018-10-24 14:00 | Outpatient (CLI) | payer MEDICARE, SELFPAY ==
[2018-02-26 14:39] VITALS: BMI 18.7
[2018-09-19 14:06] VITALS: BMI 20.2
[2018-10-24 14:16] VITALS: BP 120/67; PULSE 68; RESP 16; TEMP 36.9; O2SAT 100; BMI 19.2
[2018-10-24] MEDS: Triamcinolone Acetonide 40 MG/ML Vial 20 MG IM (14:35)
== END ==
PROVIDERS: Family Provider Internal Medicine; PCP Internal Medicine; Referring Provider Internal Medicine Rheumatology; Visit Provider Internal Medicine Rheumatology
DX: M06.9 Rheumatoid arthritis, unspecified (principal)
CPT/HCPCS: 96372; 96413; J7050; A4216; J0129

== ENCOUNTER → 2018-12-03 12:04 | Outpatient (CLI) | payer MEDICARE, SELFPAY ==
[2018-02-26 14:39] VITALS: BMI 18.7
[2018-10-24 14:16] VITALS: BMI 19.2
[2018-12-03] MEDS: Triamcinolone Acetonide 40 MG/ML Vial 20 MG IM (12:53)
[2018-12-03 12:54] VITALS: BP 123/81; PULSE 71; RESP 16; TEMP 36.6; O2SAT 100; BMI 21.9
== END ==
PROVIDERS: Family Provider Internal Medicine; PCP Internal Medicine; Referring Provider Internal Medicine Rheumatology; Visit Provider Internal Medicine Rheumatology
DX: M06.9 Rheumatoid arthritis, unspecified (principal)
CPT/HCPCS: 96372; 96413; J7050; J0129

== ENCOUNTER → 2018-12-21 14:35 | Outpatient (CLI) | payer MEDICARE, SELFPAY ==
[2018-12-03 12:54] VITALS: BMI 21.9
[2018-12-21 13:52] LABS: Absolute Lymphocyte Count 1.26 X10^3/uL (0.83-4.51); Absolute Neutrophil Count 10.6 X10^3/uL (2.0-7.7); Basophil# 0.04 X10^3/uL; Basophil% 0.3 % (0-1); Eosinophil# 0.03 X10^3/uL; Eosinophils% 0.2 % (0-5); Hematocrit 47.3 % (37-47); Hemoglobin 16.1 g/dL (12.0-15.0); Lymphocyte # 1.26 X10^3/ul (4.0); Lymphocyte % 9.9 % (19-41); Mean Corpuscular Hgb 31.6 pg (27.0-32.0); Mean Corpuscular Volume 92.9 fL (81-99); Mean Platelet Vol. 9.7 fl (6.2-12.0); Monocyte# 0.78 X10^3/uL; Monocyte% 6.1 % (0-10); NRBC Flagged by Analyzer 0 % (0-5); Neutrophil # 10.58 X10^3/uL (2.7-7.7); Platelet Count 366 K/mm3 (150-450); RBC Distribution Width CV 13.6 % (11.6-14.6); RBC Distribution Width SD 46.4 fl (35.1-43.9); Red Blood Count 5.09 M/mm3 (4.2-5.4); White Blood Count 12.8 K/mm3 (4.4-11.0)
[2018-12-21 14:20] LABS: ALB/GLOB Ratio 1.1 RATIO (0.9-2.4); AST(SGOT) 41 U/L (15-37); Alanine Aminotransfer ALT/SGPT 62 U/L (13-56); Albumin, Serum 3.8 g/dL (3.2-5.0); Alkaline Phosphatase 65 U/L (45-117); Anion Gap 11 (5-15); BUN 12 mg/dL (7-18); BUN/Creat Ratio 13.8 RATIO (10-20); Chloride 96 mmol/L (98-107); Creatinine, Serum 0.87 mg/dL (0.55-1.02); EST Glomerular Filtration Rate 70 mL/min (>60); Est Glom Filt Rate - Afr Amer 85 mL/min (>60); Globulin 3.4 g/dL (2.2-4.2); Glucose 97 mg/dL (74-106); Potassium 2.5 mmol/L (3.5-5.1); Protein, Total 7.2 g/dL (6.4-8.2); Sodium Level 138 mmol/L (136-145)
--- NOTE | 2018-12-21 14:39 | BI_ITS ---
BILATERAL DIGITAL MAMMOGRAM WITH TOMOSYNTHESIS: Mediolateraloblique and craniocaudal views demonstrate no evidence of dominant parenchymal masses. No cluster of microcalcifications or architectural distortion is seen. No evidence of skin thickening is identified. There has been no significant change since 11/21/2017. Breast Density: The breast tissue is extremely dense which may lower the sensitivity of mammography. CAD was used to assist in final assessment. BI/SCREEN MAMM (CAD) W/MICHELE BILAT IMPRESSION: NORMAL MAMMOGRAM BILATERALLY. ASSESSMENT CATEGORY: FINAL ASSESSMENT: BI-RAD CATEGORY I (NEGATIVE) YEARLY MAMMOGRAPHY RECOMMENDED Approximately 10% of breast cancers are not detected by mammography. A normal mammogram should not delay biopsy of a clinically suspicious abnormality. [id number] Electronically Signed: Jose Parson, at 17:13 EDT Tel , Service support ,
== END ==
PROVIDERS: Family Provider Internal Medicine; PCP Internal Medicine; Referring Provider Internal Medicine; Visit Provider Internal Medicine
DX: Z12.31 Encounter for screening mammogram for malignant neoplasm of breast (principal); M05.70 Rheumatoid arthritis with rheumatoid factor of unspecified site without organ or systems involvement; M35.00 Sjogren syndrome, unspecified; M18.0 Bilateral primary osteoarthritis of first carpometacarpal joints; M47.897 Other spondylosis, lumbosacral region; H81.03 Meniere's disease, bilateral; E78.5 Hyperlipidemia, unspecified; J45.909 Unspecified asthma, uncomplicated; I89.0 Lymphedema, not elsewhere classified; Z79.899 Other long term (current) drug therapy
CPT/HCPCS: 36415; 77063; 77067; 80053; 85025

== ENCOUNTER 2018-12-21 15:33 | Outpatient (CLI) | payer MEDICARE, SELFPAY ==
[2018-12-03 12:54] VITALS: BMI 21.9
[2018-12-21 15:40] VITALS: BP 141/91; PULSE 75; RESP 18; TEMP 36.4; O2SAT 100; BMI 18.7
[2018-12-21] MEDS: Potassium Chloride 10mEq/100mL 10 MEQ/100 ML IV.SOLN. 100 MEQ IV BOLUS ×4 (15:51→19:04)
[2018-12-21 18:13] VITALS: BP 110/71; PULSE 68; RESP 16; TEMP 37.1; O2SAT 99
[2018-12-21 20:16] VITALS: BP 120/82; PULSE 64; RESP 16; TEMP 37; O2SAT 99
== END 2018-12-21 20:26 | disposition home or self-care (01) ==
LOC: MEDOUTP 15:34 → MS3 16:49
PROVIDERS: Family Provider Internal Medicine; PCP Internal Medicine; Referring Provider Internal Medicine; Visit Provider Internal Medicine
DX: E87.6 Hypokalemia (principal); Z12.31 Encounter for screening mammogram for malignant neoplasm of breast; M05.70 Rheumatoid arthritis with rheumatoid factor of unspecified site without organ or systems involvement; M35.00 Sjogren syndrome, unspecified; M18.0 Bilateral primary osteoarthritis of first carpometacarpal joints; M47.897 Other spondylosis, lumbosacral region; H81.03 Meniere's disease, bilateral; E78.5 Hyperlipidemia, unspecified; J45.909 Unspecified asthma, uncomplicated; I89.0 Lymphedema, not elsewhere classified; Z79.899 Other long term (current) drug therapy
CPT/HCPCS: 96365; 96366 ×2; 36415; 77063; 77067; 80053; 85025; J7040; J7050; A4216

== ENCOUNTER → 2018-12-25 14:55 | Outpatient (CLI) | payer MEDICARE, SELFPAY ==
[2018-12-21 15:40] VITALS: BMI 18.7
[2018-12-25 17:26] LABS: Absolute Lymphocyte Count 1.11 X10^3/uL (0.83-4.51); Absolute Neutrophil Count 7.6 X10^3/uL (2.0-7.7); Basophil# 0.02 X10^3/uL; Basophil% 0.2 % (0-1); Eosinophil# 0.02 X10^3/uL; Eosinophils% 0.2 % (0-5); Hematocrit 46.5 % (37-47); Hemoglobin 15.6 g/dL (12.0-15.0); Lymphocyte # 1.11 X10^3/ul (4.0); Mean Corp Hgb Conc 33.5 g/dL (32-36); Mean Corpuscular Volume 92.3 fL (81-99); Mean Platelet Vol. 9.4 fl (6.2-12.0); Monocyte# 0.47 X10^3/uL; Monocyte% 5.1 % (0-10); NRBC Flagged by Analyzer 0 % (0-5); Neutrophil # 7.57 X10^3/uL (2.7-7.7); Neutrophil % 82.2 % (47-70); Platelet Count 304 K/mm3 (150-450); RBC Distribution Width CV 13.7 % (11.6-14.6); RBC Distribution Width SD 46.5 fl (35.1-43.9); Red Blood Count 5.04 M/mm3 (4.2-5.4); White Blood Count 9.2 K/mm3 (4.4-11.0)
[2018-12-25 17:38] LABS: Magnesium 2.4 mg/dL (1.6-2.6); Potassium 3.1 mmol/L (3.5-5.1)
== END ==
PROVIDERS: Family Provider Internal Medicine; PCP Internal Medicine; Referring Provider Internal Medicine; Visit Provider Internal Medicine
DX: E87.6 Hypokalemia (principal)
CPT/HCPCS: 36415; 83735; 84132; 85025

== ENCOUNTER → 2018-12-27 13:57 | Outpatient (CLI) | payer MEDICARE, SELFPAY ==
[2018-02-26 14:39] VITALS: BMI 18.7
[2018-12-21 15:40] VITALS: BMI 18.7
[2018-12-27 14:08] VITALS: BP 117/71; PULSE 90; RESP 18; TEMP 36.6; O2SAT 99; BMI 18.7
[2018-12-27] MEDS: Triamcinolone Acetonide 40 MG/ML Vial 20 MG IM (14:11)
== END ==
PROVIDERS: Family Provider Internal Medicine; PCP Internal Medicine; Referring Provider Internal Medicine Rheumatology; Visit Provider Internal Medicine Rheumatology
DX: M06.9 Rheumatoid arthritis, unspecified (principal)
CPT/HCPCS: 96372; 96413; J7050; A4216; J0129

== ENCOUNTER → 2019-01-08 | Outpatient (CLI) | payer MEDICARE, SELFPAY ==
[2018-12-27 14:08] VITALS: BMI 18.7
[2019-01-08 14:10] LABS: Absolute Lymphocyte Count 0.93 X10^3/uL (0.83-4.51); Basophil# 0.03 X10^3/uL; Basophil% 0.3 % (0-1); Eosinophil# 0.02 X10^3/uL; Eosinophils% 0.2 % (0-5); Hematocrit 45.6 % (37-47); Hemoglobin 14.8 g/dL (12.0-15.0); Lymphocyte # 0.93 X10^3/ul (4.0); Lymphocyte % 9.7 % (19-41); Mean Corp Hgb Conc 32.5 g/dL (32-36); Mean Corpuscular Hgb 30.9 pg (27.0-32.0); Mean Corpuscular Volume 95.2 fL (81-99); Mean Platelet Vol. 9.7 fl (6.2-12.0); Monocyte# 0.53 X10^3/uL; Monocyte% 5.5 % (0-10); NRBC Flagged by Analyzer 0 % (0-5); Neutrophil % 83.7 % (47-70); Platelet Count 325 K/mm3 (150-450); RBC Distribution Width CV 13.9 % (11.6-14.6); RBC Distribution Width SD 49.4 fl (35.1-43.9); Red Blood Count 4.79 M/mm3 (4.2-5.4); White Blood Count 9.6 K/mm3 (4.4-11.0)
[2019-01-08 14:17] LABS: International Normalized Ratio 0.9; Prothrombin Time (Protime)PT. 11.4 SECONDS (11.7-14.9)
[2019-01-08 14:22] LABS: ALB/GLOB Ratio 1.2 RATIO (0.9-2.4); AST(SGOT) 27 U/L (15-37); Alanine Aminotransfer ALT/SGPT 51 U/L (13-56); Albumin, Serum 3.6 g/dL (3.2-5.0); Alkaline Phosphatase 59 U/L (45-117); Anion Gap 9 (5-15); BUN 10 mg/dL (7-18); Calcium,Total 9.3 mg/dL (8.5-10.1); Chloride 96 mmol/L (98-107); Creatinine, Serum 0.83 mg/dL (0.55-1.02); EST Glomerular Filtration Rate 74 mL/min (>60); Est Glom Filt Rate - Afr Amer 89 mL/min (>60); Globulin 3.1 g/dL (2.2-4.2); Glucose 83 mg/dL (74-106); Potassium 3.3 mmol/L (3.5-5.1); Protein, Total 6.7 g/dL (6.4-8.2); Sodium Level 140 mmol/L (136-145)
== END | disposition home or self-care (01) ==
LOC: LABSPEC 13:49
PROVIDERS: Family Provider Internal Medicine; PCP Internal Medicine; Referring Provider Internal Medicine; Visit Provider Internal Medicine
DX: R23.3 Spontaneous ecchymoses (principal); E87.6 Hypokalemia
CPT/HCPCS: 80053; 85025; 85610; 85730

== ENCOUNTER → 2019-01-28 14:01 | Outpatient (CLI) | payer MEDICARE, SELFPAY ==
[2018-02-26 14:39] VITALS: BMI 18.7
[2018-12-27 14:08] VITALS: BMI 18.7
[2019-01-28 14:07] VITALS: BP 111/80; PULSE 73; RESP 16; TEMP 36.3; BMI 19.0
[2019-01-28] MEDS: Triamcinolone Acetonide 40 MG/ML Vial 20 MG IM (14:10)
== END ==
PROVIDERS: Family Provider Internal Medicine; PCP Internal Medicine; Referring Provider Internal Medicine Rheumatology; Visit Provider Internal Medicine Rheumatology
DX: M06.9 Rheumatoid arthritis, unspecified (principal)
CPT/HCPCS: 96372; 96413; J7050; A4216; J0129

== ENCOUNTER → 2019-02-26 13:50 | Outpatient (CLI) | payer MEDICARE, SELFPAY ==
[2018-02-26 14:39] VITALS: BMI 18.7
[2019-01-28 14:07] VITALS: BMI 19.0
[2019-02-26] MEDS: Triamcinolone Acetonide 40 MG/ML Vial 20 MG IM (14:38)
[2019-02-26 14:52] VITALS: BP 119/69; PULSE 63; RESP 16; TEMP 36.7; BMI 19.2
== END ==
PROVIDERS: Family Provider Internal Medicine; PCP Internal Medicine; Referring Provider Internal Medicine Rheumatology; Visit Provider Internal Medicine Rheumatology
DX: M06.9 Rheumatoid arthritis, unspecified (principal)
CPT/HCPCS: 96372; 96413; J7050; A4216; J0129

== ENCOUNTER → 2019-03-28 | Outpatient (CLI) | payer MEDICARE, SELFPAY ==
[2019-01-28 14:07] VITALS: BMI 19.0
[2019-02-26 14:52] VITALS: BMI 19.2
[2019-03-28 14:35] VITALS: BP 103/74; PULSE 66; RESP 16; TEMP 36.9; O2SAT 98; BMI 19.2
[2019-03-28] MEDS: Triamcinolone Acetonide 40 MG/ML Vial 20 MG IM (14:35)
== END | disposition home or self-care (01) ==
LOC: MEDOUTP 14:00
PROVIDERS: Family Provider Internal Medicine; PCP Internal Medicine; Referring Provider Internal Medicine Rheumatology; Visit Provider Internal Medicine Rheumatology
DX: M06.9 Rheumatoid arthritis, unspecified (principal)
CPT/HCPCS: 96372; 96413; J7050; A4216; J0129

== ENCOUNTER → 2019-04-02 15:36 | Outpatient (CLI) | payer MEDICARE, SELFPAY ==
[2019-03-28 14:35] VITALS: BMI 19.2
[2019-04-02 17:52] LABS: Absolute Lymphocyte Count 1.17 X10^3/uL (0.83-4.51); Absolute Neutrophil Count 6.7 X10^3/uL (2.0-7.7); Basophil# 0.03 X10^3/uL; Basophil% 0.4 % (0-1); Eosinophil# 0.01 X10^3/uL; Eosinophils% 0.1 % (0-5); Hematocrit 46.1 % (37-47); Hemoglobin 15.2 g/dL (12.0-15.0); Lymphocyte # 1.17 X10^3/ul (4.0); Lymphocyte % 13.8 % (19-41); Mean Corpuscular Hgb 30.5 pg (27.0-32.0); Mean Corpuscular Volume 92.6 fL (81-99); Mean Platelet Vol. 9.7 fl (6.2-12.0); Monocyte# 0.51 X10^3/uL; NRBC Flagged by Analyzer 0 % (0-5); Neutrophil # 6.69 X10^3/uL (2.7-7.7); Neutrophil % 79.2 % (47-70); Platelet Count 297 K/mm3 (150-450); RBC Distribution Width CV 13.3 % (11.6-14.6); RBC Distribution Width SD 45.5 fl (35.1-43.9); Red Blood Count 4.98 M/mm3 (4.2-5.4); White Blood Count 8.5 K/mm3 (4.4-11.0)
[2019-04-02 18:08] LABS: ALB/GLOB Ratio 1.1 RATIO (0.9-2.4); AST(SGOT) 32 U/L (15-37); Alanine Aminotransfer ALT/SGPT 55 U/L (13-56); Albumin, Serum 3.7 g/dL (3.2-5.0); Alkaline Phosphatase 70 U/L (45-117); Anion Gap 4 (5-15); BUN 9 mg/dL (7-18); BUN/Creat Ratio 12.2 RATIO (10-20); Chloride 98 mmol/L (98-107); Creatinine, Serum 0.74 mg/dL (0.55-1.02); EST Glomerular Filtration Rate 84 mL/min (>60); Est Glom Filt Rate - Afr Amer 102 mL/min (>60); Globulin 3.5 g/dL (2.2-4.2); Glucose 77 mg/dL (74-106); Potassium 2.8 mmol/L (3.5-5.1); Protein, Total 7.2 g/dL (6.4-8.2); Sodium Level 136 mmol/L (136-145)
== END ==
LOC: MTLAB 15:38
PROVIDERS: PCP Internal Medicine; Referring Provider Internal Medicine Rheumatology; Visit Provider Internal Medicine Rheumatology
DX: M05.70 Rheumatoid arthritis with rheumatoid factor of unspecified site without organ or systems involvement (principal); M35.00 Sjogren syndrome, unspecified; M18.0 Bilateral primary osteoarthritis of first carpometacarpal joints; M47.897 Other spondylosis, lumbosacral region; H81.03 Meniere's disease, bilateral; E78.5 Hyperlipidemia, unspecified; J45.909 Unspecified asthma, uncomplicated; I89.0 Lymphedema, not elsewhere classified; Z79.899 Other long term (current) drug therapy
CPT/HCPCS: 36415; 80053; 85025

== ENCOUNTER → 2019-04-25 14:01 | Outpatient (CLI) | payer MEDICARE, SELFPAY ==
[2019-01-28 14:07] VITALS: BMI 19.0
[2019-03-28 14:35] VITALS: BMI 19.2
[2019-04-25] MEDS: Triamcinolone Acetonide 40 MG/ML Vial 20 MG IM (14:15)
[2019-04-25 14:18] VITALS: BP 121/84; PULSE 80; RESP 16; TEMP 36.7; O2SAT 100; BMI 19.0
== END ==
PROVIDERS: Family Provider Internal Medicine; PCP Internal Medicine; Referring Provider Internal Medicine Rheumatology; Visit Provider Internal Medicine Rheumatology
DX: M06.9 Rheumatoid arthritis, unspecified (principal)
CPT/HCPCS: 96372; 96413; J7050; A4216; J0129

== ENCOUNTER → 2019-05-23 14:05 | Outpatient (CLI) | payer MEDICARE, SELFPAY ==
[2019-01-28 14:07] VITALS: BMI 19.0
[2019-04-25 14:18] VITALS: BMI 19.0
[2019-05-23 14:14] VITALS: BP 127/78; PULSE 69; RESP 16; TEMP 36.3; O2SAT 96; BMI 19.2
[2019-05-23] MEDS: Triamcinolone Acetonide 40 MG/ML Vial 20 MG IM (14:32)
== END ==
PROVIDERS: Family Provider Internal Medicine; PCP Internal Medicine; Referring Provider Internal Medicine Rheumatology; Visit Provider Internal Medicine Rheumatology
DX: M06.9 Rheumatoid arthritis, unspecified (principal)
CPT/HCPCS: 96372; 96413; J7050; A4216; J0129

== ENCOUNTER → 2019-06-20 14:03 | Outpatient (CLI) | payer MEDICARE, SELFPAY ==
[2019-01-28 14:07] VITALS: BMI 19.0
[2019-05-23 14:14] VITALS: BMI 19.2
[2019-06-20 14:11] VITALS: BP 118/81; PULSE 62; RESP 16; TEMP 36.2; O2SAT 100; BMI 19.2
[2019-06-20] MEDS: Triamcinolone Acetonide 40 MG/ML Vial 20 MG IM (14:31)
[2019-06-20] MEDS: 0.9% NaCl Peripheral Flush Adult/Peds IV (14:34)
[2019-06-20] MEDS: 0.9% NaCl IVPB Med Flush (250 mL) 15 ML IV (14:34)
[2019-06-20 14:51] LABS: Absolute Lymphocyte Count 0.82 X10^3/uL (0.83-4.51); Basophil# 0.02 X10^3/uL; Basophil% 0.3 % (0-1); Eosinophil# 0.01 X10^3/uL; Eosinophils% 0.1 % (0-5); Hematocrit 40.9 % (37-47); Hemoglobin 13.7 g/dL (12.0-15.0); Lymphocyte # 0.82 X10^3/ul (4.0); Lymphocyte % 11.3 % (19-41); Mean Corp Hgb Conc 33.5 g/dL (32-36); Mean Corpuscular Hgb 31.4 pg (27.0-32.0); Mean Corpuscular Volume 93.8 fL (81-99); Mean Platelet Vol. 9.6 fl (6.2-12.0); Monocyte# 0.37 X10^3/uL; Monocyte% 5.1 % (0-10); NRBC Flagged by Analyzer 0 % (0-5); Neutrophil % 82.8 % (47-70); Platelet Count 272 K/mm3 (150-450); RBC Distribution Width CV 13.8 % (11.6-14.6); RBC Distribution Width SD 47.6 fl (35.1-43.9); Red Blood Count 4.36 M/mm3 (4.2-5.4); White Blood Count 7.3 K/mm3 (4.4-11.0)
[2019-06-20 15:22] LABS: ALB/GLOB Ratio 1.2 RATIO (0.9-2.4); AST(SGOT) 33 U/L (15-37); Alanine Aminotransfer ALT/SGPT 47 U/L (13-56); Albumin, Serum 3.3 g/dL (3.2-5.0); Alkaline Phosphatase 46 U/L (45-117); Anion Gap 4 (5-15); BUN 8 mg/dL (7-18); BUN/Creat Ratio 11.9 RATIO (10-20); Calcium,Total 8.4 mg/dL (8.5-10.1); Chloride 102 mmol/L (98-107); Cholesterol 257 mg/dL (200); Creatinine, Serum 0.67 mg/dL (0.55-1.02); EST Glomerular Filtration Rate 94 mL/min (>60); Est Glom Filt Rate - Afr Amer 114 mL/min (>60); Estimated Creatinine Clearance 69.82 ml/min; Globulin 2.8 g/dL (2.2-4.2); Glucose 94 mg/dL (74-106); High Density Lipoprotein 111 mg/dL; Potassium 2.8 mmol/L (3.5-5.1); Protein, Total 6.1 g/dL (6.4-8.2); Sodium Level 135 mmol/L (136-145); Thyroid Stim Hormone (TSH) 1.05 uIU/mL (0.358-3.74); Triglycerides 78 mg/dL; Very Low Density Lipoprotein 16 mg/dL (5-40)
[2019-06-20 15:23] VITALS: BP 114/80; PULSE 64
[2019-06-20 15:34] LABS: Hemoglobin A1c 5.5 % (4.2-6.3)
[2019-06-25 12:44] LABS: Anti-Glomerular Basement Memb 2 units (0-20); Cytoplasmic Ab (C-ANCA) <1:20 titer (Neg:<1:20); Perinuclear Ab (P-ANCA) <1:20 titer (Neg:<1:20)
== END ==
PROVIDERS: Family Provider Internal Medicine; PCP Internal Medicine; Referring Provider Internal Medicine Rheumatology; Visit Provider Internal Medicine Rheumatology
DX: M06.9 Rheumatoid arthritis, unspecified (principal); J32.9 Chronic sinusitis, unspecified; E05.90 Thyrotoxicosis, unspecified without thyrotoxic crisis or storm; E78.49 Other hyperlipidemia; R73.09 Other abnormal glucose
CPT/HCPCS: 80053; 80061; 83036; 83520; 84443; 85025; 86256; 96372; 96413; J7050; A4216; J0129

== ENCOUNTER → 2019-07-18 13:58 | Outpatient (CLI) | payer MEDICARE, SELFPAY ==
[2019-01-28 14:07] VITALS: BMI 19.0
[2019-07-18 13:41] VITALS: BMI 19.2
[2019-07-18 14:06] VITALS: BP 130/76; PULSE 64; RESP 16; TEMP 36.3; O2SAT 99; BMI 19.3
[2019-07-18] MEDS: Triamcinolone Acetonide 40 MG/ML Vial 20 MG IM (14:14)
[2019-07-18] MEDS: 0.9% NaCl Peripheral Flush Adult/Peds IV (14:19)
[2019-07-18] MEDS: 0.9% NaCl IVPB Med Flush (250 mL) 15 ML IV (14:40)
== END ==
PROVIDERS: Family Provider Internal Medicine; PCP Internal Medicine; Referring Provider Internal Medicine Rheumatology; Visit Provider Internal Medicine Rheumatology
DX: M06.9 Rheumatoid arthritis, unspecified (principal)
CPT/HCPCS: 96372; 96413; J7050; A4216; J0129

== ENCOUNTER → 2019-07-23 15:09 | Outpatient (CLI) | payer MEDICARE, SELFPAY ==
[2019-07-18 13:41] VITALS: BMI 19.2
[2019-07-18 14:06] VITALS: BMI 19.3
--- NOTE | 2019-07-23 15:13 | CT_ITS ---
STUDY: CT ABDOMEN WITH CONTRAST REASON FOR EXAM: Female, 64 years old. INCARCERATED UMBILICAL HERNIA RADIATION DOSAGE (If Supplied By Facility): CTDIvol = ( 12.86 ) mGy, DLP = ( 179.76 ) mGycm TECHNIQUE: Transaxial images were obtained post I.V. administration of Oral and amp; IV Readi-CAT and amp; 100mL Isovue-300, and with oral contrast. Sagittal and coronal images were reconstructed. Individualized dose optimization techniques were used for this CT. COMPARISON: Comparison is made with prior examination dated January 23, 2017. FINDINGS: The visualized lung bases are unremarkable. The visualized portions of the heart are within normal limits. Tiny cyst in the inferior medial aspect of the right lobe of the liver. Normal gallbladder and extrahepatic biliary system. Normal spleen. Normal pancreas. Normal bilateral adrenal glands. Normal right kidney. Normal left kidney. Normal visualized stomach. Normal small intestine. Normal colon. The appendix is visualized and appears normal. There is scattered atherosclerotic calcification of the abdominal aorta, without a demonstrated aneurysm. Normal inferior vena cava. Normal retroperitoneum. Normal abdominal wall. Normal osseous structures. CT/Abdomen WITH IV Contrast IMPRESSION: No acute abnormality is seen. Electronically Signed: Shreyas Garcia, at 15:44 EDT , Service support ,
== END ==
PROVIDERS: PCP Internal Medicine; Referring Provider Surgery; Visit Provider Surgery
DX: K46.0 Unspecified abdominal hernia with obstruction, without gangrene (principal)
CPT/HCPCS: 74160

== ENCOUNTER → 2019-08-15 13:58 | Outpatient (CLI) | payer MEDICARE, SELFPAY ==
[2019-01-28 14:07] VITALS: BMI 19.0
[2019-07-26 13:33] VITALS: BMI 19.3
[2019-08-15] MEDS: Triamcinolone Acetonide 40 MG/ML Vial 20 MG IM (14:20)
[2019-08-15 14:30] VITALS: BP 137/83; PULSE 65; RESP 18; TEMP 36.9; O2SAT 100; BMI 19.2
[2019-08-15] MEDS: 0.9% NaCl Peripheral Flush Adult/Peds IV (14:45)
[2019-08-15] MEDS: 0.9% NaCl IVPB Med Flush (250 mL) 15 ML IV (14:46)
== END ==
PROVIDERS: Family Provider Internal Medicine; PCP Internal Medicine; Referring Provider Internal Medicine Rheumatology; Visit Provider Internal Medicine Rheumatology
DX: M06.9 Rheumatoid arthritis, unspecified (principal)
CPT/HCPCS: 96372; 96413; J7050; A4216; J0129

== ENCOUNTER → 2019-08-26 10:31 | Outpatient (CLI) | payer MEDICARE, SELFPAY ==
[2019-08-15 14:30] VITALS: BMI 19.2
[2019-08-26 12:37] LABS: Absolute Lymphocyte Count 2.03 X10^3/uL (0.83-4.51); Basophil# 0.02 X10^3/uL; Basophil% 0.3 % (0-1); Eosinophil# 0.06 X10^3/uL; Hematocrit 41.5 % (37-47); Hemoglobin 13.6 g/dL (12.0-15.0); Lymphocyte # 2.03 X10^3/ul (4.0); Lymphocyte % 34.5 % (19-41); Mean Corp Hgb Conc 32.8 g/dL (32-36); Mean Corpuscular Hgb 31.3 pg (27.0-32.0); Mean Corpuscular Volume 95.4 fL (81-99); Mean Platelet Vol. 10.1 fl (6.2-12.0); Monocyte# 0.78 X10^3/uL; Monocyte% 13.2 % (0-10); NRBC Flagged by Analyzer 0 % (0-5); Neutrophil # 2.98 X10^3/uL (2.7-7.7); Neutrophil % 50.7 % (47-70); Platelet Count 298 K/mm3 (150-450); RBC Distribution Width CV 14.5 % (11.6-14.6); RBC Distribution Width SD 50.8 fl (35.1-43.9); Red Blood Count 4.35 M/mm3 (4.2-5.4); White Blood Count 5.9 K/mm3 (4.4-11.0)
[2019-08-26 13:00] LABS: AST(SGOT) 81 U/L (15-37); Alanine Aminotransfer ALT/SGPT 98 U/L (13-56); Albumin, Serum 3.3 g/dL (3.2-5.0); Alkaline Phosphatase 54 U/L (45-117); Anion Gap 6 (5-15); BUN 11 mg/dL (7-18); BUN/Creat Ratio 15.8 RATIO (10-20); Calcium,Total 9.1 mg/dL (8.5-10.1); Chloride 102 mmol/L (98-107); EST Glomerular Filtration Rate 90 mL/min (>60); Est Glom Filt Rate - Afr Amer 109 mL/min (>60); Globulin 3.4 g/dL (2.2-4.2); Glucose 85 mg/dL (74-106); Potassium 3.1 mmol/L (3.5-5.1); Protein, Total 6.7 g/dL (6.4-8.2); Sodium Level 139 mmol/L (136-145)
== END ==
PROVIDERS: PCP Internal Medicine; Referring Provider Internal Medicine Rheumatology; Visit Provider Internal Medicine Rheumatology
DX: M05.70 Rheumatoid arthritis with rheumatoid factor of unspecified site without organ or systems involvement (principal); Z79.899 Other long term (current) drug therapy; M35.00 Sjogren syndrome, unspecified; M18.0 Bilateral primary osteoarthritis of first carpometacarpal joints; M47.897 Other spondylosis, lumbosacral region; H81.03 Meniere's disease, bilateral; E78.5 Hyperlipidemia, unspecified; J45.909 Unspecified asthma, uncomplicated; I89.0 Lymphedema, not elsewhere classified
CPT/HCPCS: 36415; 80053; 85025

== ENCOUNTER → 2019-09-12 13:51 | Outpatient (CLI) | payer MEDICARE, SELFPAY ==
[2019-01-28 14:07] VITALS: BMI 19.0
[2019-08-15 14:30] VITALS: BMI 19.2
[2019-09-12 13:58] VITALS: BP 123/80; PULSE 59; RESP 16; TEMP 36.1; O2SAT 100; BMI 18.7
[2019-09-12] MEDS: Triamcinolone Acetonide 40 MG/ML Vial 20 MG IM (14:25)
[2019-09-12] MEDS: 0.9% NaCl PICC Flush IV (14:29)
[2019-09-12] MEDS: 0.9% NaCl IVPB Med Flush (250 mL) 15 ML IV (14:36)
[2019-09-12 15:37] VITALS: BP 120/80; RESP 16
== END ==
PROVIDERS: Family Provider Internal Medicine; PCP Internal Medicine; Referring Provider Internal Medicine Rheumatology; Visit Provider Internal Medicine Rheumatology
DX: M06.9 Rheumatoid arthritis, unspecified (principal)
CPT/HCPCS: 96365; 96372; J7050; A4216; J0129

== ENCOUNTER → 2019-10-01 10:57 | Outpatient (CLI) | payer MEDICARE, SELFPAY ==
[2019-09-12 13:58] VITALS: BMI 18.7
[2019-10-01 12:40] LABS: ALB/GLOB Ratio 1.1 RATIO (0.9-2.4); AST(SGOT) 45 U/L (15-37); Alanine Aminotransfer ALT/SGPT 67 U/L (13-56); Albumin, Serum 3.4 g/dL (3.2-5.0); Alkaline Phosphatase 55 U/L (45-117); Anion Gap 5 (5-15); BUN 10 mg/dL (7-18); BUN/Creat Ratio 13.9 RATIO (10-20); Calcium,Total 8.6 mg/dL (8.5-10.1); Chloride 101 mmol/L (98-107); Creatinine, Serum 0.72 mg/dL (0.55-1.02); EST Glomerular Filtration Rate 87 mL/min (>60); Est Glom Filt Rate - Afr Amer 106 mL/min (>60); Globulin 3.2 g/dL (2.2-4.2); Glucose 93 mg/dL (74-106); Potassium 3.1 mmol/L (3.5-5.1); Protein, Total 6.6 g/dL (6.4-8.2); Sodium Level 136 mmol/L (136-145)
== END ==
PROVIDERS: PCP Internal Medicine; Referring Provider Internal Medicine Rheumatology; Visit Provider Internal Medicine Rheumatology
DX: M05.70 Rheumatoid arthritis with rheumatoid factor of unspecified site without organ or systems involvement (principal); Z79.899 Other long term (current) drug therapy; M35.00 Sjogren syndrome, unspecified; M18.0 Bilateral primary osteoarthritis of first carpometacarpal joints; M47.897 Other spondylosis, lumbosacral region; H81.03 Meniere's disease, bilateral; E78.5 Hyperlipidemia, unspecified; J45.909 Unspecified asthma, uncomplicated; I89.0 Lymphedema, not elsewhere classified
CPT/HCPCS: 36415; 80053

== ENCOUNTER → 2019-10-03 13:17 | Outpatient (CLI) | payer MEDICARE, SELFPAY ==
[2019-09-12 13:58] VITALS: BMI 18.7
--- NOTE | 2019-10-03 13:24 | RAD_ITS ---
STUDY: X-RAY - UNILATERAL RIBS ( LEFT ) WITH CHEST REASON FOR EXAM: Female, 64 years old. LEFT LOW RIB PAIN, PT FELT A SNAP WHILE WORKING OUT TECHNIQUE - RIBS: 2 view(s) of the ribs. TECHNIQUE - CHEST: Single PA view of the chest. COMPARISON: None. FINDINGS - RIBS: Normal visualized ribs without a demonstrated fracture. FINDINGS - CHEST: The lungs are clear and expanded. There is no demonstrated pleural abnormality. Normal size heart. Normal mediastinum and marsha. Normal visualized pulmonary arteries. Normal visualized aortic arch and descending thoracic aorta. Normal visualized thoracic spine. Normal visualized ribs, clavicles, and shoulders. There is no demonstrated abnormality of the visualized soft tissue structures of the upper abdomen. RAD/Ribs Uni Min 3V w/PA Chest IMPRESSION: RIBS: Normal x-ray examination of the ribs. CHEST: Normal x-ray examination of the chest. Electronically Signed: José Miguel Perez MD at 13:53 EDT , Service support ,
== END ==
PROVIDERS: PCP Internal Medicine; Referring Provider Internal Medicine; Visit Provider Internal Medicine
DX: R07.81 Pleurodynia (principal)
CPT/HCPCS: 71101

== ENCOUNTER → 2019-10-10 14:07 | Outpatient (CLI) | payer MEDICARE, SELFPAY ==
[2019-01-28 14:07] VITALS: BMI 19.0
[2019-09-12 13:58] VITALS: BMI 18.7
[2019-10-10 14:13] VITALS: BP 130/84; PULSE 60; RESP 16; TEMP 36.3; O2SAT 93; BMI 19.9
[2019-10-10] MEDS: Triamcinolone Acetonide 40 MG/ML Vial 20 MG IM (14:23)
[2019-10-10] MEDS: 0.9% NaCl IVPB Med Flush (250 mL) 15 ML IV (14:26)
[2019-10-10] MEDS: 0.9% NaCl PICC Flush IV (14:32)
[2019-10-10 15:29] VITALS: BP 121/73; PULSE 57
== END ==
PROVIDERS: Family Provider Internal Medicine; PCP Internal Medicine; Referring Provider Internal Medicine Rheumatology; Visit Provider Internal Medicine Rheumatology
DX: M06.9 Rheumatoid arthritis, unspecified (principal)
CPT/HCPCS: 96365; 96372; J7050; A4216; J0129

== ENCOUNTER → 2019-11-07 13:56 | Outpatient (CLI) | payer MEDICARE, SELFPAY ==
[2019-01-28 14:07] VITALS: BMI 19.0
[2019-10-10 14:13] VITALS: BMI 19.9
[2019-11-07 12:25] LABS: Absolute Lymphocyte Count 1.64 X10^3/uL (0.83-4.51); Absolute Neutrophil Count 2.8 X10^3/uL (2.0-7.7); Basophil# 0.02 X10^3/uL; Basophil% 0.4 % (0-1); Eosinophil# 0.06 X10^3/uL; Eosinophils% 1.2 % (0-5); Hematocrit 41.9 % (37-47); Hemoglobin 13.3 g/dL (12.0-15.0); Lymphocyte # 1.64 X10^3/ul (4.0); Lymphocyte % 31.6 % (19-41); Mean Corp Hgb Conc 31.7 g/dL (32-36); Mean Corpuscular Hgb 29.8 pg (27.0-32.0); Mean Corpuscular Volume 93.7 fL (81-99); Mean Platelet Vol. 9.9 fl (6.2-12.0); Monocyte# 0.67 X10^3/uL; Monocyte% 12.9 % (0-10); NRBC Flagged by Analyzer 0 % (0-5); Neutrophil # 2.78 X10^3/uL (2.7-7.7); Neutrophil % 53.5 % (47-70); Platelet Count 288 K/mm3 (150-450); RBC Distribution Width CV 13.3 % (11.6-14.6); RBC Distribution Width SD 45.7 fl (35.1-43.9); Red Blood Count 4.47 M/mm3 (4.2-5.4); White Blood Count 5.2 K/mm3 (4.4-11.0)
[2019-11-07 13:54] LABS: ALB/GLOB Ratio 1.1 RATIO (0.9-2.4); AST(SGOT) 41 U/L (15-37); Alanine Aminotransfer ALT/SGPT 57 U/L (13-56); Albumin, Serum 3.3 g/dL (3.2-5.0); Alkaline Phosphatase 55 U/L (45-117); Anion Gap 4 (5-15); BUN 10 mg/dL (7-18); BUN/Creat Ratio 13.6 RATIO (10-20); Calcium,Total 9.1 mg/dL (8.5-10.1); Chloride 101 mmol/L (98-107); Creatinine, Serum 0.73 mg/dL (0.55-1.02); EST Glomerular Filtration Rate 85 mL/min (>60); Est Glom Filt Rate - Afr Amer 103 mL/min (>60); Glucose 83 mg/dL (74-106); Potassium 2.7 mmol/L (3.5-5.1); Protein, Total 6.3 g/dL (6.4-8.2); Sodium Level 139 mmol/L (136-145)
[2019-11-07 14:12] VITALS: BP 121/73; PULSE 72; RESP 16; TEMP 36.6; O2SAT 99; BMI 19.7
[2019-11-07] MEDS: Triamcinolone Acetonide 40 MG/ML Vial 20 MG IM (14:23)
[2019-11-07] MEDS: 0.9% NaCl PICC Flush IV (14:31)
[2019-11-07] MEDS: 0.9% NaCl IVPB Med Flush (250 mL) 15 ML IV (14:33)
== END ==
PROVIDERS: Family Provider Internal Medicine; PCP Internal Medicine; Referring Provider Internal Medicine Rheumatology; Visit Provider Internal Medicine Rheumatology
DX: M05.70 Rheumatoid arthritis with rheumatoid factor of unspecified site without organ or systems involvement (principal); M35.00 Sjogren syndrome, unspecified; M18.0 Bilateral primary osteoarthritis of first carpometacarpal joints; M47.897 Other spondylosis, lumbosacral region; H81.03 Meniere's disease, bilateral; E78.5 Hyperlipidemia, unspecified; J45.909 Unspecified asthma, uncomplicated; I89.0 Lymphedema, not elsewhere classified
CPT/HCPCS: 96365; 36415; 80053; 85025; J7050; A4216; J0129

== ENCOUNTER → 2019-12-09 14:02 | Outpatient (CLI) | payer MEDICARE, SELFPAY ==
[2019-01-28 14:07] VITALS: BMI 19.0
[2019-11-07 14:12] VITALS: BMI 19.7
[2019-12-09 14:13] VITALS: BP 114/74; PULSE 62; RESP 14; TEMP 37.2; O2SAT 100; BMI 18.7
[2019-12-09] MEDS: Triamcinolone Acetonide 40 MG/ML Vial 20 MG IM (14:37)
[2019-12-09] MEDS: 0.9% NaCl IVPB Med Flush (250 mL) 15 ML IV (14:48)
== END ==
PROVIDERS: Family Provider Internal Medicine; PCP Internal Medicine; Referring Provider Internal Medicine Rheumatology; Visit Provider Internal Medicine Rheumatology
DX: M06.9 Rheumatoid arthritis, unspecified (principal)
CPT/HCPCS: 96365; 96372; J7050; J0129

== ENCOUNTER → 2019-12-12 13:20 | Outpatient (CLI) | payer MEDICARE, SELFPAY ==
[2019-09-12 13:58] VITALS: BMI 18.7
[2019-12-09 14:13] VITALS: BMI 18.7
--- NOTE | 2019-12-12 13:24 | BI_ITS ---
MAMMOGRAPHY - BILATERAL SCREENING REASON FOR EXAM: Female, 64 years old. Routine annual screening examination. PERTINENT HISTORY: Non-contributory. TECHNIQUE: Digital bilateral breast michele (3D mammographic acquisition) in the CC and MLO projections. 2-D mediolateral oblique (MLO) and craniocaudad (CC) views of both breasts were obtained. CAD: Full Field Digital Mammography with Computer Added Detection was performed. COMPARISON: Comparison is made with prior examination dated 12/21/2018 and 11/21/2017. FINDINGS: Breast Composition: The breasts are extremely dense, which lowers the sensitivity of mammography. There are no dominant masses or suspicious calcifications. No other significant abnormalities are identified. There has been no significant change since the prior study. BI/SCREEN MAMM (CAD) W/MICHELE BILAT IMPRESSION: Stable bilateral screening mammogram. Yearly follow-up mammogram recommended. (A) ASSESSMENT CATEGORY: BIRADS Category 1: Negative. A letter regarding these results will be sent to the patient by the facility within 30 days. Approximately 10% of breast cancers are not detected by mammography. A normal mammogram should not delay biopsy of a clinically suspicious abnormality. [id number] Electronically Signed: Shreyas Garcia, at 14:40 EDT , Service support ,
--- NOTE | 2019-12-12 13:40 | BD_ITS ---
STUDY: DUAL ENERGY X-RAY ABSORPTIOMETRY / DXA REASON FOR EXAM: Female, 64 years old. Age of ryan 56. Pat is 115# and 62 and quot; a loss of 1 and quot; per patient. Past hx of taking Fosamax and Boniva for a short time on both. Now she has been on Prolia x 2 injections. She takes a diuretic. Takes Prednisone for RA and has injections for pain in her back. Hx of a left THR and left thumb fx. She exercises a lot. TECHNIQUE: Bone Mineral Density (BMD) measurements of lumbar spine and right hip were obtained. COMPARISON: Comparison is made with prior study dated 08/10/2017. FINDINGS: Lumbar Spine (L1-L4): g/cm2 (0.860) / T-score (-2.6) / Z-score (-1.1) Findings are suggestive of osteoporosis with a high fracture risk. Right Femur Total: g/cm2 (0.706) / T-score (-2.4) / Z-score (-1.3) Right Femoral Neck: g/cm2 (0.667) / T-score (-2.7) / Z-score (-1.3) The T-Scores on the most recent prior examination were: Lumbar Spine (L1-L4): There has been worsening of bone density since the previous examination. Right Femur Total: which represents a worsening of 2.1%. BD/DXA BONE DENS W/VERT FX ASMT IMPRESSION: The patient is considered osteoporotic as outlined below according to World Geoff Organization (WHO) criteria with a high fracture risk. There has been worsening of bone density since the previous examination. Reference Information: The T-score is the number of standard deviations above or below the standard which is normal for young adults at their peak bone mineral density. The World Health Organization (WHO) interprets the T-scores as follows: Above -1 Normal bone density Between -1 and -2.5 Osteopenia Equal to / or below -2.5 Osteoporosis As a practical clinical guideline, osteopenia may be graded as follows: Mild -1 through -1.5 Moderate -1.6 through -2.0 Severe -2.1 through -2.4 The Z-score is the number of standard deviations above or below age-matched controls. A Z-score of less than -1.5 would be considered abnormal. References: 1. NIH Osteoporosis and Related Bone Diseases http://www.osteo.org 2. International Society for Clinical Densitometry http://www.iscd.org 3. National Osteoporosis Foundation http://www.nof.org Electronically Signed: Shreyas Garcia, at 13:51 EDT , Service support ,
== END ==
PROVIDERS: PCP Internal Medicine; Referring Provider Internal Medicine; Visit Provider Internal Medicine
DX: Z12.31 Encounter for screening mammogram for malignant neoplasm of breast (principal); Z78.0 Asymptomatic menopausal state; M81.0 Age-related osteoporosis without current pathological fracture
CPT/HCPCS: 77063; 77067; 77080; 77085

== ENCOUNTER → 2020-01-06 14:00 | Outpatient (CLI) | payer MEDICARE, SELFPAY ==
[2019-08-15 14:30] VITALS: BMI 19.2
[2019-12-09 14:13] VITALS: BMI 18.7
[2020-01-06 14:07] VITALS: BP 114/74; PULSE 78; RESP 16; TEMP 36.8; O2SAT 97; BMI 19.5
[2020-01-07 15:07] VITALS: BP 105/72; PULSE 68; RESP 18; TEMP 36.2; O2SAT 100; BMI 19.5
[2020-01-07] MEDS: Triamcinolone Acetonide 40 MG/ML Vial 25 MG IM (15:28)
[2020-01-07] MEDS: 0.9% NaCl Peripheral Flush Adult/Peds IV (15:33)
[2020-01-07] MEDS: 0.9% NaCl IVPB Med Flush (250 mL) 15 ML IV (15:59)
[2020-01-07 16:49] VITALS: BP 117/76; PULSE 58; RESP 16; O2SAT 100
== END ==
PROVIDERS: PCP Internal Medicine; Referring Provider Internal Medicine Rheumatology; Visit Provider Internal Medicine Rheumatology
DX: M06.9 Rheumatoid arthritis, unspecified (principal)
CPT/HCPCS: 96365; 96372; J7050; A4216; J0129

== ENCOUNTER → 2020-01-24 13:51 | Outpatient (CLI) | payer MEDICARE, SELFPAY ==
[2020-01-07 15:07] VITALS: BMI 19.5
[2020-01-24 15:21] LABS: Absolute Lymphocyte Count 1.44 X10^3/uL (0.83-4.51); Absolute Neutrophil Count 6.1 X10^3/uL (2.0-7.7); Basophil# 0.02 X10^3/uL; Basophil% 0.2 % (0-1); Eosinophil# 0.01 X10^3/uL; Eosinophils% 0.1 % (0-5); Hematocrit 44.2 % (37-47); Hemoglobin 14.4 g/dL (12.0-15.0); Lymphocyte # 1.44 X10^3/ul (4.0); Lymphocyte % 17.8 % (19-41); Mean Corp Hgb Conc 32.6 g/dL (32-36); Mean Corpuscular Hgb 29.5 pg (27.0-32.0); Mean Corpuscular Volume 90.6 fL (81-99); Mean Platelet Vol. 9.7 fl (6.2-12.0); Monocyte# 0.53 X10^3/uL; Monocyte% 6.5 % (0-10); NRBC Flagged by Analyzer 0 % (0-5); Neutrophil # 6.07 X10^3/uL (2.7-7.7); Platelet Count 344 K/mm3 (150-450); RBC Distribution Width CV 14.6 % (11.6-14.6); RBC Distribution Width SD 48.8 fl (35.1-43.9); Red Blood Count 4.88 M/mm3 (4.2-5.4); White Blood Count 8.1 K/mm3 (4.4-11.0)
[2020-01-24 16:02] LABS: AST(SGOT) 28 U/L (15-37); Alanine Aminotransfer ALT/SGPT 47 U/L (13-56); Albumin, Serum 3.5 g/dL (3.2-5.0); Alkaline Phosphatase 77 U/L (45-117); Anion Gap 6 (5-15); BUN 12 mg/dL (7-18); BUN/Creat Ratio 17.5 RATIO (10-20); Calcium,Total 9.1 mg/dL (8.5-10.1); Chloride 97 mmol/L (98-107); Creatinine, Serum 0.69 mg/dL (0.55-1.02); EST Glomerular Filtration Rate 92 mL/min (>60); Est Glom Filt Rate - Afr Amer 111 mL/min (>60); Globulin 3.4 g/dL (2.2-4.2); Glucose 88 mg/dL (74-106); Potassium 2.8 mmol/L (3.5-5.1); Protein, Total 6.9 g/dL (6.4-8.2); Sodium Level 138 mmol/L (136-145)
== END ==
PROVIDERS: PCP Internal Medicine; Referring Provider Internal Medicine Rheumatology; Visit Provider Internal Medicine Rheumatology
DX: M05.70 Rheumatoid arthritis with rheumatoid factor of unspecified site without organ or systems involvement (principal); M35.00 Sjogren syndrome, unspecified; M18.0 Bilateral primary osteoarthritis of first carpometacarpal joints; M47.897 Other spondylosis, lumbosacral region; H81.03 Meniere's disease, bilateral; E78.5 Hyperlipidemia, unspecified; J45.909 Unspecified asthma, uncomplicated; I89.0 Lymphedema, not elsewhere classified; Z79.899 Other long term (current) drug therapy
CPT/HCPCS: 36415; 80053; 85025

== ENCOUNTER → 2020-02-03 13:57 | Outpatient (CLI) | payer MEDICARE, SELFPAY ==
[2019-08-15 14:30] VITALS: BMI 19.2
[2020-01-07 15:07] VITALS: BMI 19.5
[2020-02-03 14:01] VITALS: BP 133/73; PULSE 63; RESP 18; O2SAT 100; BMI 19.5
[2020-02-03] MEDS: Triamcinolone Acetonide 40 MG/ML Vial 20 MG IM (14:29)
[2020-02-03] MEDS: 0.9% NaCl IVPB Med Flush (250 mL) 15 ML IV (14:36)
[2020-02-03] MEDS: 0.9% NaCl PICC Flush IV (14:37)
== END ==
PROVIDERS: PCP Internal Medicine; Referring Provider Internal Medicine Rheumatology; Visit Provider Internal Medicine Rheumatology
DX: M06.9 Rheumatoid arthritis, unspecified (principal)
CPT/HCPCS: 96372; J7050; A4216; J0129

== ENCOUNTER → 2020-03-03 13:56 | Outpatient (CLI) | payer MEDICARE, SELFPAY ==
[2019-08-15 14:30] VITALS: BMI 19.2
[2020-02-03 14:01] VITALS: BMI 19.5
[2020-03-03 14:03] VITALS: BP 125/79; PULSE 69; RESP 16; TEMP 35.8; O2SAT 100; BMI 19.7
[2020-03-03] MEDS: Triamcinolone Acetonide 40 MG/ML Vial 20 MG IM (14:16)
[2020-03-03] MEDS: 0.9% NaCl PICC Flush IV (14:24)
[2020-03-03 15:20] VITALS: BP 113/85; PULSE 58; RESP 16; TEMP 36.1; O2SAT 100
== END ==
PROVIDERS: PCP Internal Medicine; Referring Provider Internal Medicine Rheumatology; Visit Provider Internal Medicine Rheumatology
DX: M06.9 Rheumatoid arthritis, unspecified (principal)
CPT/HCPCS: 96365; 96372; A4216; J0129

== ENCOUNTER → 2020-03-31 13:57 | Outpatient (CLI) | payer MEDICARE, SELFPAY ==
[2020-03-03 14:03] VITALS: BMI 19.7
[2020-03-31 14:03] VITALS: BP 108/76; PULSE 81; RESP 16; TEMP 36.6; O2SAT 100; BMI 19.5
[2020-03-31] MEDS: Triamcinolone Acetonide 40 MG/ML Vial 20 MG IM (14:16)
[2020-03-31] MEDS: 0.9% NaCl Peripheral Flush Adult/Peds IV (14:23)
[2020-03-31] MEDS: 0.9% NaCl IVPB Med Flush (250 mL) 15 ML IV (14:27)
[2020-03-31 15:25] VITALS: BP 110/67; PULSE 80
== END ==
PROVIDERS: PCP Internal Medicine; Referring Provider Internal Medicine Rheumatology; Visit Provider Internal Medicine Rheumatology
DX: M06.9 Rheumatoid arthritis, unspecified (principal)
CPT/HCPCS: 96365; 96372; 96413; J7050; A4216; J0129

== ENCOUNTER → 2020-04-08 16:07 | Outpatient (CLI) | payer MEDICARE, SELFPAY ==
[2020-03-31 14:03] VITALS: BMI 19.5
--- NOTE | 2020-04-08 16:10 | RAD_ITS ---
STUDY: X-RAY - LEFT KNEE REASON FOR EXAM: Left knee pain for 2 months, no known injury. TECHNIQUE: 4 view(s) of the knee. COMPARISON: None. FINDINGS: There is osteopenia. Normal visualized distal femur. Normal visualized proximal tibia and fibula. Normal proximal tibiofibular articulation. Normal medial femorotibial compartment. Normal lateral femorotibial compartment. There is mild joint space narrowing of the patellofemoral articulation. There is vascular calcification. RAD/Knee 4 or More Views IMPRESSION: Mild patellofemoral arthrosis. Electronically Signed: Neri Chapin MD at 9:01 EST Tel , Service support ,
== END ==
PROVIDERS: PCP Internal Medicine; Referring Provider Internal Medicine; Visit Provider Internal Medicine
DX: M25.562 Pain in left knee (principal)
CPT/HCPCS: 73564

== ENCOUNTER → 2020-04-22 14:18 | Outpatient (CLI) | payer MEDICARE, SELFPAY ==
[2020-03-31 14:03] VITALS: BMI 19.5
[2020-04-22 17:48] LABS: Absolute Lymphocyte Count 1.17 X10^3/uL (0.83-4.51); Absolute Neutrophil Count 7.9 X10^3/uL (2.0-7.7); Basophil# 0.03 X10^3/uL; Basophil% 0.3 % (0-1); Eosinophil# 0.01 X10^3/uL; Eosinophils% 0.1 % (0-5); Hematocrit 48.2 % (37-47); Hemoglobin 15.5 g/dL (12.0-15.0); Lymphocyte # 1.17 X10^3/ul (4.0); Lymphocyte % 12.2 % (19-41); Mean Corp Hgb Conc 32.2 g/dL (32-36); Mean Corpuscular Hgb 29.8 pg (27.0-32.0); Mean Corpuscular Volume 92.7 fL (81-99); Mean Platelet Vol. 10.3 fl (6.2-12.0); Monocyte# 0.46 X10^3/uL; Monocyte% 4.8 % (0-10); NRBC Flagged by Analyzer 0 % (0-5); Neutrophil % 82.3 % (47-70); Platelet Count 306 K/mm3 (150-450); RBC Distribution Width SD 47.4 fl (35.1-43.9); White Blood Count 9.6 K/mm3 (4.4-11.0)
[2020-04-22 18:17] LABS: ALB/GLOB Ratio 1.1 RATIO (0.9-2.4); AST(SGOT) 32 U/L (15-37); Alanine Aminotransfer ALT/SGPT 57 U/L (13-56); Alkaline Phosphatase 110 U/L (45-117); Anion Gap 9 (5-15); BUN 9 mg/dL (7-18); BUN/Creat Ratio 11.2 RATIO (10-20); Calcium,Total 9.7 mg/dL (8.5-10.1); Chloride 97 mmol/L (98-107); EST Glomerular Filtration Rate 77 mL/min (>60); Est Glom Filt Rate - Afr Amer 93 mL/min (>60); Globulin 3.7 g/dL (2.2-4.2); Glucose 81 mg/dL (74-106); Protein, Total 7.7 g/dL (6.4-8.2); Sodium Level 136 mmol/L (136-145)
[2020-04-22 18:50] LABS: Potassium 2.5 mmol/L (3.5-5.1)
== END ==
PROVIDERS: PCP Internal Medicine; Referring Provider Internal Medicine Rheumatology; Visit Provider Internal Medicine Rheumatology
DX: M05.79 Rheumatoid arthritis with rheumatoid factor of multiple sites without organ or systems involvement (principal); M35.00 Sjogren syndrome, unspecified; M18.0 Bilateral primary osteoarthritis of first carpometacarpal joints; M47.897 Other spondylosis, lumbosacral region; H81.03 Meniere's disease, bilateral; E78.5 Hyperlipidemia, unspecified; J45.909 Unspecified asthma, uncomplicated; I89.0 Lymphedema, not elsewhere classified; Z79.899 Other long term (current) drug therapy
CPT/HCPCS: 36415; 80053; 85025

== ENCOUNTER 2020-04-28 13:57 | Outpatient (CLI) | payer MEDICARE, SELFPAY ==
[2020-03-03 14:03] VITALS: BMI 19.7
[2020-03-31 14:03] VITALS: BMI 19.5
[2020-04-28 14:08] VITALS: BP 101/72; PULSE 72; RESP 16; TEMP 36.2; O2SAT 98; BMI 19.5
[2020-04-28] MEDS: Triamcinolone Acetonide 40 MG/ML Vial 20 MG IM (14:14)
[2020-04-28] MEDS: 0.9% NaCl Peripheral Flush Adult/Peds IV (14:17)
[2020-04-28] MEDS: 0.9% NaCl IVPB Med Flush (250 mL) 15 ML IV (14:18)
[2020-04-28 15:33] VITALS: BP 110/74; PULSE 65; RESP 16; O2SAT 100
== END 2020-04-28 15:00 | disposition home or self-care (01) ==
LOC: MEDOUTP 13:57
PROVIDERS: PCP Internal Medicine; Referring Provider Internal Medicine Rheumatology; Visit Provider Internal Medicine Rheumatology
DX: M06.9 Rheumatoid arthritis, unspecified (principal)
CPT/HCPCS: 96365; 96372; 96413; J7050; A4216; J0129

== ENCOUNTER 2020-05-25 13:57 | Outpatient (CLI) | payer MEDICARE, SELFPAY ==
[2020-03-03 14:03] VITALS: BMI 19.7
[2020-05-25 14:04] VITALS: BP 111/82; PULSE 62; RESP 16; TEMP 36.6; O2SAT 100; BMI 19.5
[2020-05-25] MEDS: Triamcinolone Acetonide 40 MG/ML Vial 20 MG IM (14:17)
[2020-05-25] MEDS: 0.9% NaCl IVPB Med Flush (250 mL) 15 ML IV (14:32)
[2020-05-25] MEDS: 0.9% NaCl Peripheral Flush Adult/Peds IV (14:32)
[2020-05-25 15:22] VITALS: BP 120/67; PULSE 67; RESP 16
== END 2020-05-25 16:00 | disposition home or self-care (01) ==
LOC: MEDOUTP 13:57
PROVIDERS: PCP Internal Medicine; Referring Provider Internal Medicine Rheumatology; Visit Provider Internal Medicine Rheumatology
DX: M06.9 Rheumatoid arthritis, unspecified (principal)
CPT/HCPCS: 96365; 96372; 96413; J7050; A4216; J0129

== ENCOUNTER → 2020-06-23 13:59 | Outpatient (CLI) | payer MEDICARE, SELFPAY ==
[2020-03-03 14:03] VITALS: BMI 19.7
[2020-05-25 14:04] VITALS: BMI 19.5
[2020-06-23] MEDS: Triamcinolone Acetonide 40 MG/ML Vial 20 MG IM (14:23)
[2020-06-23] MEDS: 0.9% NaCl IVPB Med Flush (250 mL) 15 ML IV (14:40)
[2020-06-23 14:50] VITALS: BP 124/75; PULSE 69; RESP 16; O2SAT 100; BMI 19.5
[2020-06-23 15:47] VITALS: BP 122/79; PULSE 67; RESP 16; TEMP 36.9
== END ==
PROVIDERS: PCP Internal Medicine; Visit Provider Internal Medicine Rheumatology
DX: M06.9 Rheumatoid arthritis, unspecified (principal)
CPT/HCPCS: 96365; 96372; J7050; J0129

== ENCOUNTER → 2020-07-21 13:52 | Outpatient (CLI) | payer MEDICARE, SELFPAY ==
[2020-03-03 14:03] VITALS: BMI 19.7
[2020-06-23 14:50] VITALS: BMI 19.5
[2020-07-21 14:05] VITALS: BP 123/83; PULSE 75; RESP 16; TEMP 36.6; O2SAT 98; BMI 19.0
[2020-07-21] MEDS: Triamcinolone Acetonide 40 MG/ML Vial 20 MG IM (14:14)
[2020-07-21] MEDS: 0.9% NaCl Peripheral Flush Adult/Peds IV (14:29)
[2020-07-21] MEDS: 0.9% NaCl IVPB Med Flush (250 mL) 15 ML IV (14:29)
[2020-07-21 16:10] VITALS: BP 121/87; PULSE 60; RESP 16; TEMP 36.6; O2SAT 100
== END ==
PROVIDERS: PCP Internal Medicine; Referring Provider Internal Medicine Rheumatology; Visit Provider Internal Medicine Rheumatology
DX: M06.9 Rheumatoid arthritis, unspecified (principal)
CPT/HCPCS: 96365; 96372; J7050; A4216; J0129

== ENCOUNTER → 2020-08-18 13:58 | Outpatient (CLI) | payer MEDICARE, SELFPAY ==
[2020-03-03 14:03] VITALS: BMI 19.7
[2020-07-21 14:05] VITALS: BMI 19.0
[2020-08-18] MEDS: Triamcinolone Acetonide 40 MG/ML Vial 20 MG IM (14:30)
[2020-08-18] MEDS: 0.9% NaCl Peripheral Flush Adult/Peds IV (14:33)
[2020-08-18 14:35] VITALS: BP 105/84; PULSE 73; RESP 16; TEMP 36.1; O2SAT 99; BMI 19.3
[2020-08-18] MEDS: 0.9% NaCl IVPB Med Flush (250 mL) 15 ML IV (14:38)
[2020-08-18 15:22] VITALS: BP 116/74; PULSE 68; RESP 16; TEMP 36.1; O2SAT 100
== END ==
PROVIDERS: PCP Internal Medicine; Referring Provider Internal Medicine Rheumatology; Visit Provider Internal Medicine Rheumatology
DX: M06.9 Rheumatoid arthritis, unspecified (principal)
CPT/HCPCS: 96365; 96372; J7050; A4216; J0129

== ENCOUNTER → 2020-09-10 08:50 | Outpatient (CLI) | payer MEDICARE, SELFPAY ==
[2020-08-18 14:35] VITALS: BMI 19.3
[2020-09-10 08:56] VITALS: BP 117/75; PULSE 56; RESP 16; TEMP 36.4; O2SAT 100; BMI 19.3
[2020-09-10] MEDS: Triamcinolone Acetonide 40 MG/ML Vial 20 MG IM (09:15)
[2020-09-10] MEDS: 0.9% NaCl IVPB Med Flush (250 mL) 15 ML IV (09:27)
[2020-09-10] MEDS: 0.9% NaCl Peripheral Flush Adult/Peds IV (09:29)
== END ==
PROVIDERS: PCP Internal Medicine; Referring Provider Internal Medicine Rheumatology; Visit Provider Internal Medicine Rheumatology
DX: M06.9 Rheumatoid arthritis, unspecified (principal)
CPT/HCPCS: 96365; 96372; J7050; A4216; J0129

== ENCOUNTER → 2020-10-13 14:02 | Outpatient (CLI) | payer MEDICARE, SELFPAY ==
[2020-06-23 14:50] VITALS: BMI 19.5
[2020-09-10 08:56] VITALS: BMI 19.3
[2020-10-13] MEDS: Triamcinolone Acetonide 40 MG/ML Vial 20 MG IM (14:10)
[2020-10-13] MEDS: 0.9% NaCl Peripheral Flush Adult/Peds IV (14:13)
[2020-10-13 14:24] VITALS: BP 107/71; PULSE 64; RESP 16; TEMP 36; O2SAT 100; BMI 19.2
[2020-10-13] MEDS: 0.9% NaCl IVPB Med Flush (250 mL) 15 ML IV (14:35)
[2020-10-13 15:33] VITALS: BP 105/65; PULSE 58
== END ==
PROVIDERS: PCP Internal Medicine; Referring Provider Internal Medicine Rheumatology; Visit Provider Internal Medicine Rheumatology
DX: M06.9 Rheumatoid arthritis, unspecified (principal)
CPT/HCPCS: 96365; 96372; J7050; A4216; J0129

== ENCOUNTER → 2020-11-17 14:05 | Outpatient (CLI) | payer MEDICARE, SELFPAY ==
[2020-06-23 14:50] VITALS: BMI 19.5
[2020-11-17 14:12] VITALS: BP 117/85; PULSE 75; RESP 16; TEMP 36.3; O2SAT 100
[2020-11-17] MEDS: Triamcinolone Acetonide 40 MG/ML Vial 20 MG IM (14:35)
== END ==
PROVIDERS: PCP Internal Medicine; Referring Provider Internal Medicine Rheumatology; Visit Provider Internal Medicine Rheumatology
DX: M06.9 Rheumatoid arthritis, unspecified (principal)
CPT/HCPCS: 96365; 96372; J7050; A4216; J0129

== ENCOUNTER → 2020-12-14 12:56 | Outpatient (CLI) | payer MEDICARE, SELFPAY ==
[2020-10-13 14:24] VITALS: BMI 19.2
--- NOTE | 2020-12-14 12:59 | BI_ITS ---
MAMMOGRAPHY - BILATERAL SCREENING 3-D TOMOSYNTHESIS REASON FOR EXAM: Female, 65 years old. SCREENING PERTINENT HISTORY: No significant family history. TECHNIQUE: 2-D mammograms and 3-D Tomosynthesis of the breast (s) were performed. CAD was performed. COMPARISON: 12/12/2019 FINDINGS: The breast composition is Extermely dense tissue. Scattered benign calcifications are seen. No dense spiculated masses or suspicious microcalcifications are identified. No architectural distortion is identified. There is no skin thickening or retraction. There has been no significant change since the prior study. BI/SCRN MAMM (CAD)W/MICHELE BILAT IMPRESSION: No mammographic signs of malignancy. Routine yearly mammograms recommended. ASSESSMENT CATEGORY: BIRADS Category 1: Negative. A letter regarding these results will be sent to the patient by the facility within 30 days. FOLLOW UP RECOMMENDATION: Yearly follow up mammogram recommended. (A) Approximately 10% of breast cancers are not detected by mammography. A normal mammogram should not delay biopsy of a clinically suspicious abnormality. Electronically Signed: Higinio Garcia MD at 18:16 EDT Tel , Service support ,
== END ==
PROVIDERS: PCP Internal Medicine; Referring Provider Internal Medicine; Visit Provider Internal Medicine
DX: Z12.31 Encounter for screening mammogram for malignant neoplasm of breast (principal)
CPT/HCPCS: 77063; 77067

== ENCOUNTER → 2020-12-15 13:58 | Outpatient (CLI) | payer MEDICARE, SELFPAY ==
[2020-06-23 14:50] VITALS: BMI 19.5
[2020-12-15] MEDS: 0.9% NaCl Peripheral Flush Adult/Peds IV (14:20)
[2020-12-15] MEDS: Triamcinolone Acetonide 40 MG/ML Vial 20 MG IM (14:20)
[2020-12-15 14:27] VITALS: BP 104/72; PULSE 74; RESP 16; TEMP 36.4; BMI 19.0
[2020-12-15] MEDS: 0.9% NaCl IVPB Med Flush (250 mL) 15 ML IV (14:34)
[2020-12-15 15:32] VITALS: BP 109/71; PULSE 66; RESP 16; TEMP 36.4
== END ==
PROVIDERS: PCP Internal Medicine; Referring Provider Internal Medicine Rheumatology; Visit Provider Internal Medicine Rheumatology
DX: M06.9 Rheumatoid arthritis, unspecified (principal)
CPT/HCPCS: 96365; 96372; J7050; A4216; J0129

== ENCOUNTER → 2021-01-04 10:18 | Outpatient (CLI) | payer MEDICARE, SELFPAY ==
[2021-01-04 12:21] LABS: Absolute Lymphocyte Count 1.97 X10^3/uL (0.83-4.51); Absolute Neutrophil Count 3.1 X10^3/uL (2.0-7.7); Basophil# 0.03 X10^3/uL; Basophil% 0.5 % (0-1); Eosinophil# 0.06 X10^3/uL; Hematocrit 43.2 % (37-47); Hemoglobin 13.6 g/dL (12.0-15.0); Lymphocyte # 1.97 X10^3/ul (0.83-4.51); Lymphocyte % 33.4 % (19-41); Mean Corp Hgb Conc 31.5 g/dL (32-36); Mean Corpuscular Hgb 27.6 pg (27.0-32.0); Mean Corpuscular Volume 87.6 fL (81-99); Mean Platelet Vol. 9.9 fl (6.2-12.0); Monocyte# 0.73 X10^3/uL; Monocyte% 12.4 % (0-10); NRBC Flagged by Analyzer 0 % (0-5); Neutrophil # 3.09 X10^3/uL (2.7-7.7); Neutrophil % 52.4 % (47-70); Platelet Count 355 K/mm3 (150-450); RBC Distribution Width CV 15.1 % (11.6-14.6); RBC Distribution Width SD 48.7 fl (35.1-43.9); Red Blood Count 4.93 M/mm3 (4.2-5.4); White Blood Count 5.9 K/mm3 (4.4-11.0)
[2021-01-04 12:35] LABS: AST(SGOT) 34 U/L (15-37); Alanine Aminotransfer ALT/SGPT 54 U/L (13-56); Albumin, Serum 3.3 g/dL (3.2-5.0); Alkaline Phosphatase 70 U/L (45-117); Anion Gap 5 (5-15); BUN 10 mg/dL (7-18); BUN/Creat Ratio 12.8 RATIO (10-20); Calcium,Total 9.2 mg/dL (8.5-10.1); Chloride 100 mmol/L (98-107); Creatinine, Serum 0.78 mg/dL (0.55-1.02); EST Glomerular Filtration Rate 79 mL/min (>60); Est Glom Filt Rate - Afr Amer 95 mL/min (>60); Globulin 3.3 g/dL (2.2-4.2); Glucose 92 mg/dL (74-106); Potassium 3.2 mmol/L (3.5-5.1); Protein, Total 6.6 g/dL (6.4-8.2); Sodium Level 137 mmol/L (136-145)
== END ==
PROVIDERS: PCP Internal Medicine; Referring Provider Internal Medicine Rheumatology; Visit Provider Internal Medicine Rheumatology
DX: M05.79 Rheumatoid arthritis with rheumatoid factor of multiple sites without organ or systems involvement (principal); M35.00 Sjogren syndrome, unspecified; M19.041 Primary osteoarthritis, right hand; M18.0 Bilateral primary osteoarthritis of first carpometacarpal joints; M47.897 Other spondylosis, lumbosacral region; H81.03 Meniere's disease, bilateral; E78.5 Hyperlipidemia, unspecified; J45.909 Unspecified asthma, uncomplicated; I89.0 Lymphedema, not elsewhere classified; Z79.899 Other long term (current) drug therapy
CPT/HCPCS: 36415; 80053; 85025

== ENCOUNTER → 2021-01-12 13:50 | Outpatient (CLI) | payer MEDICARE, SELFPAY ==
[2020-06-23 14:50] VITALS: BMI 19.5
[2021-01-12 14:11] VITALS: BP 120/86; PULSE 64; RESP 16; TEMP 35.6; O2SAT 100
[2021-01-12] MEDS: 0.9% NaCl IVPB Med Flush (250 mL) 15 ML IV (14:14)
[2021-01-12] MEDS: Triamcinolone Acetonide 40 MG/ML Vial 20 MG IM (14:14)
[2021-01-12] MEDS: 0.9% NaCl Peripheral Flush Adult/Peds IV (14:19)
== END ==
PROVIDERS: PCP Internal Medicine; Referring Provider Internal Medicine Rheumatology; Visit Provider Internal Medicine Rheumatology
DX: M06.9 Rheumatoid arthritis, unspecified (principal)
CPT/HCPCS: 96365; 96372; J7050; A4216; J0129

== ENCOUNTER 2021-01-30 11:35 | Outpatient (CLI) | payer MEDICARE, SELFPAY ==
[2021-01-30] MEDS: 0.9% Saline Lock 10 ML Syringe IV (11:52)
[2021-01-30 11:58] VITALS: BP 123/74; PULSE 70; RESP 16; TEMP 36.7; O2SAT 100; BMI 18.1
[2021-01-30 12:37] VITALS: BP 109/64; PULSE 76; RESP 16; TEMP 37.1
[2021-01-30 13:37] VITALS: BP 104/68; PULSE 71; RESP 16; TEMP 37.4
== END 2021-01-30 13:42 | disposition home or self-care (01) ==
LOC: MS3OUT 11:35 → MS3 11:36
PROVIDERS: PCP Internal Medicine; Referring Provider Nurse Practitioner Acute Care; Visit Provider Nurse Practitioner Acute Care
DX: Z23 Encounter for immunization (principal); U07.1 COVID-19
CPT/HCPCS: J7050; M0245; Q0245; A4216

== ENCOUNTER → 2021-02-03 | Outpatient (CLI) | payer MEDICARE, SELFPAY ==
[2021-02-03 15:32] LABS: Absolute Lymphocyte Count 1.04 X10^3/uL (0.83-4.51); Absolute Neutrophil Count 5.9 X10^3/uL (2.0-7.7); Basophil# 0.01 X10^3/uL; Basophil% 0.1 % (0-1); Eosinophil# 0.01 X10^3/uL; Eosinophils% 0.1 % (0-5); Hematocrit 41.1 % (37-47); Hemoglobin 13.4 g/dL (12.0-15.0); Lymphocyte # 1.04 X10^3/ul (0.83-4.51); Mean Corp Hgb Conc 32.6 g/dL (32-36); Mean Corpuscular Volume 85.8 fL (81-99); Mean Platelet Vol. 9.7 fl (6.2-12.0); Monocyte# 0.41 X10^3/uL; Monocyte% 5.5 % (0-10); NRBC Flagged by Analyzer 0 % (0-5); Neutrophil # 5.92 X10^3/uL (2.7-7.7); Platelet Count 278 K/mm3 (150-450); RBC Distribution Width CV 14.6 % (11.6-14.6); RBC Distribution Width SD 45.4 fl (35.1-43.9); Red Blood Count 4.79 M/mm3 (4.2-5.4); White Blood Count 7.4 K/mm3 (4.4-11.0)
[2021-02-03 16:00] LABS: AST(SGOT) 38 U/L (15-37); Alanine Aminotransfer ALT/SGPT 51 U/L (13-56); Alkaline Phosphatase 71 U/L (45-117); Anion Gap 9 (5-15); BUN 8 mg/dL (7-18); BUN/Creat Ratio 12.2 RATIO (10-20); Calcium,Total 8.4 mg/dL (8.5-10.1); Chloride 97 mmol/L (98-107); Creatinine, Serum 0.66 mg/dL (0.55-1.02); EST Glomerular Filtration Rate 97 mL/min (>60); Est Glom Filt Rate - Afr Amer 117 mL/min (>60); Glucose 96 mg/dL (74-106); Lipase 190 U/L (73-393); Potassium 2.6 mmol/L (3.5-5.1); Sodium Level 138 mmol/L (136-145)
== END | disposition home or self-care (01) ==
LOC: LABSPEC 15:04
PROVIDERS: PCP Internal Medicine; Visit Provider Internal Medicine
DX: R11.0 Nausea (principal)
CPT/HCPCS: 80053; 83690; 85025

== ENCOUNTER → 2021-02-05 13:09 | Outpatient (CLI) | payer MEDICARE, SELFPAY ==
[2021-02-05 15:07] LABS: ALB/GLOB Ratio 0.9 RATIO (0.9-2.4); AST(SGOT) 33 U/L (15-37); Alanine Aminotransfer ALT/SGPT 55 U/L (13-56); Albumin, Serum 3.3 g/dL (3.2-5.0); Alkaline Phosphatase 75 U/L (45-117); Anion Gap 7 (5-15); BUN 7 mg/dL (7-18); BUN/Creat Ratio 9.4 RATIO (10-20); Calcium,Total 9.1 mg/dL (8.5-10.1); Chloride 97 mmol/L (98-107); Creatinine, Serum 0.75 mg/dL (0.55-1.02); EST Glomerular Filtration Rate 83 mL/min (>60); Est Glom Filt Rate - Afr Amer 101 mL/min (>60); Globulin 3.7 g/dL (2.2-4.2); Glucose 106 mg/dL (74-106); Potassium 2.9 mmol/L (3.5-5.1); Sodium Level 137 mmol/L (136-145)
== END ==
PROVIDERS: PCP Internal Medicine; Referring Provider Internal Medicine; Visit Provider Internal Medicine
DX: E86.0 Dehydration (principal)
CPT/HCPCS: 36415; 80053

== ENCOUNTER → 2021-02-15 | Outpatient (CLI) | payer MEDICARE, SELFPAY ==
[2021-02-15 16:09] LABS: Anion Gap 10 (5-15); BUN 10 mg/dL (7-18); BUN/Creat Ratio 13.3 RATIO (10-20); Calcium,Total 9.3 mg/dL (8.5-10.1); Chloride 94 mmol/L (98-107); Creatinine, Serum 0.75 mg/dL (0.55-1.02); EST Glomerular Filtration Rate 82 mL/min (>60); Est Glom Filt Rate - Afr Amer 99 mL/min (>60); Glucose 100 mg/dL (74-106); Sodium Level 136 mmol/L (136-145)
== END | disposition home or self-care (01) ==
LOC: LABSPEC 15:35
PROVIDERS: PCP Internal Medicine; Referring Provider Internal Medicine; Visit Provider Internal Medicine
DX: E87.6 Hypokalemia (principal)
CPT/HCPCS: 80048

== ENCOUNTER → 2021-02-16 13:57 | Outpatient (CLI) | payer MEDICARE, SELFPAY ==
[2021-02-16 14:04] VITALS: BP 123/80; PULSE 62; RESP 16; TEMP 36.1; O2SAT 100; BMI 18.0
[2021-02-16] MEDS: Triamcinolone Acetonide 40 MG/ML Vial 20 MG IM (14:19)
[2021-02-16] MEDS: 0.9% NaCl Peripheral Flush Adult/Peds IV (14:40)
[2021-02-16] MEDS: 0.9% NaCl IVPB Med Flush (250 mL) 15 ML IV (14:40)
[2021-02-16 15:40] VITALS: BP 101/64; PULSE 57; RESP 16; TEMP 36.6; O2SAT 100
== END ==
PROVIDERS: PCP Internal Medicine; Referring Provider Internal Medicine Rheumatology; Visit Provider Internal Medicine Rheumatology
DX: M06.9 Rheumatoid arthritis, unspecified (principal)
CPT/HCPCS: 96365; 96372; J7050; A4216; J0129

== ENCOUNTER 2021-03-30 13:59 | Outpatient (CLI) | payer MEDICARE, SELFPAY ==
[2021-03-30 14:14] VITALS: BP 127/92; PULSE 68; RESP 14; TEMP 35.8; O2SAT 96; BMI 18.8
[2021-03-30] MEDS: Triamcinolone Acetonide 40 MG/ML Vial 20 MG IM (14:24)
[2021-03-30] MEDS: 0.9% NaCl IVPB Med Flush (250 mL) 15 ML IV (14:34)
== END 2021-03-30 23:59 | disposition short-term general hospital (02) ==
LOC: MEDOUTP 14:00
PROVIDERS: PCP Internal Medicine; Referring Provider Internal Medicine Rheumatology; Visit Provider Internal Medicine Rheumatology
DX: M06.9 Rheumatoid arthritis, unspecified (principal)
CPT/HCPCS: 96365; 96372; J7050; A4216; J0129

== ENCOUNTER 2021-04-05 13:11 | Outpatient (CLI) | payer MEDICARE, SELFPAY ==
[2021-04-05 15:13] LABS: Absolute Lymphocyte Count 0.89 X10^3/uL (0.83-4.51); Absolute Neutrophil Count 8.2 X10^3/uL (2.0-7.7); Basophil# 0.03 X10^3/uL; Basophil% 0.3 % (0-1); Eosinophil# 0.02 X10^3/uL; Eosinophils% 0.2 % (0-5); Hematocrit 40.8 % (37-47); Hemoglobin 12.9 g/dL (12.0-15.0); Lymphocyte # 0.89 X10^3/ul (0.83-4.51); Lymphocyte % 9.2 % (19-41); Mean Corp Hgb Conc 31.6 g/dL (32-36); Mean Corpuscular Hgb 27.9 pg (27.0-32.0); Mean Corpuscular Volume 88.3 fL (81-99); Mean Platelet Vol. 9.4 fl (6.2-12.0); Monocyte# 0.49 X10^3/uL; Monocyte% 5.1 % (0-10); NRBC Flagged by Analyzer 0 % (0-5); Neutrophil # 8.19 X10^3/uL (2.7-7.7); Neutrophil % 84.8 % (47-70); Platelet Count 362 K/mm3 (150-450); RBC Distribution Width CV 15.9 % (11.6-14.6); RBC Distribution Width SD 51.3 fl (35.1-43.9); Red Blood Count 4.62 M/mm3 (4.2-5.4); White Blood Count 9.7 K/mm3 (4.4-11.0)
[2021-04-05 15:37] LABS: AST(SGOT) 56 U/L (15-37); Alanine Aminotransfer ALT/SGPT 102 U/L (13-56); Albumin, Serum 3.3 g/dL (3.2-5.0); Alkaline Phosphatase 69 U/L (45-117); Anion Gap 5 (5-15); BUN 9 mg/dL (7-18); Calcium,Total 9.1 mg/dL (8.5-10.1); Chloride 103 mmol/L (98-107); Creatinine, Serum 0.75 mg/dL (0.55-1.02); EST Glomerular Filtration Rate 83 mL/min (>60); Est Glom Filt Rate - Afr Amer 100 mL/min (>60); Globulin 3.3 g/dL (2.2-4.2); Glucose 105 mg/dL (74-106); Potassium 3.6 mmol/L (3.5-5.1); Protein, Total 6.6 g/dL (6.4-8.2); Sodium Level 137 mmol/L (136-145)
== END 2021-04-05 23:59 | disposition short-term general hospital (02) ==
LOC: MTLAB 13:13
PROVIDERS: PCP Internal Medicine; Referring Provider Internal Medicine Rheumatology; Visit Provider Internal Medicine Rheumatology
DX: M05.79 Rheumatoid arthritis with rheumatoid factor of multiple sites without organ or systems involvement (principal); M35.00 Sjogren syndrome, unspecified; Z79.899 Other long term (current) drug therapy; M19.041 Primary osteoarthritis, right hand; M18.0 Bilateral primary osteoarthritis of first carpometacarpal joints; M47.897 Other spondylosis, lumbosacral region; H81.03 Meniere's disease, bilateral; E78.5 Hyperlipidemia, unspecified; J45.909 Unspecified asthma, uncomplicated; I89.0 Lymphedema, not elsewhere classified
CPT/HCPCS: 36415; 80053; 85025

== ENCOUNTER 2021-04-28 09:50 | Outpatient (CLI) | payer MEDICARE, SELFPAY ==
[2021-04-28 10:09] VITALS: BP 120/78; PULSE 96; RESP 16; TEMP 35.8; O2SAT 100; BMI 19.2
[2021-04-28] MEDS: Triamcinolone Acetonide 40 MG/ML Vial 20 MG IM (10:34)
[2021-04-28] MEDS: 0.9% NaCl IVPB Med Flush (250 mL) 15 ML IV (10:40)
[2021-04-28] MEDS: 0.9% NaCl Peripheral Flush Adult/Peds IV (10:52)
[2021-04-28 11:38] VITALS: BP 120/80; PULSE 91; RESP 16; TEMP 36.3
== END 2021-04-28 23:59 | disposition home or self-care (01) ==
LOC: MEDOUTP 09:51
PROVIDERS: PCP Internal Medicine; Referring Provider Internal Medicine Rheumatology; Visit Provider Internal Medicine Rheumatology
DX: M06.9 Rheumatoid arthritis, unspecified (principal)
CPT/HCPCS: 96365; 96372; J7050; A4216; J0129

== ENCOUNTER 2021-05-17 15:22 | Outpatient (CLI) | payer MEDICARE, SELFPAY ==
[2021-05-17 18:46] LABS: ALB/GLOB Ratio 1.2 RATIO (0.9-2.4); AST(SGOT) 39 U/L (15-37); Alanine Aminotransfer ALT/SGPT 57 U/L (13-56); Albumin, Serum 3.8 g/dL (3.2-5.0); Alkaline Phosphatase 66 U/L (45-117); Anion Gap 7 (5-15); BUN 11 mg/dL (7-18); BUN/Creat Ratio 13.1 RATIO (10-20); Calcium,Total 9.6 mg/dL (8.5-10.1); Chloride 98 mmol/L (98-107); Creatinine, Serum 0.84 mg/dL (0.55-1.02); EST Glomerular Filtration Rate 72 mL/min (>60); Est Glom Filt Rate - Afr Amer 87 mL/min (>60); Globulin 3.2 g/dL (2.2-4.2); Glucose 100 mg/dL (74-106); Magnesium 2.2 mg/dL (1.6-2.6); Sodium Level 137 mmol/L (136-145)
== END 2021-05-17 23:59 | disposition home or self-care (01) ==
LOC: MTLAB 15:24
PROVIDERS: PCP Internal Medicine; Referring Provider Internal Medicine; Visit Provider Internal Medicine
DX: E87.6 Hypokalemia (principal)
CPT/HCPCS: 36415; 80053; 83735

== ENCOUNTER 2021-05-25 14:00 | Outpatient (CLI) | payer MEDICARE, SELFPAY ==
[2021-05-25 14:23] VITALS: BP 124/82; PULSE 81; RESP 16; TEMP 36.5; BMI 18.8
[2021-05-25] MEDS: Triamcinolone Acetonide 40 MG/ML Vial 20 MG IM (14:30)
[2021-05-25] MEDS: 0.9% NaCl IVPB Med Flush (250 mL) 15 ML IV (14:36)
[2021-05-25] MEDS: 0.9% NaCl Peripheral Flush Adult/Peds IV (14:37)
== END 2021-05-25 23:59 | disposition home or self-care (01) ==
LOC: MEDOUTP 14:01
PROVIDERS: PCP Internal Medicine; Referring Provider Internal Medicine Rheumatology; Visit Provider Internal Medicine Rheumatology
DX: M06.9 Rheumatoid arthritis, unspecified (principal)
CPT/HCPCS: 96365; 96372; J7050; A4216; J0129

== ENCOUNTER 2021-06-29 14:07 | Outpatient (CLI) | payer MEDICARE, SELFPAY ==
[2021-06-29] MEDS: Triamcinolone Acetonide 40 MG/ML Vial 20 MG IM (14:21)
[2021-06-29] MEDS: 0.9% NaCl Peripheral Flush Adult/Peds IV (14:24)
[2021-06-29] MEDS: 0.9% NaCl IVPB Med Flush (250 mL) 15 ML IV (14:30)
[2021-06-29 14:42] VITALS: BP 104/75; PULSE 46; RESP 16; O2SAT 94
[2021-06-29 15:30] VITALS: BP 131/81; PULSE 87; RESP 16; O2SAT 100
== END 2021-06-29 23:59 | disposition home or self-care (01) ==
PROVIDERS: PCP Internal Medicine; Referring Provider Internal Medicine Rheumatology; Visit Provider Internal Medicine Rheumatology
DX: M06.9 Rheumatoid arthritis, unspecified (principal)
CPT/HCPCS: 96365; 96372; J7050; A4216; J0129

== ENCOUNTER → 2021-07-09 | Outpatient (CLI) | payer MEDICARE, SELFPAY ==
[2021-07-09 14:58] LABS: Absolute Lymphocyte Count 0.85 X10^3/uL (0.83-4.51); Absolute Neutrophil Count 7.8 X10^3/uL (2.0-7.7); Basophil# 0.03 X10^3/uL; Basophil% 0.3 % (0-1); Eosinophil# 0.02 X10^3/uL; Eosinophils% 0.2 % (0-5); Hematocrit 39.8 % (37-47); Hemoglobin 12.3 g/dL (12.0-15.0); Lymphocyte # 0.85 X10^3/ul (0.83-4.51); Lymphocyte % 9.2 % (19-41); Mean Corp Hgb Conc 30.9 g/dL (32-36); Mean Corpuscular Hgb 26.4 pg (27.0-32.0); Mean Corpuscular Volume 85.4 fL (81-99); Mean Platelet Vol. 10.2 fl (6.2-12.0); Monocyte# 0.48 X10^3/uL; Monocyte% 5.2 % (0-10); NRBC Flagged by Analyzer 0 % (0-5); Neutrophil # 7.84 X10^3/uL (2.7-7.7); Neutrophil % 84.8 % (47-70); Platelet Count 343 K/mm3 (150-450); RBC Distribution Width CV 14.6 % (11.6-14.6); RBC Distribution Width SD 45.6 fl (35.1-43.9); Red Blood Count 4.66 M/mm3 (4.2-5.4); White Blood Count 9.3 K/mm3 (4.4-11.0)
[2021-07-09 15:26] LABS: ALB/GLOB Ratio 1.2 RATIO (0.9-2.4); AST(SGOT) 33 U/L (15-37); Alanine Aminotransfer ALT/SGPT 51 U/L (13-56); Albumin, Serum 3.5 g/dL (3.2-5.0); Alkaline Phosphatase 51 U/L (45-117); Anion Gap 7 (5-15); BUN 13 mg/dL (7-18); BUN/Creat Ratio 15.7 RATIO (10-20); Chloride 102 mmol/L (98-107); Creatinine, Serum 0.83 mg/dL (0.55-1.02); EST Glomerular Filtration Rate 74 mL/min (>60); Est Glom Filt Rate - Afr Amer 89 mL/min (>60); Glucose 94 mg/dL (74-106); Protein, Total 6.5 g/dL (6.4-8.2); Sodium Level 140 mmol/L (136-145)
[2021-07-09 15:41] LABS: Potassium 2.6 mmol/L (3.5-5.1)
== END | disposition home or self-care (01) ==
LOC: MTLAB 12:36
PROVIDERS: PCP Internal Medicine; Referring Provider Internal Medicine Rheumatology; Visit Provider Internal Medicine Rheumatology
DX: M05.79 Rheumatoid arthritis with rheumatoid factor of multiple sites without organ or systems involvement (principal); M35.00 Sjogren syndrome, unspecified; M19.041 Primary osteoarthritis, right hand; M18.0 Bilateral primary osteoarthritis of first carpometacarpal joints; M47.897 Other spondylosis, lumbosacral region; H81.03 Meniere's disease, bilateral; E78.5 Hyperlipidemia, unspecified; J45.909 Unspecified asthma, uncomplicated; I89.0 Lymphedema, not elsewhere classified; Z79.899 Other long term (current) drug therapy
CPT/HCPCS: 36415; 80053; 85025

== ENCOUNTER → 2021-07-27 | Outpatient (CLI) | payer MEDICARE, OTHER, SELFPAY ==
[2021-07-27 14:03] VITALS: BP 126/72; PULSE 80; RESP 16; TEMP 36.1
[2021-07-27] MEDS: Triamcinolone Acetonide 40 MG/ML Vial 20 MG IM (14:38)
== END | disposition home or self-care (01) ==
PROVIDERS: PCP Internal Medicine; Referring Provider Internal Medicine Rheumatology; Visit Provider Internal Medicine Rheumatology
DX: M06.9 Rheumatoid arthritis, unspecified (principal)
CPT/HCPCS: 96372

== ENCOUNTER → 2021-07-30 | Outpatient (CLI) | payer MEDICARE, OTHER, SELFPAY ==
[2021-07-30 14:00] VITALS: BP 125/80; PULSE 68; RESP 16; TEMP 35.9; O2SAT 100
[2021-07-30] MEDS: 0.9% NaCl IVPB Med Flush (250 mL) 15 ML IV (14:05)
[2021-07-30] MEDS: 0.9% NaCl Peripheral Flush Adult/Peds IV (14:05)
[2021-07-30 15:05] VITALS: BP 117/78; PULSE 94; RESP 16; TEMP 36.4
== END | disposition home or self-care (01) ==
LOC: MEDOUTP 13:27
PROVIDERS: PCP Internal Medicine; Referring Provider Internal Medicine Rheumatology; Visit Provider Internal Medicine Rheumatology
DX: M06.9 Rheumatoid arthritis, unspecified (principal)
CPT/HCPCS: 96365; J7050; A4216; J0129